=== PATIENT | female | born 1945 | race Caucasian/White ===

== ENCOUNTER 2024-05-09 19:33 | Outpatient (OUT) | payer OTHER, SELFPAY | END 2024-05-09 19:34 | disposition home or self-care (01) | LOC: SLEEP 19:33 | PROVIDERS: PCP Physician Assistant; Visit Provider Physician Assistant | DX: G47.33 Obstructive sleep apnea (adult) (pediatric) (principal) | CPT/HCPCS: 95811 ==

== ENCOUNTER 2025-04-04 08:45 | Outpatient (OUT) | payer MEDICARE, SELFPAY ==
--- OUTSIDE RECORDS SUMMARY | 2025-03-28 22:59 | XMS_ITS | Continuity of Care Document ---
Author Organization [facility] Address [address] [place] [address] Care Team Providers Care Hand Spinner Name Role Phone IRVINGALEXANDER PARRA Primary Care Physician [phone] Encounter FT_AMBFIN [id number] Date(s): 03/28/25 - 03/28/25 [facility] [address] [place] [address] [facility] [place] [address]- [place] Encounter Diagnosis Bilateral renal cysts(Discharge Diagnosis) - 03/28/25 Mixed incontinence(Discharge Diagnosis) - 03/28/25 History of UTI(Discharge Diagnosis) - 03/28/25 Vaginal atrophy(Discharge Diagnosis) - 03/28/25 Discharge Disposition: Home (Routine DC) Attending Physician: Flor Iraheta PA-C Encounter Type: Clinic Allergies, Adverse Reactions, Alerts SubstanceCriticalitySeverityReactionReaction SeverityStatusCiproLow criticality MildHivesActive Immunizations Given and Recorded VaccineDateStatusRefusal Reasoninfluenza virus vaccine, ojxiouuaila39/6/25 Recordedinfluenza virus vaccine, uhqwdlbybbw80/18/24Recordedinfluenza virus vaccine, wiicangwevv49/16/23Recordedinfluenza virus vaccine, inactivated02/24/22 Recordedinfluenza virus vaccine, pexgylhynep35/2/21Recordedinfluenza virus vaccine, bpuoyjzenzn39/6/20Recordedinfluenza virus vaccine, pvejavsqunl90/6/19 Recordedinfluenza virus vaccine, hxbhzrldgpr759Recordedinfluenza virus vaccine, ktdjdobiycp06/15/Recordedinfluenza virus vaccine, jwvxszimdex31/1/15 Recordeddiphtheria/pertussis, acel/tetanus adult11/05/24Recordedpneumococcal 23- valent /12/24Recordedpneumococcal 23-valent vaccine08/13/19RecordedRSV vaccine preF3, eyebuywhwqi55/16/83GgncvnthDBFE-HkC-0 (COVID-19) mRNAMUL.ORD![id number]/1885LuwwkqtkFWYOOoG8 mRNA(daoyhcthe-ptsb-jydaik) vac10/14/21 ZqfikojrPOUS-CeZ-0 (COVID-19) mRNA BNT-162b2 vax10//56RoodpxulTVLO-PwN-4 (COVID-19) mRNA BNT-162b2 vax3//56DhlqkqemXJIY-SjP-9 (COVID-19) mRNA BNT-162b2 vax2/Recordedzoster vaccine, inactivated10/07/18Recordedzoster vaccine, inactivated07/28/18Recordedpneumococcal 13-valent vaccine07/28/18Recorded 1Result Comment: 2023-05-06: [facility] Medications acyclovir 200 mg Cap 200 mg = 1 cap(s), Oral, BID, Refills(s) 0 Start Date: 09/01/23 Status: Ordered Medication Dispense Status: Completed Total Allowed Fills: 1 Fills Dispensed: 0 Melanie 24 Hour Allergy Refills(s) 0 Start Date: 09/01/23 Status: Ordered Medication Dispense Status: Completed Total Allowed Fills: 1 Fills Dispensed: 0 calcium (as carbonate) 600 mg oral tablet 600 mg = 1 tab(s), Oral, Daily Start Date: 10/17/24 Status: Ordered Medication Dispense Status: Completed Total Allowed Fills: 1 Fills Dispensed: 0 ClonazePAM 0.5 mg Tab Refills(s) 0 Start Date: 09/01/23 Status: Ordered Medication Dispense Status: Completed Total Allowed Fills: 1 Fills Dispensed: 0 Effexor XR 75 mg Cap-ER 75 mg = 1 cap(s), Oral, Daily Start Date: 10/17/24 Status: Ordered Medication Dispense Status: Completed Total Allowed Fills: 1 Fills Dispensed: 0 Estrace 0.1 mg/g Cream See Instructions, 42.5 gm, Refill(s) 2, Apply pea sized amount to external urethra/vaginal area 3x a week for 1 month, then 2x a week afterwards, [facility] [id number], 165, cm, 09/01/23 10:37:00 EDT, Height/Length Dosing, 70.5, kg, 09/01/23 10:37:00 EDT, Weight Dosing Start Date: 03/19/24 Status: Ordered Medication Dispense Status: Completed Quantity: 42.5 Unit: g Total Allowed Fills: 3 Fills Dispensed: 0 Lyrica 50 mg Cap 50 mg = 1 cap(s), Oral, Daily Start Date: 10/17/24 Status: Ordered Medication Dispense Status: Completed Total Allowed Fills: 1 Fills Dispensed: 0 Macrobid 100 mg Cap 100 mg = 1 cap(s), Oral, BID, Start medication the day prior to the procedure., X 3 day(s), # 6 cap(s), Refills(s) 0, Pharmacy: [facility] [id number], 165, cm, 03/28/25 14:27:00 EDT, Height/LengthDosing, 69.9, kg, 03/28/25 14:27:00 EDT, Weight Dosing Start Date: 03/28/25 Stop Date: 03/31/25 Status: Ordered Medication Dispense Status: Completed Quantity: 6.0 Unit: cap(s) Total Allowed Fills: 1 Fills Dispensed: 0 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 antibiotics; Protonix 40 mg Tab-DR 40 mg = 1 tab(s), Oral, Daily Start Date: 10/17/24 Status: Ordered Medication Dispense Status: Completed Total Allowed Fills: 1 Fills Dispensed: 0 simvastatin 10 mg Tab 10 mg = 1 tab(s), Oral, qPM Start Date: 10/17/24 Status: Ordered Medication Dispense Status: Completed Total Allowed Fills: 1 Fills Dispensed: 0 Problem List ConditionConfirmationCourseEffective DatesStatusHealth StatusInformantAllergic rhinitisConfirmedActiveAnxietyConfirmedActiveVaginal atrophyConfirmedActive Cervical spondylosisConfirmedActiveConstipation, chronicConfirmedActiveBilateral renal cystsConfirmedActiveGeneralized osteoarthritisConfirmedActiveDepression ConfirmedActiveFibromyalgiaConfirmedActiveGERD (gastroesophageal reflux disease) ConfirmedActiveGenital herpesConfirmedActiveHip pain, bilateralConfirmedActive History of UTIConfirmedActiveHyperlipemiaConfirmedActiveCognitive decline ConfirmedActiveMixed incontinenceConfirmedActiveInsomniaConfirmedActive CervicalgiaConfirmedActiveSleep apneaConfirmedActiveUTI symptomsConfirmedActive Procedures ProcedureDateRelated DiagnosisBody SiteStatusInjection of substance into bladder wall01/19/24CompletedArthroscopyCompletedCataractCompletedCholecystectomy CompletedColonoscopyCompletedDilation and curettageCompletedLigation of fallopian tube (procedure)CompletedTubal ligationCompleted Social History Social History TypeResponseSmoking StatusNever (less than 100 in lifetime);Never entered on: 03/28/25Birth SexFemaleSex RepresentationFemale (finding) Hospital Discharge Instructions Patient Education 03/28/2025 14:49:21 Botulinum Toxin Bladder Injection Botulinum Toxin Bladder Injection A botulinum toxin bladder injection is a procedure to treat an overactive bladder. During the procedure, a drug called botulinum toxin is injected into the bladder through a long, thin needle. This drug relaxes the bladder muscles and reduces overactivity. You may need this procedure if your medicines are not working or you cannot take them. The procedure may be repeated as needed. The treatment is done once and it usually lasts for 6 months. Your health care provider will monitor you to see how well you respond. Tell a health care provider about: ??? Any allergies you have. ??? All medicines you are taking, including vitamins, herbs, eye drops, creams, and tktk-afn-sxmabyf medicines. ??? Any problems you or family members have had with anesthetic medicines. ??? Any bleeding problems you have. ??? Any surgeries you have had. ??? Any medical conditions you have. ??? Any previous reactions to a botulinum toxin injection. ??? Any symptoms of urinary tract infection. These include chills, fever, a burning feeling when passing urine, and needing to pass urine often. ??? Whether you are or may be . What are the risks? Generally this is a safe procedure. However, problems may occur, including: ??? Not being able to pass urine. If this happens, you may need to have your bladder emptied with athin tube (urinary catheter). ??? Bleeding. ??? Urinary tract infection. ??? Allergic reaction to the botulinum toxin. ??? Pain or burning when passing urine. ??? Damage to nearby structures or organs. What happens before the procedure? When to stop eating and drinking Follow instructions from your health care provider about what you may eat and drink before your procedure. These may include: ??? 8 hours before the procedure ??? Stop eating most foods. Do not eat meat, fried foods, or fatty foods. ??? Eat only light foods, such as toast or crackers. ??? All liquids are okay except energy drinks and alcohol. ??? 6 hours before the procedure ??? Stop eating. ??? Drink only clear liquids, such as water, clear fruit juice, black coffee, plain tea, and sportsdrinks. ??? Do not drink energy drinks or alcohol. ??? 2 hours before the procedure ??? Stop drinking all liquids. ??? You may be allowed to take medicines with small sips of water. If you do not follow your health care provider's instructions, your procedure may be delayed or canceled. Medicines Ask your health care provider about: ??? Changing or stopping your regular medicines. This is especially important if you are taking diabetes medicines or blood thinners. ??? Taking medicines such as aspirin and ibuprofen. These medicines can thin your blood. Do not take these medicines unless your health care provider tells you to take them. ??? Taking znsu-iao-fljiods medicines, vitamins, herbs, and supplements. General instructions ??? Ask your health care provider what steps will be taken to help prevent infection. These steps may include: ??? Removing hair at the procedure site. ??? Washing skin with a germ-killing soap. ??? Taking antibiotic medicine. ??? If you will be going home right after the procedure, plan to have a responsible adult: ??? Take you home from the hospital or clinic. You will not be allowed to drive. ??? Care for you for the time you are told. What happens during the procedure? You will be asked to empty your bladder. ??? An IV will be inserted into one of your veins. ??? You will be given one or more of the following: ??? A medicine to help you relax (sedative). ??? A medicine to numb the area (local anesthetic). ??? A medicine to make you fall asleep (general anesthetic). ??? A long, thin scope called a cystoscope will be passed into your bladder through the part of thebody that carries urine from your bladder (urethra). ??? The cystoscope will be used to fill your bladder with water. ??? A long needle will be passed through the cystoscope and into the bladder. ??? The botulinum toxin will be injected into your bladder. It may be injected into multiple areas of your bladder. ??? The cystoscope will be removed and your bladder will be emptied with a urinary catheter. The procedure may vary among health care providers and hospitals. What can I expect after the procedure? After your procedure, it is common to have: ??? Blood-tinged urine. ??? Burning or soreness when you pass urine. Follow these instructions at home: Medicines ??? Take cgej-fwa-qpevwvg and prescription medicines only as told by your health care provider. ??? If you were prescribed an antibiotic medicine, take it as told by your health care provider. Donot stop using the antibiotic even if you start to feel better. General instructions ??? If you were given a sedative during the procedure, it can affect you for several hours. Do not drive or operate machinery until your health care provider says that it is safe. ??? Drink enough fluid to keep your urine pale yellow. ??? Return to your normal activities as told by your health care provider. Ask your health care provider what activities are safe for you. ??? Keep all follow-up visits. Contact a health care provider if you have: ??? A fever or chills. ??? Blood-tinged urine for more than one day after your procedure. ??? Worsening pain or burning when you pass urine. ??? Pain or burning when passing urine for more than two days after your procedure. ??? Trouble emptying your bladder. Get help right away if you: ??? Have bright red blood in your urine. ??? Are unable to pass urine. Summary ??? A botulinum toxin bladder injection is a procedure to treat an overactive bladder. ??? This is generally a safe procedure. However, problems may occur, including not being able to pass urine, bleeding, infection, pain, and an allergic reaction to the botulinum toxin. ??? You will be told when to stop eating and drinking, and what medicines to change or stop. Followinstructions carefully. ??? After the procedure, it is common to have blood in your urine and to have soreness or burning when passing urine. ??? Contact a health care provider if you have a fever, blood in your urine for more than a few days, or trouble passing urine. Get help right away if you have bright red blood in your urine, or if you are unable to pass urine. This information is not intended to replace advice given to you by your health care provider. Make sure you discuss any questions you have with your health care provider. Document Revised: 11/20/2021 Document Reviewed: 11/20/2021 [employer] Patient Education ?? 2023 [employer]. Follow Up Care 03/11/2025 13:53:15 With:Liu UNGER, ANISHA Holloway, [facility] Address: [address] [place] [address]- When: Unknown Comments:Pending Botox?? Patient Care team information Care Team Personnel Name: ALEXANDER MUNOZ Member Role: Primary Care Physician Address: [address] [place] [id number] Telecom: Name: Shruthi Saldana Position: [employer]: Claims Followup Rep (Janny) Member Role: [employer]: Claims Followup Rep (Janny) Care Team Related Persons Name: GRANT HARRELL Name: GRANT HARRELL Insurance Providers Guarantor name: Health Plan Information #: 1 Payer: MARY Payer Identifier: [id number] Member Number: [id number] Group Number: [id number] Subscriber Identifier: [id number] Relationship to Subscriber: self Coverage Type: MEDICARE Coverage Verification Date: Telecom: [phone] Address: [address] [address]
--- OUTSIDE RECORDS SUMMARY | 2025-04-04 08:53 | XMS_ITS | Clinical Summary ---
Author Organization [facility] Address [address] [place] [address] Care Team Providers Care Solid Waste Management Engineer Name Role Phone Yadiel Dick Janusz Primary Care Provider [phone] Prema Dudley PLATING EQUIPMENT TENDER Unavailable [phone] Allergies Active AllergyReactionsCriticalityNoted CczlWwwaockpTxnvzygqivvwfMohxt48/23/2019 Medications MedicationSigDispense QuantityRefillsLast FilledStart DateEnd DateStatus simvastatin (ZOCOR) 10 mg tablet Take 10 mg by mouth daily at bedtime. 08/31/2018Active zolpidem (AMBIEN) 10 mg tab Take 10 mg by mouth daily at bedtime. 10/10/2018Active ALPRAZolam (XANAX) 0.5 mg tablet Take 0.5 mg by mouth at bedtime as needed. 08/01/2018Active acyclovir (ZOVIRAX) 200 mg capsule Take 200 mg by mouth twice daily. 09/24/2018Active citalopram (CELEXA) 40 mg tablet Take 40 mg by mouth once daily.Active omeprazole (PRILOSEC) 20 mg capsule Take 1 capsule by mouth daily at bedtime.10/25/2018Active Active Problems ProblemNoted DateDiagnosed DatePrimary osteoarthritis of both first carpometacarpal oqilld7612/26/2018Osteoarthritis of carpometacarpal joint of left thumb11/14/2018Thumb pain, left11/14/2018Thumb joint xnipfmhde72/18/2019HLD (hyperlipidemia)10/25/2018 Assessment & Plan (10/25/2018 9:17 AM EDT): Assessment: on Zocor Lxcnevi0410/25/2018 Assessment & Plan (10/25/2018 9:17 AM EDT): Assessment: and depression. On Celexa. Takes Xanax prn for anxiety. Denies SI/HI AYDEE (obstructive sleep apnea)10/25/2018 Overview (10/25/2018): doesn't tolerate CPAP Assessment & Plan (10/25/2018 9:17 AM EDT): Assessment: does not use CPAP Oljbrp5310/25/2018 Assessment & Plan (10/25/2018 9:18 AM EDT): Assessment: mild Fzqcpmmpvxf97/29/2019 Assessment & Plan (10/25/2018 9:18 AM EDT): Assessment: chronic, asymptomatic GERD (gastroesophageal reflux disease)10/25/2018 Assessment & Plan (10/25/2018 9:18 AM EDT): Assessment: takes Omeprazole at hs Encounters DateTypeDepartmentCare DjobWqwkrxjjfox19/13/2025 [facility] [place] [address] Isabel Sanderson RPh At your next appointment, [facility] Family History Medical HistoryRelationCommentsCancerFatherlungAneurysmMothercerebralRelation StatusCommentsFatherMotherDeceased Social History Tobacco UseTypesPacks/DayYears UsedDateSmoking Tobacco: NeverSmokeless Tobacco: NeverAlcohol UseStandard Drinks/WeekCommentsYes0 (1 standard drink = 0.6 oz pure alcohol)1 glass per [facility] UtilitiesAnswerDate RecordedIn the past 12 months has the [employer], gas, oil, or water Family Pet threatened to shut off services in your home?No08/23/2023Social Connection and Isolation PanelAnswerDate RecordedIn a typical week, how many times do you talk on the phone with family, friends, or neighbors?More than three times a week08/23/2023How often do you get together with friends or relatives?Three times a week08/23/2023How often do you attend roman catholic or jehovah's witness services?Never08/23/2023o you belong to any clubs or organizations such as roman catholic groups, unions, fraternal or athletic groups, or school groups?No08/23/2023How often do you attend meetings of the clubs or organizations you belong to?Never08/23/2023re you , , , , never , or living with a partner?Nemxqurj92/26/2024UDIT-C AnswerDate RecordedQ1: How often do you have a drink containing alcohol?Never 08/23/2023Q2: How many drinks containing alcohol do you have on a typical day when you are drinking?Patient does not drink08/23/2023Q3: How often do you have six or more drinks on one occasion?Never08/23/2023Overall Financial Resource Strain (CARDIA)AnswerDate RecordedHow hard is it for you to pay for the very basics like food, housing, medical care, and heating?Not very hard08/23/2023 PHQ-2AnswerDate RecordedPHQ-2 zntse53608/23/2023[facility] Occup[facility] - Occupational Stress QuestionnaireAnswerDate RecordedDo you feel stress - tense, restless, nervous, or anxious, or unable to sleep at night because your mind is troubled all the time - these days?Only a psjkbb6608/23/2023Exercise Vital SignAnswerDate RecordedOn average, how many days per week do you engage in moderate to strenuous exercise (like a brisk walk)?0 days08/23/2023On average, how many minutes do you engage in exercise at this level?0 min08/23/2023Hunger Vital SignAnswerDate RecordedWithin the past 12 months, you worried that your food would run out before you got the money to buymore.Never true08/23/2023 Within the past 12 months, the food you bought just didn't last and you didn't have money to get more.Never true08/23/2023RAPARE - TransportationAnswerDate RecordedIn the past 12 months, has lack of transportation kept you from medical appointments or from getting medications?No08/23/2023In the past 12 months, has lack of transportation kept you from meetings, work, or from getting things needed for daily living?No08/23/2023Housing Stability Vital SignAnswerDate RecordedIn the last 12 months, was there a time when you were not able to pay the mortgage or rent on time?Yes08/23/2023In the last 12 months, how many places have you lived?In the last 12 months, was there a time when you did not have a steady place to sleep or slept in ashelter (including now)?No 08/23/2023rea Deprivation IndexAnswerDate RecordedNational Score (1-100), lower number is lower ggdv699408/23/2023State Score (1-10), lower number is lower risk7 08/23/2023ata from: https://www.neighborhoodatlas.medicine.[facility].edu/. Last address used for srjuagkvvdp[address] [facility]08/23/2023CommentsNoSex and Gender InformationValueDate RecordedSex Assigned at UsqjcEkteli59/15/2024 8:02 AM EDTLegal LsxBhqgjw85/28/2019 4:49 PM EDTGender GudomnhkPfkqes10/15/2024 8:02 AM EDTSexual RwdrolmbawaFuzptmxf36/15/2024 8:02 AM EDT Last Filed Vital Signs Vital SignReadingTime TakenCommentsBlood Fhiwlvbj288/6906 1:15 PM EDT Mwdbh0189 1:15 PM BLCYsesltjmorv71.7 ??C (98 ??F)11/06/2018 12:25 PM EDT Respiratory Zser1862 1:15 PM EDTOxygen Rpuhlxvotf79%11/06/2018 1:[address] Ramirez here to see pt, ok for dcInhaled Oxygen Concentration--Oikqvz90.2 kg (148 lb 2 oz)11/06/2018 7:47 AM FSZGcwmor585.1 cm (5' 5 )10/25/2018 8:28 AM EDTBody Mass Index24.65010/25/2018 8:28 AM EDT Plan of Treatment DateTypeDepartmentCare Team (Latest Contact Info)Xsyznorbzgj11/24/2025 10:00 AM ESTOffice Visit [facility] [address] [place] [address] Sathish Mosley MD [address] [place], [place] [id number] essential tremor, mild jerkingHealth MaintenanceDue DateLast DoneComments Depression Gufqgosnn31/11/1964Bone Density Iowihdrnz08/11/2011DTaP,Tdap,Td Vaccine (2 - Td or Tdap)dvance Directive Discussion 05/30/2024Medicare Advantage Annual Wellness Visit05/30/2024ovid-19 Vaccine ( season), 03/01/2022, 10/14/2021, Additional history existsInfluenza Vaccine (#1), 02/24/2022, 03/31/2021, Additional history existsDiabetes Nocmyuzac44/03/2024, 10/25/2018Shingrix KjecdxtWbsvejwfc50/11/2019, 07/28/2018Pneumococcal Vaccine: 50+Hgepqklsy76/16/2020, 07/28/2018RSV VdohwrbLfiekfezr70/16/2023 Medical Devices ImplantedTypeAreaManufacturerDevice IdentifierShelf Expiration DateModel / Serial / LotPlate Round Titanium Bone Fusion Nonsterile First Metacarpophalangeal Left - [id number] [facility] - Thumb ACCUMEDPL-MCPL / / Description:MCP FUSION PLATEScrew 2.7mm Titanium 14mm Bone Cruciform Modular Hand System Nonsterile - [id number] Implanted:Qty: 1 [facility] Bone - Thumb ACCUMEDCO-F2714 / / Description:CRUCIFORM SCREWScrew 2.7mm Titanium 12mm Bone Cruciform Modular Hand System Nonsterile - [id number] Implanted:Qty: 1 on 11[facility]06/2018 [facility] [place]: Bone - Thumb ACCUMEDCO-F2712 / / Description:CRUCIFORM SCREWScrew 2.7mm Titanium 12mm Bone Cruciform Modular Hand System Nonsterile - [id number] Implanted:Qty: 1 on 11[facility]06/2018 [facility] [place]w[place]: Bone - Thumb ACCUMEDCO-F2712 / / Description:CRUCIFORM SCREWScrew 2.7mm Titanium 8mm Bone Cruciform Modular Hand System Nonsterile - [id number] [facility] [facility] - Thumb ACCUMEDCO-F2708 / / Description:CRUCIFORM SCREWScrew 2.7mm Titanium 10mm Bone Cruciform Modular Hand System Nonsterile - [id number] Implanted:Qty: [facility] [facility] - Thumb ACCUMEDCO-F2710 / / Description:CRUCIFORM SCREW Procedures Procedure NamePriorityDate/TimeAssociated DiagnosisCommentsCOMPREHENSIVE METABOLIC MSBSPOdtqggs80/11/2024 1:26 PM EDT Forgetfulness from Last 3 Months or Most Recently Relevant to Health Maintenance Results * (ABNORMAL) COMP METABOLIC PANEL (09/08/2023 1:26 PM EDT)ComponentValueRef RangeTest MethodAnalysis TimePerformed AtPathologist SignatureProtein, Total 7.06.3 - 8.0 g/dL09/08/2023 2:14 PM [facility]TNORTHCO[facility] Albumin4.23.9 - 4.9 g/dL09/08/2023 2:14 PM EDTNORTHCOAST [facility] LABCalcium, Total10.18.5 - 10.2 mg/dL09/08/2023 2:14 PM EDTNORTHCOAST [facility] LABBilirubin, Total0.50.2 - 1.3 mg/dL09/08/2023 2:14 PM EDTNORTMCLAREN [facility] LABAlkaline Jvuqgepjzbl6481 - 123 U/L 09/08/2023 2:14 PM [facility]TNORTHCM[facility] CAPKRJ4515 - 35 U/L 09/08/2023 2:14 PM [facility] WBFICR123 - 38 U/L 09/08/2023 2:14 PM [facility] LTNJvcbzol4013 - 99 mg/dL09/08/2023 2:14 PM [facility] LABComment: The [place] Diabetes Association (ADA) provides guidance for cutoff values for fasting glucose andrandom glucose. The ADA defines fasting as no caloric intake for at least 8 hours. Fasting plasma glucose results between 100 to 125 mg/dL indicate increased risk for diabetes (prediabetes). Fasting plasma glucose results greater than or equal to 126 mg/dL meet the criteria for diagnosis of diabetes. In the absence of unequivocal hyperglycemia, results should be confirmed by repeat testing. In a patient with classic symptoms of hyperglycemia or hyperglycemic crisis, random plasma glucose results greater than or equal to 200 mg/dL meet the criteria for diagnosis of diabetes. Reference: Standards of Medical Care in Diabetes 2016, [place] Diabetes Association. Diabetes Care. 2016.39(Suppl 1). MWA699 - 21 mg/dL09/08/2023 2:14 PM [facility] Creatinine1.13(H)0.58 - 0.96 mg/dL09/08/2023 2:14 [facility] NWXLltaur408727 - 144 mmol/L09/08/2023 2:14 PM [facility] LABPotassium4.63.7 - 5.1 mmol/L09/08/2023 2:14 PM EDT [facility] EKKNcmmgiuy10247 - 105 mmol/L09/08/2023 2:14 [facility] FLARO88949 - 30 mmol/L09/08/2023 2:14 PM [facility] LABAnion Gjk334 - 18 mmol/L09/08/2023 2:14 PM [facility] LABEstimated Glomerular Filtration Rate 50(L)>=60 mL/min/1.73m 09/08/2023 2:14 PM EDTNORTHCOAST [facility] LABComment:Estimated Glomerular Filtration Rate (eGFR) is calculated using the 2020 CKD-EPI creatinine equation. This equation utilizes serum creatinine, sex, and age as parameters. The creatinine assay has traceable calibration to isotope dilution- mass spectrometry. Refer to KDIGO guidelines for clinical interpretation. In patients with unstable renal function, e.g. those with acute kidney injury, the eGFRmay not accurately reflect actual GFR.Specimen (Source)Anatomical Location / LateralityCollection Method / VolumeCollection TimeReceived TimeBloodBLOOD SPECIMEN / UnknownVenipuncture / Rjwbmbv7709/08/2023 1:26 PM EDT09/08/2023 1:26 PM EDT Narrative Authorizing ProviderResult TypeResult StatusGauranmarisol Horne MDLABORATORYFinal ResultPerforming OrganizationAddressCity/State/ZIP CodePhone Number [facility] [address] [place] [address] from Last 3 Months or Most Recently Relevant to Health Maintenance Insurance * Guarantor: Jazzmine WatsonAccoshefali TypeRelation to PatientDate of BirthPhone Billing AddressPersonal/FoitxpXsuw1945 [address] [place] [address] Care Teams Team MemberRelationshipSpecialtyStart DateEnd Dick Cotto [address] [place] [phone] PCP - GeneralFamily Medicine10/25/18 Prema Dudley PLATING EQUIPMENT TENDER [address] [place] [address] ReferringFamily Medicine06/23/21
--- OUTSIDE RECORDS SUMMARY | 2025-04-04 08:53 | XMS_ITS | Clinical Summary ---
Author Organization [facility] Address [address] [place] [address] Care Team Providers Care Milk Drier Name Role Phone Prema Dudley MD Primary Care Provider [phone] Dick Leiva MD Unavailable [phone] Allergies Active AllergyReactionsCriticalityNoted DateCommentsCiprofloxacinUnknown,Hives 10/19/2018 Medications MedicationSigDispense QuantityRefillsLast FilledStart DateEnd DateStatus Acetaminophen (TYLENOL PO) Active Cannabinoids (medical cannabis) Active sucralfate (Carafate) 1 g tablet 1 g008/19/2021ctive acyclovir (Zovirax) 200 MG capsule 09/24/2018Active KlonoPIN 0.5 MG tablet 0.5 mg10/12/2022ctive Estrace 0.1 MG/GM vaginal cream 03/19/2024ctive fexofenadine (Melanie Allergy) 180 MG tablet 05/11/2023ctive Magnesium 125 MG capsule 02/20/2024ctive Omeprazole 20 MG Tablet Delayed Release Dispersible 02/20/2024ctive Zinc Sulfate (ZINC 15 PO) 02/20/2024ctive Effexor XR 75 MG 24 hr capsule 75 mg05/10/2024ctive Calcium Carbonate-Vit D-Min (CALTRATE PLUS PO) Take by mouthActive pregabalin (Lyrica) 50 MG capsule Take 50 mg by mouth in the morning and 50 mg before bedtime.Active Protonix 40 MG EC tablet 40 mg5Active simvastatin (Zocor) 10 MG tablet 10 mg5Active Active Problems ProblemNoted DateDiagnosed DateParesthesia of both feet02/10/2024olyneuropathy, ujfmsyklyvm34/13/2024 Family History Medical HistoryRelationNameCommentsAlzheimer's diseaseBrotherAlcohol abuseFather Christian LaubnerCancerFatherCurtis LaubnerHeart diseaseFatherCurtis LaubnerStroke MotherMelanomaNeg HxRelationNameStatusCommentsBrotherFatherCurtis LaubnerMother Social History Tobacco UseTypesPacks/DayYears UsedDateSmoking Tobacco: NeverSmokeless Tobacco: Never Tobacco Cessation:Counseling Given: Not Answered Alcohol UseStandard Drinks/WeekCommentsYes0 (1 standard drink = 0.6 oz pure alcohol)Very occasionally ie holidaysCommentsUnknownSex and Gender InformationValueDate RecordedSex Assigned at AylqkYsindn04/23/2023 7:27 AM EDT Legal FwtCtjxpw75/15/2023 7:25 PM EDTGender LnssainmEzjlnf05/23/2023 7:27 AM EDT Sexual MlobugjoubeNswvjohm05/23/2023 7:27 AM EDT Last Filed Vital Signs Vital SignReadingTime TakenCommentsBlood Gbckwprp394/72010/11/2024 9:22 AM EDT Tmkqx651104/23/2024 1:02 PM ESTTemperature--Respiratory Lbzs313706/14/2024 2:09 PM ESTOxygen Joacqghgai41%04/23/2024 1:02 PM ESTInhaled Oxygen Concentration-- Uqusve39.3 kg (155 lb)10/11/2024 9:22 AM SCVWtcbug819 cm (5' 3 )10/11/2024 9:22 AM EDTBody Mass Index27.46010/11/2024 9:22 AM EDT Plan of Treatment DateTypeDepartmentCare Team (Latest Contact Info)Yvgozazlgyy12/04/2026 1:00 PM EDTOffice Visit [facility] [address] [place] [address] Jennifer Calderon PA [address] [place] [address] Health MaintenanceDue DateLast DoneCommentsCOVID-19 Vaccine ( season) 505/, 03/17/2021, 08/16/2020, Additional history existsInfluenza Vaccine (#1)511/, 03/14/2023, 02/24/2022, Additional history existsPneumococcal Vaccine: 65+ WxddcOqdsoicil74/12/2024, 08/13/2019, 07/28/2018 Insurance * Guarantor: Jazzmine Watson TypeRelation to PatientDate of BirthPhone Billing AddressPersonal/ZaqnqlIcdv1945 [address] [place] [address] Care Teams Team MemberRelationshipSpecialtyStart DateEnd Date Prema Dudley MD [address] [place] [address] PCP - General10/19/22 Dick Leiva MD [address] [place] [address] Referring PhysicianNeurology2
--- OUTSIDE RECORDS SUMMARY | 2025-04-04 08:58 | XMS_ITS | CCD ---
Author Organization [facility] Care Team Providers Care Plating Stripper Name Role Phone Michelle Cotto Primary Care Provider [phone] Prema Clement CNP Unavailable Olga Milton Primary Care Physician Michelle Cotto Primary Care Provider Prema Clement CNP Unavailable [phone] EBEN REEDER Referring Unavailable MICHELLE COTTO Primary Care Unavailhelio e EBEN REEDER Attending Unavailable MICHELLE COTTO Primary Care Unavailhelio e PREMA MUNOZ Primary Care Physician Prema Clement MD Primary Care Provider Michelle Leiva MD Unavailable Octavia CARLOS-Prema Serna Primary Care Provider Guillermo Connors MD Attending Provider Michelle Leiva MD Unavailable Unavailable ERICA JAMA Attending Unavailable JYOTI URIBE Attending Unavailable JOJO, JYOTI Kirk Referring Unavailable LOWEERICA Attending Unavailable HILLS, JYOTI D Referring Unavailable BENTLEY CARMONA Attending Unavailable ELAINE SHANNON Referring Unavailable HILLSHANNON Referring Unavailable SHANNON BOWMAN Attending Unavailable PREMA CLEMENT Referring Unavailable HILLS, JYOTI Kirk Referring Unavailable HILLS, JYOTI D Referring Unavailable CHINTAN CALDERON Attending Unavailable LOWERICA Trammell Attending Unavailable LOWEERICA Attending Unavailable JOJO, JYOTI D Attending Unavailable HILLS, JYOTI D Referring Unavailable HILLS, JYOTI D Attending Unavailable HILLS, JYOTI D Referring Unavailable LOWE ERICA Referring Unavailable MICHELLE LEIVA Attending Unavailable GONYA, PREMA M Referring Unavailable LOWE, ERICA Referring Unavailable BENTLEY CARMONA Attending Unavailable Lue, Thelma M. Attending Unavailable Lue, Thelma M. Referring Unavailable Lue, Thelma M. Attending Unavailable CHRIS, ERIKA E Attending Unavailable GONIA, PREMA Primary Care Unavailable CHRIS, ERIKA E Attending Unavailable GONIA, PREMA Primary Care Unavailable CHRIS, ERIKA E Referring Unavailable CHRIS, ERIKA E Attending Unavailable GONIA, PREMA Primary Care Unavailable CHRIS, ERIKA E Attending Unavailable Lue, Thelma M. Attending Unavailable Lue, Thelma M. Admitting Unavailable Lue, Thelma M. Referring Unavailable GONIA, PREMA Primary Care Unavailable Lue, Thelma M. Attending Unavailable CHRIS, ERIKA E Admitting Unavailable CHRIS, ERIKA E Attending Unavailable GONIA, PREMA Primary Care Unavailable Salazar Beckford MD Attending Provider [phone] Vania Burton APRN Emergency Provider [phone] Cece Peña MD Attending Provider [phone]ya PLANE TENDER-C, Prema Primary Care Provider [phone] Vania Burton Attending Unavailable Gonya, Prema Primary Care Unavailable Vania Burton Admitting Unavailable Gonya, Prema Primary Care Unavailable Guillermo Connors Admitting Unavailable Guillermo Connors Attending Unavailable Gonya, Prema Primary Care Unavailable Aretha Beckfordelrahman Admitting Unavailab le Salazar Beckford Attending Unavailab le Gonya PLANE TENDER-C, Prema Primary Care Provider Cece Peña MD Attending Provider Reginald Armstrong MD Attending Provider Flor Iraheta Attending Unavailable GONIA, PREMA Primary Care Unavailable Flor Iraheta Admitting Unavailable Flor Iraheta Attending Unavailable GONIA, PREMA Primary Care Unavailable Gonya, Prema Primary Care Unavailable Lowe, Erica Attending Unavailable Lowe, Erica Admitting Unavailable JeanieArethaul Attending Unavailable Jeanie, Autumn Admitting Unavailable Gonya, Prema Primary Care Unavailable Gonya, Prema Primary Care Unavailable Gonya, Prema Attending Unavailable Gonya, Prema Admitting Unavailable Gonya, Prema Attending Unavailable Gonya, Prema Primary Care Unavailable Gonya, Prema Primary Care Unavailable Liu UNGER, Thelma M Admitting Unavailable Liu UNGER, Thelma Beard Attending Unavailable KINDL CECE F Attending Unavailable KINDL, CECE F Admitting Unavailable Gonya, Prema Primary Care Unavailable Gonya, Prema Primary Care Unavailable Dallas, Shruthi M Attending Unavailable Dallas, Shruthi M Admitting Unavailable Gonya, Prema Admitting Unavailable Gonya, Prema Attending Unavailable Gonya, Prema Primary Care Unavailable Gonya, Prema Attending Unavailable Gonya, Prema Primary Care Unavailable Gonya, Prema Primary Care Unavailable Dallas, Shruthi M Attending Unavailable Dallas, Shruthi M Admitting Unavailable Gonya, Prema Primary Care Unavailable Dallas, Shruthi M Attending Unavailable Dallas, Shruthi M Admitting Unavailable Gonya, Prema Primary Care Unavailable [place], Shruthi M Admitting Unavailable [place], Shruthi M Attending Unavailable KINDL, CECE F Attending Unavailable KINDL, CECE F Admitting Unavailable Gonya, Prema Primary Care Unavailable Guillermo Connors Attending Unavailable Guillermo Connors Admitting Unavailable Ramo Levine Consulting Unavailable Gonya, Prema Primary Care Unavailable Jyoti Uribe Attending Unavailable Jyoti Uribe Admitting Unavailable Gonya, Prema Primary Care Unavailable Gonya, Prema Consulting Unavailable Gonya, Prema Primary Care Unavailable Dallas, Shruthi M Attending Unavailable Dallas, Shruthi M Admitting Unavailable Gonya, Prema Primary Care Unavailable Gonya, Prema Attending Unavailable Gonya, Prema Primary Care Unavailable Gonya, Prema Attending Unavailable Gonya, Prema Primary Care Unavailable Gonya, Prema Attending Unavailable Gonya, Prema Primary Care Unavailable Gonya, Prema Attending Unavailable Gonya, Prema Admitting Unavailable Gonya, Prema Attending Unavailable Gonya, Prema Primary Care Unavailable Guillermo Connors Attending Unavailable Gonya, Prema Primary Care Unavailable Gonya, Prema Attending Unavailable Gonya, Prema Primary Care Unavailable Gonya, Prema Primary Care Unavailable [place], Shruthi M Attending Unavailable Dallas, Shruthi M Admitting Unavailable Gonya, Prema Primary Care Unavailable Gonya, Prema Attending Unavailable Gonya, Prema Attending Unavailable Gonya, Prema Primary Care Unavailable Gonya, Prema Attending Unavailable Gonya, Prema Primary Care Unavailable Gonya, Prema Primary Care Unavailable Gonya, Prema Attending Unavailable Gonya, Prema Primary Care Unavailable Gonya, Prema Attending Unavailable Jeanie, Autumn Attending Unavailable Jeanie, Autumn Admitting Unavailable Gonya, Prema Primary Care Unavailable Thelma Hatfield Attending Unavailable GONIA, PREMA Primary Care Unavailable [place] SYSTEM SUPPORT TECHNICIAN-FORDER OPERATOR, Shruthi Garcia Attending Callie Guiterrez MD, Cece Gonzalez Attending Marie jacobs [place] EBER, Shruthi Garcia Attending U nitin VELÁZQUEZ, Shruthi Garcia Attending U nitin Gutierrez MD, Cece Gonzalez Attending Marie labkyle Allergies Allergy ClassificationReported Allergen(s)Allergy TypeDate of OnsetReaction(s) Facility (20 sources)Ciprofloxacin; Translations: [ciprofloxacin]Drug Pxhujbc20-66-3421 Hives, Weal (disorder), [facility] ([facility])Ciprofloxacin; Translations: [Cipro][facility] ([facility] source)CiprofloxacinDrug Qfpykav30-57-8089HzxankjgoGood [facility]ar[facility] Medications Current Medications MedicationDrug Class(es)DatesSig (Normalized)Sig (Original)Acetaminophen (20 sources)Acetaminophen (TYLENOL PO) ActiveAcetaminophen (TYLENOL PO) Tylenol Activeacyclovir 200 mg oral capsule (20 sources)Herpesvirus Nucleoside Analog DNA Polymerase Inhibitor, Herpes Simplex Virus Nucleoside Analog DNA Polymerase Inhibitor, Herpes Zoster Virus Nucleoside Analog DNA Polymerase InhibitorStart: 62-66-6003flkt 1 capsule by mouth twice dailyacyclovir 200 mg Cap 200 mg = 1 cap(s), Oral, BID, Refills(s) 0 Start Date: 09/01/23 Status: Ordered Medication Dispense Status: Completed Total Allowed Fills: 1 Fills Dispensed: 0Comment on above:Take 200 mg by mouth twice daily. Melanie 24 Hour Allergy (10 sources)Start: 39-22-4952Cdnnqma 24 Hour Allergy Refills(s) 0 Start Date: 09/01/23 Status: Ordered Medication Dispense Status:Completed Total Allowed Fills: 1 Fills Dispensed: 0Start: 06-82-0844Tlquaid 24 Hour Allergy Refills(s) 0 Start Date: 09/01/23 Status: Ordered Repeat number: 1Start: 18-24-9560Aiekeue 24 Hour Allergy Refills(s) 0 Start Date: 09/01/23 Status: Orderedcalcium carbonate 1500 mg oral tablet (10 sources)Start: 98-02-7791vesc 1 tablet by mouth once dailycalcium (as carbonate) 600 mg oral tablet 600 mg = 1 tab(s), Oral, Daily Start Date: 10/17/24 Status: Ordered Medication Dispense Status: Completed Total Allowed Fills: 1 Fills Dispensed: 0Start: 02-47-2614lxgk 1 tablet by mouth twice dailyCalcium Carbonate (Calcium 600) 600 mg calcium (1,500 mg) tablet Active 600 MG PO Twice daily July 02, 2024 1:00am Complies with drug therapyCalcium Carbonate-Vit D-Min (CALTRATE PLUS PO) (20 sources)Calcium Carbonate-Vit D-Min (CALTRATE PLUS PO) Take by mouth Active Cannabinoids (medical cannabis) (20 sources)Cannabinoids (medical cannabis) ActiveCannabinoids (medical cannabis) Medical Marijuana Activecholecalciferol 0.025 mg oral capsule (8 sources)Vitamin DStart: 67-40-0005jkbg 1 capsule by mouth once daily Cholecalciferol (Vitamin D3) 25 mcg (1,000 unit) capsule Active 25 MCG PO Daily July 02, 2024 1:00am Complies with drug therapyclonazePAM 0.5 mg oral tablet (20 sources)BenzodiazepineStart: 06-51-3676JirfevgHPW 0.5 mg Tab Refills(s) 0 Start Date: 09/01/23 Status: Ordered Medication Dispense Status: Completed Total Allowed Fills: 1 Fills Dispensed: 0donepezil hydrochloride 5 mg oral tablet (1 source)Start: 36-31-7604rlzd 1 mg by mouth once dailyDonepezil 5 mg tablet Active MG PO Daily December 27, 2024 12:00am Complies with drug therapyestradiol 0.1 mg/ml vaginal cream (20 sources)EstrogenStart: 01-63-2632Mcnkfio 0.1 MG/GM vaginal cream 03/19/2024 ActiveStart: 28-05-2898Nwzxwbm 0.1 MG/GM vaginal cream See Instructions, 42.5 gm, Refill(s) 2, Apply pea sized amount to external urethra/vaginal area 3x a week for 1 month, then 2x a week afterwards, [facility] [id number], 165, cm, 09/01/23 10:37:00 EDT, Height/Length Dosing, 70.5, kg, 09/01/23 10:37:00 EDT, Weight Dosing 03/19/2024 ActiveStart: 11-93-1459Oilavwd 0.1 mg/g Cream See Instructions, 42.5 gm, Refill(s) 2, Apply pea sized amount to external ur ethra/vaginal area 3x a week for 1 month, then 2x a week afterwards, [facility] [id number], 165,cm, 09/01/23 10:37:00 EDT, Height/Length Dosing, 70.5, kg, 09/01/23 10:37:00 EDT, Weight Dosing Start Date: 03/19/24 Status: Ordered Medication Dispense Status: Completed Quantity: 42.5 Unit: g TotalAllowed Fills: 3 Fills Dispensed: 0fexofenadine hydrochloride 180 mg oral tablet (20 sources)Histamine-1 Receptor AntagonistStart: 27-89-2242kqeornscuhrc (Melanie Allergy) 180 MG tablet 05/11/2023 ActiveMagnesium (20 sources)Start: 45-95-0723Dnahbxqcs 125 MG capsule 02/20/2024 Oeuqgg96 hr mirabegron 50 mg extended release oral tablet (3 sources)beta3-Adrenergic AgonistStart: 10-01-2023 End: 99-10-4710Qmgsksfmf 50 mg oral tablet, extended release 50 mg = 1 tab(s), Oral, Daily, do not fill until September 2023, X 30 day(s), # 30 tab(s), Refills(s) 2, Pharmacy: [facility] [id number], 165, cm, 09/01/23 10:37:00 EDT, Height/Length Dosing, 70.5, kg, 09/01/23 10:37:00 EDT, Weight Dosing Start Date: 10/01/23 Stop Date: 12/30/23 Status: OrderedStart: 09-01-2023 End: 66-57-8168tlux 1 tablet by mouth once dailyMyrbetriq 25 mg oral tablet, extended release 25 mg = 1 tab(s), Oral, Daily, ., X 30 day(s), # 30 tab(s), Refills(s) 0, Pharmacy: [facility] [id number], 165, cm, 09/01/23 10:37:00 EDT, Height/Length Dosing, 70.5, kg, 09/01/23 10:37:00 EDT, Weight Dosing Start Date: 09/01/23 Stop Date: 10/01/23 Status: OrderedMultivitamin (Daily Multi-Vitamin) tablet (8 sources)Start: 42-53-9467tnhj 1 tablet by mouth once dailyStart: 08-22-2024 take 1 tablet by mouth once dailyMultivitamin (Daily Multi-Vitamin) tablet Active 1 TAB PO Daily August 22, 2024 12:00am Complies with drug therapyStart: 07-49-5996rmfv 1 tablet by mouth once dailyMultivitamin (Daily Multi-Vitamin) tablet Active 1 TAB PO Daily August 22, 2024 12:00amnitrofurantoin, macrocrystals 25 mg / nitrofurantoin, monohydrate 75 mg oral capsule (1 source)Nitrofuran AntibacterialStart: 03-28-2025 End: 40-38-9040rfkq 1 capsule by mouth twice dailyMacrobid 100 mg Cap 100 mg = 1 cap(s), Oral, BID, Start medication the day prior to the procedure.,X 3 day(s), # 6 cap(s), Refills(s) 0, Pharmacy: [facility] [id number], 165, cm, 03/28/25 14:27:00 EDT, Height/Length Dosing, 69.9, kg, 03/28/25 14:27:00 EDT, Weight Dosing Start Date: 03/28/25 Stop Date: 03/31/25 Status: Ordered Medication Dispense Status: Completed Quantity: 6.0 Unit: cap(s) Total Allowed Fills: 1 Fills Dispensed: 0 Indications: [facility] (current) use of antibiotics; pantoprazole 40 mg delayed release oral tablet (11 sources)Proton Pump InhibitorStart: 16-78-1030lxue 1 tablet by mouth once dailyPantoprazole 40 mg tablet,delayed release (DR/EC) Active 40 MG PO Daily November 05, 2024 12:00am Complies with drug therapyStart: 31-75-0133Pswukfku 40 MG EC tablet 40 mg 09/19/2024 ActivepredniSONE 10 mg oral tablet (4 sources)Start: 03-27-2024 End: 92-88-4660prer 5 tablets by mouth once daily, then take 4 tablets by mouth once daily, then take 3 tablets bymouth once daily, then take 2 tablets by mouth once daily, then take 1 tablet by mouth once dailypredniSONE (Deltasone) 10 MG tablet Indications: Chronic bilateral low back pain with left-sided sciatica Take 5 tabs p.o. daily x3 days Take 4 tabs p.o. daily x3 days Take 3 tabs p.o. daily x3 days Take 2 tabs p.o. daily x3 days Take 1 tab p.o. daily x3 days 45 tablet 03/27/2024 04/17/2024 Discontinued (Therapy completed)pregabalin 50 mg oral capsule (20 sources)Start: 41-59-8957qzcn 1 capsule by mouth once dailyLyrica 50 mg Cap 50 mg = 1 cap(s), Oral, Daily Start Date: 10/17/24 Status: Ordered Medication Dispense Status: Completed Total Allowed Fills: 1 Fills Dispensed: 0Start: 06-27-2024 End: 79-32-8218blei 1 capsule by mouth twice dailyPregabalin (Lyrica) 50 mg capsule Discontinued 50 MG PO Twice daily 60 30 August 09, 2024 8:20am September 20, 2024 3:12pmpsyllium 3400 mg powder for oral suspension (8 sources)Start: 10-39-0329Lwalitve Husk (Metamucil) 3.4 gram/5.4 gram powder Active 1 TBSP PO Daily as needed for constipation July 02, 2024 1:00am mix into at least 8 oz of water or juice before administering Complies with drug therapysimvastatin 10 mg oral tablet (20 sources)HMG-CoA Reductase InhibitorStart: 29-18-4941jqym 1 tablet by mouth once daily in the eveningsimvastatin 10 mg Tab 10 mg = 1 tab(s), Oral, qPM Start Date: 10/17/24 Status: Ordered Medication Dispense Status: Completed Total Allowed Fills: 1 Fills Dispensed: 0Start: 06-19-2024 End: 40-73-9920Zktpkbygpcr 10 mg tablet Discontinued MG PO June 27, 2024 1:00am July 02, 2024 3:49pmStart: 28-29-2240aogm 1 tablet by mouth once daily at bedtimesimvastatin (ZOCOR) 10 mg tablet Take 10 mg by mouth daily at bedtime. 0 08/31/2018 ActiveComment on above:Take 10 mg by mouth daily at bedtime. 24 hr venlafaxine 75 mg extended release oral capsule (20 sources)Serotonin and Norepinephrine Reuptake InhibitorStart: 48-43-1464xjnk 1 capsule by mouth once dailyEffexor XR 75 mg Cap-ER 75 mg = 1 cap(s), Oral, Daily Start Date: 10/17/24 Status: Ordered Medication Dispense Status: Completed Total Allowed Fills: 1 Fills Dispensed: 0Start: 05-10-2024 End: 05-62-1582wttr 1 capsule by mouth every twenty-four hoursVenlafaxine 75 mg capsule,extended release 24hr Discontinued MG PO June 27, 2024 1:00am July 02, 2024 3:49pmvibegron 75 MG Oral Tablet (4 sources)Start: 09-23-2023 End: 01-86-8645mdbi 1 tablet by mouth once dailyvibegron 75 mg oral tablet 75 mg = 1 tab(s), Oral, Daily, X 30 day(s), # 30 tab(s), Refills(s) 11, Pharmacy: [facility] [id number], 165, cm, 09/01/23 10:37:00 EDT, Height/Length Dosing, 70.5, kg, 09/01/23 10:37:00 EDT, Weight Dosing Start Date: 09/23/23 Stop Date: 09/17/24 Status: OrderedZinc Sulfate (20 sources)Start: 78-89-8988Hfaj Sulfate (ZINC 15 PO) 02/20/2024 Activezolpidem tartrate 10 mg oral tablet (11 sources)gamma-Aminobutyric Acid-ergic AgonistStart: 75-31-7826bmpb 1 tablet by mouth once daily at bedtimezolpidem (AMBIEN) 10 mg tab Take 10 mg by mouth daily at bedtime. 0 10/10/2018 ActiveStart: 09-02-2017 End: 54-24-3299nhnc 1 tablet by mouth once dailyZolpidem 5 mg Tablet Discontinued 5 MG PO Daily September 02, 2017 12:00am August 22, 2024 4:05pm Comment on above:Take 10 mg by mouth daily at bedtime. Completed/Discontinued Medications MedicationDrug Class(es)DatesSig (Normalized)Sig (Original)ALPRAZolam 0.5 mg oral tablet (13 sources)BenzodiazepineStart: 09-02-2017 End: 90-48-2624Llfdqsdlwm 0.5 mg tablet Discontinued 0.5 MG PO As Directed September 02, 2017 12:00am July 02, 2024 3:48pmComment on above:Take 0.5 mg by mouth at bedtime as needed. Alum & Mag Hydroxide-Simeth (MYLANTA PO) (2 sources) End: 38-87-3569Bmkj & Mag Hydroxide-Simeth (MYLANTA PO) Mylanta 02/21/2024 Discontinued (Therapy completed)atomoxetine 25 mg oral capsule (11 sources)Norepinephrine Reuptake InhibitorStart: 08-08-2024 End: 72-27-9998fudp 1 capsule by mouth once dailyAtomoxetine 25 mg capsule Discontinued 25 MG PO Daily August 22, 2024 12:00am November 05, 2024 1:35pm citalopram 40 mg oral tablet (20 sources)Serotonin Reuptake InhibitorStart: 09-02-2017 End: 18-65-7603jgol 1 tablet by mouth once dailyCitalopram 40 mg Tablet Discontinued 40 MG PO Daily September 02, 2017 12:00am July 02, 2024 3:48pm Comment on above:Take 40 mg by mouth once daily.desonide 0.0005 mg/mg topical ointment (8 sources)CorticosteroidStart: 09-02-2017 End: 55-36-7902Evxtikwb 0.05 % ointment Discontinued 1 DOSE TOPICAL As Directed September 02, 2017 12:00am July 02, 2024 3:48pmMultivitamin (Multiple Vitamins) tablet (8 sources)Start: 07-02-2024 End: 22-55-9377vssz 1 tablet by mouth once dailyMultivitamin (Multiple Vitamins) tablet Discontinued 1 TAB PO Daily July 02, 2024 1:00am November 05, 2024 1:37pmStart: 22-09-7488pbvm 1 tablet by mouth once dailyMultivitamin (Multiple Vitamins) tablet Active 1 TAB PO Daily July 02, 2024 1:00amOmega-3 Fatty Acids (FISH OIL PO) (2 sources) End: 28-82-3938Ytrfw-3 Fatty Acids (FISH OIL PO) Fish Oil 02/21/2024 Discontinued (Therapy completed)omeprazole 40 mg delayed release oral capsule (20 sources)Proton Pump InhibitorStart: 06-27-2024 End: 06-09-3660witc 1 capsule by mouth once dailyOmeprazole 40 mg capsule,delayed release(DR/EC) Discontinued 40 MG PO Daily July 02, 2024 3:43pm November 05, 2024 1:36pmStart: 22-54-2654Gpdekhzjdo 20 MG Tablet Delayed Release Dispersible 02/20/2024 ActiveStart: 11-08-3576sekgtxfdqe 40 mg Cap-DR Refills(s) 0 Start Date: 09/01/23 Status: OrderedStart: 28-68-5094txmh 1 capsule by mouth once daily at bedtimeomeprazole (PRILOSEC) 20 mg capsule Take 1 capsule by mouth daily at bedtime. 0 10/25/2018 ActiveComment on above:Take 1 capsule by mouth daily at bedtime.sucralfate 1000 mg oral tablet (20 sources)Aluminum ComplexStart: 06-27-2024 End: 94-40-1546Wgbphiqtbw 1 gram tablet Discontinued PO June 27, 2024 1:00am July 02, 2024 3:49pmStart: 06-27-2024 End: 65-70-2675Uxogmcwgbk 1 gram tablet Discontinued PO June 27, 2024 1:00am July 02, 2024 3:49pmStart: 08-19-2021 End: 83-04-6616jsbl 1 tablet by mouth twice daily as neededSucralfate (Carafate) 1 gram tablet Discontinued 1 GM PO Twice daily as needed July 02, 2024 1: 00am August 22, 2024 4:05pmsulfamethoxazole 800 mg / trimethoprim 160 mg oral tablet (2 sources)Dihydrofolate Reductase Inhibitor Antibacterial, Sulfonamide AntimicrobialStart: 01-13-2022 End: 99-49-1657wquk 1 tablet by mouth once daily as neededsulfamethoxazole- trimethoprim (Bactrim DS) 800-160 MG per tablet See Instructions, Instructions: 1 tab(s) PO qd prn after sexual activity, # 30 tab(s), 1 Refill(s), Pharmacy: [facility] [id number], 1 tab(s) PO qd prn after sexual activity 01/13/2022 02/21/2024 Discontinued (Therapy completed)Vitamin D-Vitamin K (DOSOQUIN PO) (2 sources) End: 28-69-9563Dxqvosa D-Vitamin K (DOSOQUIN PO) Dosoquin 02/21/2024 Discontinued (Therapy completed) Problems Active Problems Problem ClassificationProblemDateDocumented DateEpisodic/Chronic Administrative/social admission (8 sources)Bereavement; Translations: [Disappearance and of family member] 14-86-2333OgjyidzpShsnjyp disorders (20 sources)Anxiety; Translations: [Anxiety disorder, unspecified]Onset: 136719-98-1661EzwbsepDuziavymz-mqvzsqm, conduct, and disruptive behavior disorders (6 sources)Attention deficit hyperactivity disorder, predominantly inattentive type; Translations: [Attention-deficit hyperactivity disorder, predominantly inattentive type]86-24-8420NxoaztoSlrholi kidney disease (1 source)Chronic kidney disease stage 3A ; Translations: [Stage 3a chronic kidney disease (HCC)]31-29-2815NcxgcsiCfmnhbtsz of lipid metabolism (20 sources)Hyperlipidemia; Translations: [Hyperlipidemia, unspecified]Onset: 775264-39-0294ZllodudQqoxiuxqye disorders (20 sources)Gastroesophageal reflux disease; Translations: [Gastro-esophageal reflux disease without esophagitis]Onset: 573937-62-2672Pjqxujz Genitourinary symptoms and ill-defined conditions (16 sources)Mixed incontinence; Translations: [Incontinence]Onset: 09-01-2023 ChronicGenitourinary symptoms and ill-defined conditions (20 sources)History of urinary tract infection; Translations: [Personal history of urinary (tract) infections]Onset: 55-64-4826MmjdyroiPaqqijxwgf disorders (14 sources)Atrophic vaginitis; Translations: [Postmenopausal atrophic vaginitis]Onset: 99-46-4140QmnybbhIlcr disorders (15 sources)Depressive disorder; Translations: [Depression, unspecified depression type]92-77-7549WfzgdqjKeqt disorders (1 source)Mood disorders; Translations: [Depression, unspecified depression type]Onset: 41-05-5060Btrgdidpmczkil (16 sources)Osteoarthritis of first carpometacarpal joint of left hand; Translations: [Unilateral primary osteoarthritis of first carpometacarpal joint, left hand]Onset: 293085-54-9594LvqzpfgZvflq and unspecified benign neoplasm (2 sources)Melanocytic nevus of trunk; Translations: [Melanocytic nevi of trunk] 66-92-5110TdsxfofbNfupy connective tissue disease (10 sources)Cjucyvvyomum97-97-8537HoqukdocUhaxr connective tissue disease (12 sources)Spasmodic movement; Translations: [Cramp and spasm]04-24-2024 EpisodicOther connective tissue disease (1 source)Trochanteric bursitisEpisodicOther diseases of bladder and urethra (8 sources)Overactive bladder; Translations: [Overactive bladder]07-03-2024 ChronicOther diseases of bladder and urethra (8 sources)Overactive bladder; Translations: [Hypertonicity of bladder] 86-91-4901QixkwciBphvr diseases of kidney and ureters (8 sources)Acquired renal cystic disease; Translations: [Cyst of kidney, acquired]57-71-6453FhymwtnvNebnc diseases of kidney and ureters (9 sources)Cyst of kidney, acquired; Translations: [Cyst of kidney, acquired] Onset: 035581-54-2133GikdeqvpYqwzh diseases of kidney and ureters (1 source)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 EHR CmteOther injuries and conditions due to external causes (4 sources)Injury of head; Translations: [Unspecified injury of head, initial encounter]61-87-8605JeewaqqsLvlgk injuries and conditions due to external causes (1 source)Other specified injuries of head, initial encounter; Translations: [Other specified injuries of head, initial encounter]Onset: 41-38-5265Xryduvla Other nervous system disorders (20 sources)Polyneuropathy; Translations: [Polyneuropathy, unspecified]Onset: [id number] nervous system disorders (20 sources)Chronic pain; Translations: [Other chronic pain]54-47-3910Suhhutp Other nervous system disorders (4 sources)Disturbance of attention; Translations: [Attention and concentration deficit]39-70-6298NkylppzVmgkk nervous system disorders (8 sources)Other chronic pain; Translations: [Other chronic pain]06-27-2024 ChronicOther nervous system disorders (11 sources)Impaired cognition; Translations: [Other symptoms and signs involving cognitive functions and awareness]Onset: 15-78-9149IgrfwqufRahbh nervous system disorders (8 sources)Tremor; Translations: [Tremor, unspecified]71-13-4426RxcgrhheNervb nervous system disorders (6 sources)Hyperreflexia; Translations: [Abnormal reflex]45-03-4100OxdklsehBzluf non-traumatic joint disorders (12 sources)Hip pain; Translations: [Pain in right hip]20-24-2846DyrvoxxlOfoeg skin disorders (2 sources)Inflamed seborrheic keratosis; Translations: [Inflamed seborrheic keratosis]94-77-2081TnvbbydcCvbwf skin disorders (2 sources)Seborrheic keratosis; Translations: [Other seborrheic keratosis] 54-11-2060LxjfqnluLjibq skin disorders (2 sources)Actinic keratosis; Translations: [Actinic keratosis]09-27-2024 EpisodicOther skin disorders (2 sources)Lentiginosis; Translations: [Other melanin hyperpigmentation] 18-92-4367SobeaptrCdkyu upper respiratory disease (10 sources)Allergic ejnfunnq20-08-0302IzhaejgBdwxenkr codes; unclassified (13 sources)Obstructive sleep apnea syndrome; Translations: [Obstructive sleep apnea (adult) (pediatric)]Onset: 994236-75-3387BjsuplzMgscyggk codes; unclassified (5 sources)Hypersomnia; Translations: [Hypersomnia, unspecified]04-29-2024 ChronicResidual codes; unclassified (2 sources)Sleep -04-2446UxjufmaSfycbyfg codes; unclassified (1 source)Forgetful; Translations: [Other general symptoms and signs]08-23-2023 EpisodicResidual codes; unclassified (18 sources)Insomnia; Translations: [Insomnia, unspecified]73-56-8418Avhofnng Residual codes; unclassified (1 source)Other general symptoms and signs; Translations: [Forgetfulness]Onset: 48-92-4807EmnycjlwItgwhnmi codes; unclassified (19 sources)Amnesia; Translations: [Other amnesia]30-50-6683UjypcalyYistbmwgfmu; intervertebral disc disorders; other back problems (20 sources)Cervical spondylosis; Translations: [Lumbosacral spondylosis with radiculopathy]Onset: 525043-57-3036YhilgwaRkssuaoodfq; intervertebral disc disorders; other back problems (20 sources)Neck pain; Translations: [Chronic low back pain]Onset: 03-21-2025 05-66-8826StmtkromJanfankyvpg injury; contusion (4 sources)Abrasion of face; Translations: [Abrasion of other part of head, initial encounter]91-80-4910RcxzxlqcFnigojzywnpp (1 source)M70.62 - Trochanteric bursitis, left hipViral infection (10 sources)Genital herpes -57-4484Stwkeyq Past or Other Problems Problem ClassificationProblemDateDocumented DateEpisodic/ChronicCardiac dysrhythmias (3 sources)Bradycardia; Translations: [Bradycardia, unspecified]Onset: 961794-40-3191IyancyexEpmnqydzux and other anemia (3 sources)Anemia; Translations: [Anemia, unspecified]Onset: 10-25-2018 37-09-9918NobkkjfiJmzqv connective tissue disease (3 sources)Pain in left thumb; Translations: [Pain in left finger(s)]Onset: 751931-50-6851DaahhwrxMdxfc nervous system disorders (20 sources)Paresthesia of foot ; Translations: [Paresthesia of skin]Onset: 883562-16-1593YhyqibibFcryr non-traumatic joint disorders (3 sources)Thumb joint stiff; Translations: [Stiffness of unspecified hand, not elsewhere classified]Onset: 408731-87-7485Lbltbgyi Results Test NameValueInterpretationReference RangeFacilityC Urineon 50-13-0469Wydavupt identified Cx Nom (U)Microbiology PROCEDURE: Urine Culture [R1] SOURCE: U CleanCatch BODY SITE: COLLECTED DATE/TIME: 03/28/2025 15:19 EDT RECEIVED DATE/TIME: 03/29/2025 17:33 EDT START DATE/TIME: 03/29/2025 17:33 EDT FREE TEXT SOURCE: Flor Iraheta PA-C, PA-C, Flor FINAL REPORTS Final Report [] Verified Date/Time: 03/31/2025 07:14 EST 300 cfu/ml Mixed skin contaminants Performing Locations R1: This test was performed at: [facility], [address] [place] [address], [id number] [place] [address], OcbigoCezdmzUniversity Hospitals Portage Medical CenterComment on above:Performed By: #### [id number] #### [facility] [address] [place] [address] [id number] Patient Summaryon 82-83-1616Qheuvxsgl Patient Summary [place] [id number] Patient Discharge Instructions Name: JAZZMINE WANG : 1945 Patient Address: [address] [place] [address] Primary Care Provider: Name: Prema Clement JACKIE ESTRADA After you are discharged if you find you have any questions, please, call [phone] to speak to a nurse. Discharge Diagnosis: Prescription Information: If you have been given a prescription for narcotics, seek immediate medical attention if you have any difficulty breathing or any sudden status changes such as confusion andsleepiness. If you or anyone you know is experiencing suicidal thoughts, mental health, alcohol and/or drug addiction problems; contact the [facility] 20/12 Crisis Hotline -Text 4HQWT to 495508. If you received any narcotics, sedation, or any other medication that causes drowsiness for the next 24 hours, unless otherwise directed: ? Do not drive a car. ? Do not operate machinery such as power tools, lawn mowers, drills, sewing machines, or stoves ? Avoid alcoholic beverages and drugs for allergies, nerves, or sleep ? Do not make important personal or business decisions or sign any legal documents [facility] would like to thank you for allowing us to assist you with your healthcare needs.The following includes patient education materials and information regarding your injury/illness. JAZZMINE WANG has been given the following list of follow-up instructions, prescriptions, andpatient education materials: Follow-up Instructions Medications During the course of your visit, your medication list was updated with the most current information. The details of those changes are reflected below: Medications to Continue That Have Not Changed Other Medications acyclovir (acyclovir 200 mg oral capsule) 1 cap(s) Oral (given by mouth) 2 times per day. Refills: 3. calcium carbonate (calcium (as carbonate) 600 mg oral tablet) 1 tab(s) Oral (given by mouth) 2 times per day. clonazePAM (clonazePAM 0.5 mg oral tablet) 1 tab(s) Oral (given by mouth) 2 times per day for 30 Days. Refills: 0. donepezil (Aricept 5 mg oral tablet) 1 tab(s) Oral (given by mouth) once a day (at bedtime). Refills: 1. fexofenadine (Melanie 24 Hour Allergy oral tablet) 1 tab(s) Oral (given by mouth) every day. Refills: 3. Misc Prescription (medical marijuana card) multivitamin (Multiple Vitamins oral tablet) 1 tab(s) Oral (given by mouth) every day. pantoprazole (Protonix 40 mg oral delayed release tablet) 1 tab(s) Oral (given by mouth) every day.Refills: 5. pregabalin (pregabalin 50 mg oral capsule) 1 cap(s) Oral (given by mouth) 2 times per day for 30 Days. Refills: 0. simvastatin (simvastatin 10 mg oral tablet) 1 tab(s) Oral (given by mouth) once a day (at bedtime).Refills: 3. It is important to always keep an active list of medications available so that you can share with other providers and manage your medications appropriately. As an additional courtesy, we are also providing you with your final active medications list that you can keep with you. acyclovir (acyclovir 200 mg oral capsule) 1 cap(s) Oral (given by mouth) 2 times per day. Refills: 3. calcium carbonate (calcium (as carbonate) 600 mg oral tablet) 1 tab(s) Oral (given by mouth) 2 times per day. clonazePAM (clonazePAM 0.5 mg oral tablet) 1 tab(s) Oral (given by mouth) 2 times per day for 30 Days. Refills: 0. donepezil (Aricept 5 mg oral tablet) 1 tab(s) Oral (given by mouth) once a day (at bedtime). Refills: 1. fexofenadine (Melanie 24 Hour Allergy oral tablet) 1 tab(s) Oral (given by mouth) every day. Refills: 3. Misc Prescription (medical marijuana card) multivitamin (Multiple Vitamins oral tablet) 1 tab(s) Oral (given by mouth) every day. pantoprazole (Protonix 40 mg oral delayed release tablet) 1 tab(s) Oral (given by mouth) every day.Refills: 5. pregabalin (pregabalin 50 mg oral capsule) 1 cap(s) Oral (given by mouth) 2 times per day for 30 Days. Refills: 0., oarrs reviewed 03/21/25 simvastatin (simvastatin 10 mg oral tablet) 1 tab(s) Oral (given by mouth) once a day (at bedtime).Refills: 3. Take only the medications listed above. Contact your doctor prior to taking any medications not on this list. Diet & Activity Patient Activity Level: Patient Diet: Patient Activity Restrictions: Comment: Patient education materials, if any, will display below [facility] [address], [place] [address] Pain Procedure Home Care Instructions For the next 24 hours do not do any of the following activities: - Drive a car or operate heavy machinery - Drink alcoholic beverages - Make legal decisions or sign any contracts Please call the office at [phone] if you have any qu (more content not included)...[facility] Intraoperative Recordon [id number] Intraoperative RecordMA Intra-Op Record Summary Primary Physician: CECE GUTIERREZ MD Finalized Date/Time: 03/29/25 10:10:33 Pt. Name: JAZZMINE WANG /Sex: 1945 FEMALE Med Rec #: [id number] Physician: CECE GUTIERREZ MD Financial #: [id number] Pt. Type: D Room/Bed: / Admit/Disch: 03/29/25 08:30:48 - Institution: Case Times MAGR Entry 1 Patient In Room Time 03/29/25 10:03:00 Out Room Time 03/29/25 10:10:00 Anesthesia Start Time 03/29/25 10:07:00 Stop Time 03/29/25 10:09:00 Surgery Start Time 03/29/25 10:07:00 Stop Time 03/29/25 10:09:00 Last Modified By: Janki Howard RN 03/29/25 10:09:49 Case Attendance MAGR Entry 1 Entry 2 Entry 3 Case Attendee Kathy Dobson RN, Erica RN George, Beth A RN Role Performed Dealer Sales Rep Dealer Sales Rep Other Authorized Personnel Time In 03/29/25 10:03:00 03/29/25 10:03:00 03/29/25 10:03:00 Time Out 03/29/25 10:10:00 03/29/25 10:10:00 03/29/25 10:10:00 Procedure EPIDURAL STEROID INJ EPIDURAL STEROID INJ EPIDURAL STEROID INJ TRANSFORAMINAL TRANSFORAMINAL TRANSFORAMINAL LUMB(Bilateral) LUMB(Bilateral) LUMB(Bilateral) Last Modified By: Janki Howard RN, Erica RN Baumer, Erica RN 03/29/25 10:09:50 03/29/25 10:09:50 03/29/25 10:09:50 Entry 4 Entry 5 Entry 6 Case Attendee Igor Olvera RT (R) Sri Bailon RT (R) Johnnie Ching CT Role Performed Steam Fitter Supervisor Maintenance Steam Fitter Supervisor Maintenance Scrub Personnel Time In 03/29/25 10:03:00 03/29/25 10:03:00 03/29/25 10:03:00 Time Out 03/29/25 10:10:00 03/29/25 10:10:00 03/29/25 10:10:00 Procedure EPIDURAL STEROID INJ EPIDURAL STEROID INJ EPIDURAL STEROID INJ TRANSFORAMINAL TRANSFORAMINAL TRANSFORAMINAL LUMB(Bilateral) LUMB(Bilateral) LUMB(Bilateral) Last Modified By: Janki Howard RN, Erica RN Baumer, Erica RN 03/29/25 10:09:50 03/29/25 10:09:50 03/29/25 10:09:50 Entry 7 Entry 8 Case Attendee CECE GUTIERREZ MD, Amanda J Role Performed Surgeon - Primary Other Authorized Personnel Time In 03/29/25 10:03:00 03/29/25 10:03:00 Time Out 03/29/25 10:10:00 03/29/25 10:10:00 Procedure EPIDURAL STEROID INJ EPIDURAL STEROID INJ TRANSFORAMINAL TRANSFORAMINAL LUMB(Bilateral) LUMB(Bilateral) Last Modified By: Janki Howard RN, Erica RN 03/29/25 10:09:50 03/29/25 10:09:50 Surgical Procedures MAGR Pre-Care Text: A.20 Verifies operative procedure, surgical site, and laterality Im.150 Develops individualized plan of care Entry 1 Procedure EPIDURAL STEROID INJ Primary Procedure Yes TRANSFORAMINAL LUMBAR Primary Surgeon CECE GUTIERREZ MD Modifiers Bilateral Surgeon Comment Bilateral L4 Start 03/29/25 10:07:00 Transforaminal Epidural Steroid Injection Stop 03/29/25 10:09:00 Anesthesia Type Local Surgical Service Pain Management Wound Class Clean Technique Details Closure Technique N/A Entire procedure No was performed via laparoscope or robotic assistance Last Modified By: Janki Howard RN 03/29/25 10:09:52 Post-Care Text: O.730 The patient's care is consistent with the individualized perioperative plan of care General Case Data MAGR Pre-Care Text: A.350.1 Classifies surgical wound Entry 1 Case Information OR MAGR OR 02 Case Level None Wound Class Clean Specialty Pain Management ASA Class 2 Diagnosis Preop Diagnosis Lumbar Neuritis Postop Same As Preop Yes Postop Diagnosis Lumbar Neuritis Blunt or No Is the procedure No penetrating injury considered occured prior to Emergent/Urgent? the start of the procedure: Last Modified By: Janki Howard RN 03/29/25 10:01:48 Post-Care Text: O.760 Patient receives consistent and comparable care regardless of the setting Time Out MAGR Entry 1 Procedure(s) EPIDURAL STEROID INJ TRANSFORAMINAL LUMB(Bilateral) Time Out Checklist Verifications Team Introductions Yes Confirmed Identity, Yes Completed Procedure, Incision Site, and Consent(s) Presence of Yes Site Verification, Yes Necessary Site Marking, Site Procedural Marking Equipment, Devices, Alternative, and/or and Implants Site Marking Verified Exception in Accordance with Facility Policy Anesthesia Review Antibiotic Received n/a All Anesthesia Case does not involve Within an Concerns Addressed an anesthesia Appropriate Time professional Interval Prior to Surgical Incision Surgeon Review Anticipated Blood No Expected Case No Loss Risk Addressed Duration Addressed Critical and No Non-Routine Steps to be Performed Addressed Nurse Review Equipment Yes Fire Risk Yes Checks/Concerns Assessment Addressed Completed and Interventions Performed Diagnostic and n/a Sterilization n/a Radiological Test Concerns Addressed Results Displayed are Appropriate and Labeled Other Concerns n/a Addressed Time Out Igor Olvera RT (R), Time Out Time 03/29/25 10:06:00 Participants Kathy Dobson RN, Johnnie Ching, CECE GUTIERREZ MD, Janki Howard RN, [facility] (more content not included)...[facility] Preoperative Recordon [id number] Preoperative RecordMA Pre-Op Record Summary Primary Physician: CECE GUTIERREZ MD Finalized Date/Time: 03/29/25 10:11:52 Pt. Name: JAZZMINE WANGO.B./Sex: 1945 FEMALE Med Rec #: [id number] Physician: CECE GUTIERREZ MD Financial #: [id number] Pt. Type: D Room/Bed: / Admit/Disch: 03/29/25 08:30:48 - Institution: Pre-Op Case Times MAGR Pre-Care Text: Patient will be optimally prepared for surgery. Patient is free from s/s of injury. Provide information to patient/family related to plan of care. Verify patient allergies. Confirm identity and verify consent before the operative or invasive procedure. Entry 1 Patient Arrival Time 03/29/25 08:38:00 Preop Departure 03/29/25 09:57:00 Last Modified By: Maty Lewis RN 03/29/25 10:11:50 Post-Care Text: Patient is prepared mentally and physically and is ready for surgery. The patient remains free froms/s of injury. Patient/family express understanding of plan of care and participate in decisions affectinghis or her perioperrative plan of care. Allergies documented appropriately. Patient identifiers and consent correct. General Comments: Pt arrives to psw ambulatory. Pt denies cp, sob, cough or flu like symptoms. Pt denies pacemaker/defibillator, pt has sleep apnea. Finalized By: Maty Lewis RN Document Signatures Signed By: Maty Lewis RN 03/29/25 10:11[facility] Handouton [id number] [facility] [address] [place] [address], [place] [address] Pain Procedure Home Care Instructions For the next 24 hours do not do any of the following activities: - Drive a car or operate heavy machinery - Drink alcoholic beverages - Make legal decisions or sign any contracts Please call the office at [phone] if you have any questions or develop any of the following: - Fever more than 101.2, chills - Urinary retention - Headache or worsening of your headache - Changes with your vision - Apply ice to the injection site every 2 hours as needed for 15 minutes at a time. Keep a barrier between the ice element and your skin to protect it. - There may be immediate pain relief after the procedure. The pain may return 4- 6 hours after the local anesthetic wears off. - Do not take a shower for the first 12 hours after the procedure. No bath for 24 hours. - Call your primary care provider if your blood sugar is greater than 250. Go to the Emergency Department if you lose control of your bladder, bowel or legs. Please keep track of your pain on a scale of 0 to10, with 10 being the worst pain and 0 being no pain. Bring that record to your follow up appointment. Using one of the pain scales included in these instructions, record your pain level at: 1 hour: 2 hours: 4 hours: [facility] Messageson [id number] MessagesEntered by Brenda Mobley MA on March 28, 2025 13:10:54 EDT patient notified, order placed for [facility]. From: Brenda Mobley MA ([facility] Clinical Pool ([facility] To: Octavia Clinical Morenci ([facility]); Sent: 03/28/2024 12:04:56 EDT Show up: 03/28/2025 12:04:00 EDT Subject: General Reminder Reminder: MA Mammo Screening 3D Bilateral Please call patient to: Please schedule patient for: MA Mammo Screening 3D Bilateral Dx: Z12.31 Please ask patient to: Results Follow up Required for:[facility] on [id number] Office/Clinic NoteUrology Office/Clinic Note Chief Complaint Follow up, discuss having botox again HPI Staff 1 year follow up w/AYAN 03/14/25 Previous DX: Mixed incontinence, vaginal atrophy, HX of UTI S/p Botox 100u w KML 03/19/24. denies abdominal/flank pain, denies visible blood, denies dysuria. Has been leaking a lot more. last urinated about 45 mins ago. BBSQ: 14 PVR: History of Present Illness Tests reviewed: reviewed UA, AYAN I have reviewed the previous health record information and history for this patient from Erika Sim PA-C. I have reviewed and verified the staff HPI to be accurate for this encounter. Review of Systems PHQ Score Initial Depression Screen Score: 0 SCORE ROS - Provider Constitutional: denies weight loss, denies hot flashes. Eyes: denies eye problems. Gastrointestinal: denies nausea, denies vomiting. Cardiovascular: denies chest pain or angina. Integumentary: no dryness Musculoskeletal: denies musculoskeletal symptoms. ENMT: denies otolaryngeal symptoms. Respiratory: no shortness of breath. Heme/Lymph: denies easy bleeding tendency, denies easy bruising tendency. Psychiatric: no confusion, no anxiety. Genitourinary: See HPI. Physical Exam Vitals & Measurements T: 35.4 ???C(Temporal Artery) HR: 60(Peripheral) RR: 16 BP: 108/65 HT: 165 cm HT: 65 in WT: 154.103 lb WT: 69.9 kg BMI: 25.67 General Appearance: alert , no acute distress, well nourished, well developed female. 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 KML pt Pt prefers a female provider. 1. Mixed incontinence (N39.46: Mixed incontinence) Pre-treatment BBSQ 23. UUI > FLETCHER No hx of DM. Myrbetriq and Gemtesa were both cost-prohibitive. Pt never started either of them. S/p cysto w L 01/19/24. S/p Botox 100u w [facility] 03/19/24. Reported that Botox was incredibly painful and she could feel every single injection. PVR 0 ml. - Emptying well BBSQ 14 (5 PO Botox, 23 prior to Botox) UA today w/ small leuks, trace-intact blood Today, pt reports increased leakage and urgency over the past few months. Back to wearing pad, changing 2x/day. Feels she is due for repeat Botox. Reviewed UA w/ pt. Denies symptoms of infection or gross hematuria today. Will send urine for culture as pre-op & tx if infection present. Pt does inquire about additional anesthetic for Botox procedure given procedure was very painful for her last time. Offered Valium to be taken prior to procedure, but she prefers MAC anesthesia for cysto/Botox. Explained anesthesia costs/risks/benefits w/ MAC. Will confirm w/ Dr. Hatfield if okay to proceed with MAC anesthesia prior to scheduling. If procedure to be done under local, then pt prefers to take Valium before her procedure. She is not taking anticoagulants. All questions answered. -Send urine for culture & tx if infection present -Prophy Macrobid sent -Will schedule Botox. The procedural risks, benefits, details, and treatment alternatives have beendiscussed with the patient. These include bleeding, infection, continued problems with overactive bladder, inability to empty the bladder which could require an indwelling catheter or need for in/out catheterization to empty the bladder, and need for repeat procedures over time (usually lasts up tosix months), as well as fatigue and insomnia, among others. There is a minimal risk of Botox entering the blood stream and causing neurological problems, which is quite rare. Full informed consent has been obtained. Will order Mac anesthesia. -F/u pending Botox, or sooner if needed 2. 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 Rarely sexually active now. Used estrogen cream in the past, no sx improvement. Estrace cream causes vaginal irritation. Also tried prophy abx. UCx 05/02/24 - >100k E. coli UA today shows trace-intact blood and small leuks. Denies gross hematuria or signs of infection. -Send urine for culture & tx if infection present 3. Bilateral renal cysts (N28.1: Cyst of kidney, acquired) [place] [facility] [place] Inc[place]. AYAN 07/16/24 - no hydro; bilat renal cysts which appear simple, largest 7.7 x 7.0 x 5.9cm on L; no solid masses. AYAN 03/14/25 Norma - 1.8 cm R renal cyst. Multiple L renal cysts, largest measuring 8.3 cm lowerpole Discussed imaging w/ pt. Slight increase in size, overall stable. Denies any flank pain. Due to size, offered to monitor renal cyst annually for growth, which she is agreeable to. -AYAN in 1 year (recall placed) 4. 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 KML restarted estrogen cream. Not using Estrace cream. Follow-up With When Contact Information Liu UNGER, Thelma Dent URL, [address] [place], [address] [address]- Additional Instructions: Pending Botox Patient Education Botulinum Toxin Bladder Injection I, Sandy Staley, personally scribed for Flor (more content not included)... [facility] CenterComment on above:Result Comment: Electronically Signed By: Myrtle COUGHLIN, Flor\.br\Date and Time Signed: 03/28/25 15:57 EDT Coding Summaryon [id number] SummaryHTMLBase 64 QzzcrshhCZt4yRt+PGhlYWQ+[id number] ZXJu [file] ZTo (more content not included)...[facility] HospitalProgress Note - Provideron [id number] Note - Provider [id number]#1.00OTGTCincinnati [facility] Coding Summaryon [id number] SummaryHTMLBase 64 IndihvqsXAi9bWn+PGhlYWQ+[id number]zJnEJ8rxTXm ZXJu [file] ZTo (more content not included)...[facility] Kid[facility]/Bladder Completeon [id number] Kidney/Bladder CompleteEXAM: US Kidney/Bladder Complete HISTORY: Cyst of kidney, acquired COMPARISON: 07/13/2024 TECHNIQUE: Grayscale and color FINDINGS: The right kidney measures 10.5 x 3.7 x 3.8 cm. Cortex measures 0.9 cm. 1.8 cm simple cyst. No solid cortical mass or nephrolithiasis. The left kidney measures 12.4 x 6.1 x 5.3 cm. The cortex measures 1.3 cm. Multiple simple cysts the largest measuring 8.3 cm lower pole. Urinary bladder was not visualized IMPRESSION: Bilateral renal cysts measuring up to 8.3 cm on the left Final Dictated by: Ramo Mcgovern MD Dictated DT/TM: 03/14/25 12:56 Signed (Electronic Signature): Ramo Mcgovern MD 03/14/25 1:00 pm Technologist: [facility] Handouton [id number] HandoutMental and Behavioral Health Managing Anxiety, Adult After being diagnosed with anxiety, you may be relieved to know why you have felt or behaved a certain way. You may also feel overwhelmed about the treatment ahead and what it will mean for your life. With care and support, you can manage your anxiety. How to manage lifestyle changes Understanding the difference between stress and anxiety Although stress can play a role in anxiety, it is not the same as anxiety. Stress is your body's reaction to life changes and events, both good and bad. Stress is often caused by something external, such as a deadline, test, or competition. It normally goes away after the event has ended and will last just a few hours. But, stress can be ongoing and can lead to more than just stress. Anxiety is caused by something internal, such as imagining a terrible outcome or worrying that something will go wrong that will greatly upset you. Anxiety often does not go away even after the eventis over, and it can become a long- term (chronic) worry. Lowering stress and anxiety Talk with your health care provider or a counselor to learn more about lowering anxiety and stress.They may suggest tension-reduction techniques, such as: ? Music. Spend time creating or listening to music that you enjoy and that inspires you. ? Mindfulness-based meditation. Practice being aware of your normal breaths while not trying to control your breathing. It can be done while sitting or walking. ? Centering prayer. Focus on a word, phrase, or sacred image that means something to you and bringsyou peace. ? Deep breathing. Expand your stomach and inhale slowly through your nose. Hold your breath for 3?5seconds. Then breathe out slowly, letting your stomach muscles relax. ? Self-talk. Learn to notice and spot thought patterns that lead to anxiety reactions. Change thosepatterns to thoughts that feel peaceful. ? Muscle relaxation. Take time to tense muscles and then relax them. Choose a tension-reduction technique that fits your lifestyle and personality. These techniques take time and practice. Set aside 5?15 minutes a day to do them. Specialized therapists can offer counseling and training in these techniques. The training to help with anxiety may be covered by some insurance plans. Other things you can do to manage stress and anxiety include: ? Keeping a stress diary. This can help you learn what triggers your reaction and then learn ways to manage your response. ? Thinking about how you react to certain situations. You may not be able to control everything, but you can control your response. ? Making time for activities that help you relax and not feeling guilty about spending your time inthis way. ? Doing visual imagery. This involves imagining or creating mental pictures to help you relax. ? Practicing yoga. Through yoga poses, you can lower tension and relax. Medicines Medicines for anxiety include: ? Antidepressant medicines. These are usually prescribed for long-term daily control. ? Anti-anxiety medicines. These may be added in severe cases, especially when panic attacks occur. When used together, medicines, psychotherapy, and tension-reduction techniques may be the most effective treatment. Relationships Relationships can play a big part in helping you recover. Spend more time connecting with trusted friends and family members. Think about going to couples counseling if you have a partner, taking family education classes, or going to family therapy. Therapy can help you and others better understandyour anxiety. How to recognize changes in your anxiety Everyone responds differently to treatment for anxiety. Recovery from anxiety happens when symptomslessen and stop interfering with your daily life at home or work. This may mean that you will startto: ? Have better concentration and focus. Worry will interfere less in your daily thinking. ? Sleep better. ? Be less irritable. ? Have more energy. ? Have improved memory. Try to recognize when your condition is getting worse. Contact your provider if your symptoms interfere with home or work and you feel like your condition is not improving. Follow these instructions at home: Activity ? Exercise. Adults should: ? Exercise for at least 150 minutes each week. The exercise should increase your heart rate and make you sweat (moderate-intensity exercise). ? Do strengthening exercises at least twice a week. ? Get the right amount and quality of sleep. Most adults need 7?9 hours of sleep each night. Lifestyle ? Eat a healthy diet that includes plenty of vegetables, fruits, whole grains, low-fat dairy products, and lean protein. ? Do not eat a lot of foods that are high in fats, added sugars, or salt (sodium). ? Make choices that simplify your life. ? Do not use any products that contain nicotine or tobacco. These products include cigarett (more content not included)...[facility] HospitalProvider Orderson [id number] Orders [id number]#1.00OTGTIFFCommunity Memorial HospitalCoding Summaryon 50-41-2525Mwngjo SummaryHTMLBase 64 RyjkfokgTDw4jCm+PGhlYWQ+MZ9MOXOpT99wlDBeqV2rU6BRQOnOEmrmIWMVGRmDBtMngdVkZK3ttPFn ZXJu [file] ZTo (more content not included)...[facility] HospitalProgress Note - Provideron [id number] Note - Provider [id number]#1.00OTGTC[facility] Coding Summaryon [id number] SummaryHTMLBase 64 QwzkrisiQOi9bRt+PGhlYWQ+EH2ZPDZdV33bjPUnuA5bG5IPPQjRQwtfYSONLYyPUzWjtgXcFJ4fpKSf ZXJu [file] bGU (more content not included)...NormalUniversity [facility] Centeruder HospitalCoding SummaryHTMLBase 64 EjcnijhaPDc7zGm+PGhlYWQ+TV2AIPCcA66tsABfmI1fE3NUUTlYJdzuZKHFYSxQVnOziwUsHY1plTTo ZXJu [file] ci1 (more content not included)...[facility] HospitalConsent Formson 77-20-5753Mbevdbr [id number]#1.00OTGTIFF [facility] HospitalInpatient Patient Summaryon [id number] [place] [address] Patient Discharge Instructions Name: JAZZMINE WANG : 1945 Patient Address: [address] [place] [address] Primary Care Provider: Name: Prema Clement APRN, CNP After you are discharged if you find you have any questions, please, call [phone] ext [phone] to speak to a nurse. Discharge Diagnosis: Prescription Information: If you have been given a prescription for narcotics, seek immediate medical attention if you have any difficulty breathing or any sudden status changes such as confusion andsleepiness. If you or anyone you know is experiencing suicidal thoughts, mental health, alcohol and/or drug addiction problems; contact the [facility] 20/12 Crisis Hotline -Text 4HYJD um 217679. If you received any narcotics, sedation, or any other medication that causes drowsiness for the next 24 hours, unless otherwise directed: ? Do not drive a car. ? Do not operate machinery such as power tools, lawn mowers, drills, sewing machines, or stoves ? Avoid alcoholic beverages and drugs for allergies, nerves, or sleep ? Do not make important personal or business decisions or sign any legal documents [facility] would like to thank you for allowing us to assist you with your healthcare needs.The following includes patient education materials and information regarding your injury/illness. JAZZMINE WANG has been given the following list of follow-up instructions, prescriptions, andpatient education materials: Follow-up Instructions Medications During the course of your visit, your medication list was updated with the most current information. The details of those changes are reflected below: Medications to Continue That Have Not Changed Other Medications acyclovir (acyclovir 200 mg oral capsule) 1 cap(s) Oral (given by mouth) 2 times per day. Refills: 3. calcium carbonate (calcium (as carbonate) 600 mg oral tablet) 1 tab(s) Oral (given by mouth) 2 times per day. clonazePAM (clonazePAM 0.5 mg oral tablet) 1 tab(s) Oral (given by mouth) 2 times per day for 30 Days. Refills: 0. donepezil (Aricept 5 mg oral tablet) 1 tab(s) Oral (given by mouth) once a day (at bedtime). Refills: 1. fexofenadine (Melanie 24 Hour Allergy oral tablet) 1 tab(s) Oral (given by mouth) every day. Refills: 3. Misc Prescription (medical marijuana card) multivitamin (Multiple Vitamins oral tablet) 1 tab(s) Oral (given by mouth) every day. pantoprazole (Protonix 40 mg oral delayed release tablet) 1 tab(s) Oral (given by mouth) every day.Refills: 5. pregabalin (pregabalin 50 mg oral capsule) 1 cap(s) Oral (given by mouth) 2 times per day. simvastatin (simvastatin 10 mg oral tablet) 1 tab(s) Oral (given by mouth) once a day (at bedtime).Refills: 3. sulfamethoxazole-trimethoprim (Bactrim DS 800 mg-160 mg oral tablet) 1 tab(s) Oral (given by mouth)2 times per day for 7 Days. Refills: 0. venlafaxine (venlafaxine 75 mg oral capsule, extended release) 1 cap(s) Oral (given by mouth) everyday. Refills: 3. It is important to always keep an active list of medications available so that you can share with other providers and manage your medications appropriately. As an additional courtesy, we are also providing you with your final active medications list that you can keep with you. acyclovir (acyclovir 200 mg oral capsule) 1 cap(s) Oral (given by mouth) 2 times per day. Refills: 3. calcium carbonate (calcium (as carbonate) 600 mg oral tablet) 1 tab(s) Oral (given by mouth) 2 times per day. clonazePAM (clonazePAM 0.5 mg oral tablet) 1 tab(s) Oral (given by mouth) 2 times per day for 30 Days. Refills: 0., oarrs 01/01/25 donepezil (Aricept 5 mg oral tablet) 1 tab(s) Oral (given by mouth) once a day (at bedtime). Refills: 1. fexofenadine (Melanie 24 Hour Allergy oral tablet) 1 tab(s) Oral (given by mouth) every day. Refills: 3. Misc Prescription (medical marijuana card) multivitamin (Multiple Vitamins oral tablet) 1 tab(s) Oral (given by mouth) every day. pantoprazole (Protonix 40 mg oral delayed release tablet) 1 tab(s) Oral (given by mouth) every day.Refills: 5. pregabalin (pregabalin 50 mg oral capsule) 1 cap(s) Oral (given by mouth) 2 times per day. simvastatin (simvastatin 10 mg oral tablet) 1 tab(s) Oral (given by mouth) once a day (at bedtime).Refills: 3. sulfamethoxazole-trimethoprim (Bactrim DS 800 mg-160 mg oral tablet) 1 tab(s) Oral (given by mouth)2 times per day for 7 Days. Refills: 0. venlafaxine (venlafaxine 75 mg oral capsule, extended release) 1 cap(s) Oral (given by mouth) everyday. Refills: 3. Take only the medications listed above. Contact your doctor prior to taking any medications not on this list. Diet & Activity Patient Activity Level: Patient Diet: Patient Activity Restrictions: Comment: Patient education m (more content not included)...[facility] Intraoperative Recordon [id number] Intraoperative RecordMA Intra-Op Record Summary Primary Physician: CECE GUTIERREZ MD Finalized Date/Time: 02/01/25 10:21:34 Pt. Name: JAZZMINE WANG/Sex: 1945 FEMALE Med Rec #: [id number] Physician: CECE GUTIERREZ MD Financial #: [id number] Pt. Type: D Room/Bed: / Admit/Disch: 02/01/25 08:44:07 - Institution: Case Times MAGR Entry 1 Patient In Room Time 02/01/25 10:16:00 Out Room Time 02/01/25 10:21:00 Anesthesia Start Time 02/01/25 10:19:00 Stop Time 02/01/25 10:20:00 Surgery Start Time 02/01/25 10:19:00 Stop Time 02/01/25 10:20:00 Last Modified By: Amy Harris RN 02/01/25 10:20:44 Case Attendance MAGR Entry 1 Entry 2 Entry 3 Case Attendee Tommie RN, Amy Feliciano RN, Beth A RN Role Performed Dealer Sales Rep Dealer Sales Rep Other Authorized Personnel Time In 02/01/25 10:16:00 02/01/25 10:16:00 02/01/25 10:16:00 Time Out 02/01/25 10:21:00 02/01/25 10:21:00 02/01/25 10:21:00 Procedure SI Joint Injection(Left) SI Joint Injection(Left) SI Joint Injection(Left) Last Modified By: Amy Harris RN, Debra RN Myers, Debra RN 02/01/25 10:20:51 02/01/25 10:20:51 02/01/25 10:20:51 Entry 4 Entry 5 Entry 6 Case Attendee Shameka Clement RT (R) Eileen Quijano RT (R) Jolanta Be METEOROLOGIST IN CHARGE Role Performed Steam Fitter Supervisor Maintenance Steam Fitter Supervisor Maintenance Scrub Personnel Time In 02/01/25 10:16:00 02/01/25 10:16:00 02/01/25 10:16:00 Time Out 02/01/25 10:21:00 02/01/25 10:21:00 02/01/25 10:21:00 Procedure SI Joint Injection(Left) SI Joint Injection(Left) SI Joint Injection(Left) Last Modified By: Amy Harris RN, Debra RN Myers, Debra RN 02/01/25 10:20:51 02/01/25 10:20:51 02/01/25 10:20:51 Entry 7 Entry 8 Case Attendee Sarah Zuleta THOMAS F MD Role Performed Scrub Personnel Surgeon - Primary Time In 02/01/25 10:16:00 02/01/25 10:16:00 Time Out 02/01/25 10:21:00 02/01/25 10:21:00 Procedure SI Joint Injection(Left) SI Joint Injection(Left) Last Modified By: Amy Harris RN, Debra RN 02/01/25 10:20:51 02/01/25 10:20:51 Surgical Procedures MAGR Pre-Care Text: A.20 Verifies operative procedure, surgical site, and laterality Im.150 Develops individualized plan of care Entry 1 Procedure SI Joint Injection Primary Procedure Yes Primary Surgeon CECE GUTIERREZ MD Modifiers Left Surgeon Comment Left Sacroiliac Joint Start 02/01/25 10:19:00 injection Stop 02/01/25 10:20:00 Anesthesia Type Local Surgical Service Pain Management Wound Class Clean Technique Details Closure Technique N/A Entire procedure No was performed via laparoscope or robotic assistance Last Modified By: Amy Harris RN 02/01/25 10:20:59 Post-Care Text: O.730 The patient's care is consistent with the individualized perioperative plan of care General Case Data MAGR Pre-Care Text: A.350.1 Classifies surgical wound Entry 1 Case Information OR MAGR OR 02 Case Level None Wound Class Clean Specialty Pain Management ASA Class N/A Diagnosis Preop Diagnosis left sacroilitis Postop Same As Preop Yes Postop Diagnosis left sacroilitis Blunt or No Is the procedure No penetrating injury considered occured prior to Emergent/Urgent? the start of the procedure: Last Modified By: Amy Harris RN 02/01/25 10:18:25 Post-Care Text: O.760 Patient receives consistent and comparable care regardless of the setting Time Out MAGR Entry 1 Procedure(s) SI Joint Injection(Left) Time Out Checklist Verifications Team Introductions Yes Confirmed Identity, Yes Completed Procedure, Incision Site, and Consent(s) Presence of Yes Site Verification, Yes Necessary Site Marking, Site Procedural Marking Equipment, Devices, Alternative, and/or and Implants Site Marking Verified Exception in Accordance with Facility Policy Anesthesia Review Antibiotic Received n/a All Anesthesia Case does not involve Within an Concerns Addressed an anesthesia Appropriate Time professional Interval Prior to Surgical Incision Surgeon Review Anticipated Blood No Expected Case No Loss Risk Addressed Duration Addressed Critical and No Non-Routine Steps to be Performed Addressed Nurse Review Equipment Yes Fire Risk Yes Checks/Concerns Assessment Addressed Completed and Interventions Performed Diagnostic and n/a Sterilization n/a Radiological Test Concerns Addressed Results Displayed are Appropriate and Labeled Other Concerns n/a Addressed Time Out RickieemilyShameka N RT (R), Time Out Time 02/01/25 10:18:00 Participants Tommie RN, Tommie Alvarez RN, Haile Alvarez Regina CSFA METEOROLOGIST IN CHARGE, CECE GUTIERREZ MD, Eileen Quijano RT (R), Amy Harris RN Last Modified By: Amy Harris RN 02/01/25 10:19:19 Patient Positioning MAGR Pre-Care Text: A.280 Identifies baseline musculoskeletal status Im.40 Positions the patient Im.80 Applies safety devices Entry 1 Procedure SI Joint Injection(Left) Body Position Prone Left Ar (more content not included)...[facility] Preoperative Recordon [id number] Preoperative RecordMA Pre-Op Record Summary Primary Physician: CECE GUTIERREZ MD Finalized Date/Time: 02/01/25 10:30:30 Pt. Name: WESBENIGNODILAN JAZZMINE KAY /Sex: 1945 FEMALE Med Rec #: [id number] Physician: CECE GUTIERREZ MD Financial #: [id number] Pt. Type: D Room/Bed: / Admit/Disch: 02/01/25 08:44:07 - Institution: Pre-Op Case Times MAGR Pre-Care Text: Patient will be optimally prepared for surgery. Patient is free from s/s of injury. Provide information to patient/family related to plan of care. Verify patient allergies. Confirm identity and verify consent before the operative or invasive procedure. Entry 1 Patient Arrival Time 02/01/25 09:17:00 Preop Departure 02/01/25 10:14:00 Last Modified By: Migdalia Rushing RN 02/01/25 10:30:25 Post-Care Text: Patient is prepared mentally and physically and is ready for surgery. The patient remains free froms/s of injury. Patient/family express understanding of plan of care and participate in decisions affectinghis or her perioperrative plan of care. Allergies documented appropriately. Patient identifiers and consent correct. General Comments: Pt arrives to psw ambulatory. Pt denies cp, sob, cough or flu like symptoms. Pt denies pacemaker/defibillator pt has sleep apnea. Finalized By: Migdalia Rushing RN Document Signatures Signed By: Migdalia Rushing RN 02/01/25 10:30[facility] HospitalPatient Handouton [id number] [facility] [address], [place] [address] Pain Procedure Home Care Instructions For the next 24 hours do not do any of the following activities: - Drive a car or operate heavy machinery - Drink alcoholic beverages - Make legal decisions or sign any contracts Please call the office at [phone] if you have any questions or develop any of the following: - Fever more than 101.2, chills - Urinary retention - Headache or worsening of your headache - Changes with your vision - Apply ice to the injection site every 2 hours as needed for 15 minutes at a time. Keep a barrier between the ice element and your skin to protect it. - There may be immediate pain relief after the procedure. The pain may return 4- 6 hours after the local anesthetic wears off. - Do not take a shower for the first 12 hours after the procedure. No bath for 24 hours. - Call your primary care provider if your blood sugar is greater than 250. Go to the Emergency Department if you lose control of your bladder, bowel or legs. Please keep track of your pain on a scale of 0 to10, with 10 being the worst pain and 0 being no pain. Bring that record to your follow up appointment. Using one of the pain scales included in these instructions, record your pain level at: 1 hour: 2 hours: 4 hours: Normal [facility] HospitalCoding Summaryon [id number] SummaryHTMLBase 64 PmlyyfvuGGv1tHz+PGhlYWQ+GD6PRPGfU30kkSVtjG3eU4BHCGsCWhbrHDMNLQiMCxMhdaGjGN5blHUq ZXJu [file] ZTo (more content not included)...[facility] Formson 01-67-0780Qecfhdz [id number]#1.00OTGTIFF [facility] Memorial HospitalControlled Substances Agreementson 93-41-0775Frpbqicjmq Substances [id number]#1.00OTGTLima City HospitalProgress Note - Provideron 67-75-1565Lxvbjskw Note - Provider [id number]#1.00OT[facility] Patient Handouton 12-76-2273Nqtbrgv HandoutENT Earwax Buildup, Adult Your ears make something called earwax. It helps keep germs called bacteria away and protects the skin in your ears. Sometimes, too much earwax can build up. This can cause discomfort or make it harder to hear. What are the causes? Earwax buildup can happen when you have too much earwax in your ears. Earwax is made in the outer part of your ear canal. It's supposed to fall out in small amounts over time. But if your ears aren't able to clean themselves like they should, earwax can build up. What increases the risk? You're more likely to get earwax buildup if: ? You clean your ears with cotton swabs. ? You pick at your ears. ? You use earplugs or in-ear headphones a lot. ? You wear hearing aids. You may also be more likely to get it if: ? You're male. ? You're older. ? Your ears naturally make more earwax. ? You have narrow ear canals or extra hair in your ears. ? Your earwax is too thick or sticky. ? You have eczema. ? You're dehydrated. This means there's not enough fluid in your body. What are the signs or symptoms? Symptoms of earwax buildup include: ? Not being able to hear as well. ? A feeling of fullness in your ear. ? Feeling like your ear is plugged. ? Fluid coming from your ear. ? Ear pain or an itchy ear. ? Ringing in your ear. ? Coughing or problems with balance. How is this diagnosed? Earwax buildup may be diagnosed based on your symptoms, medical history, and an ear exam. During the exam, your health care provider will look into your ear with a tool called an otoscope. You may also have tests, such as a hearing test. How is this treated? Earwax buildup may be treated by: ? Using ear drops. ? Having the earwax removed by a provider. The provider may: ? Flush the ear with water. ? Use a tool called a curette that has a loop on the end. ? Use a suction device. ? Having surgery. This may be done in severe cases. Follow these instructions at home: Cleaning your ears ? Clean your ears as told by your provider. You can clean the outside of your ears with a washclothor tissue. ? Do not overclean your ears. ? Do not put anything into your ear unless told. This includes cotton swabs. General instructions ? Take kvja-tgd-fcnazcx and prescription medicines only as told by your provider. ? Drink enough fluid to keep your pee (urine) pale yellow. This helps thin the earwax. ? If you have hearing aids, clean them as told. ? Keep all follow-up visits. If earwax builds up in your ears often or if you use hearing aids, askyour provider how often you should have your ears cleaned. Contact a health care provider if: ? Your ear pain gets worse. ? You have a fever. ? You have pus, blood, or other fluid coming from your ear. ? You have hearing loss. ? You have ringing in your ears that won't go away. ? You feel like the room is spinning. This is called vertigo. ? Your symptoms don't get better with treatment. This information is not intended to replace advice given to you by your health care provider. Make sure you discuss any questions you have with your health care provider. Document Revised: 07/28/2023 Document Reviewed: 07/28/2023 [employer] Patient Education ? 2024 [employer] HospitalOutside Recordson 91-00-9589Swddrmf Records [id number]#1.00OTGTCincinnati Children's Hospital [facility] Outside Recordson 49-39-6724Biciqbf Records [id number]#1.00[facility] Patient Handouton 61-40-9317Hdusfwa HandoutObstetrics and Gynecology Urinary Tract Infection, Female A urinary tract infection (UTI) is an infection in your urinary tract. The urinary tract is made upof organs that make, store, and get rid of pee (urine) in your body. These organs include: ? The kidneys. ? The ureters. ? The bladder. ? The urethra. What are the causes? Most UTIs are caused by germs called bacteria. They may be in or near your genitals. These germs grow and cause swelling in your urinary tract. What increases the risk? You're more likely to get a UTI if: ? You're a female. The urethra is shorter in females than in males. ? You have a soft tube called a catheter that drains your pee. ? You can't control when you pee or poop. ? You have trouble peeing because of: ? A kidney stone. ? A urinary blockage. ? A nerve condition that affects your bladder. ? Not getting enough to drink. ? You're sexually active. ? You use a control inside your vagina, like spermicide. ? You're . ? You have low levels of the hormone estrogen in your body. ? You're an older adult. You're also more likely to get a UTI if you have other health problems. These may include: ? Diabetes. ? A weak immune system. Your immune system is your body's defense system. ? Sickle cell disease. ? Injury of the spine. What are the signs or symptoms? Symptoms may include: ? Needing to pee right away. ? Peeing small amounts often. ? Pain or burning when you pee. ? Blood in your pee. ? Pee that smells bad or odd. ? Pain in your belly or lower back. You may also: ? Feel confused. This may be the first symptom in older adults. ? Vomit. ? Not feel hungry. ? Feel tired or easily annoyed. ? Have a fever or chills. How is this diagnosed? A UTI is diagnosed based on your medical history and an exam. You may also have other tests. These may include: ? Pee tests. ? Blood tests. ? Tests for sexually transmitted infections (STIs). If you've had more than one UTI, you may need to have imaging studies done to find out why you keepgetting them. How is this treated? A UTI can be treated by: ? Taking antibiotics or other medicines. ? Drinking enough fluid to keep your pee pale yellow. In rare cases, a UTI can cause a very bad condition called sepsis. Sepsis may be treated in the hospital. Follow these instructions at home: Medicines ? Take your medicines only as told by your health care provider. ? If you were given antibiotics, take them as told by your provider. Do not stop taking them even if you start to feel better. General instructions ? Make sure you: ? Pee often and fully. Do not hold your pee for a long time. ? Wipe from front to back after you pee or poop. Use each tissue only once when you wipe. ? Pee after you have sex. ? Do not douche or use sprays or powders in your genital area. Contact a health care provider if: ? Your symptoms don't get better after 1?2 days of taking antibiotics. ? Your symptoms go away and then come back. ? You have a fever or chills. ? You vomit or feel like you may vomit. Get help right away if: ? You have very bad pain in your back or lower belly. ? You faint. This information is not intended to replace advice given to you by your health care provider. Make sure you discuss any questions you have with your health care provider. Document Revised: 12/22/2023 Document Reviewed: 08/19/2023 [employer] Patient Education ? 2023 [employer]Community Memorial HospitalOutside Recordson 32-10-9172Sofdlnq Records [id number]#1.00OTSt. Rita's HospitalED Note - Physicianon 49-06-2772QO Note - Physician [id number]#1.00[facility] Alanine aminotransferase [Enzymatic activity/volume] in Serum or PlasmaOrdered By: Vania Burton on 54-80-3532HSE [Catalytic activity/Vol]Alanine aminotransferase [Enzymatic activity/volume] in Serum or Plasma7[facility] HospitalALT [Catalytic activity/Vol]15 U/LGood Samaritan HospitalComment on above:Performed By: #### CBC, CMP #### [facility] [address] [place] [address] USAAlbumin [Mass/volume] in Serum or Plasma by Bromocresol green (BCG) dye binding methoOrdered By: Vania Burton on 51-97-3462Rtaklfc BCG dye [Mass/Vol]Albumin [Mass/volume] in Serum or Plasma by Bromocresol green (BCG) dye binding metho3.5-5.7FKettering Health PrebleAlbumin BCG dye [Mass/Vol]3.9 g/dL3.5-5.7FKettering Health PrebleAlkaline phosphatase [Enzymatic activity/volume] in Serum or PlasmaOrdered By: Vania Burton on 46-06-8622WUT [Catalytic activity/Vol]Alkaline phosphatase [Enzymatic activity/volume] in Serum or Fkqgha40-760NgdzmcbijGood Samaritan HospitalALP [Catalytic activity/Vol]56 U/C28-953PolbcodcnGood Samaritan HospitalComment on above:Performed By: #### CBC, CMP #### [facility] [address] [place] [address] USAAppearance of UrineOrdered By: Vania Burton on 90-77-0786Lhcxguzinw (U)Urine appearanceSelect Medical Specialty Hospital - Boardman, Inc Appearance (U)ClearSelect Medical Specialty Hospital - Boardman, IncComment on above:Order Comment: Name Collection Type:: Clean-Voided MidstreamPerformed By: #### UA #### [facility] [address] [place] [address] USAAspartate aminotransferase [Enzymatic activity/volume] in Serum or PlasmaOrdered By: Vania Burton on 27-48-9413VHE [Catalytic activity/Vol]Aspartate aminotransferase [Enzymatic activity/volume] in Serum or Dqujwq03-51KbqzwtbooGood Samaritan HospitalAST [Catalytic activity/Vol]27 U/L 13Good Samaritan HospitalComment on above:Performed By: #### CBC, CMP #### [facility] [address] [place] [address] USABasophils Auto (Bld) [#/Vol]Ordered By: Vania Burton on 79-60-2248Akmwcfiux (Bld) [#/Vol]Automated basophil count0.0-0.2FKettering Health PrebleBasophils [#/volume] in Blood by Automated countOrdered By: Vania Burton on 88-86-4850Tcqdorlwp (Bld) [#/Vol]0.1 10*3/uL0.0-0.2 [facility]itan HospitalComment on above:Result Comment: PERFORMED BY: [place] [address] PATHOLOGIST [employer]ATE [employer] ANTHONY PERRY M.D.Performed By: #### CBC, CMP #### [place] [address] USABasophils/100 WBC Auto (Bld)Ordered By: Vania Burton on 18-58-5122Vwvcewrks/100 WBC (Bld)Automated basophil %.Good [facility]aritan HospitalBasophils/100 leukocytes in Blood by Automated countOrdered By: Vania Burton on 62-51-3942Catnapvxs/100 WBC (Bld)1.2 %.[facility]itan HospitalComment on above:Performed By: #### CBC, CMP #### [place] [address] USABilirubin Test strip Ql (U)Ordered By: Vania Burton on 85-68-1870Noxqpaiqz Ql (U)Bilirubin.total [Presence] in Urine by Test strip NegativeGood Samaritan HospitalBilirubin Ql (U)NegativeNegative [facility]itan HospitalBilirubin.total [Mass/volume] in Serum or PlasmaOrdered By: Vania Burton on 39-67-4211Ijduvjvxv [Mass/Vol] Bilirubin.total [Mass/volume] in Serum or Plasma0.3-1.0Good [facility]itan HospitalBilirubin [Mass/Vol]0.3 mg/dL0.3-1.0Firelands Regional Medical CenterComment on above:Performed By: #### CBC, CMP #### [facility] [address] [place] [id number] USACT head/brain wo conon 23-85-7722RV head/brain wo con [facility] [address] [place] [address] CT Scan Report Signed Patient: Jazzmine Wang MR#: [id number] : 1945 Acct:[id number] Age/Sex: 79 / F ADM Date: 11/05/24 Loc: ER Room: Type: [facility] ER Attending Dr: Copies to: Vania Burton APRN Ordering Provider: Vania Burton APRN Date of Service: 11/05/24 CT/CT head/brain wo con: fall Unenhanced head CT TECHNIQUE: Contiguous axial imaging of the head. The CT exam was performed using one or more the following dose reduction techniques: Automated exposure control, adjustment of the MA and/or Kv according to patient size, or use of the iterative reconstruction technique. COMPARISON: None HISTORY: Head injury one week ago. Continued altered mental status. VENTRICLES: Within normal limits ATROPHY: None BRAIN PARENCHYMA: Adequate henning-white matter differentiation identified. HEMORRHAGE: None HERNIATION: No mass effect or herniation INFARCTION: No recent vascular distribution infarction is seen. EXTRA-AXIAL FLUID COLLECTIONS None MIDBRAIN: Unremarkable ROLO: Unremarkable MEDULLA: Unremarkable SINUSES: Unremarkable ORBITS: Grossly unremarkable MASTOIDS: Unremarkable BONY STRUCTURES Intact ADDITIONAL FINDINGS: CT/CT head/brain wo con IMPRESSION: No acute findings. Impression dictated by: Abundio Long M.D. 11/05/2024 2:14 PM Dictation Location: [place] [address] Transcribed By: [facility] 11/05/24 1414 Dictated By: Abundio Long DO 11/05/24 1413 Signed By: 11/05/24 1414[facility] Physician GroupCalcium [Mass/volume] in Serum or PlasmaOrdered By: Vania Burton on 01-39-4286Sodjupb [Mass/Vol]Calcium [Mass/volume] in Serum or Plasma8.6-10.3FKettering Health PrebleCalcium [Mass/Vol]9.1 mg/dL8.6-10.3FKettering Health PrebleComment on above: Performed By: #### CBC, CMP #### [facility] [address] [place] [id number] USACarbon dioxide, total [Moles/volume] in Serum or Plasma Ordered By: Vania Burton on 95-32-3929XE4 [Moles/Vol]Carbon dioxide, total [Moles/volume] in Serum or Qhmvzk47.0-31.0[facility]itan HospitalCO2 [Moles/Vol]24.1 mmol/L21.0-31.0[facility] HospitalComment on above:Performed By: #### CBC, CMP #### [facility] [address] [place] [id number] USAChloride [Moles/volume] in Serum or PlasmaOrdered By: Vania Burton on 96-71-1346Rmbiqckb [Moles/Vol]Chloride [Moles/volume] in Serum or OkitbzPsex32-996Veyaoljeu[address] [place], [place] [address]Chloride [Moles/Vol] 109 mmol/OEgzw96-093Nfgbsgove71 Campbell StreetComment on above:Performed By: #### CBC, CMP #### [facility] [address] [place] [id number] USAColor Auto (U)Ordered By: Vania Burton on 11-05-2024 Color (U)Color of Urine by AutoYelSycamore Medical CenterColor of Urine by AutoOrdered By: Vania Burton on 88-32-8263Bvjhz (U)YellowNorwalk Memorial HospitalComment on above:Order Comment: Name Collection Type:: Clean-Voided MidstreamPerformed By: #### UA #### [facility] [address] [place] [address] USAComplete Blood Count Auto Diffon 86-00-6112Prxx Corpuscular HGB Conc34.0 g/sGLrjsdm98.0-35.0[facility] Physician GroupComment on above:Performed By: #### CBC, CMP #### [facility] [address] [place] [id number] USAMonocytes/100 WBC (Bld)17.13 %Normal0.00-20.00[facility] Physician [facility] HospitalComment on above:Performed By: #### CBC, CMP #### [facility] [address] [place] [address] USANRBC%0.0 /100{WBC}Normal0-0.5[facility] Physician [facility] Comment on above:Performed By: #### CBC, CMP #### [place] [address] USAComprehensive Metabolic Panelon 76-83-8870Vxvffnz [Mass/Vol]3.9 g/dLNormal3.5-5.7[facility] Physician [facility] HospitalComment on above: Performed By: #### CBC, CMP #### [place] [address] USACreatinine Clr Calc Uirjphgw31.66NoNovant Health Fors[facility] Physician [facility] HospitalComment on above:Result Comment: PERFORMED BY: [place] [address] PATHOLOGIST CORPORATE [employer]ER ANTHONY PERRY M.D.Performed By: #### CBC, CMP #### [place] [address] USAEstimated GFR55.013 mL/MinNoJ.W. Ruby Memorial HospitalComment on above:Performed By: #### CBC, CMP #### [place] [address] USACreatinine [Mass/volume] in Serum or PlasmaOrdered By: Vania Burton on 96-96-8090Fuluqnqsvp [Mass/Vol]Creatinine [Mass/volume] in Serum or Plasma0.60-1.20[facility] HospitalCreatinine [Mass/Vol] 1.04 mg/dL0.60-1.20[facility] HospitalComment on above:Performed By: #### CBC, CMP #### [place] [address] USAECG 12 lead ECGon 80-04-1437VVB 12 lead ECGSAMARITAN [facility] [address] [place] [address] Electrocardiograph Report Signed Patient: Jazzmine Wang MR#: [id number] 1307 : 1945 Acct:[id number] Age/Sex: 79 / F ADM Date: 11/05/24 Loc: ER Room: Type: [facility] ER Attending Dr: Ordering Provider: Vania Burton APRN Date of Service: 11/05/2402/21/1338 ECG/ECG 12 lead ECG: Fall Copies to: Test Reason : Blood Pressure : */* mmHG Vent. Rate : 64 BPM Atrial Rate : 64 BPM P-R Int : 136 ms QRS Dur : 78 ms QT Int : 538 ms P-R-T Axes : 103 -2 47 degrees QTcB Int : 555 ms Normal sinus rhythm Low voltage QRS Cannot rule out Anterior infarct , age undetermined Abnormal ECG No previous ECGs available Confirmed by BAILEY MOONEY MD ([id number]) on 11/06/2024 1:37:30 AM Referred By: Electronically Signed By: BAILEY MOONEY MD Transcribed By: MUS Signed By Bailey Mooney MD 10/28 0137[facility] Physician GroupEosinophils Auto (Bld) [#/Vol] Ordered By: Vania Burton on 08-59-1646Uajaoolgfdm (Bld) [#/Vol]Automated eosinophil count0.0-0.45[facility] HospitalEosinophils [#/volume] in Blood by Automated countOrdered By: Vania Burton on 46-36-6025Ibkprnsncjn (Bld) [#/Vol]0.4 10*3/uL0.0-0.45[facility] HospitalComment on above:Performed By: #### CBC, CMP #### [place] [address] USAEosinophils/100 WBC Auto (Bld)Ordered By: Vania Burton on 71-67-6157Juurmpaenqi/100 WBC (Bld)Automated eosinophil %.[facility]itan HospitalEosinophils/100 leukocytes in Blood by Automated countOrdered By: Vania Burton on 80-63-5128Vjrroptnsbh/100 WBC (Bld)7.9 %.[facility] HospitalComment on above:Performed By: #### CBC, CMP #### [facility] [address] [place] [id number] USAErythrocyte distribution width Auto (RBC) [Ratio]Ordered By: Vania Burton on 97-67-7390Ooecanfyijv distribution width (RBC) [Ratio] Erythrocyte distribution width [Ratio] by Automated count11.9-15.3FKettering Health PrebleErythrocyte distribution width [Ratio] by Automated count Ordered By: Vania Burton on 33-38-3308Ceupgqjjcew distribution width (RBC) [Ratio]13.4 %11.9-15.3FKettering Health PrebleComment on above: Performed By: #### CBC, CMP #### [facility] [address] [place] [id number] USAErythrocytes [#/volume] in Blood by Automated countOrdered By: Vania Burton on 14-47-2709VHM (Bld) [#/Vol]3.53 10*6/uLLow3.60-5.00 [facility] HospitalComment on above:Performed By: #### CBC, CMP #### [facility] [address] [place] [id number] USAGlobulin Calc (S) [Mass/Vol]Ordered By: Vania Burton on 20-28-0780Ootfjisx (S) [Mass/Vol]Serum globulin measurement by calculation (mass/volume)[facility] HospitalGlucose [Mass/volume] in Serum or PlasmaOrdered By: Vania Burton on 01-68-2682Smvmfvv [Mass/Vol]Glucose [Mass/volume] in Serum or Pxcjvd93-732JbbqogfvnGood Samaritan HospitalComment on above:ADA recommended reference rangeRandom Glucose Reference Range is dependent on time and content of last meal. Glucose of more than 200 mg/dL in a nonstressed, ambulatory subject supports the diagnosisof Diabetes Mellitus. Glucose [Mass/Vol]81 mg/wQ79-618ZllvdvyhnGood Samaritan HospitalComment on above:ADA recommended reference rangeRandom Glucose Reference Range is dependent on time and content of last meal. Glucose of more than 200 mg/dL in a nonstressed, ambulatory subject supports the diagnosisof Diabetes Mellitus. Result Comment: Random Glucose Reference Range is dependent on time and content of last meal. Glucose of more than 200 mg/dL in a nonstressed, ambulatory subject supports the diagnosis of Diabetes Mellitus. ADA recommended reference rangePerformed By: #### CBC, CMP #### [facility] [address] [place] [id number] USAGlucose [Mass/volume] in Urine by Test stripOrdered By: Vania Burton on 63-78-9799Oksxnqs Test strip (U) [Mass/Vol]Glucose [Mass/volume] in Urine by Test stripNoSt. Francis Hospital Glucose Test strip (U) [Mass/Vol]Normal mg/dLNoSt. Francis HospitalHematocrit Auto (Bld) [Volume fraction]Ordered By: Vania Burton on 71-91-2030Ysfovsgxeu (Bld) [Volume fraction]Hematocrit [Volume Fraction] of Blood by Automated count34.0-46.4FKettering Health PrebleHematocrit [Volume Fraction] of Blood by Automated countOrdered By: Vania Burton on 74-82-2431Yqhmgxnrct (Bld) [Volume fraction]35.4 %34.0-46.4FKettering Health PrebleComment on above:Performed By: #### CBC, CMP #### [facility] [address] [place] [id number] USAHemoglobin Test strip Ql (U)Ordered By: Vania Burton on 05-22-5994Wdwgzeqywh Ql (U)Hemoglobin [Presence] in Urine by Test stripNegative [facility] HospitalHemoglobin Ql (U)NegativeNegativeGood Samaritan HospitalHemoglobin [Mass/volume] in BloodOrdered By: Vania Burton on 94-68-2899Acwtycbowm (Bld) [Mass/Vol]Hemoglobin [Mass/volume] in Blood 11.8-15.4FK[facility] Health PrebleHemoglobin (Bld) [Mass/Vol]12.0 g/dL 11.8-15.4FKettering Health PrebleComment on above:Performed By: #### CBC, CMP #### [facility] [address] [place] [address] USAKetones Test strip Ql (U)Ordered By: Vania Burton on 73-96-0019Yehxwbo Ql (U)Ketones [Presence] in Urine by Test stripNegative [facility] HospitalKetones [Presence] in Urine by Test strip Ordered By: Vania Burton on 63-30-2505Shbgstu Ql (U)NegativeNegSelect Medical OhioHealth Rehabilitation Hospital - DublinComment on above:Order Comment: Name Collection Type:: Clean-Voided MidstreamPerformed By: #### UA #### [facility] [address] [place] [address] USALeukocyte esterase [Presence] in Urine by Test strip Ordered By: Vania Burton on 00-76-3813Bssvsygwx esterase Test strip Ql (U) Leukocyte esterase [Presence] in Urine by Test stripNegativeGood Samaritan HospitalLeukocyte esterase Test strip Ql (U)NegativeNegSelect Medical OhioHealth Rehabilitation Hospital - DublinComment on above:Order Comment: Name Collection Type:: Clean-Voided MidstreamPerformed By: #### UA #### [facility] [address] [place] [id number] USALeukocytes [#/volume] corrected for nucleated erythrocytes in Blood by Automated counOrdered By: Vania Burton on 84-24-1333LWQ corrected for nucl RBC Auto (Bld) [#/Vol]Leukocytes [#/volume] corrected for nucleated erythrocytes in Blood by Automated coun3.8-11.6FKettering Health PrebleWBC corrected for nucl RBC Auto (Bld) [#/Vol]5.6 10*3/uL3.8-11.6 [facility] HospitalLeukocytes [#/volume] in Blood by Automated countOrdered By: Vania Burton on 29-33-6124HEF (Bld) [#/Vol]5.6 10*3/uL 3.8-11.6FKettering Health PrebleComment on above:Performed By: #### CBC, CMP #### [place] [address] USALymphocytes Auto (Bld) [#/Vol]Ordered By: Vania Burton on 02-12-8884Bcgwukgtiwt (Bld) [#/Vol]Lymphocytes [#/volume] in Blood by Automated count1.00-4.8[facility]itan HospitalLymphocytes [#/volume] in Blood by Automated countOrdered By: Vania Burton on 91-51-9322Mzdykryscug (Bld) [#/Vol]2.0 10*3/uL1.00-4.8[facility] HospitalComment on above:Performed By: #### CBC, CMP #### [facility] [address] [place] [id number] USALymphocytes/100 WBC Auto (Bld)Ordered By: Vania Burton on 87-02-0828Uxiysaxsasi/100 WBC (Bld)Lymphocytes/100 leukocytes in Blood by Automated count.[facility]itan HospitalLymphocytes/100 leukocytes in Blood by Automated countOrdered By: Vania Burton on 48-42-9727Thmshjjonab/100 WBC (Bld)35.8 %.[facility] HospitalComment on above:Performed By: #### CBC, CMP #### [facility] [address] [place] [id number] [facility] Auto (RBC) [Entitic mass]Ordered By: Vania Burton on 88-35-5181KLU (RBC) [Entitic mass]MCH [Entitic mass] by Automated count 24.7-34.3FGalion Hospital [Entitic mass] by Automated count Ordered By: Vania Burton on 13-58-2793UJI (RBC) [Entitic mass]34.1 pg 24.7-34.3FKettering Health PrebleComment on above:Performed By: #### CBC, CMP #### [facility] [address] [place], [place] [address] [facility] Auto (RBC) [Mass/Vol]Ordered By: Vania Burton on 26-00-0179FBCW (RBC) [Mass/Vol]MCHC [Mass/volume] by Automated count32.0-35.0 [facility] SystemHC (RBC) [Mass/Vol]34.0 g/dL32.0-35.0 [facility] SystemV Auto (RBC) [Entitic vol]Ordered By: Vania Burton on 71-66-0231QBV (RBC) [Entitic vol]MCV [Entitic volume] by Automated kdvrzBztb53-513PtwbohfsmGood Samaritan HospitalMCV [Entitic volume] by Automated countOrdered By: Vania Burton on 50-00-4801UAZ (RBC) [Entitic vol]100.4 nYRjuo60-982CvpeoyhlnGood Samaritan HospitalComment on above: Performed By: #### CBC, CMP #### [facility] [address] [place] [address] USAMonocyte distribution width [Entitic volume] in Blood by AutomatedOrdered By: Vania Burton on 52-08-1166Mpczmqlu distribution width Auto (Bld) [Entitic vol]Monocyte distribution width [Entitic volume] in Blood by Automated0.00-20.00[facility] HospitalMonocyte distribution width Auto (Bld) [Entitic vol]17.13 %0.00-20.00[facility] Monocytes Auto (Bld) [#/Vol]Ordered By: Vania Burton on 79-17-2000Ddutvhbgl (Bld) [#/Vol]Automated blood monocyte count0.0-0.8[facility] HospitalMonocytes [#/volume] in Blood by Automated countOrdered By: Vania Burton on 58-57-7555Prxqpdsoi (Bld) [#/Vol]0.5 10*3/uL0.0-0.8[facility] HospitalComment on above:Performed By: #### CBC, CMP #### [facility] [address] [place] [id number] USAMonocytes/100 WBC Auto (Bld)Ordered By: Vania Burton on 85-24-2862Xtycfjdxd/100 WBC (Bld)Automated monocyte %.[facility]itan HospitalMonocytes/100 leukocytes in Blood by Automated countOrdered By: Vania Burton on 41-78-9383Lxhkngylg/100 WBC (Bld)9.6 %.[facility]itan HospitalComment on above:Performed By: #### CBC, CMP #### [facility] [address] [place] [id number] USANeutrophils Auto (Bld) [#/Vol]Ordered By: Vania Burton on 54-73-2629Efmsutzsuzd (Bld) [#/Vol]Neutrophils [#/volume] in Blood by Automated count1.8-7.7FKettering Health PrebleNeutrophils [#/volume] in Blood by Automated countOrdered By: Vania Burton on 66-55-7101Dcwfcxponkm (Bld) [#/Vol]2.5 10*3/uL1.8-7.7FKettering Health PrebleComment on above:Performed By: #### CBC, CMP #### [facility] [address] [place] [address] USANeutrophils/100 WBC Auto (Bld)Ordered By: Vania Burton on 37-44-2692Ghhejtvzaxk/100 WBC (Bld)Automated neutrophil %.[facility]itan HospitalNeutrophils/100 leukocytes in Blood by Automated countOrdered By: Vania Burton on 75-96-6161Mdsvpmxvbbc/100 WBC (Bld)45.5 %.[facility] HospitalComment on above:Performed By: #### CBC, CMP #### [facility] [address] [place] [id number] USANitrite Test strip Ql (U)Ordered By: Vania Burton on 10-32-8513Kemlobt Ql (U)Nitrite [Presence] in Urine by Test stripNegative [facility] HospitalNitrite Ql (U)NegativeNegativeGood Samaritan HospitalNo Panel InformationOrdered By: Vania Burton on 92-27-0609Jmsysduir GFR (CKD-EPI)55.013 mL/MinGood Samaritan Hospital Pharmacy Creatinine Clearance (Chem41.66[facility] Nucleated erythrocytes [Presence] in Blood by Automated countOrdered By: Vania Burton on 57-28-5304Dawwekiwz RBC Auto Ql (Bld)Nucleated erythrocytes [Presence] in Blood by Automated count0-0.5FK[facility] Nucleated RBC Auto Ql (Bld)0.0 /100{WBC}0-0.5FK[facility] Outside Recordson 52-00-9759Rwrexku Records [id number]#1.00[facility] Platelet mean volume Auto (Bld) [Entitic vol]Ordered By: Vania Burton on 74-45-7715Diudsfey mean volume (Bld) [Entitic vol]Platelet mean volume [Entitic volume] in Blood by Automated count6.3-10.7FK[facility] Platelet mean volume [Entitic volume] in Blood by Automated countOrdered By: Vania Burton on 36-79-5798Uphskqey mean volume (Bld) [Entitic vol]7.0 fL 6.3-10.7FKettering Health PrebleComment on above:Performed By: #### CBC, CMP #### [place] [address] USAPlatelets Auto (Bld) [#/Vol]Ordered By: Vania Burton on 16-48-2670Usgswyxhr (Bld) [#/Vol]Platelets [#/volume] in Blood by Automated -705Utpkx[address] [place], [place] [address]Platelets [#/volume] in Blood by Automated countOrdered By: Vania Burton on 34-03-2949Kbsmthdgp (Bld) [#/Vol] 229 10*3/uI409-976Lkqfhmrdi[address] [place], [place] [address]Comment on above:Performed By: #### CBC, CMP #### [place] [address] USAPotassium [Moles/volume] in Serum or PlasmaOrdered By: Vania Burton on 01-70-8716Tsvbbnlgq [Moles/Vol]Potassium [Moles/volume] in Serum or Plasma3.5-5.1FK[facility]tering Health PreblePotassium [Moles/Vol]4.0 mmol/L3.5-5.1FKettering Health PrebleComment on above:Performed By: #### CBC, CMP #### [place] [address] USAProtein Test strip (U) [Mass/Vol]Ordered By: Vania Burton on 05-24-6671Lpdsawg (U) [Mass/Vol]Protein [Mass/volume] in Urine by Test stripNegativeGood Samaritan HospitalProtein (U) [Mass/Vol]Negative NegativeGood Samaritan HospitalProtein [Mass/volume] in Serum or PlasmaOrdered By: Vania Burton on 45-32-4053Tbxbohs [Mass/Vol]Protein [Mass/volume] in Serum or Plasma6.4-8.9[facility] HospitalProtein [Mass/Vol]6.7 g/dL6.4-8.9[facility] HospitalComment on above: Performed By: #### CBC, CMP #### [facility] [address] [place] [address] USARBC Auto (Bld) [#/Vol]Ordered By: Vania Burton on 76-23-0871GZJ (Bld) [#/Vol]Erythrocytes [#/volume] in Blood by Automated count Low3.60-5.00Green Cross Hospitalerum globulin measurement by calculation (mass/volume)Ordered By: Vania Burton on 65-56-1798Lytlaepd (S) [Mass/Vol]2.8 g/dLGood Samaritan HospitalComment on above:Performed By: #### CBC, CMP #### [place] [address] USASerum or plasma albumin/globulin mass ratioOrdered By: Vania Burton on 67-49-2998Wkithvi/Globulin [Mass ratio]Serum or plasma albumin/globulin mass ratioGood Samaritan HospitalAlbumin/Globulin [Mass ratio]1.4 {ratio}[facility] HospitalComment on above: Performed By: #### CBC, CMP #### [facility] [address] [place] [address] USASerum or plasma anion gap determinationOrdered By: Vania Burton on 89-11-8303Jgjxp gap [Moles/Vol]Serum or plasma anion gap determination6.0-15.0[facility]itan HospitalAnion gap [Moles/Vol]11.9 mmol/L6.0-15.0[facility] HospitalComment on above:Performed By: #### CBC, CMP #### [place] [id number] USASodium [Moles/volume] in Serum or PlasmaOrdered By: Vania Burton on 64-33-1557Ebckvg [Moles/Vol]Sodium [Moles/volume] in Serum or Sehatv322-344KigqtdkjfGreen Cross Hospitalodium [Moles/Vol]141 mmol/L 136-145[facility] Samaritan HospitalComment on above:Performed By: #### CBC, CMP #### [place] [id number] USASpecific gravity Test strip (U) [Rel density]Ordered By: Vania Burton on 81-19-9747Wdmzgapx gravity (U) [Rel density]Specific gravity of Urine by Test strip1.001-1.030Green Cross Hospitalpecific gravity (U) [Rel density]1.0221.001-1.030[facility] Troponin I High Sensitivityon 14-49-5510Tyqvsxhr I High Jbyrqjbakyb1Xrzwii2-95 [facility] Physician GroupComment on above:Result Comment: The Troponin units of report have been changed to meet the Chest Pain Accreditation requirement, element EC5.M1l2. Troponin units are changed from pg/ml to ng/L. Also, the decimal is removed and results are in whole numbers. PERFORMED BY: [place] [address] PATHOLOGIST CORPORATE TAX PREPARER ANTHONY PERRY M.D.Performed By: #### HS TROP #### [place] [address] USATroponin I.cardiac [Mass/volume] in Serum or Plasma by Detection limit <= 0.01 ng/Ordered By: Vania Burton on 05-58-6064Dzgixwxa I.cardiac DL <= 0.01 ng/mL [Mass/Vol]Troponin I.cardiac [Mass/volume] in Serum or Plasma by Detection limit <= 0.01 ng/0-15[facility] Comment on above:The Troponin units of report have been changed to meet the Chest Pain Accreditation requirement, element EC5.M1l2. Troponin units are changed from pg/ml to ng/L. Also, the decimal is removed and results are in whole numbers.Troponin I.cardiac [Mass/volume] in Serum or Plasma by Detection limit <= 0.01 ng/mLOrdered By: Vania Burton on 64-18-2774Repelexm I.cardiac DL <= 0.01 ng/mL [Mass/Vol]3 ng/L0-15[facility] Samaritan HospitalComment on above:The Troponin units of report have been changed to meet the Chest Pain Accreditation requirement, element EC5.M1l2. Troponin units are changed from pg/ml to ng/L. Also, the decimal is removed and results are in whole numbers. Urea nitrogen [Mass/volume] in Serum or PlasmaOrdered By: Vania Burton on 26-51-5747Yses nitrogen [Mass/Vol]Urea nitrogen [Mass/volume] in Serum or Plasma 12-21Good Samaritan HospitalUrea nitrogen [Mass/Vol]21 mg/dL12-21 [facility] HospitalComment on above:Performed By: #### CBC, CMP #### [facility] [address] [place], [place] [id number] USAUrinalysison 05-63-3172Ygzwhufxs,UrineNegativeNormal NegativeThe Ashe [facility] Hospital Physician GroupComment on above:Order Comment: Name Collection Type:: Clean-Voided MidstreamPerformed By: #### UA #### [address] [address] USAGlucose Ql (U)NormalNormalNormalThe [facility] Hospital Physician GroupComment on above:Order Comment: Name Collection Type:: Clean-Voided MidstreamPerformed By: #### UA #### [address] [address] USANitrite,UrineNegativeNormalNegativeThe [facility] Physician GroupComment on above:Order Comment: Name Collection Type:: Clean-Voided MidstreamPerformed By: #### UA #### [address] [address] USAOccult Blood,UrineNegativeNormalNegativeThe [facility] Physician GroupComment on above:Order Comment: Name Collection Type:: Clean- Voided MidstreamResult Comment: PERFORMED BY: [place] [address] PATHOLOGIST CORPORATE TAX PREPARER ANTHONY PERRY M.D.Performed By: #### UA #### [place] [address] USAProtein,UrineNegativeNormalNegativeThe [facility] Physician GroupComment on above:Order Comment: Name Collection Type:: Clean-Voided MidstreamPerformed By: #### UA #### [place] [address] USASpecificy Wallaceton,Urine1.217Iotyzy1.001-1.030[facility] Physician GroupComment on above:Order Comment: Name Collection Type:: Clean- Voided MidstreamPerformed By: #### UA #### [place] [address] USAUrobilinogen,UrineNormalNormalNormalThe [facility] Hospital Physician GroupComment on above:Order Comment: Name Collection Type:: Clean- Voided MidstreamPerformed By: #### UA #### [place] [address] USAUrobilinogen Test strip (U) [Mass/Vol]Ordered By: Vania Burton on 11-65-3034Doryfwiewdby (U) [Mass/Vol]Urobilinogen [Mass/volume] in Urine by Test stripNoSt. Francis HospitalUrobilinogen (U) [Mass/Vol]Normal mg/dLNoSt. Francis HospitalWBC Auto (Bld) [#/Vol]Ordered By: Vania Burton on 15-23-7893GCG (Bld) [#/Vol]Leukocytes [#/volume] in Blood by Automated count3.8-11.6FKettering Health Preble X-ray reportOrdered By: Avelino Johnson on 01-70-8803Zkbkf [facility] [place] [address] [place] [address] XRay Report Signed Patient: Jazzmine Wang MR#: [id number] : 1945 Acct:[id number] Age/Sex: 79 / F ADM Date: 5 Loc: ER Room: Type: [facility] ER Attending Dr: Copies to: Vania Burton APRN~ Ordering Provider: Vania Burton APRN Date of Service: 11/05/24 XR/XR chest 2V*: Fall PA AND LATERAL CHEST: CLINICAL HISTORY: Fell on Tuesday with head injury, right-sided headache since injury COMPARISON: None FINDINGS: Mildly enlarged cardiomediastinal. Right midlung calcified granuloma. Lungs otherwise clear. No effusion or pneumothorax. XR/XR chest 2V* IMPRESSION: NO ACUTE CARDIOPULMONARY ABNORMALITY. Impression dictated by: Avelino Johnson M.D. 11/05/2024 5:46 PM Dictation Location: [facility] Transcribed By: RAVIN 11/05/241745 Dictated By: Avelino Johnson MD 11/05/241745 Signed By: 11/05/24 [facility] Work Phone: XR chest 2V*on 90-96-1921RQ chest 2V*[facility] [place] [address] [place] [address] XRay Report Signed Patient: Jazzmine Wang MR#: [id number] : 1945 Acct:[id number] Age/Sex: 79 / F ADM Date: 11/05/24 Loc: ER Room: Type: [facility] ER Attending Dr: Copies to: Vania Burton APRN Ordering Provider: Vania Burton APRN Date of Service: 11/05/24 XR/XR chest 2V*: Fall PA AND LATERAL CHEST: CLINICAL HISTORY: Fell on Tuesday with head injury, right-sided headache since injury COMPARISON: None FINDINGS: Mildly enlarged cardiomediastinal. Right midlung calcified granuloma. Lungs otherwise clear. No effusion or pneumothorax. XR/XR chest 2V* IMPRESSION: NO ACUTE CARDIOPULMONARY ABNORMALITY. Impression dictated by: Avelino Johnson M.D. 11/05/2024 5:46 PM Dictation Location: [place] [address] Transcribed By: RAVIN 11/05/241745 Dictated By: Avelino Johnson MD 11/05/241745 Signed By: 11/05/24 174[facility] Physician GrouppH Test strip (U)Ordered By: Vania Burton on 14-96-0150dI (U)pH of Urine by Test strip5.0-9.0[facility]itan HospitalpH of Urine by Test stripOrdered By: Vania Burton on 59-89-8709aT (U)5.5 [pH]5.0-9.0[facility] HospitalComment on above:Order Comment: Name Collection Type:: Clean-Voided MidstreamPerformed By: #### UA #### [facility] [address] [place] [address] USAUrology Office/Clinic Noteon 07-32-0575Lwniqpa Office/Clinic NoteUrology Office/Clinic Note Chief Complaint 6 month follow up HPI Staff Jazzmine is a 79 yr old female presenting for 6mo F/U w/US prev dx:Mixed incontinence, vaginal atrophy, HX of UTI US Resulted 07/16/24 BBSQ: 5 Just has some dribbling when coughing. denies dysuria, denies visible blood, denies abdominal pain/flank pain. Review of Systems PHQ Score Initial Depression Screen Score: 0 SCORE no fever, chills, malaise, myalgia. no rash/lesions. no chest pain, palpitations, or SOB. no abdominal pain, nausea, vomiting. 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 Pt prefers a female provider. 1. Bilateral renal cysts (N28.1: Cyst of kidney, acquired) [place] [facility] [place] (no [place] imaging). Incidental finding. AYAN 07/16/24 - no hydro; bilat renal cysts which appear simple, largest 7.7x7x5.9cm on L; no solid masses. -F/u 1 yr w AYAN to assess stability. 2. Mixed incontinence (N39.46: Mixed incontinence) Pre-treatment BBSQ 23. UUI > FLETCHER Drinks manan and coffee. Admits to minimal water intake. Counseled pt on bladder irritants. Reports constipation and colitis. No hx of DM. Myrbetriq and Gemtesa were both cost-prohibitive. Pt never started either of them. Sp cysto w KML 01/19/24. Sp Botox 100u w KML 03/19/24. Doing very well sine Botox. Has noticed improvement in all sx. BBSQ 5 very good control. Hasn't noticed it wearing off yet. However reports Botox was incredibly painful and she could feel every single injection. I explained this is not typical and if/when she needs another dose she can discuss this with KML so adjustments can be made to help make it less painful. -Pt to contact office when Botox wears off. Will need appt w KML, not ESTELLA. Ordered: Urnls Dip Stick Auto w/o Microscopy POC 77077 3. 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 Rarely sexually active now. Used estrogen cream in the past, no sx improvement. Also tried prophy abx. TODAY: No recent UTIs. UA completed in office today shows no microhematuria or signs of infection. Ordered: Urnls Dip Stick Auto w/o Microscopy POC 65938 4. 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 KML restarted estrogen cream. TODAY: Pt has been using as instructed. No new complaints. Ordered: Urnls Dip Stick Auto w/o Microscopy POC 21069 F/u 1 yr w AYAN prior, sooner if Botox starts to wear off - appt should be w KML, not ESTELLA. Follow-up With When Contact Information CHRIS COUGHLIN, ERIKA Trammell, URL In 1 year [address] [place] [address] Additional Instructions: AYAN prior Patient Education Overactive Bladder, Adult Problem List/Past Medical History Ongoing Allergic rhinitis Anxiety Bilateral renal cysts Cervical spondylosis Cervicalgia Cognitive decline Constipation, chronic Depression Fibromyalgia Generalized osteoarthritis Genital herpes GERD (gastroesophageal reflux disease) Hip pain, bilateral History of UTI Hyperlipemia Insomnia Mixed incontinence Sleep apnea UTI symptoms Vaginal atrophy Historical No qualifying data Procedure/Surgical History Injection of substance into bladder wall (01/19/2024), Arthroscopy, Cataract, Cholecystectomy, Colonoscopy, Dilation and curettage, Ligation of fallopian tube, Tubal ligation. Medications acyclovir 200 mg Cap, 200 mg= 1 cap(s), Oral, BID Melanie 24 Hour Allergy calcium (as carbonate) 600 mg oral tablet, 600 mg= 1 tab(s), Oral, Daily ClonazePAM 0.5 mg Tab Effexor XR 75 mg Cap-ER, 75 mg= 1 cap(s), Oral, Daily Estrace 0.1 mg/g Cream, See Instructions, 2 refills Lyrica 50 mg Cap, 50 mg= 1 cap(s), Oral, Daily Protonix 40 mg Tab-DR, 40 mg= 1 tab(s), Oral, Daily simvastatin 10 mg Tab, 10 mg= 1 tab(s), Oral, qPM Allergies Cipro (Hives) Social History Alcohol Past. Wine, Liquor. 1-2 times per year., 04/13/2024 Substance Abuse Never., 04/13/2024 Tobacco Never (less than 100 in lifetime) Tobacco Use:. Never Smokeless Tobacco Use:., 10/17/2024 Family History Alcoholism: Father. Arthritis: Father. Heart disease: Father. Hypertension: Father. Stroke: Mother. Immunizations Vaccine Date Status Comments pneumococcal 23-valent vaccine 05/10/2024 Recorded influenza virus vaccine, inactivated 04/16/2024 Recorded influenza virus vaccine, inactivated 03/14/2023 Recorded SARS-CoV-2 (COVID-19) [id number].[id number] 03/01/2022 Recorded influenza virus vaccine, inactivated (more content not included)...[facility] CenterComment on above:Result Comment: Electronically Signed By: ERIKA SIM PA-C\Carobr\Date and Time Signed: 10/19/2512:41 EDTAmbulatory Visit Summaryon 95-10-9962Okcagsodwl Visit SummaryAmbulatory Visit Summary JAZZMINE WANG :1945 Visit Date:10/17/2024 Ambulatory Visit Instructions Your Diagnosis Bilateral renal cysts Mixed incontinence History of UTI Vaginal atrophy Your Care Team Attending Physician - ERIKA SIM PA-C Primary Care Physician - PREMA MUNOZ This Is Your Medications List acyclovir (acyclovir 200 mg Cap) calcium carbonate (calcium (as carbonate) 600 mg oral tablet) clonazepam (ClonazePAM 0.5 mg Tab) estradiol topical (Estrace 0.1 mg/g Cream) fexofenadine (Melanie 24 Hour Allergy) pantoprazole (Protonix 40 mg Tab-DR) pregabalin (Lyrica 50 mg Cap) simvastatin (simvastatin 10 mg Tab) venlafaxine (Effexor XR 75 mg Cap-ER) Procedures Performed Injection of substance into bladder wall (01/19/2024), Arthroscopy, Cataract, Cholecystectomy, Colonoscopy, Dilation and curettage, Ligation of fallopian tube, Tubal ligation. Discharge Vitals Temperature (Temporal Artery) 36.4 ???C Heart Rate (Peripheral) 64 Respiratory Rate 16 Blood Pressure 135/73 Height 165 cm Height 65 in Weight 69.8 kg Weight 153.882 lb BMI 25.64 Medications What How Much When Instructions Unchanged acyclovir (acyclovir 200 mg Cap) 1 Capsules By Mouth 2 times a day Unchanged calcium carbonate (calcium (as carbonate) 600 mg oral tablet) 1 Tablets By Mouth Every day Unchanged clonazepam (ClonazePAM 0.5 mg Tab) Unchanged estradiol topical (Estrace 0.1 mg/ g Cream) See instructions Apply pea sized amount to external urethra/ vaginal area 3x a week for 1 month, then 2x a week afterwards Unchanged fexofenadine (Melanie 24 Hour Allergy) Unchanged pantoprazole (Protonix 40 mg Tab-DR) 1 Tablets By Mouth Every day Unchanged pregabalin (Lyrica 50 mg Cap) 1 Capsules By Mouth Every day Unchanged simvastatin (simvastatin 10 mg Tab) 1 Tablets By Mouth Once a day (in the evening) Unchanged venlafaxine (Effexor XR 75 mg Cap-ER) 1 Capsules By Mouth Every day Allergies Cipro (Hives) Problems Ongoing - Any problem that you are currently receiving treatment for. Allergic rhinitis Anxiety Bilateral renal cysts Cervical spondylosis Cervicalgia Cognitive decline Constipation, chronic Depression Fibromyalgia Generalized osteoarthritis Genital herpes GERD (gastroesophageal reflux disease) Hip pain, bilateral History of UTI Hyperlipemia Insomnia Mixed incontinence Sleep apnea UTI symptoms Vaginal atrophy Patient Survey You may receive a survey via text or e-mail asking about your office visit. Please share your experience with us by completing your survey. We appreciate your feedback and thank you for choosing us for your care. [facility] CenterCoding Summaryon 10-09-2024 Coding SummaryHTMLBase 64 RlxbbbwcZGi7cVi+PGhlYWQ+XC8HAGLzD44vqLOvrF5rL9NBHFhTWrgcCGXKOPrUDvBeznEdPR5jdBFm ZXJu [file] ZTo (more content not included)...[facility] HospitalCoding Summaryon 00-74-0207Vjxnac SummaryHTMLBase 64 GioccvewOWb5jLi+PGhlYWQ+EI8CWFFcP47ohCNylV3wC0XBTUqAAwcgTYDOQCuKQmZejrPeEL8euPHe ZXJu [file] ZTo (more content not included)...[facility] Memorial HospitalNo Panel Informationon 27-21-2146KHOHMid [facility] Panel InformationOrdered By: Alisha Wilkes on 25-35-5540PGXIAudrain Medical CenterRad - MRI Reporton 09-05-9152Nzb - MRI Report [id number]#1.00OTGTIFFCommunity Memorial HospitalMRI Spine Cervical w/o Contraston 77-37-5010GGV Spine Cervical w/o Contrast EXAMINATION: MRI Spine Cervical w/o Contrast HISTORY: HYPERREFLEXIA, JERKING COMPARISON: 01/31/2019 TECHNIQUE: A variety of imaging planes and parameters were utilized for visualization of suspected pathology. FINDINGS: CRANIOCERVICAL AREA: Normal foramen magnum with no Chiari malformation. PARASPINAL AREA: Normal with no visible mass. BONES: Loss of normal cervical lordosis. No acute fracture, dislocation or bone edema. Moderate diffuse degenerative spondylosis and facet osteoarthropathy CORD: Normal caliber, contour, and signal intensity. CERVICAL DISC LEVELS: C2-C3: Mild disc desiccation. No disc bulge or herniation. Moderate to severe left facet osteoarthropathy. No central canal or right foraminal stenosis. Moderate narrowing of the left neural foramen C3-C4: Disc desiccation. No disc bulge or herniation. Moderate left facet osteoarthropathy. No central or right foraminal stenosis . Mild narrowing of the left neural foramen C4-C5: Moderate to severe disc space narrowing with endplate sclerosis. Mild diffuse disc/osteophyte complex and facet osteoarthropathy. No central canal or left foraminal stenosis. Mild narrowing of the right neural foramen C5-C6: Moderate to severe disc space narrowing with endplate sclerosis. Moderate diffuse disc/osteophyte complex and facet osteoarthropathy. flattening of the ventral spinal cord narrowing the central canal to 8 mm in AP dimension. Moderate to severe bilateral foraminal stenosis C6-C7: Mild to moderate disc space narrowing. Endplate sclerosis. Moderate diffuse disc/osteophyte complex and facet osteoarthropathy. No central canal stenosis. No right foraminal stenosis. Mild left foraminal stenosis C7-T1:. No significant disc/facet abnormality, spinal stenosis, or foraminal stenosis. IMPRESSION: Moderate diffuse degenerative changes with central canal and foraminal stenosis most significant at C5-C6. Final Dictated by: Ramo Mcgovern MD Dictated DT/TM: 09/25/24 2:03 Signed (Electronic Signature): Ramo Mcgovern MD 09/25/24 2:11 pm Technologist: [facility] Doctors HospitalCouniversal health services Summaryon 17-41-5914Lrvzfj Summary HTMLBase 64 JzzgxufgKUe9mBm+PGhlYWQ+AK2CCBXsA24tmMEpaO6vM1AYQRkWJrygVTRVJLdQJtKxuoReWA1laRZr ZXJu [file] ci1 (more content not included)...Community Memorial HospitalOutside Recordson 95-82-7891Kizszfo [id number]#1.00OTGTIFF Community Memorial HospitalPatient Handouton 50-84-9950Txwwkla HandoutMental and Behavioral Health Managing Anxiety, Adult After being diagnosed with anxiety, you may be relieved to know why you have felt or behaved a certain way. You may also feel overwhelmed about the treatment ahead and what it will mean for your life. With care and support, you can manage your anxiety. How to manage lifestyle changes Understanding the difference between stress and anxiety Although stress can play a role in anxiety, it is not the same as anxiety. Stress is your body's reaction to life changes and events, both good and bad. Stress is often caused by something external, such as a deadline, test, or competition. It normally goes away after the event has ended and will last just a few hours. But, stress can be ongoing and can lead to more than just stress. Anxiety is caused by something internal, such as imagining a terrible outcome or worrying that something will go wrong that will greatly upset you. Anxiety often does not go away even after the eventis over, and it can become a long-term (chronic) worry. Lowering stress and anxiety Talk with your health care provider or a counselor to learn more about lowering anxiety and stress.They may suggest tension-reduction techniques, such as: ? Music. Spend time creating or listening to music that you enjoy and that inspires you. ? Mindfulness-based meditation. Practice being aware of your normal breaths while not trying to control your breathing. It can be done while sitting or walking. ? Centering prayer. Focus on a word, phrase, or sacred image that means something to you and bringsyou peace. ? Deep breathing. Expand your stomach and inhale slowly through your nose. Hold your breath for 3?5seconds. Then breathe out slowly, letting your stomach muscles relax. ? Self-talk. Learn to notice and spot thought patterns that lead to anxiety reactions. Change thosepatterns to thoughts that feel peaceful. ? Muscle relaxation. Take time to tense muscles and then relax them. Choose a tension-reduction technique that fits your lifestyle and personality. These techniques take time and practice. Set aside 5?15 minutes a day to do them. Specialized therapists can offer counseling and training in these techniques. The training to help with anxiety may be covered by some insurance plans. Other things you can do to manage stress and anxiety include: ? Keeping a stress diary. This can help you learn what triggers your reaction and then learn ways to manage your response. ? Thinking about how you react to certain situations. You may not be able to control everything, but you can control your response. ? Making time for activities that help you relax and not feeling guilty about spending your time inthis way. ? Doing visual imagery. This involves imagining or creating mental pictures to help you relax. ? Practicing yoga. Through yoga poses, you can lower tension and relax. Medicines Medicines for anxiety include: ? Antidepressant medicines. These are usually prescribed for long-term daily control. ? Anti-anxiety medicines. These may be added in severe cases, especially when panic attacks occur. When used together, medicines, psychotherapy, and tension-reduction techniques may be the most effective treatment. Relationships Relationships can play a big part in helping you recover. Spend more time connecting with trusted friends and family members. Think about going to couples counseling if you have a partner, taking family education classes, or going to family therapy. Therapy can help you and others better understandyour anxiety. How to recognize changes in your anxiety Everyone responds differently to treatment for anxiety. Recovery from anxiety happens when symptomslessen and stop interfering with your daily life at home or work. This may mean that you will startto: ? Have better concentration and focus. Worry will interfere less in your daily thinking. ? Sleep better. ? Be less irritable. ? Have more energy. ? Have improved memory. Try to recognize when your condition is getting worse. Contact your provider if your symptoms interfere with home or work and you feel like your condition is not improving. Follow these instructions at home: Activity ? Exercise. Adults should: ? Exercise for at least 150 minutes each week. The exercise should increase your heart rate and make you sweat (moderate-intensity exercise). ? Do strengthening exercises at least twice a week. ? Get the right amount and quality of sleep. Most adults need 7?9 hours of sleep each night. Lifestyle ? Eat a healthy diet that includes plenty of vegetables, fruits, whole grains, low-fat dairy products, and lean protein. ? Do not eat a lot of foods that are high in fats, added sugars, or salt (sodium). ? Make choices that simplify your life. ? Do not use any products that contain nicotine or tobacco. These products include cigarett (more content not included)...Community Memorial HospitalProvider Orderson 72-94-2320Fwjpnaaf Orders [id number]#1.00OTSt. Rita's HospitalLab - AP Resultson 25-52-1955Mny - AP Results [id number]#1.00[facility] Sendout Teston 73-84-7583Cnufpavgi Send Out.See [facility] Valley HospitalComment on above:Order Comment: GASTRIC ANTRUM BIOPSYPerformed By: #### [id number] ####[facility] (DEFAULT)[address] [place], [place] [address]Tqeubd Summaryon 10-77-6329Ynxttl SummaryMLBase 64 NsrwbgpxROn3hQh+PGhlYWQ+SL8WEQJzF26tgZXadU5fQ6KMXOpURqlxZXWAGTzTRvVuxkXdAS9nzSNw ZXJu [file] ZTo (more content not included)...[facility] HospitalProvider Orderson 91-32-9498Sxtdbdff [id number]#1.00OTGTIFF Community Memorial HospitalConsent Formson 47-15-2092Mlxnelf Forms [id number]#1.00OTGTIFFCommunity Memorial Hospital Anesthesia Noteon 17-22-6022Ajvqntvbyp NotePatient: JAZZMINE WANG Age: 79 years Sex: FEMALE : 1945 Associated Diagnoses: None Author: Ramo Levine DO Postoperative Information Post Operative Note: Post Anesthesia Care Unit. Physical Examination Vital Signs 09/11/2024 10:05 EDT Temperature Temporal 36.1 DegC LOW Heart Rate Monitored 55 bpm LOW Systolic Blood Pressure 87 mmHg LOW Diastolic Blood Pressure 48 mmHg LOW Mean Arterial Pressure, Cuff 61 mmHg LOW SpO2 100 % Oxygen Flow Rate 6 L/min Oxygen Therapy Simple mask General: Alert and oriented. Respiratory: Respirations are non-labored. Cardiovascular: Normal rate, Regular rhythm. Review / Management Condition: Stable. Assessment Anesthetic outcome No anesthetic complications noted. Plan Transfer/ Discharge: Patient can be discharged from PACU when criteria met. Condition good. [Electronically Signed on: 09/11/2024 10:13 EDT] Ramo Levine DO [Verified on: 09/11/2024 10:13 EDT] Ramo Levine [facility] SystemAnesthesia NotePatient: JAZZMINE WANG Age: 79 years Sex: FEMALE : 1945 Associated Diagnoses: None Author: Ramo Levine DO Preoperative Information Anesthesia history: Patient history: No difficult intubation, No malignant hyperthermia. Family history: No malignant hyperthermia, No prior anesthesia problems. Review of Systems Constitutional: Negative. Eye Ear/Nose/Mouth/Throat Respiratory: No shortness of breath, No cough. Cardiovascular: No chest pain. Gastrointestinal: Heartburn. Endocrine: Negative. Musculoskeletal: Back pain, Neck pain. Neurologic: Alert and oriented X4. Health Status Allergies: Allergic Reactions (All) Severity Not Documented Cipro- No reactions were documented. Canceled/Inactive Reactions (All) No Known Medication Allergies Current medications: Home Medications (10) Active acyclovir 200 mg oral capsule 1 cap(s), PO, BID Melanie 24 Hour Allergy oral tablet 180 mg = 1 tab(s), PO, Daily calcium (as carbonate) 600 mg oral tablet 600 mg = 1 tab(s), Oral, BID clonazePAM 0.5 mg oral tablet 1 tab(s), Oral, TID medical marijuana card Multiple Vitamins oral tablet 1 tab(s), PO, Daily omeprazole 40 mg oral delayed release capsule 1 cap(s), PO, Daily pregabalin 50 mg oral capsule 50 mg = 1 cap(s), Oral, BID simvastatin 10 mg oral tablet 10 mg = 1 tab(s), Oral, Once a day (at bedtime) venlafaxine 150 mg oral capsule, extended release 150 mg = 1 cap(s), Oral, Daily Problem list: All Problems Cervical spondylosis / SNOMED CT 5435718769 / Confirmed Bilateral renal cysts / SNOMED CT 6126137341 / Confirmed Generalized osteoarthritis / SNOMED CT 943502138 / Confirmed Fibromyalgia / SNOMED CT 209385816 / Confirmed GERD (gastroesophageal reflux disease) / SNOMED CT 070653317 / Confirmed Genital herpes / SNOMED CT 81759131 / Confirmed Hip pain, bilateral / SNOMED CT 08937219 / Confirmed Hyperlipidemia / SNOMED CT 86374654 / Confirmed Insomnia / SNOMED CT 308153664 / Confirmed Depression with anxiety / SNOMED CT 947570066 / Confirmed Cervicalgia / SNOMED CT 429351272 / Confirmed Screening mammogram, encounter for / SNOMED CT 624467319 / Confirmed Allergic rhinitis, seasonal / SNOMED CT 829951881 / Confirmed Sensorineural hearing loss of both ears / SNOMED CT 206682642 / Confirmed Resolved: Dizziness / SNOMED CT 2214907339 Canceled: Anxiety / SNOMED CT 90476602 Canceled: Chest pain / SNOMED CT 96431146 Canceled: Poison ruben / SNOMED CT 9744777894 Canceled: Depression / SNOMED CT 41844927 Canceled: Disease caused by 2019 novel coronavirus / SNOMED CT 9518140821 Canceled: Shortness of breath / SNOMED CT 295946149 Canceled: Pedal edema / SNOMED CT 024954054 Canceled: Fatigue / SNOMED CT 009727956 Canceled: Plantar fasciitis / SNOMED CT 079612006 Canceled: Shoulder pain / SNOMED CT 14517916 Canceled: Tremor / SNOMED CT 54334186 Canceled: UTI (urinary tract infection) / SNOMED CT 594267513 Histories Family History: Dementia Brother Aneurysm Mother CA - Lung cancer Father Stroke Mother Heart attack Brother Procedure history: Cataract surgery of right eye (2215082061) on 10/21/2020 at 75 Years. Cataract surgery of left eye (7533371396) in the month of 01/2020 at 74 Years. Screening mammogram of bilateral breasts (1056094085) on 02/07/2020 at 74 Years. Ultrasound (854226353) on 05/25/2019 at 74 Years. Comments: 06/20/2019 14:18 EST - September Marie CAMPOS normal DEXA - dual energy X-ray absorptiometry (9834485121) on 05/25/2019 at 74 Years. Comments: 06/20/2019 14:18 EST - September Marie CAMPOS very mild osteopenia Cervical Bilateral medial branch block C3,4,5,6 with 100 TC on 04/25/2019 at 74 Years. #1 bialteral C3,4,5,6 MBB on 03/14/2019 at 74 Years. Arthroplasty of carpometacarpal joint (320629358) on 11/06/2018 at 73 Years. Joint fusion (916973903) on 11/06/2018 at 73 Years. Mammogram (760510117) on 11/14/2017 at 72 Years. Mammogram (508475433) on 08/24/2016 at 71 Years. Colonoscopy (462171781) in 2013 at 69 Years. PAP test date (5654775336). Dilation and curettage (72179449). Cholecystectomy (10588411). Bilateral tubal ligation (110105721). Pap smear and HPV cotesting ([id number]). Comments: 06/20/2019 14:17 EST - September Marie CAMPOS normal Social History Electronic Cigarette/Vaping Assessment Electronic Cigarette Use: Use, within last 90 days. Type: medical marijuana. Alcohol Assessment Use: Current. Wine, 1-2 times per year Tobacco Assessment Never tobacco user Tobacco Use:. Substance Abuse Assessment Substance use: Current. Marijuana, Daily Comment: medical marijuana gummy daily for fibromyalgia Employment/School Assessment Retired Home/Environment Assessment Lives with Self. Nutrition/Health Assessment Caffeine intake amount: 2 servings daily. Other Assessment Comment: ENT-Dr. Cao; Gastro : Dr. Mota Single Ending Machine Operator : Dr. Carrasco . Social & (more content not included)...[facility] HospitalIn[facility] Patient Summaryon [id number] [facility] [address] [place] [address] Patient Discharge Instructions Name: JAZZMINE WANG : 1945 Patient Address: [address] [address] Primary Care Provider: Name: Prema Clement APRN, CNP After you are discharged if you find you have any questions, please, call [phone] ext [phone] to speak to a nurse. Discharge Diagnosis: 1:GERD (gastroesophageal reflux disease); 2:Screening for colorectal cancer; Encounter for screening for malignant neoplasm of rectum Prescription Information: If you have been given a prescription for narcotics, seek immediate medical attention if you have any difficulty breathing or any sudden status changes such as confusion andsleepiness. If you or anyone you know is experiencing suicidal thoughts, mental health, alcohol and/or drug addiction problems; contact the [facility] 20/12 Crisis Hotline -text 4HAZV dk 790003. If you received any narcotics, sedation, or any other medication that causes drowsiness for the next 24 hours, unless otherwise directed: ? Do not drive a car. ? Do not operate machinery such as power tools, lawn mowers, drills, sewing machines, or stoves ? Avoid alcoholic beverages and drugs for allergies, nerves, or sleep ? Do not make important personal or business decisions or sign any legal documents [facility] would like to thank you for allowing us to assist you with your healthcare needs.The following includes patient education materials and information regarding your injury/illness. JAZZMINE WANG has been given the following list of follow-up instructions, prescriptions, andpatient education materials: Follow-up Instructions With: Address: When: Guillermo Connors [address] [place] [address], [place] [address] Business (1) , only if needed With: Address: When: Prema Clement Medications During the course of your visit, your medication list was updated with the most current information. The details of those changes are reflected below: Medications to Continue That Have Not Changed Other Medications acyclovir (acyclovir 200 mg oral capsule) 1 cap(s) Oral (given by mouth) 2 times per day. Refills: 3. calcium carbonate (calcium (as carbonate) 600 mg oral tablet) 1 tab(s) Oral (given by mouth) 2 times per day. clonazePAM (clonazePAM 0.5 mg oral tablet) 1 tab(s) Oral (given by mouth) 3 times per day. Refills:0. fexofenadine (Melanie 24 Hour Allergy oral tablet) 1 tab(s) Oral (given by mouth) every day. Refills: 3. Misc Prescription (medical marijuana card) multivitamin (Multiple Vitamins oral tablet) 1 tab(s) Oral (given by mouth) every day. omeprazole (omeprazole 40 mg oral delayed release capsule) 1 cap(s) Oral (given by mouth) every day. Refills: 3. pregabalin (pregabalin 50 mg oral capsule) 1 cap(s) Oral (given by mouth) 2 times per day. simvastatin (simvastatin 10 mg oral tablet) 1 tab(s) Oral (given by mouth) once a day (at bedtime).Refills: 0. venlafaxine (venlafaxine 150 mg oral capsule, extended release) 1 cap(s) Oral (given by mouth) every day. Refills: 0. It is important to always keep an active list of medications available so that you can share with other providers and manage your medications appropriately. As an additional courtesy, we are also providing you with your final active medications list that you can keep with you. acyclovir (acyclovir 200 mg oral capsule) 1 cap(s) Oral (given by mouth) 2 times per day. Refills: 3. calcium carbonate (calcium (as carbonate) 600 mg oral tablet) 1 tab(s) Oral (given by mouth) 2 times per day. clonazePAM (clonazePAM 0.5 mg oral tablet) 1 tab(s) Oral (given by mouth) 3 times per day. Refills:0. fexofenadine (Melanie 24 Hour Allergy oral tablet) 1 tab(s) Oral (given by mouth) every day. Refills: 3. Misc Prescription (medical marijuana card) multivitamin (Multiple Vitamins oral tablet) 1 tab(s) Oral (given by mouth) every day. omeprazole (omeprazole 40 mg oral delayed release capsule) 1 cap(s) Oral (given by mouth) every day. Refills: 3. pregabalin (pregabalin 50 mg oral capsule) 1 cap(s) Oral (given by mouth) 2 times per day. simvastatin (simvastatin 10 mg oral tablet) 1 tab(s) Oral (given by mouth) once a day (at bedtime).Refills: 0. venlafaxine (venlafaxine 150 mg oral capsule, extended release) 1 cap(s) Oral (given by mouth) every day. Refills: 0. Take only the medications listed above. Contact your doctor prior to taking any medications not on this list. Diet & Activity Patient Activity Level: Patient Diet: Regular Patient Activity Restrictions: Comment: Patient education materials, if any, will display below Upper and lower endoscopy, Care After The following information offers guidance on how to care for yourself after your procedure. Your health care provider may also give y (more content not included)...[facility] Intraoperative Recordon [id number] Intraoperative RecordMAGR Intra-Op Record Summary Primary Physician: Guillermo Connors MD Finalized Date/Time: 09/11/24 10:10:01 Pt. Name: JAZZMINE WANG/Sex: 1945 FEMALE Med Rec #: [id number] Physician: Guillermo Connors MD Financial #: [id number] Pt. Type: D Room/Bed: / Admit/Disch: 09/11/24 06:59:24 - Institution: Case Times MAGR Entry 1 Patient In Room Time 09/11/24 09:29:00 Out Room Time 09/11/24 10:04:00 Anesthesia Start Time 09/11/24 09:29:00 Stop Time 09/11/24 10:02:00 Surgery Start Time 09/11/24 09:42:00 Stop Time 09/11/24 10:01:00 Last Modified By: Kim Reilly RN 09/11/24 10:09:21 General Comments: [id number] Case Attendance MAGR Entry 1 Entry 2 Entry 3 Case Attendee Guillermo Connors MD, David DO Gump RN, Kim Role Performed Surgeon - Primary Anesthesiologist of Dealer Sales Rep Record Time In 09/11/24 09:40:00 09/11/24 09:29:00 09/11/24 09:29:00 Time Out 09/11/24 10:02:00 09/11/24 10:05:00 09/11/24 10:05:00 Procedure Esophagogastroduodenosco Esophagogastroduodenosco Esophagogastroduodenosco py and Colonosco py and Colonosco py and Colonosco Last Modified By: Tommie RN, Kim Reilly RN, Kim Reilly RN, Kim 09/11/24 10:09:56 09/11/24 10:09:05 09/11/24 10:09:05 Entry 4 Entry 5 Case Attendee Efraín Bravo [address] ST METEOROLOGIST IN CHARGE Role Performed Account Receivable Associate Scrub Personnel Time In 09/11/24 09:29:00 09/11/24 09:29:00 Time Out 09/11/24 10:05:00 09/11/24 10:05:00 Procedure Esophagogastroduodenosco Esophagogastroduodenosco py and Colonosco py and Colonosco Last Modified By: Tommie RN, Kim Reilly RN, Kim 09/11/24 10:09:05 09/11/24 10:09:05 Surgical Procedures MAGR Pre-Care Text: A.20 Verifies operative procedure, surgical site, and laterality Im.150 Develops individualized plan of care Entry 1 Procedure Esophagogastroduodenosco Primary Procedure Yes py and Colonoscopy Primary Surgeon Guillermo Connors MD Surgeon Comment EGD AND COLONOSCOPY - GERD AND SCREENING Start 09/11/24 09:42:00 Stop 09/11/24 10:01:00 Anesthesia Type MAC Surgical Service General Wound Class Clean-Contaminated Technique Details Closure Technique N/A Entire procedure No was performed via laparoscope or robotic assistance Last Modified By: Kim Reilly RN 09/11/24 10:09:04 Post-Care Text: O.730 The patient's care is consistent with the individualized perioperative plan of care General Case Data MAGR Pre-Care Text: A.350.1 Classifies surgical wound Entry 1 Case Information OR MAGR OR 01 Case Level Level 3 Wound Class Clean-Contaminated Specialty General ASA Class 2 Diagnosis Preop Diagnosis GERD AND SCREENING Postop Same As Preop Yes Postop Diagnosis GERD AND SCREENING Blunt or No Is the procedure No penetrating injury considered occured prior to Emergent/Urgent? the start of the procedure: Last Modified By: Kim Reilly RN 09/11/24 09:37:14 Post-Care Text: O.760 Patient receives consistent and comparable care regardless of the setting Time Out MAGR Entry 1 Procedure(s) Esophagogastroduodenosco py and Colonosco Time Out Checklist Verifications Team Introductions Yes Confirmed Identity, Yes Completed Procedure, Incision Site, and Consent(s) Presence of Yes Site Verification, Yes Necessary Site Marking, Site Procedural Marking Equipment, Devices, Alternative, and/or and Implants Site Marking Verified Exception in Accordance with Facility Policy Anesthesia Review Antibiotic Received n/a All Anesthesia Yes Within an Concerns Addressed Appropriate Time Interval Prior to Surgical Incision Surgeon Review Anticipated Blood Yes Expected Case Yes Loss Risk Addressed Duration Addressed Critical and Yes Non-Routine Steps to be Performed Addressed Nurse Review Equipment Yes Fire Risk Yes Checks/Concerns Assessment Addressed Completed and Interventions Performed Diagnostic and n/a Sterilization n/a Radiological Test Concerns Addressed Results Displayed are Appropriate and Labeled Other Concerns n/a Addressed Time Out Guillermo Connors MD, Time Out Time 09/11/24 09:41:00 Participants Ramo Levine DO, Tommie TENORIO, Lawrence Alvarez Leigh-Ann CSFA METEOROLOGIST IN CHARGE, Johnnie Ching ST Last Modified By: Kim Reilly RN 09/11/24 09:41:43 Patient Positioning MAGR Pre-Care Text: A.280 Identifies baseline musculoskeletal status Im.40 Positions the patient Im.80 Applies safety devices Entry 1 Procedure Esophagogastroduodenosco Body Position Lateral py and Colonosco Left Arm Position Resting at Side Right Arm Position Resting at Side Left Leg Position Extended Right Leg Position Extended Feet Uncrossed? Yes Press Points Checked Yes Positioning Device Pillow Outcome Met (O.80) Yes Last Modified By: Kim Reilly RN 09/11/24 09:37:21 Post-Care Text: E.290 Evaluates musculoskeletal status O.80 Patient is free from signs and symptoms of injury related to (more content not included)...[facility] Postoperative Recordon [id number] Postoperative RecordMA Phase II Record Summary Primary Physician: Guillermo Connors MD Finalized Date/Time: 09/11/24 11:12:43 Pt. Name: JAZZMINE WANG/Sex: 1945 FEMALE Med Rec #: [id number] Physician: Guillermo Connors MD Financial #: [id number] Pt. Type: D Room/Bed: / Admit/Disch: 09/11/24 06:59:24 - Institution: Phase II Case Times MAGR Pre-Care Text: Patient is free from s/s of injury. Patient remains free from compromised physical state related tosurgery or anesthesia. Patient comfort maintained. Patient/family verbalize understanding of discharge instructions. Entry 1 In PACU II 09/11/24 10:05:00 Discharge from PACU 09/11/24 11:05:00 II Last Modified By: Stephanie Ott RN 09/11/24 11:12:39 Post-Care Text: The patient remains free from s/s of injury. Patient's vital signs stable, circulation maintained, return to preop mental and physical status, opsite/dressing intact, minimal or absent nausea and vomiting, tolerates po intake. Patient verbalizes adequate pain control. Patient/family express understanding of discharge instructions. Finalized By: Stephanie Ott RN Document Signatures Signed By: Stephanie Ott RN 09/11/24 11:12[facility] Preoperative Recordon [id number] Preoperative RecordMA Pre-Op Record Summary Primary Physician: Guillermo Connors MD Finalized Date/Time: 09/11/24 10:29:47 Pt. Name: JAZZMINE WANG/Sex: 1945 FEMALE Med Rec #: [id number] Physician: Guillermo Connors MD Financial #: [id number] Pt. Type: D Room/Bed: / Admit/Disch: 09/11/24 06:59:24 - Institution: Pre-Op Case Times MAGR Pre-Care Text: Patient will be optimally prepared for surgery. Patient is free from s/s of injury. Provide information to patient/family related to plan of care. Verify patient allergies. Confirm identity and verify consent before the operative or invasive procedure. Entry 1 Patient Arrival Time 09/11/24 07:00:00 Preop Departure 09/11/24 09:27:00 Last Modified By: Stephanie Ott RN 09/11/24 10:29:42 Post-Care Text: Patient is prepared mentally and physically and is ready for surgery. The patient remains free froms/s of injury. Patient/family express understanding of plan of care and participate in decisions affectinghis or her perioperrative plan of care. Allergies documented appropriately. Patient identifiers and consent correct. General Comments: Pt to PSW. Pt has sleep apnea- uses CPAP at night. Pt denies cold/flu symptoms, SOB, diabetes, CP, or pacemaker/defibrillator. Pt informed of restrictions for 24 hours due to anesthesia- pt with understanding. Finalized By: Stephanie Ott RN Document Signatures Signed By: Stephanie Ott RN 09/11/24 10:29[facility] HospitalNo Panel Information Ordered By: Guillermo Connors on [id number] Pathology TestSee comment [facility] HospitalComment on above:See report. Scanned copy available in EMR.Pathology Request for Lab Corpon [id number] Request for Lab [facility] Physician GroupComment on above:Order Comment: GI SPECIMENResult Comment: See report. Scanned copy available in EMR. PERFORMED BY: [place] [address] PATHOLOGIST CORPORATE TAX PREPARER SHU NICOLE M.D.Performed By: #### [facility] #### [place] [address] USAPatient Handouton [id number] HandoutRadiology Upper and lower endoscopy, Care After The following information offers guidance on how to care for yourself after your procedure. Your health care provider may also give you more specific instructions. If you have problems or questions, contact your health care provider. Findings: The esophageal mucosa appeared normal. There was no stricture or mass. There was no inflammation. The stomach had some very mild inflammation. Biopsies were taken for a bacteria. The first portion of the small intestine appeared normal. The colonoscope was advanced the entire length of the colon. The prep was good. The colon and rectum both appeared unremarkable. No polyps or masses were seen. What can I expect after the procedure? After the procedure, it is common to have: ? A small amount of blood in your stool for 24 hours after the procedure. ? Some gas. ? Mild cramping or bloating of your abdomen. Follow these instructions at home: Eating and drinking ? Drink enough fluid to keep your urine pale yellow. ? Follow instructions from your health care provider about eating or drinking restrictions. ? Resume your normal diet as told by your health care provider. Avoid heavy or fried foods that arehard to digest. Activity ? Rest as told by your health care provider. ? Avoid sitting for a long time without moving. Get up to take short walks every 1?2 hours. This isimportant to improve blood flow and breathing. Ask for help if you feel weak or unsteady. ? Return to your normal activities as told by your health care provider. Ask your health care provider what activities are safe for you. Managing cramping and bloating ? Try walking around when you have cramps or feel bloated. ? If directed, apply heat to your abdomen as told by your health care provider. Use the heat sourcethat your health care provider recommends, such as a moist heat pack or a heating pad. ? Place a towel between your skin and the heat source. ? Leave the heat on for 20?30 minutes. ? Remove the heat if your skin turns bright red. This is especially important if you are unable to feel pain, heat, or cold. You have a greater risk of getting burned. General instructions ? If you were given a sedative during the procedure, it can affect you for several hours. Do not drive or operate machinery until your health care provider says that it is safe. ? For the first 24 hours after the procedure: ? Do not sign important documents. ? Do not drink alcohol. ? Do your regular daily activities at a slower pace than normal. ? Eat soft foods that are easy to digest. ? Take fxvg-ypo-jqxnaya and prescription medicines only as told by your health care provider. ? Keep all follow-up visits. This is important. Contact a health care provider if: ? You have blood in your stool 2?3 days after the procedure. Get help right away if: ? You have more than a small spotting of blood in your stool. ? You have large blood clots in your stool. ? You have swelling of your abdomen. ? You have nausea or vomiting. ? You have a fever. ? You have increasing pain in your abdomen that is not relieved with medicine. These symptoms may be an emergency. Get help right away. Call 911. ? Do not wait to see if the symptoms will go away. ? Do not drive yourself to the hospital. Summary ? After the procedure, it is common to have a small amount of blood in your stool. You may also have mild cramping and bloating of your abdomen. ? If you were given a sedative during the procedure, it can affect you for several hours. Do not drive or operate machinery until your health care provider says that it is safe. ? Get help right away if you have a lot of blood in your stool, nausea or vomiting, a fever, or increased pain in your abdomen. - Dr. Connors's office will call you with the biopsy results. This information is not intended to replace advice given to you by your health care provider. Make sure you discuss any questions you have with your health care provider. Document Revised: 06/28/2023 Document Reviewed: 01/06/2022 [employer] Patient Education ? 2023 [employer]NormalOhio State Harding HospitalHepatic Function Panel Standardon 60-41-8563Kmzxeyo/Globulin [Mass ratio]1.2 {ratio}Low 1.4-2.6MMount St. Mary HospitalComment on above:Performed By: #### [id number], [id number], [id number] ####[facility] (DEFAULT)[address] [place] [address] 51373Ituf IndirectUnable to CalculateInvalid Interpretation Code0.2-0.8[facility] HospitalComment on above:Performed By: #### [id number], [id number], [id number] ####[facility] (DEFAULT)[address] [place] [address] 35754Vcnesdte (S) [Mass/Vol]2.9 g/dLNormal1.5-4.3MMount St. Mary HospitalComment on above:Performed By: #### [id number], [id number], [id number] ####[facility] (DEFAULT)[address] [place] [address] 62870Wfqlbcw [Mass/Vol]3.5 g/dLNormal3.5-5.0 [facility] HospitalComment on above:Performed By: #### [id number], [id number], [id number] ####[facility] (DEFAULT)[address] [place] [address] 20150Bof Phos52 IU/ZUbwgbw14-30Ybzggnyq HospitalComment on above:Performed By: #### [id number], [id number], [id number] ####[facility] (DEFAULT)[address] [place] [address] 15271NQD [Catalytic activity/Vol]19.0 U/BYclzih32.0-54.0 [facility] HospitalComment on above:Performed By: #### [id number], [id number], [id number] ####[facility] (DEFAULT)[address] [place] [address] 70790PNF [Catalytic activity/Vol]27 U/JJwzpky12-82Vmymoluy HospitalComment on above:Performed By: #### [id number], [id number], [id number] ####[facility] (DEFAULT)[address] [place] [address] 35063Gqyh Direct<0.44Ppjdqh3.10-0.50 [facility] HospitalComment on above:Performed By: #### [id number], [id number], [id number] ####[facility] (DEFAULT)[address] [place] [address] 37999Jdmv Total0.5 mg/dLNormal0.3-1.2Mpremier health HospitalComment on above:Performed By: #### [id number], [id number], [id number] ####[facility] (DEFAULT)[address] [place] [address] 33825Cqokpzt [Mass/Vol]6.4 g/dLLow6.5-8.1[facility] HospitalComment on above:Performed By: #### [id number], [id number], [id number] ####[facility] (DEFAULT)[address] [place] [address] 59416Axsjf Panel Standardon 68-86-0516Nitdjnlegs ChemNormalWayne Hospital HospitalComment on above:Performed By: #### [id number], [id number], [id number] ####[facility] (DEFAULT)[address] [place] [address] 59224Hhgbefrcagv [Mass/Vol] 198.0 mg/hUMsyopz98.0-200.0[facility] HospitalComment on above:Performed By: #### [id number], [id number], [id number] ####[facility] (DEFAULT)[address] [place] [address] 46891Rrcbsfelylh in HDL [Mass/Vol]54 mg/sKMeunna09-91 [facility] HospitalComment on above:Performed By: #### [id number], [id number], [id number] ####[facility] (DEFAULT)[address] [place] [address] 76467Swbzuawawzj in LDL [Mass/Vol]116 mg/dLHigh1-100[facility] HospitalComment on above:Performed By: #### [id number], [id number], [id number] ####[facility] (DEFAULT)[address] [place] [address] 88808Fibzlowivsm.total/Cholesterol in HDL [Mass ratio]3.6 {ratio}Normal0.0-4.5[facility] HospitalComment on above: Performed By: #### [id number], [id number], [id number] ####[facility] (DEFAULT)[address] [place] [address] 02749Agrqmvucnasr [Mass/Vol]137.0 mg/dLNormal0.0-150.0[facility] HospitalComment on above:Performed By: #### [id number], [id number], [id number] ####[facility] (DEFAULT)[address] [place] [address] 71860PKQM.27 mg/dLNormal5-40[facility] HospitalComment on above:Performed By: #### [id number], [id number], [id number] ####[facility] (DEFAULT)[address] [place], [place] [address]Gmjpwrnw Messageson 09-10-2024 Reminder Messages From: Prema Clement APRN, CNP To: [facility] ([facility] Sent: 09/10/2024 11:48:58 EDT ! Show up: 09/10/2024 11:48:58 EDT Subject: Results Follow Up Actions: Call the patient with result(s) Due Date/Time: 09/11/2024 11:48:00 EDT Reminder Comments: labs ok Results: Date Result Name Ind Value Ref Range 09/10/2024 10:17 Bili Total 0.5 mg/dL (0.3 - 1.2) 09/10/2024 10:17 Bili Direct <0.10 mg/dL (0.10 - 0.50) 09/10/2024 10:17 Bili Indirect Unable to Calculate mg/dL (0.2 - 0.8) 09/10/2024 10:17 Alk Phos 52 IU/L (32 - 91) 09/10/2024 10:17 AST/SGOT 27 IU/L (15 - 41) 09/10/2024 10:17 ALT/SGPT 19.0 IU/L (14.0 - 54.0) 09/10/2024 10:17 Protein Total (L) 6.4 gm/dL (6.5 - 8.1) 09/10/2024 10:17 Albumin Level 3.5 gm/dL (3.5 - 5.0) 09/10/2024 10:17 Globulin 2.9 gm/dL (1.5 - 4.3) 09/10/2024 10:17 A/G Ratio (L) 1.2 (1.4 - 2.6) 09/10/2024 10:17 Vit B12 449 (180 - 914) 09/10/2024 10:17 Cholesterol 198.0 mg/dL (66.0 - 200.0) 09/10/2024 10:17 HDL 54 mg/dL (40 - 71) 09/10/2024 10:17 Chol/HDL Ratio 3.6 (0.0 - 4.5) 09/10/2024 10:17 LDL (H) 116 mg/dL (1 - 100) 09/10/2024 10:17 Trig 137.0 mg/dL (0.0 - 150.0) 09/10/2024 10:17 VLDL. 27 mg/dL (5 - 40) From: Brenda Mobley MA ([facility] ([facility])) To: Prema Clement CNP; Sent: 09/10/2024 13:29:56 EDT Show up: 09/10/2024 13:29:00 EDT Subject: RE: Results Follow Up Called Lab to see why Vitamin D was not drawn, and Lab stated it is due to the patient declining tohave it drawn. From: Prema Clement APRN, CNP To: [facility] ([facility]); Sent: 09/10/2024 13:59:54 EDT Show up: 09/10/2024 13:59:00 EDT Subject: RE: Results Follow Up ok then, I would just notify the patient patient notified, voiced understanding.Community Memorial HospitalVit B12 Lvlon 49-28-9334Ema P71132Nuwtlp902-518Wecnugfh HospitalComment on above:Performed By: #### [id number], [id number], [id number] ####[facility] (DEFAULT)[address] [place] [address] 36926Rqngykm Recordson 11-80-4479Tuhrqox Records [id number]#1.00OTGTIFFCommunity Memorial Hospital Coding Summaryon 30-80-2600Oeqgnn SummaryHTMLBase 64 BqmeyasjPWi0pBf+PGhlYWQ+MU4PMUEyE97jwDIuvF7zB0MKFPxCEyghGQLCPCzIFqJpjmPtUL6qaTZo ZXJu [file] ZTo (more content not included)...[facility] Memorial HospitalErythrocyte distribution width Auto (RBC) [Ratio]on 08-07-7384Cqwffnquvhx distribution width (RBC) [Ratio]Erythrocyte distribution width [Ratio] by Automated count11.5-15.0 [facility] HospitalEstimated glomerular filtration rate (GFR) non- Americanon 19-29-1977ZRZ/1.73 sq M.predicted among non-blacks MDRD (S/P/Bld) [Vol rate/Area]Estimated glomerular filtration rate (GFR) non- AmericanGood Samaritan HospitalHematocrit Auto (Bld) [Volume fraction] on 46-87-2415Qpaldjowpb (Bld) [Volume fraction]Hematocrit [Volume Fraction] of Blood by Automated count33.7-40.4FKettering Health PrebleHemoglobin [Mass/volume] in Bloodon 42-66-7924Bpgrewsgkq (Bld) [Mass/Vol]Hemoglobin [Mass/volume] in Blood11.3-15.9[facility] HospitalHemogram Standardon 17-61-1609Fzgalscrjds distribution width (RBC) [Ratio]13.0 %Normal 11.5-15.0[facility] HospitalComment on above:Performed By: #### [id number], [id number], [id number] #### [facility] (DEFAULT) [address] [place] [address] 48767Muzhabqnzh (Bld) [Volume fraction]37.7 %Lololo85.7-40.4 [facility] HospitalComment on above:Performed By: #### [id number], [id number], [id number] #### [facility] (DEFAULT) [address] [place] [address] 02627Qwniiqvjju (Bld) [Mass/Vol]12.9 g/fHGzlxiu79.3-15.9 [facility] HospitalComment on above:Performed By: #### [id number], [id number], [id number] #### [facility] (DEFAULT) [address] [place] [address] 23982HQI (RBC) [Entitic mass]34 brHqeclj66-74Erokundn Hospital Comment on above:Performed By: #### [id number], [id number], [id number] #### [facility] (DEFAULT) [address] [place] [address] 27225JVXC (RBC) [Mass/Vol]34 g/nWDsqqke73-78Utkcyjxu Hospital Comment on above:Performed By: #### [id number], [id number], [id number] #### [facility] (DEFAULT) [address] [place] [address] 09541QCK (RBC) [Entitic vol]101 bTIlde47-401Uypawmtz Hospital Comment on above:Performed By: #### [id number], [id number], [id number] #### [facility] (DEFAULT) [address] [place] [address] 01563Khsqtixc161 s19Skiakj243-469Qbrjngyk HospitalComment on above:Performed By: #### [id number], [id number], [id number] #### [facility] (DEFAULT) [address] [place] [address] 44583Sctmtedx mean volume (Bld) [Entitic vol]7.2 fLNormal 6.3-10.2MMount St. Mary HospitalComment on above:Performed By: #### [id number], [id number], [id number] #### [facility] (DEFAULT) [address] [place] [address] 98635YWK0.75 g00Brhxiy1.70-5.30[facility] HospitalComment on above:Performed By: #### [id number], [id number], [id number] #### [facility] (DEFAULT) [address] [place] [address] 91025JBN8.1 u23Fwwyjn2.5-10.5[facility] HospitalComment on above: Performed By: #### [id number], [id number], [id number] #### [facility] (DEFAULT) [address] [place] [address] 59531Weyoyztrnr - Chemistry and Chemistry - challengeon 98-65-3278Fciofnl [Mass/Vol]3.8 g/dL3.5-5.0[facility] Calcium [Mass/Vol]9.1 mg/dL8.9-10.3FKettering Health PrebleChloride [Moles/Vol]102 mmol/G609-967PislzbfqiGood Samaritan HospitalCO2 [Moles/Vol]28 mmol/O94-30VasldvoagGood Samaritan HospitalCreatinine [Mass/Vol]0.95 mg/dL 0.60-1.30[facility] HospitalGFR/1.73 sq M.predicted MDRD (S/P/Bld) [Vol rate/Area]mL/min/{1.73_m2}[facility] HospitalGlucose [Mass/Vol]82.0 mg/dL74.0-118.0[facility] HospitalMagnesium [Mass/Vol]2.20 mg/dL1.80-2.50[facility] HospitalPotassium [Moles/Vol]3.8 mmol/L3.6-5.1FRiverview Health Instituteodium [Moles/Vol] 136.0 mmol/L136.0-144.0[facility] HospitalUrea nitrogen [Mass/Vol] 23 mg/dL8-26[facility] HospitalUrea nitrogen/Creatinine [Mass ratio]24.2 mg/mgHigh4.6-16.2FKettering Health PrebleLaboratory - Urinalysison 15-15-8471Qhbxfok (U) [Mass/Vol]12.50 mg/dLHigh<=9.90[facility] HospitalLeukocytes [#/volume] corrected for nucleated erythrocytes in Blood by Automated counon 56-05-6010RTK corrected for nucl RBC Auto (Bld) [#/Vol]Leukocytes [#/volume] corrected for nucleated erythrocytes in Blood by Automated coun3.5-10.5FKettering Health PrebleMCH Auto (RBC) [Entitic mass]on 64-02-1147JFG (RBC) [Entitic mass]MCH [Entitic mass] by Automated -57TsgcwcceyGood Samaritan HospitalMCHC Auto (RBC) [Mass/Vol] on 30-04-5791CQZA (RBC) [Mass/Vol]MCHC [Mass/volume] by Automated -84 [facility] HospitalMCV Auto (RBC) [Entitic vol]on 26-53-9262UIW (RBC) [Entitic vol]MCV [Entitic volume] by Automated vmvljGkam55-336CvialcqdfGood Samaritan HospitalMagnesiumon 26-57-7915Sqzkuwcjt [Mass/Vol]2.20 mg/dL Normal1.80-2.50[facility] HospitalComment on above:Performed By: #### [id number], [id number], [id number] #### [facility] (DEFAULT) [address] [place] [address] 05535Nv Panel Informationon 96-28-2369Ljzum Random Creatinine 96.66 mg/dLGood Samaritan HospitalOsmolality275 mOsm/LFKettering Health PreblePhosphorus Level4.2 mg/dL2.5-4.6FKettering Health PreblePlatelet mean volume Auto (Bld) [Entitic vol]on 75-84-8150Qxnwqptl mean volume (Bld) [Entitic vol]Platelet mean volume [Entitic volume] in Blood by Automated count6.3-10.2FKettering Health PreblePlatelets Auto (Bld) [#/Vol]on 94-50-5640Ldrdfunrh (Bld) [#/Vol]Platelets [#/volume] in Blood by Automated -010IwztcextkGood Samaritan HospitalProvider Orderson 22-87-6976Amitgunv [id number]#1.00OTGTIFF NormalOhio State Harding HospitalRBC Auto (Bld) [#/Vol]on 86-79-8382ZQK (Bld) [#/Vol] Erythrocytes [#/volume] in Blood by Automated count3.70-5.30[facility] HospitalRenal Function Panel Standardon 52-29-8207dDQF Non AA57 mL/min/1.00m4Zeriwzr Interpretation [facility] HospitalComment on above: Performed By: #### [id number], [id number], [id number] #### [facility] (DEFAULT) [address] [place] [address] 83429xWZL AA>60Invalid Interpretation [facility] Comment on above:Performed By: #### [id number], [id number], [id number] #### [facility] (DEFAULT) [address] [place] [address] 16042Ioiyanc [Mass/Vol]3.8 g/dLNormal3.5-5.0[facility] Comment on above:Performed By: #### [id number], [id number], [id number] #### [facility] (DEFAULT) [address] [place] [address] 70063Gcbnd gap [Moles/Vol]9.8 mmol/LNormal5.0-19.0[facility] HospitalComment on above:Performed By: #### [id number], [id number], [id number] #### [facility] (DEFAULT) [address] [place] [address] 21333Mbkvzug [Mass/Vol]9.1 mg/dLNormal8.9-10.3MMount St. Mary [facility] Comment on above:Performed By: #### [id number], [id number], [id number] #### [facility] (DEFAULT) [address] [place] [address] 61849Fgilstxp [Moles/Vol]102 mmol/HQpevic051-800Ctntqoiz HospitalComment on above:Performed By: #### [id number], [id number], [id number] #### [facility] (DEFAULT) [address] [place] [address] 13082RZ1 [Moles/Vol]28 mmol/VTjrdqu18-16Pscnvqxi Hospital Comment on above:Performed By: #### 2302734, [id number], [id number] #### [facility] (DEFAULT) [address] [place] [address] 76349Iuhqwmrzry [Mass/Vol]0.95 mg/dLNormal0.60-1.30[facility] HospitalComment on above:Performed By: #### [id number], [id number], [id number] #### [facility] (DEFAULT) [address] [place] [address] 05205Uvnmzup [Mass/Vol]82.0 mg/qYKtkufa43.0-118.0[facility] HospitalComment on above:Performed By: #### 3336904, [id number], [id number] #### [facility] (DEFAULT) [address] [place] [address] 90518Nyiuswusyb413 mOsm/LInvalid Interpretation CodeWayne Hospital HospitalComment on above:Performed By: #### [id number], [id number], [id number] #### [facility] (DEFAULT) [address] [place] [address] 35021Pxnmurhqp [Mass/Vol]4.2 mg/dLNormal2.5-4.6Mpremier health HospitalComment on above:Performed By: #### 6645736, [id number], [id number] #### [facility] (DEFAULT) [address] [place] [address] 51720Njsulmyvy [Moles/Vol]3.8 mmol/LNormal3.6-5.1[facility] HospitalComment on above:Performed By: #### [id number], [id number], [id number] #### [facility] (DEFAULT) [address] [place] [address] 57572Vgwywh [Moles/Vol]136.0 mmol/PCzwpaf287.0-144.0[facility] HospitalComment on above:Performed By: #### 3058089, [id number], [id number] #### [facility] (DEFAULT) [address] [place] [address] 89279Dswz nitrogen [Mass/Vol]23 mg/dLNormal8-26[facility] HospitalComment on above:Performed By: #### 3455572, [id number], [id number] #### [facility] (DEFAULT) [address] [place] [address] 54543Kvqy nitrogen/Creatinine [Mass ratio]24.2 mg/mgHigh 4.6-16.2Mpremier health HospitalComment on above:Performed By: #### [id number], [id number], [id number] #### [facility] (DEFAULT) [address] [place] [address] 79112Fudov or plasma anion gap determinationon 92-00-7825Debrs gap [Moles/Vol]Serum or plasma anion gap determination5.0-19.0[facility] HospitalU Protein/Creatinineon 08-13-2024U Pmmklpgazf61.66 mg/dLInvalid Interpretation CodeWayne Hospital HospitalComment on above:Performed By: #### [id number] ####[facility] (DEFAULT)[address] [place] [address] 52408W Prot/Jzooo124 mg/gmNormal0-200[facility] HospitalComment on above:Performed By: #### [id number] ####[facility] (DEFAULT)[address] [place] [address] 15654O Wvlynvh58.50 mg/dLHigh<=9.90[facility] HospitalComment on above:Performed By: #### [id number] ####[facility] (DEFAULT)[address] [place] [address] 74373Dmgio protein/creatinine ratioon 71-69-9126Eltxxwq/Creatinine (U) [Ratio]Urine protein/creatinine ratio0-200[facility] Coding Summaryon 86-14-5522Gvmhus SummaryHTMLBase 64 YsrknnthKAp9dYp+PGhlYWQ+EK9ZHNChM46rnMXgjQ1nP0GHSBpOLztuFFPFOSaCQhSzlgLvTT2uuZTq ZXJu [file] ZTo (more content not included)...[facility] Kidney/Bladder Completeon 54-82-8324FR Kidney/Bladder CompleteEXAMINATION: US Kidney/Bladder Complete TECHNIQUE: Ultrasound of the kidneys was performed Grayscale and color flow Doppler imaging. HISTORY: Cyst of kidney, acquired; Spinal stenosis, site unspecified; Gastro-esophageal reflux disease without esophagitis; Pure hypercholesterolemia, unspecified. COMPARISON: None. FINDINGS: Kidneys: The right kidney measures 9.9 x 4.7 x 4.5cm. The right renal pelvis measures 12 mm in AP dimension. There is no gross hydronephrosis. There is a cyst in the upper pole the right kidney measuring 17 mm maximally. There is no solid renal mass. The left kidney measures 10.0 x 4.4 x 4.4cm. There are multiple anechoic thin-walled cyst in the left kidney of variable size. The largest measures 7.7 x 7.0 x 5.9 cm. Another cyst measures 3.9 x 3.9 x 4.0 cm. There is no solid left renal mass. There is no hydronephrosis. Urinary bladder: The urinary bladder is distended and thin-walled. Bilateral ureteral jets are visualized. The prevoid bladder volume is 550 mL. Other: No additional abnormality. IMPRESSION: 1. There is a small right extrarenal pelvis but no gross evidence for hydronephrosis. 2. There are bilateral renal cysts as above. Final Dictated by: Pelon Ortiz MD Dictated DT/TM: 07/16/24 3:09 Signed (Electronic Signature): Pelon Ortiz MD 07/16/24 3:11 pm Technologist: [facility] HospitalProvider Orderson 63-58-4295Pzenhgih [id number]#1.00[facility] ClinicOutside Recordson 75-05-1804Mzmeqek Records [id number]#1.00[facility] Outside [id number]#1.00[facility] HospitalOutside Recordson 95-63-1622Wyuljbl Records [id number]#1.00[facility] ClinicRad - MRI Reporton 07-15-9581Dpa - MRI Report [id number]#1.00[facility] Coding Summaryon 68-12-9235Trerre SummaryHTMLBase 64 TwjyzhsxPKl9hMt+PGhlYWQ+MK9VTGKtQ52fqPXvgJ9wH5FNLGkVHybkQILIXZaBLrCkfmZoCF2nhOUl ZXJu [file] ZTo (more content not included)...NormalFirelands Regional Medical Center Standardon 54-58-2269fUSN Non AA50 mL/min/1.60t0Nrolxbb Interpretation CodeWayne Hospital HospitalComment on above:Performed By: #### [id number], [id number] ####[facility] (DEFAULT)[address] [place] [address] 83350oQGN AA60 mL/min/1.73m2 Invalid Interpretation CodeWayne Hospital HospitalComment on above:Performed By: #### [id number], [id number] ####[facility] (DEFAULT)[address] [place] [address] 01970Bpfrhvm [Mass/Vol]3.7 g/dLNormal3.5-5.0[facility] HospitalComment on above:Performed By: #### [id number], [id number] ####[facility] (DEFAULT)[address] [place] [address] 93839Kivatwa/Globulin [Mass ratio]1.3 {ratio}Low1.4-2.6Mpremier health HospitalComment on above:Performed By: #### [id number], [id number] ####[facility] (DEFAULT)[address] [place] [address] 57555Xur Phos53 IU/EXymthp91-27Yzrgoysa HospitalComment on above: Performed By: #### [id number], [id number] ####[facility] (DEFAULT)[address] [place] [address] 76414TKH [Catalytic activity/Vol]17.0 U/LNormal 14.0-54.0[facility] HospitalComment on above:Performed By: #### [id number], [id number] ####[facility] (DEFAULT)[address] [place] [address] 37457Nqvpm gap [Moles/Vol]11.1 mmol/LNormal5.0-19.0[facility] HospitalComment on above:Performed By: #### [id number], [id number] ####[facility] (DEFAULT)[address] [place] [address] 55560MKM [Catalytic activity/Vol]25 U/DSvwoyn15-98Gtfrcgpg HospitalComment on above:Performed By: #### [id number], [id number] ####[facility] (DEFAULT)[address] [place] [address] 93641Vsis Total0.8 mg/dLNormal0.3-1.2[facility] HospitalComment on above:Performed By: #### [id number], [id number] ####[facility] (DEFAULT)[address] [place] [address] 24212Ljaxazo [Mass/Vol]9.1 mg/dLNormal8.9-10.3[facility] HospitalComment on above:Performed By: #### [id number], [id number] ####[facility] (DEFAULT)[address] [place] [address] 89357Ehcnkjjr [Moles/Vol]104 mmol/UYlpupf875-167Tqcycudj HospitalComment on above:Performed By: #### [id number], [id number] ####[facility] (DEFAULT)[address] [place] [address] 14573ST9 [Moles/Vol]27 mmol/QGspmbd39-95Qnjwpwvg HospitalComment on above:Performed By: #### [id number], [id number] ####[facility] (DEFAULT)[address] [place] [address] 18157Udfasdbkoy [Mass/Vol]1.07 mg/dL Normal0.60-1.30[facility] HospitalComment on above:Performed By: #### [id number], [id number] ####[facility] (DEFAULT)[address] [place] [address] 47321Qquzrjke (S) [Mass/Vol]2.8 g/dLNormal1.5-4.3[facility]uder HospitalComment on above:Performed By: #### [id number], [id number] ####[facility] (DEFAULT)[address] [place] [address] 83548Xdtnnkq [Mass/Vol]92.0 mg/dL Egcrrq77.0-118.0[facility] HospitalComment on above:Performed By: #### [id number], [id number] ####[facility] (DEFAULT)[address] [place] [address] 57489Qkovuoqhsu095 mOsm/LInvalid Interpretation CodeWayne Hospital HospitalComment on above:Performed By: #### [id number], [id number] ####[facility] (DEFAULT)[address] [place] [address] 31633Swusiwzzg [Moles/Vol]4.1 mmol/L Normal3.6-5.1Mpremier health HospitalComment on above:Performed By: #### [id number], [id number] ####[facility] (DEFAULT)[address] [place] [address] 07445Cgmrgjj [Mass/Vol]6.5 g/dLNormal6.5-8.1Mpremier health HospitalComment on above: Performed By: #### [id number], [id number] ####[facility] (DEFAULT)[address] [place] [address] 76085Lbsetg [Moles/Vol]138.0 mmol/LNormal 136.0-144.0[facility] HospitalComment on above:Performed By: #### [id number], [id number] ####[facility] (DEFAULT)[address] [place] [address] 11009Tzfs nitrogen [Mass/Vol]17 mg/dLNormal8-26[facility] HospitalComment on above:Performed By: #### [id number], [id number] ####[facility] (DEFAULT)[address] [place] [address] 57115Ybru nitrogen/Creatinine [Mass ratio]15.8 mg/mgNormal4.6-16.2Mpremier health HospitalComment on above:Performed By: #### [id number], [id number] ####[facility] (DEFAULT)[address] [place] [address] 64702Teiry Panel Standardon 29-29-1362Wxhmfeegxwg [Mass/Vol]264.0 mg/qOEhxc34.0-200.0[facility] HospitalComment on above:Performed By: #### [id number], [id number] ####[facility] (DEFAULT)[address] [place] [address] 13934Zdomrvbdbkh in HDL [Mass/Vol]54 mg/pJKwccka10-04Vuvkedot HospitalComment on above:Performed By: #### [id number], [id number] ####[facility] (DEFAULT)[address] [place] [address] 08484Ceakrlggmkk in LDL [Mass/Vol]186 mg/dLHigh1-100[facility] HospitalComment on above:Performed By: #### [id number], [id number] ####[facility] (DEFAULT)[address] [place] [address] 16918Fbensuhrkpy.total/Cholesterol in HDL [Mass ratio]4.9 {ratio} High0.0-4.5[facility] HospitalComment on above:Performed By: #### [id number], [id number] ####[facility] (DEFAULT)[address] [place] [address] 07504Oczhzhcggjcu [Mass/Vol]121.0 mg/dLNormal0.0-150.0[facility] HospitalComment on above:Performed By: #### [id number], [id number] ####[facility] (DEFAULT)[address] [place] [address] 84918PTMF.24 mg/dLNormal5-40[facility] HospitalComment on above:Performed By: #### [id number], [id number] ####[facility] (DEFAULT)[address] [place] [address] 22662Hnwuuvm Recordson 08-22-7561Kyqhact [id number]#1.00OTGTIFF [facility] HospitalPatient Handouton [phone] HandoutMental and Behavioral Health Managing Anxiety, Adult After being diagnosed with anxiety, you may be relieved to know why you have felt or behaved a certain way. You may also feel overwhelmed about the treatment ahead and what it will mean for your life. With care and support, you can manage your anxiety. How to manage lifestyle changes Understanding the difference between stress and anxiety Although stress can play a role in anxiety, it is not the same as anxiety. Stress is your body's reaction to life changes and events, both good and bad. Stress is often caused by something external, such as a deadline, test, or competition. It normally goes away after the event has ended and will last just a few hours. But, stress can be ongoing and can lead to more than just stress. Anxiety is caused by something internal, such as imagining a terrible outcome or worrying that something will go wrong that will greatly upset you. Anxiety often does not go away even after the eventis over, and it can become a long- term (chronic) worry. Lowering stress and anxiety Talk with your health care provider or a counselor to learn more about lowering anxiety and stress.They may suggest tension-reduction techniques, such as: ? Music. Spend time creating or listening to music that you enjoy and that inspires you. ? Mindfulness-based meditation. Practice being aware of your normal breaths while not trying to control your breathing. It can be done while sitting or walking. ? Centering prayer. Focus on a word, phrase, or sacred image that means something to you and bringsyou peace. ? Deep breathing. Expand your stomach and inhale slowly through your nose. Hold your breath for 3?5seconds. Then breathe out slowly, letting your stomach muscles relax. ? Self-talk. Learn to notice and spot thought patterns that lead to anxiety reactions. Change thosepatterns to thoughts that feel peaceful. ? Muscle relaxation. Take time to tense muscles and then relax them. Choose a tension-reduction technique that fits your lifestyle and personality. These techniques take time and practice. Set aside 5?15 minutes a day to do them. Specialized therapists can offer counseling and training in these techniques. The training to help with anxiety may be covered by some insurance plans. Other things you can do to manage stress and anxiety include: ? Keeping a stress diary. This can help you learn what triggers your reaction and then learn ways to manage your response. ? Thinking about how you react to certain situations. You may not be able to control everything, but you can control your response. ? Making time for activities that help you relax and not feeling guilty about spending your time inthis way. ? Doing visual imagery. This involves imagining or creating mental pictures to help you relax. ? Practicing yoga. Through yoga poses, you can lower tension and relax. Medicines Medicines for anxiety include: ? Antidepressant medicines. These are usually prescribed for long-term daily control. ? Anti-anxiety medicines. These may be added in severe cases, especially when panic attacks occur. When used together, medicines, psychotherapy, and tension-reduction techniques may be the most effective treatment. Relationships Relationships can play a big part in helping you recover. Spend more time connecting with trusted friends and family members. Think about going to couples counseling if you have a partner, taking family education classes, or going to family therapy. Therapy can help you and others better understandyour anxiety. How to recognize changes in your anxiety Everyone responds differently to treatment for anxiety. Recovery from anxiety happens when symptomslessen and stop interfering with your daily life at home or work. This may mean that you will startto: ? Have better concentration and focus. Worry will interfere less in your daily thinking. ? Sleep better. ? Be less irritable. ? Have more energy. ? Have improved memory. Try to recognize when your condition is getting worse. Contact your provider if your symptoms interfere with home or work and you feel like your condition is not improving. Follow these instructions at home: Activity ? Exercise. Adults should: ? Exercise for at least 150 minutes each week. The exercise should increase your heart rate and make you sweat (moderate-intensity exercise). ? Do strengthening exercises at least twice a week. ? Get the right amount and quality of sleep. Most adults need 7?9 hours of sleep each night. Lifestyle ? Eat a healthy diet that includes plenty of vegetables, fruits, whole grains, low-fat dairy products, and lean protein. ? Do not eat a lot of foods that are high in fats, added sugars, or salt (sodium). ? Make choices that simplify your life. ? Do not use any products that contain nicotine or tobacco. These products include cigarett (more content not included)...[facility] HospitalCoding Summaryon [id number] SummaryMLBase 64 RjtmchdhVFy4cXc+[id number] ZXJu [file] ZTo (more content not included)...[facility] HospitalMR LUMBAR SPINE WO CONTRASTon [id number] LUMBAR SPINE WO CONTRASTEXAM: MR LUMBAR SPINE WO CONTRAST History: Lumbosacral degenerative disc disease. Low back pain. Technique: Multiplanar multisequence MRI of the lumbar spine was obtained without intravenous contrast. Comparison: Lumbar spine radiographs March 27, 2024 Findings: The conus medullaris ends normally. Minimal S-shaped scoliotic curvature. The vertebral body heights are well maintained. There is no aggressive bone marrow signal abnormality. Disc desiccation and mild intervertebral disc height loss throughout the lumbar spine. Multilevel Schmorl's nodes. Multilevel degenerative endplate spurring. Small disc bulge. No neural foraminal or spinal canal stenosis. L1-L2: Moderate disc bulge. L2-L3: Ligamentum flavum thickening. Mild spinal canal stenosis. No neural foraminal stenosis. L3-L4: Moderate disc bulge. Ligamentum flavum thickening. Mild spinal canal stenosis. Moderate bilateral neural foraminal stenosis. L4-L5: Moderate disc bulge. Ligamentum flavum thickening. Moderate spinal canal stenosis. Moderate bilateral neural foraminal stenosis. L5-S1: Small disc bulge. Mild facet arthropathy. Ligamentum flavum thickening. Moderate to severe bilateral neural foraminal stenosis. Mild spinal canal stenosis. Visualized paravertebral soft tissues appear within normal limits. Round hyperintense T2 structuresof both kidneys measuring up to approximately 8 cm are most likely cysts. IMPRESSION: Degenerative changes of the lumbar spine as detailed. ELECTRONICALLY SIGNED BY: Dorian ArayamalNot AvailableComment on above:Order Comment: No to all MRI questions.C Urineon [id number] identified Cx Nom (U)Microbiology PROCEDURE: Urine Culture [R1] SOURCE: U CleanCatch BODY SITE: COLLECTED DATE/TIME: 05/02/2024 11:27 EST RECEIVED DATE/TIME: 05/02/2024 19:09 EST START DATE/TIME: 05/02/2024 19:09 EST FREE TEXT SOURCE: CHRIS COUGHLIN, ERIKA SIM PA-C, ERIKA Trammell FINAL REPORTS Final Report [] Verified Date/Time: 05/04/2024 09:27 EST >100,000 cfu/ml Escherichia coli SUSCEPTIBILITY RESULTS LEGEND: S=Susceptible, N/R=Not Reported, Blank=Data not available, or drug not advisable or tested, I=Intermediate, ESBL=Extended spectrum beta-lactamase, R=Resistant, TFG=Thymidine-dependent strain, JOSE J=Beta-lactamase positive, JAKE=mcg/m;(mg/L), S*=Predicted susceptible interp, R*=Predicted resistant interp EC Antibiotic JAKE Dilutn JAKE Interp Ampicillin <=8 S Ampicillin/ <=8/4 S Sulbactam Aztreonam <=4 S Cefazolin <=2 S Cefepime <=2 S Ceftazidime <=1 S Ceftazidime/ <=8 S Avibactam Ceftriaxone <=1 S Cefuroxime <=4 S Ciprofloxacin <=0.25 S Ertapenem <=0.5 S Gentamicin <=2 S Levofloxacin <=0.5 S Meropenem <=1 S Nitrofurantoin <=32 S Piperacillin/ <=8 S Tazobactam Tetracycline <=4 S Tobramycin <=2 S Trimethoprim/ <=2/38 S Sulfa Performing Locations R1: This test was performed at: [facility], [address] [place] [address], [address]- , [place], FkpvzoDjplckUniversity Hospitals Portage Medical CenterComment on above:Performed By: #### [id number] #### [facility] [address] [place] [id number] Bone Density DEXA Studyon [id number] Bone Density DEXA StudyEXAM: BD Bone Density DEXA Study HISTORY: Other specified disorders of bone density and structure, multiple sites COMPARISON: 2019 TECHNIQUE: Hologic FINDINGS: Bone mineral density left femoral neck measures 0.68 g/sq cm. T score -1.5. 3.3% reduction from 2019, physiologic. Osteopenia. Total bone bruises lumbar spine L1-L4 measures 1.056 g/sq cm. T score 0.1. 3.1% improvement from the prior exam. Normal IMPRESSION: Osteopenia 10 year fracture risk: Major osteoporotic fracture 10%. Hip fracture 1.7% Final Dictated by: Ramo Mcgovern MD Dictated DT/TM: 05/02/24 12:56 Signed (Electronic Signature): Ramo Mcgovern MD 05/02/24 12:57 p Technologist: [facility] HospitalProvider Orderson [id number] [id number] Memorial HospitalAmbulatory Visit Summaryon [id number] Visit SummaryAmbulatory Visit Summary JAZZMINE WANG :1945 Visit Date:04/18/2024 Ambulatory Visit Instructions Your Diagnosis Mixed incontinence History of UTI Vaginal atrophy Cognitive decline Constipation, chronic Your Care Team Attending Physician - ERIKA SIM PA-C Primary Care Physician - PREMA MUNOZ Referring Physician - ERIKA SIM PA-C This Is Your Medications List acyclovir (acyclovir 200 mg Cap) citalopram (citalopram 40 mg Tab) clonazepam (ClonazePAM 0.5 mg Tab) estradiol topical (Estrace 0.1 mg/g Cream) fexofenadine (Melanie 24 Hour Allergy) omeprazole (omeprazole 40 mg Cap-DR) vibegron (vibegron 75 mg oral tablet) Procedures Performed Injection of substance into bladder wall (01/19/2024), Arthroscopy, Cataract, Cholecystectomy, Colonoscopy, Dilation and curettage, Tubal ligation. Discharge Vitals Temperature (Temporal Artery) 36.6 ???C Heart Rate (Peripheral) 80 Blood Pressure 92/56 Height 65 in Height 165 cm Weight 150.796 lb Weight 68.4 kg BMI 25.12 What to do next Scheduled Follow-Up Appointments Tuesday. 2024 10:40 AM EDT With: ERIKA SIM PA-C Where: [facility] [address] [facility] [place] [address]- Medications What How Much When Instructions Unchanged acyclovir (acyclovir 200 mg Cap) 1 Capsules By Mouth 2 times a day Unchanged citalopram (citalopram 40 mg Tab) Unchanged clonazepam (ClonazePAM 0.5 mg Tab) Unchanged estradiol topical (Estrace 0.1 mg/ g Cream) See instructions Apply pea sized amount to external urethra/ vaginal area 3x a week for 1 month, then 2x a week afterwards Unchanged fexofenadine (Melanie 24 Hour Allergy) Unchanged omeprazole (omeprazole 40 mg Cap-DR) Unchanged vibegron (vibegron 75 mg oral tablet) 1 Tablets By Mouth Every day Duration: 30 Days Allergies Cipro (Hives) Problems Ongoing - Any problem that you are currently receiving treatment for. Allergic rhinitis Anxiety Cervical spondylosis Cervicalgia Cognitive decline Constipation, chronic Depression Fibromyalgia Generalized osteoarthritis Genital herpes GERD (gastroesophageal reflux disease) Hip pain, bilateral History of UTI Hyperlipemia Insomnia Mixed incontinence UTI symptoms Vaginal atrophy Patient Survey You may receive a survey via text or e-mail asking about your office visit. Please share your experience with us by completing your survey. We appreciate your feedback and thank you for choosing us for your care. [facility] CenterUrology Office/Clinic Noteon [id number] Office/Clinic NoteUrology Office/Clinic Note Chief Complaint 3 month follow up. HPI Staff 79 year old female patient here for follow up with PVR. Previous Dx: mixed incontinence, vaginal atrophy, hx of UTI, constipation (chronic).*Started on Myrbetriq 26 mg ER qd then increased to 50 mg qd patient is not taking myrbertiq, had botox 01/18 Dysuria: denies Incomplete bladder emptying: yes Hematuria: denies Frequency: denies Urgency: denies Nocturia: 1 time Stream: when she pushes out it is strong, weak before Leaking: denies Post void dripping: denies Wearing pads/ Depends: denies Urge incontinence: denies Stress incontinence: denies Incontinence without Sensory Awareness: denies Abdominal pain: denies Flank pain: denies Sexual complaints: _ Review of Systems PHQ Score Initial Depression Screen Score: 2 SCORE no fever, chills, malaise, myalgia. no rash/lesions. no chest pain, palpitations, or SOB. no abdominal pain, nausea, vomiting. 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 Daughter, Meryl, this summer from an untreatable neurological condition, PSP Progressive supranuclear palsy. 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 Pt prefers a female provider. 1. Mixed incontinence (N39.46: Mixed incontinence) 09/01/23: BBS 23. UUI > FLETCHER. Urgency and incontinence started a few years ago, only had to wear a liner. Now wears a pad. Has had a few UUI episodes. Leaks with coughing, sneezing, and standing. Also leaks on the way to the restroom. Stream is sometimes weak, strong with full bladder. PVR 24 mL. Drinks manan and coffee. Admits to minimal water intake. Counseled pt on bladder irritants. Reports constipation and colitis. Passing flatus while walking. Educated pt on bladder/bowel connection. Recommended daily Metamucil or stool softener. No hx of DM. Pt is interested in Botox. Advised pt typically insurance won't cover Botox without first failing oral meds. Tried an anticholinergic in the distant past, unable to recall name. Pt already suffers from dry eyes and chronic constipation. Pt admits she feels she has recently hadsome cognitive decline, unsure if it is related to stress vs early onset of dementia. States has appt w [facility] for cognition study. Given pt reports cognitive decline, dry eyes, and constipation, she isnot a candidate for anticholinergics. Therefore will rx Myrbetriq. Start w 25mg for the first month, then increase to 50mg. If cost-prohibitive or not covered we can try Gemtesa. TODAY: Myrbetriq and Gemtesa were both cost-prohibitive. Pt never started either of them. Sp cysto w KML 01/19/24. Sp Botox 100u w KML 03/19/24. Doing very well sine Botox. Has noticed improvement in all sx. BBSQ 4 (23) very good control. PVR0ml. UA shows sm hgb, could still be from recent scope. Will repeat at next ov and consider upper tract imaging if persists. -F/u 6 mos, can push appt back if still doing well at that point. If Botox starting to wear off then come to appt. If Botox wears off sooner than 6 mos, call to be seen sooner. Ordered: [id number] Measure Post Void residual urine and/or bladder capacity by US- non-imaging Body Mass Index (BMI) documented 3008F Current tobacco non-user 1036F Depression Screening Negative 3352F Falls plan of care documented 0518F Influenza immunization status assessed 1030F Medication list documented in medical record 1159F Patient screen for fall risk: no falls in last year or 1 fall with no injury in last year 1101F Review of all meds by a prescribing practitioner or clinical pharmacist documented in EHR 1160F 2. Vaginal atrophy (N95.2: Postmenopausal atrophic vaginitis) 09/01/23: Used estrogen cream in the past, applied to urethra manually, but had no sx improvement. Thinks things actually worsened while on it. Reports discomfort when she is sexually active. Has seen gynecology for minor prolapse. States it is not significant enough to warrant surgical intervention. Discussed retrying estrogen cream (perhaps through compounding pharmacy). Reports current sexual partner is dealing with ED so not a priority at this time. TODAY: Mild-moderate noted on cysto. KML restarted estrogen cream. Pt has been using as instructed. Ordered: 61299 Measure Post Void residual urine and/or bladder capacity by US- non-imaging Body Mass Index (BMI) documented 3008F Current tobacco non-user 1036F Depression Screening Negative 3352F Falls plan of care documented 0518F Influenza immunization status assessed 1030F Medication list documented in medical record 1159F Patient screen for fall risk: no falls in last year or 1 fall with no injury in last year 1101F Review of all meds by a prescribing practitioner or clinical pharmacist documented in EHR 1160F (more content not included)...[facility] CenterComment on above: Result Comment: Electronically Signed By: ERIKA SIM PA-C\.br\Date and Time Signed: 04/18/2411:56 ESTOutside Recordson [id number] Records [id number] Health Greene Memorial sleep teston [id number] apnea with an AHI of 18 May benefit from CPAP titration versus auto PAP treatment at 5-15 cm of water [facility] sleep testOrdered By: Katherine Arceo on [id number] [employer] Work Phone: coding Summaryon [id number] SummaryHTMLBase 64 GlyhcydtGEs5aOf+[id number] ZXJu [file] ZTo (more content not included)...[facility] Panel Informationon [id number] Study observation (narrative)[facility] Lumbar spine 2 or 3 Viewson [id number] Result: AP and lateral of the lumbar spine taken in the office today demonstrating significant degenerative disc disease multiple levels including facet hypertrophy in the lower lumbosacral region. May be evident for neural foraminal stenosis. No evidence of bony tumor acute fracture seen. No spondylolisthesis, she does have some sclerotic changes of her aorta with no evidence of enlargement.[facility] HospitalXR Pelvis AP and Hip - bilateral GE 2 Viewson [id number] Result: AP pelvis and bilateral frog views of the hips taken in the office today demonstrate no significant osteoarthritis of the femoral head and acetabulum. No evidence of bony tumor acute fracture seen.[facility] HospitalInpatient Patient Summaryon [id number] Patient Summary Inpatient Patient Summary [place] [address] Clinical Summary Person Information Name: JAZZMINE WANG Age: 79 Years : 1945 Sex: Female PCP: PREMA MUNOZ Marital Status: Phone: [phone] Race: White Ethnicity: Non- or Language: [place] Visit Id: Visit Reason: MIXED INCONTINENCE Speciality: Acuity: Enc Type: Outpatient Med Service: Surgery Arrival: 03/19/2024 08:25:54 Discharge: Dispo Type: Address: 1951 [facility] [id number] Provider Notes: Diagnosis: Mixed incontinence Problems Active Constipation, chronic Cognitive decline Vaginal atrophy Mixed incontinence History of UTI UTI symptoms Insomnia Hyperlipemia Hip pain, bilateral GERD (gastroesophageal reflux disease) Genital herpes Generalized osteoarthritis Fibromyalgia Depression Cervicalgia Cervical spondylosis Anxiety Allergic rhinitis Smoking Status: Functional Status: Sensory Deficits: History of Falls: Mobility Assistance Prior to Admission: ADLs: Current Level of Assistance for Self-Care/Mobility: Cognitive Status: Allergies Cipro (Hives) Laboratory or Other Results This Visit (last charted value for your 03/19/2024 visit) No Laboratory or Other Results This Visit Measurements: Height: Weight: Blood Pressure: Not Valued / Not Valued BMI: Procedures No Procedures Documented Immunizations No Immunizations Documented This Visit Final Med List: acyclovir (acyclovir 200 mg Cap) citalopram (citalopram 40 mg Tab) clonazepam (ClonazePAM 0.5 mg Tab) estradiol topical (Estrace 0.1 mg/g Cream) Apply pea sized amount to external urethra/vaginal area 3x a week for 1 month, then 2x a week afterwards. Refills: 2. fexofenadine (Melanie 24 Hour Allergy) omeprazole (omeprazole 40 mg Cap-DR) vibegron (vibegron 75 mg oral tablet) 1 Tablets By Mouth every day for 30 Days. Refills: 11. Care Team Members: Attending Physician: Thelma Hatfield MD Consulting Physician: Referring Physician: Thelma Hatfield MD Follow up: With: Address: When: ERIKA SIM [address] [place], [place] [id number] Business (1) Comments: Office to schedule follow up in 1 month with PVR Patient Education Information: EU - Cystoscopy with Botox Injection Discharge Instructions (CUSTOM)[facility] CenterMain OR Intraoperative Recordon [id number] OR Intraoperative RecordMain OR Intraoperative Record IntraOp Document Type FTURO Summary Primary Physician: Thelma Hatfield MD Finalized Date/Time: 03/19/24 10:17:30 Pt. Name: JAZZMINE WANG/Sex: 1945 Female Med Rec #: [id number] Physician: Thelma Hatfield MD Financial #: [id number] Pt. Type: O Room/Bed: / Admit/Disch: 03/19/24 08:25:54 - Institution: Case Times FTURO Entry 1 Patient Times In Room 03/19/24 09:51:00 Out Room 03/19/24 10:10:00 Procedure Times Start 03/19/24 10:00:00 Stop 03/19/24 10:04:00 Anesthesia Times Last Modified By: Katie Bucio RN 03/19/24 10:10:25 Case Attendance FTURO Entry 1 Entry 2 Entry 3 Case Attendee Thelma Hatfield MD, RN, Kristal Lundberg Role Performed Surgeon - Primary Dealer Sales Rep - Primary Scrub - Primary Time In 03/19/24 09:51:00 03/19/24 09:51:00 03/19/24 09:51:00 Time Out 03/19/24 10:10:00 03/19/24 10:10:00 03/19/24 10:10:00 Procedure CYSTOSCOPY LOCAL BOTOX CYSTOSCOPY LOCAL BOTOX CYSTOSCOPY LOCAL BOTOX INJECTION(.) INJECTION(.) INJECTION(.) Comments Last Modified By: Katie Bucio RN, RN, Katie Bucio RN, Katie Murray 03/19/24 10:14:40 03/19/24 10:14:40 03/19/24 10:14:40 Surgical Procedures FTURO Entry 1 Procedure Description Procedure CYSTOSCOPY LOCAL BOTOX Modifiers . INJECTION Surgeon Description CYSTOSCOPY WITH BOTOX 100 UNITS Primary Procedure Yes Primary Surgeon Thelma Hatfield MD Start 03/19/24 10:00:00 Stop 03/19/24 10:04:00 Anesthesia Type Local Surgical Service Urology Wound Class 2 - Clean-Contaminated Last Modified By: Katie Bucio RN 03/19/24 10:15:33 General Comments: BOTOX 100 UNITS LOT [id number], EXPIRES 02/2026. JONA HALL General Case Data FTURO Pre-Care Text: Classifies surgical wound, implements aseptic technique, initiates traffic control Entry 1 Case Information OR URO 1 FT Case Level None Wound Class 2 - Clean-Contaminated Specialty Urology Preop Diagnosis MIXED INCONTINENCE Postop Same As Preop Yes Postop Diagnosis MIXED INCONTINENCE Outcomes Met? Yes Last Modified By: Katie Bucio RN 03/19/24 10:15:25 Post-Care Text: The patient is free from signs and symptoms of infection EU IntraOp - FTURO Pre-Care Text: Implements protective measures prior to operative or invasive procedure, confirms identity before the operative or invasive procedure, verifies operative procedure, surgical site, and laterality Entry 1 EU Perioperative Protocols Procedure(s) CYSTOSCOPY LOCAL BOTOX Patient Identity Birthday, ID Band INJECTION(.) Verified (select at Check, Patient least 2): Participation Consents / H and P H&P, Surgery/Procedure Operative Site N/A Verified Consent Marking Verified Surgical Site Yes Laterality Verified n/a Verified Procedure Verified Yes Correct Patient Yes Position Verified Availability Equipment, Medication Time Out Thelma Hatfield MD, Verified (If Participants Katie Bucio RN, Applicable) Kristal Quijano Time Out Complete 03/19/24 10:00:00 Allergies Reviewed? Yes Allergies Reviewed Self/Patient With Body Position Low Lithotomy Prep Area PERINEUM Prep Agents Betasept, Saline Rinse Skin. Condition Intact, [place], Warm, & Dry Additional None Specimens Collected Vitals - EU Blood Pressure 126/71 Pulse 70 bpm Respirations 18 br/min SPO2 98 % EBL 0 I&O - EU Total Intake 0 mL Total Output 0 mL Outcomes Met? Yes Last Modified By: Katie Bucio RN 03/19/24 10:17:28 Post-Care Text: The patient is free from signs and symptoms of injury caused by extraneous objects Sign Out FTURO Entry 1 Before Patient Leaves OR Nurse verbally Yes Nurse verbally n/a confirms with the confirms with the team the name of team that the procedure(s) instrument, sponge, recorded and needle counts are correct (or N/A) Nurse verbally n/a Nurse verbally n/a confirms with the confirms with the team how the team whether there specimen is labeled are any equipment (including patient problems to be name), if applicable addressed Sign Out Complete 03/19/24 10:04:00 Last Modified By: Katie Bucio RN 03/19/24 10:16:31 Case Comments Finalized By: Katie Bucio RN Document Signatures Signed By: Katie Bucio RN 03/19/24 10:16 Katie Bucio RN 03/19/24 10:17NoReg[facility]Main OR Preoperative Recordon [id number] OR Preoperative RecordMain OR Preoperative Record Holding Area Document Type FTURO Summary Primary Physician: Thelma Hatfield MD Finalized Date/Time: 03/19/24 10:17:02 Pt. Name: JAZZMINE WANG/Sex: 1945 Female Med Rec #: [id number] Physician: Thelma Hatfield MD Financial #: [id number] Pt. Type: O Room/Bed: / Admit/Disch: 03/19/24 08:25:54 - Institution: Case Times Holding FTURO Pre-Care Text: Verifies consent for planned procedure, identifies individual values and wishes concerning care, includes family members in perioperative teaching Secures patient's records' belongings, and valuables, maintains patient's dignity and privacy, and maintains patient confidentiality Entry 1 In Holding 03/19/24 09:31:00 Outcomes Met? Yes Last Modified By: Marei Khanna LPN 03/19/24 09:31:52 Post-Care Text: The patient participates in decisions affecting his or her perioperative plan of care The patient'sright to privacy is maintained Surgery Checklist FTURO Entry 1 Patient Birthday, ID Band Procedure History and Physical, Identification: Check, Patient Verification: Surgical Consent, With Participation Patient NPO after Midnight: n/a Limitations: up ad ivon Complaints of Pain: No Skin Integrity Intact, [place], Warm, & Dry Vitals - EU Blood Pressure 126/71 Pulse 70 bpm Respirations 18 br/min SPO2 98 % RN Reviewed Yes Last Modified By: Katie Bucio RN 03/19/24 10:17:00 Finalized By: Katie Bucio RN Document Signatures Signed By: Katie Bucio RN 03/19/24 10:17[facility] CenterOperative Report on [id number] ReportOperative Report Patient: JAZZMINE WANG Age: 79 years Sex: Female : 1945 Associated Diagnoses: None Author: Thelma Hatfield MD Procedure Operative Information Details: Date/ Time: 03/19/2024 10:10:00. Pre-Op Dx: Mixed incontinence (NLQ23-JP N39.46, Discharge, Medical). Post-Op Dx: Same. Anesthesia Type: Local. Procedure: Local Cystoscopy with botox injection, 100 units. Complications: None. Risks/Benefits/Informed Consent: Surgical risks, benefits, details of the procedure have been explained to the patient, Full informed consent has been obtained. Intraoperative Information Prepped: Patient is brought back to the endoscopy suite, Female Prep (Patient is placed in modifieddorso/lithotomy position, 5 cc 2% Xylocaine Jelly is placed per Urethra, Straight cath inserted to obtain urine specimen, 60 cc 2% Xylocaine liquid inserted into bladder, 5 additional cc 2% XylocaineJelly is placed per Urethra, Patient in sitting position for 20 min dwell), Urine Specimen Results N egative for infection, Patient prepped in the usual fashion with Betadine solution, After waiting several minutes the Cystoscope is introduced. Procedure: The trigone was identified and evaluated. The bladder was instilled with enough saline to achieve adequate visualization for the injections. The needle was inserted approximately 2 mm intothe detrusor. A total of 11 injections with 1 ml volume was delivered at each site, total 100 unitsincluding 1 ml saline flush at the end, evenly spaced out throughout the bladder taking care to avoid the ureteral orficies. There was excellent hemostasis at the end of the procedure. The cystoscopewas removed and the patient tolerated the procedure well without immediate complications. . Postoperative Information Discharge: Patient is discharged home with antibiotic coverage, Follow up arranged, Follow up with LUCRECIA in 1 month for PVR and re-eval symptoms. Estrace sent again to pharmacy, pt did not submit paper script given to her from [facility] CenterComment on above:Result Comment: Electronically Signed By: Thelma Hatfield MD\.br\Date and Time Signed: 03/19/24 10:14EDTOutpatient Surgery Discharge Instructionon [id number] Surgery Discharge InstructionOutpatient Surgery Discharge Instruction [address] [address] Patient Discharge Instructions PERSON INFORMATION Name: JAZZMINE WANG Date of : 1945 Current Date: 03/19/2024 10:09:01 PHYSICIANS Admitting Physician: Thelma Hatfield MD Comment: Discharge Diagnosis: Mixed incontinence JAZZMINE WANG has been given the following list of follow-up instructions, prescriptions, and patient education materials: IF UNABLE TO CONTACT YOUR PHYSICIAN AND YOU FEEL IT IS AN EMERGENCY, GO TO THE NEAREST EMERGENCY ROOM OR CALL 911 Follow up: With: Address: When: ERIKA SIM [address] [place], [place] [address] [place], [place] [id number] [facility] (1) Comments: Office to schedule follow up in 1 month with PVR Comment: PATIENT EDUCATION INFORMATION Instructions: Cystoscopy with Botox injection ? Voiding after the procedure: there may be some pain, burning, urgency, frequency and blood tingedurine following the procedure. These symptoms usually resolve within 2-5 days. Drink the amount of fluid it takes to keep the urine pink to yellow or clear in color. Drinking enough water and fluids will help to ease any discomfort after your procedure. ? It may take a few days to a week to notice a gradual improvement in the overactive bladder symptoms. ? If you are having problems that seem out of the ordinary, please call. ? If unable to contact your physician and you feel it is an emergency, go to the nearest emergency room or call 911 ? Do not lift more than fifteen pounds for 1-2 days. If you see a lot of blood, you probably did too much. ? Diet ? you may resume your normal diet. ? Pain control ? You may take extra strength Tylenol or Motrin for discomfort. ? Call if you have a fever over 100 degrees. IKATHLEEN CHERYL, have received the attached patient education materials/instructions and have verbalized understanding: May we do a follow up call? Yes No I was present when discharge instructions were given Patient Signature Date Clinican/Nurse Signature Date You may receive a survey from [employer] asking you to rate your care experience. Your feedback is important and will help us understand what we do well and how we can improve the quality of care we provide to you, your loved ones and our community. It?s an honor to serve you. Thank you for choosing [facility] CenterAmbulatory Visit Summaryon 10-10-5313Irneqvhbot Visit Summary Ambulatory Visit Summary JAZZMINE WANG :1945 Visit Date:03/12/2024 Ambulatory Visit Instructions Your Care Team Attending Physician - Liu UNGER, Thelma Dent Primary Care Physician - Olga Milton CNP This Is Your Medications List acyclovir (acyclovir 200 mg Cap) citalopram (citalopram 40 mg Tab) clonazepam (ClonazePAM 0.5 mg Tab) fexofenadine (Melanie 24 Hour Allergy) omeprazole (omeprazole 40 mg Cap-DR) vibegron (vibegron 75 mg oral tablet) Procedures Performed Arthroscopy, Cataract, Cholecystectomy, Colonoscopy, Dilation and curettage, Tubal ligation. What to do next Scheduled Follow-Up Appointments Tuesday 10:30 AM EDT Where: [facility] Tuesday 9:30 AM EDT Where: [facility] Medications What How Much When Instructions Unchanged acyclovir (acyclovir 200 mg Cap) Unchanged citalopram (citalopram 40 mg Tab) Unchanged clonazepam (ClonazePAM 0.5 mg Tab) Unchanged fexofenadine (Melanie 24 Hour Allergy) Unchanged omeprazole (omeprazole 40 mg Cap-DR) Unchanged vibegron (vibegron 75 mg oral tablet) 1 Tablets By Mouth Every day Duration: 30 Days Allergies Cipro (Hives) Problems Ongoing - Any problem that you are currently receiving treatment for. Allergic rhinitis Anxiety Cervical spondylosis Cervicalgia Cognitive decline Constipation, chronic Depression Fibromyalgia Generalized osteoarthritis Genital herpes GERD (gastroesophageal reflux disease) Hip pain, bilateral History of UTI Hyperlipemia Insomnia Mixed incontinence UTI symptoms Vaginal atrophy Patient Survey You may receive a survey via text or e-mail asking about your office visit. Please share your experience with us by completing your survey. We appreciate your feedback and thank you for choosing us for your care. [facility] CenterCNPNon [id number] (INTSTJ) JAZZMINE WANG ([id number]) 1945 F T Date Time Provider Department 09/19/23 EBEN REEDER INTSTJ During your visit today, we recorded the following information about you: Eben Reeder MD 09/19/2023 11:59 PM Signed Patient needs to get a repeat BMP for elevated Cr, reduced GFR and will also get additional US of the kidney and bladder. Eben Reeder MD [facility] September 19, 2023 11:58 PM ' Allergies As of Date: 09/19/2023 Noted Allergy Reaction CIPROFLOXACIN 10/19/2018 4 - Hives Date Reviewed: 02/06/2019 Reviewed by: Kris Unger, Janusz PHD - Fully Assessed Reason for Visit: Results [95] Primary Visit Diagnosis:Stage 3a chronic kidney disease (HCC) [N18.31] Order(s):RENAL FUNCTION PANEL [SQRFP] Order #: [id number] FUTURE KIDNEY/BLADDER [4869810] Order #: [id number] FUTURE Prescriptions as of 09/19/2023 - omeprazole (PRILOSEC) 20 mg capsule Take 1 capsule by mouth daily at bedtime. - simvastatin (ZOCOR) 10 mg tablet Take 10 mg by mouth daily at bedtime. - zolpidem (AMBIEN) 10 mg tab Take 10 mg by mouth daily at bedtime. - ALPRAZolam (XANAX) 0.5 mg tablet Take 0.5 mg by mouth at bedtime as needed. - acyclovir (ZOVIRAX) 200 mg capsule Take 200 mg by mouth twice daily. - citalopram (CELEXA) 40 mg tablet Take 40 mg by mouth once daily. Problem List As Of Date 09/19/2023 Noted Resolved HLD (hyperlipidemia) [E78.5] 10/25/2018 Anxiety [F41.9] 10/25/2018 AYDEE (obstructive sleep apnea) [G47.33] 10/25/2018 Anemia [D64.9] 10/25/2018 Bradycardia [R00.1] 10/25/2018 GERD (gastroesophageal reflux disease) [K21.9] 10/25/2018 Osteoarthritis of carpometacarpal joint of left*11/14/2018 Thumb pain, left [M79.645] 11/14/2018 Thumb joint stiffness [M25.649] 11/14/2018 Primary osteoarthritis of both first carpometac*12/26/2018 Encounter Status:Closed by EBEN REEDER on 09/19/23NormalCGlenbeigh Hospital25([place])D3 SerPl-ncon [id number]-onralnhxeiubvq D3 [Mass/Vol]48.4 ng/lIBlxnex98.0-80.0[facility] on above:Order Comment: Specimen Type: BLOOD SPECIMEN Ordering Facility: [facility] Address: [address] [place], [place] [address]Result Comment: Classification of 25 [place] Vitamin D status: Deficiency/Insufficiency: < or = 30 ng/ml. Sufficiency/Optimal Levels: 31-80 ng/mL Toxicity: > 100 ng/mL. Test performed by chemiluminescent immunoassay.Performed By: #### 1989-3 #### [facility] CLIA [id number] [address] [place] [address] [place] STATES OF AMERICAComprehensive metabolic 2000 panelon 48-00-8499Rhhyefn [Mass/Vol]4.2 g/dLNormal3.9-4.9CUniversity Hospitals [facility] Center on above:Order Comment: Specimen Type: BLOOD SPECIMEN Ordering Facility: [facility] Address: [address] [place], [place] [address]Performed By: #### 36714-7 #### [facility] CLIA [id number] [address] [place] [address]GUJ [Catalytic activity/Vol]70 U/CJcqyut54-324QkabmhvoaAdams County Hospital on above:Order Comment: Specimen Type: BLOOD SPECIMEN Ordering Facility: [facility] Address: [address] [place], [place] [address]Performed By: #### 63044-1 #### [facility] CLIA [id number] [address] [place], [place] [address]MIG [Catalytic activity/Vol]16 U/LNormal7-38[facility] on above:Order Comment: Specimen Type: BLOOD SPECIMEN Ordering Facility: [facility] Address: [address] [place], [place] [address]Performed By: #### 71087-2 #### [facility] CLIA [id number] [address] [place], [place] [address]Chftw gap [Moles/Vol]10 mmol/LNormal9-18[facility] on above:Order Comment: Specimen Type: BLOOD SPECIMEN Ordering Facility: [facility] Address: [address] [place], [place] [address]Performed By: #### 10012-8 #### [facility] CLIA [id number] [address] [place], [place] [address]VAU [Catalytic activity/Vol]28 U/XYlyvvt21-66VqnhheoovAdams County Hospital on above:Order Comment: Specimen Type: BLOOD SPECIMEN Ordering Facility: [facility] Address: [address] [place], [place] [address]Performed By: #### 95028-9 #### [facility] CLIA [id number] [address] [place], [place] [address]Enfbymoqg [Mass/Vol]0.5 mg/dLNormal0.2-1.3CUniversity Hospitals Conneaut [facility] Center on above:Order Comment: Specimen Type: BLOOD SPECIMEN Ordering Facility: [facility] Address: [address] [place], [place] [address]Performed By: #### 99709-3 #### [facility] CLIA [id number] [address] [place], [place] [address]Fhacnev [Mass/Vol]10.1 mg/dLNormal8.5-10.2[facility] ClevelandComment on above:Order Comment: Specimen Type: BLOOD SPECIMEN Ordering Facility: [facility] Address: [address] [place], [place] [address]Performed By: #### 32007-8 #### [facility] CLIA [id number] [address] [place], [place] [address]Gppszfux [Moles/Vol]105 mmol/NEmpsgn87-751PhgthbrtzAdams County Hospital on above:Order Comment: Specimen Type: BLOOD SPECIMEN Ordering Facility: [facility] Address: [address] [place], [place] [address]Performed By: #### 09023-7 #### [facility] CLIA [id number] [address] [place], [place] [address]ZS6 [Moles/Vol]26 mmol/YFuerei52-00RdbbbcztdMercy Health [facility] Hospital Comment on above:Order Comment: Specimen Type: BLOOD SPECIMEN Ordering Facility: [facility] Address: [address] [place], [place] [address]Performed By: #### 13038-1 #### [facility] CLIA [id number] [address] [place], [place] [address]Gwnbrgbhje [Mass/Vol]1.13 mg/dLHigh0.58-0.96[facility] on above:Order Comment: Specimen Type: BLOOD SPECIMEN Ordering Facility: [facility] Address: [address] [place], [place] [address]Performed By: #### 44853-4 #### [facility] CLIA [id number] [address] [place], [place] [address]Lvnnpjcdic and Glomerular filtration rate.predicted panel (S/P/Bld)50 mL/min/1.73m???Low>=60[facility] on above: Order Comment: Specimen Type: BLOOD SPECIMEN Ordering Facility: [facility] Address: [address] [place], [place] [address]Result Comment: Estimated Glomerular Filtration Rate (eGFR) is calculated using the 2020 CKD-EPI cre atinine equation. This equation utilizes serum creatinine, sex, and age as parameters. The creatinine assay has traceable calibration to isotope dilution- mass spectrometry. Refer to KDIGO guidelines for clinical interpretation. In patients with unstable renal function, e.g. those with acute kidney injury, the eGFR may not accurately reflect actual GFR.Performed By: #### 65741-9 #### [facility] CLIA [id number] [address] [place], [place] [address]Hralbmc [Mass/Vol]91 mg/iTAtpkua40-07NwgddeosoAdams County Hospital on above:Order Comment: Specimen Type: BLOOD SPECIMEN Ordering Facility: [facility] Address: [address] [place], [place] [address]Rycwhr Comment: The [place] Diabetes Association (ADA) provides guidance for cutoff values for fasting glucose and random glucose. The ADA defines fasting as no [...] Standards of Medical Care in Diabetes 2016, [place] Diabetes Association. Diabetes Care. 2016.39(Suppl 1).Performed By: #### 55783-6 #### [facility] CLIA [id number] [address] [place] [address]Aychdeuqu [Moles/Vol]4.6 mmol/LNormal3.7-5.1CUniversity Hospitals [facility] Center on above:Order Comment: Specimen Type: BLOOD SPECIMEN Ordering Facility: [facility] Address: [address] [place], [place] [address]Rwjzneeqy By: #### 21062-5 #### [facility] CLIA [id number] [address] [place], [place] [address]Wgzhjao [Mass/Vol]7.0 g/dLNormal6.3-8.0[facility] on above:Order Comment: Specimen Type: BLOOD SPECIMEN Ordering Facility: [facility] Address: [address] [place], [place] [address]Performed By: #### 97871-3 #### [facility] CLIA [id number] [address] [place], [place] [address]K[place] [Moles/Vol]141 mmol/MAfzaut867-603KavfetnhvAdams County Hospital on above:Order Comment: Specimen Type: BLOOD SPECIMEN Ordering Facility: [facility] Address: [address] [place], [place] [address]Performed By: #### 64767-9 #### [facility] CLIA [id number] [address] [place] [address]Cwma nitrogen [Mass/Vol]18 mg/dLNormal7-21[facility] on above:Order Comment: Specimen Type: BLOOD SPECIMEN Ordering Facility: [facility] Address: [address] [place], [place] [address]Performed By: #### 73309-8 #### [facility] CLIA [id number] [address] [place] [address]Fkxvac and Treponema pallidum IgG and IgM [Interp]on 09-08-2023T. pallidum IgG+IgM IA Ql (S)Non-ReactiveNormalNonreactiveAdams County Hospital on above:Order Comment: Specimen Type: BLOOD SPECIMEN Ordering Facility: [facility] Address: [address] [place], [place] [address]Performed By: #### 84849-6 #### [facility] CLIA [id number] [address] [place], [place] [address]K [id number] [place] [address] [place] OF AMERICAReagin+T pallidum IgG+IgM SerPl-Impon 02-35-7926Jhkdug and Treponema pallidum IgG and IgM [Interp]Cannot exclude recent Treponemal infection if specimen collected within 7-10 days after appearance of suspect lesions or 2-3 weeks after an exposure. Clinical correlation is required.NormalAdams County Hospital on above:Order Comment: Specimen Type: BLOOD SPECIMEN Ordering Facility: [facility] Address: [address] [place], [place] [address]Performed By: #### 10368-2 #### [facility] CLIA [id number] [address] [place] [address] OF [facility] FOUNDATIONTSH SerPl-aCncon 09-08-2023 TSH Qn1.790 m[IU]/LNormal0.270-4.200[facility] on above: Order Comment: Specimen Type: BLOOD SPECIMEN Ordering Facility: [facility] Address: [address] [place], [place] [address]Performed By: #### 2132-9, 3016-3 #### [facility] CLIA [id number] [address] [place], [place] [address]Vit B12 SerPl-mCncon 22-71-6072Ygdsihqzc (Vitamin B12) [Mass/Vol]1020 pg/uIMentkv792-6529UtyadndtmUniversity Hospitals Conneaut Medical Center on above:Order Comment: Specimen Type: BLOOD SPECIMEN Ordering Facility: [facility] Address: [address] [place], [place] [address]Performed By: #### 2132-9, 3016-3 #### [facility] CLIA [id number] [address] [place] [address] STATES OF AMERICACNPNon [id number] Telephone (PSCCBE) JAZZMINE WANG ([id number]) 1945 F CHT Date Time Provider Department 08/24/23 [facility]U [facility] During your visit today, we recorded the following information about you: Michael Vu LISW 08/24/2023 5:05 PM Signed Behavioral Health Social Work Progress Note Patient identified for [facility] from: PCP Reason for referral: Resources Behavioral Health Resources: Psychiatry med management, Psychology - talk therapy [facility] encounter type: Telephone Encounter Attempts to Outreach: 1 attempt Referral made: Psychiatry - Internal, Psychology - Internal Psychiatry-Internal referral type: Medication Management Psychology-Internal referral type: Therapy Final Disposition: Resources given Patient Discharged?: No Patient reported that caregiver was able to meet their needs today?: Yes SW spoke to Pt at the request of PCP. Pt requested internal psychiatry and psychology resources to be sent via phone. The following resources were given: [facility] [phone] TRENA Selby August 24, 2023 Allergies As of Date: 08/24/2023 Noted Allergy Reaction CIPROFLOXACIN 10/19/2018 4 - Hives Date Reviewed: 02/06/2019 Reviewed by: Kris Unger, Janusz PHD - Fully Assessed Reason for Visit: Behavioral Health/Social Work [4126] Prescriptions as of 08/24/2023 - omeprazole (PRILOSEC) 20 mg capsule Take 1 capsule by mouth daily at bedtime. - simvastatin (ZOCOR) 10 mg tablet Take 10 mg by mouth daily at bedtime. - zolpidem (AMBIEN) 10 mg tab Take 10 mg by mouth daily at bedtime. - ALPRAZolam (XANAX) 0.5 mg tablet Take 0.5 mg by mouth at bedtime as needed. - acyclovir (ZOVIRAX) 200 mg capsule Take 200 mg by mouth twice daily. - citalopram (CELEXA) 40 mg tablet Take 40 mg by mouth once daily. Problem List As Of Date 08/24/2023 Noted Resolved HLD (hyperlipidemia) [E78.5] 10/25/2018 Anxiety [F41.9] 10/25/2018 AYDEE (obstructive sleep apnea) [G47.33] 10/25/2018 Anemia [D64.9] 10/25/2018 Bradycardia [R00.1] 10/25/2018 GERD (gastroesophageal reflux disease) [K21.9] 10/25/2018 Osteoarthritis of carpometacarpal joint of left*11/14/2018 Thumb pain, left [M79.645] 11/14/2018 Thumb joint stiffness [M25.649] 11/14/2018 Primary osteoarthritis of both first carpometac*12/26/2018 Encounter Status:Closed by MICHAEL VU on 08/24/23[facility] [id number] POSTHNO ID: [id number] Author: Ana Ramirez Service: Anesthesiology Author Type: Anesthesiologist Type: Anesthesia PostOp Filed: 11/06/2018 1:23 PM Note Text: POST ANESTHESIA EVALUATION NOTE SERVICE DATE: 11/06/2018 SERVICE TIME: 1:23 PM : 1945 Vitals: 11/06/18 0747 11/06/18 1225 Temp: 36.4 ?C (97.5 ?F) 36.7 ?C (98 ?F) 11/06/18 0945 11/06/18 1015 11/06/18 1225 11/06/18 1245 Arterial BP 1: 113/54 121/58 BP: 117/59 119/54 11/06/18 0945 11/06/18 1015 11/06/18 1225 11/06/18 1245 Pulse: (!) 59 (!) 53 64 (!) 53 11/06/18 0910 11/06/18 0915 11/06/18 1225 11/06/18 1245 Resp: 16 16 12 14 11/06/18 0905 11/06/18 0915 11/06/18 1225 11/06/18 1245 SpO2: 99% 100% 93% 94% Validated Vital Signs: Yes POST ANES STATUS: No apparent anesthetic complications. The patient is appropriately hydrated with stable respiratory and cardiovascular status. Patient has safe and adequate airway control. The patient has appropriate pain relief and no significant post operative nausea or vomiting. The patient has achieved baseline mental status. Intra-Operative Events: No Significant Anesthesia Events Further assessment by Anesthesia Service: None Other Remarks: SIGNATURE: Ana Ramirez MD PATIENT NAME: Jazzmine Wang DATE: November 06, 2018 TIME: 1:23 PM PAGER/CONTACT #: [phone] HospitalANES PREOPon 12-28-1777ODEN PREOPHNO ID: [id number] Author: Ana Ramirez Service: Anesthesiology Author Type: Anesthesiologist Type: Anesthesia PreOp Filed: 11/06/2018 8:40 AM Note Text: ANESTHESIOLOGY DAY OF SURGERY NOTE SERVICE DATE: 11/06/2018 SERVICE TIME: 8:39 AM : 1945 Procedure(s) (LRB): TRANSFER TENDON, CARPOMETACARPAL OR DORSUM HAND; W/O FREE GRAFT, EACH (Left) CARPECTOMY, ONE BONE (Left) ARTHROPLASTY CARPOMETACARPAL JOINTS (Left) RELEASE CONTRACTURE DEQUERVAINS (Left) ARTHRODESIS METACARPOPHALANGEAL JOINT (Left) Surgeon(s): Janusz Ponce Estimated body mass index is 24.65 kg/m? as calculated from the following: Height as of 10/25/18: 165.1 cm (5' 5 ). Weight as of this encounter: 67.2 kg (148 lb 2 oz). Most recent hematocrit and potassium results: Hematocrit 34.9 10/25/2018 Potassium 4.2 10/25/2018 ANES DOS/PREOP NOTE: Vitals: 11/06/18 0747 BP: 143/60 Pulse: (!) 57 Resp: 16 Temp: 36.4 ?C (97.5 ?F) TempSrc: Temporal SpO2: 99% Weight: 67.2 kg (148 lb 2 oz) ACTIVE PROBLEM LIST Hld (Hyperlipidemia) Anxiety Aydee (Obstructive Sleep Apnea) Anemia Bradycardia Gerd (Gastroesophageal Reflux Disease) PAST MEDICAL HISTORY Diagnosis Date - Anemia - Anxiety - Bradycardia - Depression - GERD (gastroesophageal reflux disease) - HLD (hyperlipidemia) - AYDEE (obstructive sleep apnea) doesn't tolerate CPAP - Raynaud disease PAST SURGICAL HISTORY Procedure Laterality Date - LAPAROSCOPIC CHOLECYSTECTOMY - TUBAL LIGATION HX FAMILY HISTORY Problem Relation Age of Onset - Aneurysm Mother 34 cerebral - Cancer Father lung Social History: Social History Tobacco Use - Smoking status: Never Smoker - Smokeless tobacco: Never Used Substance Use Topics - Alcohol use: Yes Comment: 1 glass per month - Drug use: Never No current facility-administered medications on file prior to encounter. Current Outpatient Medications on File Prior to Encounter: simvastatin (ZOCOR) 10 mg tablet Take 10 mg by mouth daily at bedtime. zolpidem (AMBIEN) 10 mg tab Take 10 mg by mouth daily at bedtime. acyclovir (ZOVIRAX) 200 mg capsule Take 200 mg by mouth twice daily. citalopram (CELEXA) 40 mg tablet Take 40 mg by mouth once daily. ALPRAZolam (XANAX) 0.5 mg tablet Take 0.5 mg by mouth at bedtime as needed. Current Facility-Administered Medications Medication Dose Route Frequency Provider Last Rate Last Dose - lidocaine 10 mg/mL (1 %) 1-2 mg injection (XYLOCAINE) 0.1-0.2 mL INTRADERMAL PRN Sal (Fel) Ralhp - lactated ringers infusion 5-30 mL/hr INTRAVENOUS CONTINUOUS Sal (Fel) Ralph 30 mL/hr at 11/06/18 0800 30 mL/hr at 11/06/18 0800 - ceFAZolin iv piggyback 2 g in D5W (iso-osmotic) 100 mL (ANCEF) 2 g INTRAVENOUS Pre-Op Once Sal (Fel) Ralph Allergies: ALLERGIES Allergen Reactions - Ciprofloxacin Hives DOS EXAM: Adequate NPO status: Yes Anesthetic risks, benefits, alternatives, personnel and consent discussed: Yes Patient agrees to proceed: Yes Previous Anesthesia: No history of adverse event. Airway Assessment: MP 2; Neck ROM: Full ROM without neurologic symptoms; Airway Evaluation: Short Neck Symptoms of Sleep Apnea: AYDEE diagnosis Dentition: Teeth intact Additional Physical Exam: Lungs: Lungs clear to auscultation. Good diaphragmatic excursion. Cardiac: normal S1 and S2; no rubs, no murmurs, and no gallops Additional Pertinent Findings: N/A Blood Products: Not anticipated for this procedure. Anesthetic Plan: Block with Sedation Pain Management Plan: Parenteral or Oral and Peripheral Nerve Block ASA Class: 2 Other Medical Problems: None Chronic Beta Alhaji medication administered within 24 hours: N/A I have interviewed and examined the patient. I have reviewed the medical record and/or the pre-anesthesia evaluation, pertinent labs, and test results. Significant changes in the patient's condition since the History and Physical, not otherwise documented in primary service progress notes: No This contains updated information obtained within 48 hours of Surgery/Procedure. SIGNATURE: Ana Ramirez MD PATIENT NAME: Jazzmine Wang DATE: November 06, 2018 TIME: 8:39 AM CSN: [id number] Hospital[facility] EDon [id number] EDHNO ID: [id number] Author: Cady Wynn) JONA Wiggins Service: ? Author Type: Registered Nurse Type: Patient Education Filed: 11/06/2018 12:42 PM Note Text: POST OP LEARNING RESPONSE INSTRUCTION PROVIDED TO: Patient and friend/other METHOD OF INSTRUCTION: Written instruction - handouts Verbal instruction PATIENT / FAMILY RESPONSE: Verbalizes understanding of: POST-OPERATIVE INSTRUCTIONS-Correct actions to take to reduce postoperative complications FOLLOW-UP PLAN: Follow up phone call. Contact information given. SUPPLEMENTAL MATERIAL: None REFERRAL (RECOMMENDATION): None Electronically Signed By: Cady Wiggins RN In Department: [facility] AMBULATORY SURGERY - [facility] [id number] mass concHNO ID: [id number] Author: Erika (Rn) JONA Aranda Service: ? Author Type: Registered Nurse Type: Nursing Progress Note Filed: 11/03/2018 9:59 AM Note Text: PACC Nurse Progress Note History AND Physical: PACC Visit Date: 10/25/18 Original HANDP Date: N/A ED visit Date: N/A Outside HANDP Scanned Date: N/A Labs Within Last 6 Months: CBC: Date 10/25/18 - Rbc 3.45, HANDH 10.8/34.9 BMP/CMP: Date 10/25/18 - Cl 107 Imaging Within Last 12 Months: See chart Cardiac Testing: EKG in last 12 Months: Yes: Date: 10/25/18, Comment: Results in chart Last Menstrual Period: LMP Date: Not recorded Postmenopausal >1yr: Yes, S/P Hysterectomy: No BMI Percentile (PEDS): N/A Risk Assessment: N/A Anesthesia Review: N/A Narrative: N/A Pre-op Considerations: AYDEE Chart Check: In progress - left message for patient to return call to PACC - follow up on cold symptoms. Erika Aranda RN November 01, 2018 1:49 PM November 03, 2018 8:47 AM Received call from patient - patient states that cold symptoms have resolved. Chart check complete. Erika Aranda RN November 03, 2018 9:58 AM Cbc and Bmp dated 10/25/18 faxed to patient's PCP office - Dr. Michael Cotto per her request. [facility] [id number] mass concHNO ID: [id number] Author: Josey Beard (Pac) ELEAZAR Peralta Service: ? Author Type: Physician Rn Examiner Type: Progress Notes Filed: 10/26/2018 9:31 AM Note Text: Lab Value Units Date High Low HB 10.8 g/dL 10/25/2018 15.5 11.5 HCT 34.9 % 10/25/2018 46.0 36.0 WBC 5.94 k/uL 10/25/2018 11.00 3.70 PLT 232 k/uL 10/25/2018 400 150 NA 142 mmol/L 10/25/2018 144 136 K 4.2 mmol/L 10/25/2018 5.1 3.7 GLUC 89 mg/dL 10/25/2018 99 74 BUN 18 mg/dL 10/25/2018 21 7 CREAT 0.82 mg/dL 10/25/2018 0.96 0.58 Labs as requested by patient's surgeon were reviewed. Hgb unchanged compared to previous Hemoglobin in care everywhere (10.8) Hct was 34.4% 08/31/2018[facility] PHYSICALon [id number] PHYSICALHNO ID: [id number] Author: Josey Beard (Pac) ELEAZAR Peralta Service: ? Author Type: Physician Rn Examiner Type: HANDP Filed: 10/25/2018 9:20 AM Note Text: HISTORY AND PHYSICAL EXAMINATION SERVICE DATE: 10/25/2018 SERVICE TIME: 8:39 AM PRIMARY CARE PHYSICIAN: Michelle Cotto DO REASON FOR VISIT: Jazzmine Wang is a 73 year old female who is scheduled for Left thumb carpometacarpal arthroplasty, left thumb metacarpophalangeal joint fusion at the request of Dr. Janusz Ponce for consultation. My final recommendation will be communicated back to the requesting physician by way of shared medical record or letter. The patient has the following: ACTIVE PROBLEM LIST Hld (Hyperlipidemia) Anxiety Aydee (Obstructive Sleep Apnea) Anemia Bradycardia Gerd (Gastroesophageal Reflux Disease) Subjective CHIEF COMPLAINT: Thumb/wrist pain HPI: This is a 73 year old right-handed female who reports bilateral thumb progressive deformity that has progressed over the last 20 years and causes constant 2-4/10 achy pain with intermittent sharp quality. She also reports decreased range of motion. PAST MEDICAL HISTORY Diagnosis Date - Anemia - Anxiety - Bradycardia - Depression - GERD (gastroesophageal reflux disease) - HLD (hyperlipidemia) - AYDEE (obstructive sleep apnea) doesn't tolerate CPAP - Raynaud disease PAST SURGICAL HISTORY Procedure Laterality Date - LAPAROSCOPIC CHOLECYSTECTOMY - TUBAL LIGATION HX FAMILY HISTORY Problem Relation Age of Onset - Aneurysm Mother 34 cerebral - Cancer Father lung SOCIAL HISTORY: Social History Socioeconomic History Marital status: Spouse name: Not on file Number of children: Not on file Years of education: Not on file Highest education level: Not on file Social Needs Financial resource strain: Not on file Food insecurity - worry: Not on file Food insecurity - inability: Not on file Transportation needs - medical: Not on file Transportation needs - non-medical: Not on file Occupational History Not on file Tobacco Use Smoking status: Never Smoker Smokeless tobacco: Never Used Substance and Sexual Activity Alcohol use: Yes Comment: 1 glass per month Drug use: Never Sexual activity: Not on file Other Topics Concerns: Not on file Social History Narrative Not on file Prior to Admission medications as of 10/25/18 0836 Medication Sig Last Dose Taking omeprazole (PRILOSEC) 20 mg capsule Take 1 capsule by mouth daily at bedtime. Yes simvastatin (ZOCOR) 10 mg tablet Take 10 mg by mouth daily at bedtime. Yes zolpidem (AMBIEN) 10 mg tab Take 10 mg by mouth daily at bedtime. Yes ALPRAZolam (XANAX) 0.5 mg tablet Take 0.5 mg by mouth at bedtime as needed. Yes acyclovir (ZOVIRAX) 200 mg capsule Take 200 mg by mouth twice daily. Yes citalopram (CELEXA) 40 mg tablet Take 40 mg by mouth once daily. Yes No medication comments found. ALLERGIES Allergen Reactions - Ciprofloxacin Hives REVIEW OF SYSTEMS: PAIN ASSESSMENT: General: No weight loss, malaise or fevers. Neuro: No history of TIA's, stroke, CONSTRUCTION ENGINEER tumor, impaired sensorium, hemiplegia, paraplegia or quadraplegia. No neurological symptoms or problems. Respiratory: Positive for Current cough white rhinorrhea, scratchy throat, occasional cough (mostly dry, occasional white productive) x 5 days - improving symptoms, URI < 2 weeks, Negative for Asthma, COPD Cardiovascular: Positive for: HLD, bradycardia, Negative for Recent GA, Arrhythmia, CAD, CHF, Valvular Heart Disease, DVT/PE GI: Positive for GERD, Negative for Nausea, Vomiting, Abdominal pain, Hepatitis, Pancreatitis : No history of dysuria, frequency or incontinence,, stones or chronic kidney disease MEAT CUTTER: Negative for abnormal vaginal bleeding, abnormal vaginal discharge. : Denies, No LMP recorded. Patient is postmenopausal. Endocrine: no DM or thyroid disease. h/o Prednisone x 5 days 08/30/2018 for foot pain Hematology: Mild anemia Oncology: No history of CA metastasis, chemo within 30 days, or radiotherapy within 90 days. Has not lost 10% of body wt in 6 months. No history of oncological symptoms or problems. Psych: Anxiety, Depression Musculoskeletal: See HPI, numbness left hand - having cervical x-rays next week Skin: Negative for lesions, rash and itching. Objective PHYSICAL EXAM: VITALS: BP 124/77 Pulse 55 Temp (Src) 97.5 (Oral) Resp 16 Ht 5' 5 (1.65m) Wt 148 lb (67.1kg) SpO2 100% BMI 24.63 kg/(m2). General: Alert and oriented, No acute distress, Healthy appearance Skin: Normal color, no rash, no lesions. HEENT: No carotid bruits Cardiovascular: Normal S1 AND S2, no rubs, murmurs or gallops. No JVD. Pulse regular. Lungs: Normal breath sounds, no wheezes or crackles. Abdomen: Soft, non-tender, no rigidity. Extremities: No deformity, no edema or tenderness, no joint swelling or clubbing. Neurological: Normal cognition and motor skills. Pulses: Carotid and radial pulses normal +2. 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 On Celexa. Takes Xanax prn for anxiety. Denies SI/HI AYDEE (obstructive sleep apnea) Assessment: does not use CPAP Anemia Assessment: mild Bradycardia Assessment: chronic, asymptomatic GERD (gastroesophageal reflux disease) Assessment: takes Omeprazole at hs URI - mild symptoms including scratchy throat, white rhinorrhea, dry (occasional white productive) cough x 5 days. Improving symptoms. Non-toxic. Lungs CTA. No cough during visit today. Patient will call when symptoms resolve. METS: Walk a block or two on level ground (2.75 METs) Do yardwork, such as raking leaves, weeding,or pushing a power mower (4.50 METs) Climb a flight of stairs or walk up a hill (5.50 METs) Patient denies any chest pain or undue shortness of breath with the above physical activity. 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 Class: 3 ANESTHESIA FINDINGS: Intubation History: No history of difficult intubation Significant Anesthesia Considerations: None Airway Exam: General: Normal appearance Mallampati Score is CLASS I ULBT: Class II - Lower incisors can bite the upper lip below the todd line Neck: Limited movement extension Mouth: Normal tongue size and Mouth opening greater than 2 finger breaths Dentition: Intact and Caps/crowns Airway History: No abnormal airway history STOP BANG Score: AYDEE does not use CPAP/BiPAP PLAN This patient is optimally prepared for surgery pending labs and EKG ordered by surgeon (these orders are in Epic as pending. Will order). Also needs resolution of URI CONSULTS: Patient does not require consults for optimization at this time. The Following Tests/Procedures Have Been Initiated: Orders Placed This Encounter CBC + DIFF Standing Status: Future Number of Occurrences: 1 Standing Expiration Date: 10/25/2019 BASIC METABOLIC PNL Standing Status: Future Number of Occurrences: 1 Standing Expiration Date: 10/26/2019 omeprazole (PRILOSEC) 20 mg capsule Sig: Take 1 capsule by mouth daily at bedtime. ECG COMPLETE Standing Status: Future Standing Expiration Date: 10/26/2019 Planned Anesthetic: block Instructions Given to Patient: Patient given verbal and written preop instructions and voices comprehension and compliance. @ASSESSEND@ SIGNATURE: Josey Peralta PA-C PATIENT NAME: Jazzmine Wang DATE: October 25, 2018 TIME: 8:39 AM PAGER/CONTACT #:[facility] [phone] Patient:Jazzmine Wang MRN: Height:5' 5 (1.651 m) Weight:148 lb (67.132 kg) Outpatient Medications as of 11/06/18: oxyCODONE-acetaminophen (PERCOCET) 5-325 mg tablet omeprazole (PRILOSEC) 20 mg capsule simvastatin (ZOCOR) 10 mg tablet zolpidem (AMBIEN) 10 mg tab ALPRAZolam (XANAX) 0.5 mg tablet acyclovir (ZOVIRAX) 200 mg capsule citalopram (CELEXA) 40 mg tablet Admission/Clinic Administered Medications as of 11/06/18: lidocaine 10 mg/mL (1 %) 1-2 mg injection (XYLOCAINE) lactated ringers infusion ceFAZolin iv piggyback 2 g in D5W (iso-osmotic) 100 mL (ANCEF) Problem List: HLD (hyperlipidemia) [E78.5] Anxiety [F41.9] AYDEE (obstructive sleep apnea) [G47.33] Anemia [D64.9] Bradycardia [R00.1] GERD (gastroesophageal reflux disease) [K21.9] Allergies: Ciprofloxacin Date Verified: 11/06/18 Lab Values Lab Value Units Date High Low POTA* 4.2 mmol/L 10/25/2018 5.1 3.7 NITISH* 34.9 % 10/25/2018 46.0 36.0 Progress Notes (RAD GEN ORTHO [facility] WILL): Allie Reeves 10/31/2018 9:16 AM Signed Radiology Service Progress Note PATIENT NAME: Jazzmine Wang DATE OF SERVICE: October 31, 2018 TIME: 9:08 AM PATIENT IDENTITY VERIFICATION COMPLETED USING TWO (2) METHODS: Patient confirmed name verbally and Date of . PATIENT GENDER DATA: Female. status: : No status: NO. PATIENT RELEVANT IMPLANT DATA REVIEWED: Not Applicable RADIOLOGY DEPARTMENT: General X-ray: Exam(s) Completed: Spine X-Ray(s): Cervical AP / LAT / OBL PERIPHERAL IV DATA: Not applicable SIGNED BY: Allie Reeves October 31, 2018 9:08 AM Progress Notes (SPINE MED [facility]): Melva Matos Ma 10/31/2018 10:02 AM Signed AMB ROOMING INTAKE FLOWSHEET DATA Risk Screening Do you have concerns about personal safety or safety in the home?: No Pain Pain Level: 1 Pain Location: Arm-Left Description: Numbness, Tingling Duration Amount of Time: 18 Duration Units: Years Frequency: Continuous Cordell Coleman MD 10/31/2018 8:42 PM Signed Spine Care Path Radicular Arm Pain - Chronic (> 12 weeks) Initial Exam evaluate for left cervical radiculopathy/numbness scheduled for left thumb surgery next week 18 years left 5th finger numbness told had elbow nerve compression may have been started with deep tissue massage no emg.went toer few years - some progression of numbness 3rd, 4th finger left to forearm nothing acute no neck or radicular features -mom of allie gustafson SUBJECTIVE HISTORY OF PRESENT ILLNESS: Jazzmine Wang is a 73 year old female who presents with a chief complaint of arm pain/numbness chronic and is seen in consultation requested by Dr. Janusz Ponce for an opinion regarding left cervical radiculopathy. My final recommendations will be communicated back to the requesting physician by way of shared medical record or letter via US mail. Other Issues Addressed at the Visit Today: None. 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 Litigation: No Workers' Compensation: No cervical x-ray some straightening mod c5-6,c6-7 disc space narrowing PED RED FLAGS YELLOW AND BLUE FLAGS No No-Significant Injury to Spine No-Use of Steroids for Prolonged Duration No-Loss of Bowel/Bladder Control, Genital/Anal Numbness No-Recent Use of Intravenous (IV) Drugs No-Difficulty Keeping Balance when Walking No-Progressive Weakness in Arms/Legs No-History of Any Type of Cancer No-Unable to Find Position of Comfort No-Pain at Night that Disturbs Sleep No-Recent Elevated Temp with Unknown Cause No-Diagnosed with Osteoporosis No-Unintentional Weight Loss or Gain YES-Neg Attitude; Back Pain is Disabling YES-Avoiding Activity (for Fear of Pain) No-Depression or Anxiety Disorders No-Social Problems No-Substance Use Disorder No-Job Dissatisfaction No-Financial Disincentives *PED (Patient Entered Data) osteoporosis flag will display for females 55 years or older and males 75 years or older. ACTIVE PROBLEM LIST Hld (Hyperlipidemia) Anxiety Aydee (Obstructive Sleep Apnea) Anemia Bradycardia Gerd (Gastroesophageal Reflux Disease) PAST MEDICAL HISTORY Diagnosis Date - Anemia - Anxiety - Bradycardia - Depression - GERD (gastroesophageal reflux disease) - HLD (hyperlipidemia) - AYDEE (obstructive sleep apnea) doesn't tolerate CPAP - Raynaud disease PAST SURGICAL HISTORY Procedure Laterality Date - LAPAROSCOPIC CHOLECYSTECTOMY - TUBAL LIGATION HX Social History Socioeconomic History Marital status: Spouse name: Not on file Number of children: Not on file Years of education: Not on file Highest education level: Not on file Social Needs Financial resource strain: Not on file Food insecurity - worry: Not on file Food insecurity - inability: Not on file Transportation needs - medical: Not on file Transportation needs - non-medical: Not on file Occupational History Not on file Tobacco Use Smoking status: Never Smoker Smokeless tobacco: Never Used Substance and Sexual Activity Alcohol use: Yes Comment: 1 glass per month Drug use: Never Sexual activity: Not on file Other Topics Concerns: Not on file Social History Narrative Not on file FAMILY HISTORY Problem Relation Age of Onset - Aneurysm Mother 34 cerebral - Cancer Father lung ALLERGIES Allergen Reactions - Ciprofloxacin Hives CURRENT MEDICATIONS: omeprazole (PRILOSEC) 20 mg capsule Take 1 capsule by mouth daily at bedtime. simvastatin (ZOCOR) 10 mg tablet Take 10 mg by mouth daily at bedtime. zolpidem (AMBIEN) 10 mg tab Take 10 mg by mouth daily at bedtime. ALPRAZolam (XANAX) 0.5 mg tablet Take 0.5 mg by mouth at bedtime as needed. acyclovir (ZOVIRAX) 200 mg capsule Take 200 mg by mouth twice daily. citalopram (CELEXA) 40 mg tablet Take 40 mg by mouth once daily. REVIEW OF SYSTEMS: GENERAL: Denies fever, chills malaise and weight loss. HEENT: No recent change in vision or hearing. CARDIOVASCULAR: Denies chest pain, history of A-fib, valvular disease, or pacemaker/ICD. RESPIRATORY: Denies SOB, sputum production, and hemoptysis. GI: Denies GI ulcers, inflammatory disease, or liver disease. : Denies change in frequency or urgency, kidney disease, and burning with urination. OBJECTIVE: PHYSICAL EXAM BP 118/64 Pulse (!) 53 Wt 67.1 kg (148 lb) BMI 24.63 kg/m? GENERAL APPEARANCE: Well appearing, well-hydrated, well nourished and alert LYMPHATICS: No palpable lymphadenopathy in the neck, axilla, or groin NEURO/PSYCH: oriented to time, place, and person, speech normal GAIT: unable to tandem gait POSTURE: Posture and spinal curves are normal PALPATION: paraspinal tenderness; cervical MUSCULOSKELETAL: Cervical Range of Motion Flexion Normal Extension Normal RIGHT LEFT Rotation Full ROM without pain Full ROM without pain Lateral Bend Full ROM without pain Full ROM without pain Upper Body Reflex Exam RIGHT LEFT Reflex Status Reflex Status Biceps 3+ Brisk 3+ Brisk Triceps 3+ Brisk 3+ Brisk Upper Extremity Strength RIGHT LEFT Strength (MMT) Strength (MMT) Shoulder Abduction 5/5 5/5 Biceps 5/5 5/5 Triceps 5/5 5/5 Resisted Suppination 5/5 5/5 Wrist Extension 5/5 5/5 Interossei 5/5 5/5 Shoulder Range of Motion RIGHT LEFT Flexion Normal Normal Extension Normal Normal Abduction Normal Normal Adduction Normal Normal Internal Rotation Normal Normal External Rotation Normal Normal Shoulder Tests Neer Impingement Sign - Negative NEUROSENSORY: Soft touch; dec c7/c8 left hoffmans neg no LE motor deficits knee/ankle dtr 3-4+ symmetrical clonus neg Data Review: [facility] records reviewed ASSESSMENT/PLAN (M48.02) Spinal stenosis of cervical region Comment: r/o unable to tandem gait, diffuse hyperreflexia r/o significant stenosis c7/c8 left numbness Plan: MRI CERVICAL SPINE WO IVCON to r/o significant disc herniation, stenosis - advise no good therapeutic options for numbness - cervical stenosis education and counselling - close observation for now. i will touch bases with her after mri review SIGNATURE: Cordell Coleman MD PATIENT NAME: Jazzmine Wang DATE: October 31, 2018 TIME: 10:21 [facility] Vital Signs Date TimeVital SignValuePerforming JwmvnsavuPmylyobh76-18-1005 10:51-0400Body .02 cmStepjosefina Gonya PLANE TENDER-C Work Phone: [facility]07-31-2025 10:51-0400 Body mass index (BMI) [Ratio]27.1 kg/m1Colcetewf Gonya PLANE TENDER-C Work Phone: [facility]07-31-2025 10:51-0400 Body lltcaz03.5 kgStephanie Gonya PLANE TENDER-C Work Phone: [phone]06-09-2025 18:26-0400 Diastolic blood cauhunij84 mm[Hg]Prema Gonya PLANE TENDER-C Work Phone: [phone])[address]06-09-2025 18:26-0400 Heart rate60 /minStephanie Gonya PLANE TENDER-C Work Phone: [phone] [place], [place] 2280706-09-2025 18:26-0400 Respiratory rate18 /minStephanie Gonya PLANE TENDER-C Work Phone: [phone])[address]06-09-2025 18:26-0400 SaO2% (BldA) [Mass fraction]96 %Prema Gonya PLANE TENDER-C Work Phone: [phone])[address]06-09-2025 18:26-0400 Systolic blood hevqgudd318 mm[Hg]Prema Gonya PLANE TENDER-C Work Phone: [phone])[address]06-09-2025 13:44-0400 Body llqqac867.02 cmStephanie Gonya PLANE TENDER-C Work Phone: [phone])[address]06-09-2025 13:44-0400 Body xhxgtibtmzf05.1 [degF]Prema Gonya PLANE TENDER-C Work Phone: [phone])[address]06-09-2025 13:44-0400 Body .39 kgStephanie Gonya PLANE TENDER-C Work Phone: [phone]06-09-2025 11:03-0400 Body .56 cmStephanie Gonya PLANE TENDER-C Work Phone: [phone] [place], [place] 2280706-09-2025 11:03-0400 Body mass index (BMI) [Ratio]26.1 kg/j0Rdylmygfx Gonya PLANE TENDER-C Work Phone: 1([phone])256-[address] [place], [place] 2280706-09-2025 11:03-0400 Body zazxqm28 kgStephanie Gonya PLANE TENDER-C Work Phone: [facility]05-21-2025 11:42-0400 Body broyoaswyar74.52 [degF]ERIKA SIM [facility]05-21-2025 11:42-0400Diastolic blood mm[Hg]ERIKA SIM [facility]05-21-2025 11:42-0400Heart rate64 /minJENNIFER CHRIS [facility]05-21-2025 11:42-0400Respiratory rate16 /minJENNIFER CHRIS [facility]05-21-2025 11:42-0400Systolic blood rxtttzuz152 mm[Hg]ERIKA SIM [facility]05-15-2025 09:22-0400Body bliqor707 cmAngela Lowe PA Work Phone: [facility] CenterBwviqxozee46-83-0829 09:22-0400Body mass index (BMI) [Ratio]27.46 kg/x7Zhrtak Lowe PA Work Phone: [facility] CenterVxqyizsbbq44-22-5444 09:22-0400Body .31 kgAngela Lowe PA Work Phone: [facility] ChildrenOwygfpnfoy09-24-3570 09:22-0400Diastolic blood jnucddru57 mm[Hg]Erica Lowe PA Work Phone: [facility] CenterQjlnrjmppq58-87-2255 09:22-0400Systolic blood eswthsyz935 mm[Hg]Erica Lowe PA Work Phone: noSh[facility] ChildrenVxaotztdsm32-18-4208 15:05-0400Body tvjate205 cm Erica Lowe PA Work Phone: [facility] CenterVnvascdfmn61-36-4638 15:05-0400Body mass index (BMI) [Ratio]27.63 kg/z0Czexco Lowe PA Work Phone: [facility] CenterFhtzkitxce69-35-1906 15:05-0400Body .76 kgAngewes Lowe PA Work Phone: [facility] [phone] 15:05-0400Diastolic blood vytjlutv77 mm[Hg]Erica Berrye PA Work Phone: [facility] CenterGtqbqhxgvj39-16-0015 15:05-0400Systolic blood moegvyoa410 mm[Hg]Erica Berrye PA Work Phone: [facility] CenterQixnisfmcj87-68-5395 15:59-0400Body jislbj689.56 cm[facility]03-26-2025 15:59-0400Body mass index (BMI) [Ratio]26.2 kg/l9PfyriuvclGood Samaritan Hospital03-26-2025 15:59-0400Body amnpvohohqg06.5 [degF][facility]03-26-2025 15:59-0400Body nuhpts34.39 kgGood [facility]aritan Hospital03-26-2025 15:59-0400Diastolic blood fpyaroxj98 mm[Hg][facility]03-26-2025 15:59-0400 Heart rate76 /[facility]03-26-2025 15:59-0400 Respiratory rate16 /[facility]03-26-2025 15:59-0400 SaO2% (BldA) [Mass fraction]97 %[facility]03-26-2025 15:59-0400Systolic blood sfxdsewg482 mm[Hg][facility] 07-02-2024 14:39-0500Body htnpyc151.56 cmGood [facility]itan [facility] 07-02-2024 14:39-0500Body mass index (BMI) [Ratio]25.7 kg/o6OpjrnatfxGood Samaritan Hospital02-03-2025 14:39-0500Body ecrcosncyck65.8 [degF][facility]02-03-2025 14:39-0500Body bujcoj22.09 kgGood [facility] Hospital02-03-2025 14:39-0500Diastolic blood nbpqcadz52 mm[Hg][facility]02-03-2025 14:39-0500Heart rate89 /[facility]02-03-2025 14:39-0500Respiratory rate16 /[facility]02-03-2025 14:39-9376MmT3% (BldA) [Mass fraction]99 %[facility]02-03-2025 14:39-0500Systolic blood cwdytomy643 mm[Hg] [facility]01-16-2025 14:09-0500Body qkeywv986.3 cmAngela Lowe PA Work Phone: [facility] CenterIqxnseqqgy86-03-0092 14:09-0500Body mass index (BMI) [Ratio]26.33 kg/n8Bfptol Lowe PA Work Phone: [facility] CenterVrseimcfwr91-40-4152 14:09-0500Body .49 kgAngela Lowe PA Work Phone: [facility] CenterEbnteoesny20-21-0450 14:09-0500Diastolic blood rrmpovsz73 mm[Hg]Erica Lowe PA Work Phone: [facility] CenterGwperkcuex03-03-3515 14:09-0500Respiratory rate16 /minAngela Lowe PA Work Phone: [facility] CenterYqgmojwfgh76-05-5020 14:09-0500Systolic blood yizxqose074 mm[Hg]Erica Lowe PA Work Phone: noSh[facility] for ChildrenFnqumbszty31-32-5498 08:56-0500Body kmdsej628.6 cmTodd [employer] PA Work Phone: noShriners [facility]als for ChildrenQfsastuhte71-93-0420 08:56-0500Body mass index (BMI) [Ratio]25.58 kg/m2Todd [facility] PA Work Phone: noShriners [facility]als for ChildrenTklbeubxam29-11-0867 08:56-0500Body .59 kgTodd [facility] PA Work Phone: [place] [address]Toamxouand81-87-9723 13:02-0500Body gwlxom564.6 cmAray Bowman PA Work Phone: [place] [address]Bfnvgxelox55-07-4125 13:02-0500Body mass index (BMI) [Ratio]25.58 kg/m2Shannon Bowman PA Work Phone: [place] [address]Elhufqjibk40-85-3765 13:02-0500Body qzgerv28.59 kgShannon BUSH Work Phone: [place] [address]Sxzqpmejmm48-10-2601 13:02-0500Diastolic blood aaltajqo63 mm[Hg]Shannon BUSH Work Phone: [place] [address]Jlkoricxik06-80-8780 13:02-0500Heart rate63 /min Shannon BUSH Work Phone: [place] [address]Yiplfwmqsn68-96-1502 13:02-0500Respiratory rate16 /minShannon BUSH Work Phone: [place] [address]Ekpqsqsmpo76-98-8351 13:02-4457XfA3% (BldA) [Mass fraction]92 %Shannon BUSH Work Phone: [place] [address]Dglqyiywqk85-92-1163 13:02-0500Systolic blood gkvtsfhi609 mm[Hg]Shannon BUSH Work Phone: [place] [address]Neizbtfzzc16-64-8757 10:48-0500Diastolic blood iozkkbnh89 mm[Hg]ERIKA SIM [facility] [place] 353011-20-2024 10:48-0500Mean blood mm[Hg]ERIKA SIM [facility] [place] 353011-20-2024 10:48-0500Systolic blood skofovni22 mm[Hg]ERIKA SIM [facility] [place] 948571-20-2024 10:27-0500Blood Pressure LocationJEANNE-MARIE SIM [facility] [place] 948571-20-2024 10:27-0500Body nljaqzinazk95.88 [degF]ERIKA SIM [facility] [place] 948571-20-2024 10:27-0500Diastolic blood udpxuyuk45 mm[Hg]ERIKA SIM [facility] [place] 948571-20-2024 10:27-0500Heart rate80 /minERIKA SIM [facility] [place] 948571-20-2024 10:27-0500Systolic blood wicdczpw04 mm[Hg]ERIKA SIM [facility] [place] 948571-19-2024 08:03-0500Body cmTodAscension [facility] PA Work Phone: [facility] CenterGjisjayfht86-99-5680 08:03-0500Body mass index (BMI) [Ratio]26.57 kg/m2[facility] PA Work Phone: [facility] CenterDyimfchvie71-16-5810 08:03-0500Body .04 [facility] Work Phone: [facility] CenterQvlmjvtzra29-29-8876 10:19-0400Body bytofl279 cm [facility] PA Work Phone: [facility] CenterRgythjrqso56-29-2637 10:19-0400Body mass index (BMI) [Ratio]26.57 kg/m2[facility] PA Work Phone: [facility] CenterOxwojlpxsi60-44-6157 10:19-0400Body xujosk34.04 kgKn[facility] PA Work Phone: noShriners Hospitals for ChildrenSkfzfjonaf08-15-1634 10:36-0400Body hhevpb454 cm Michelle Leiva MD Work Phone: [facility] CenterCtomltbgyy10-97-1440 10:36-0400Body mass index (BMI) [Ratio]26.57 kg/k2DudcusMichelle Leiva MD Work Phone: [facility] CenterGjquubbmmg38-56-5065 10:36-0400Body lnqpil17.04 kgMichelle Leiva MD Work Phone: [facility] CenterGbaaqscass05-25-8057 10:36-0400Diastolic blood nmaxzcjy84 mm[Hg]Michelle Leiva MD Work Phone: [facility] CenterQgbnrkfwdd48-30-1508 10:36-0400Systolic blood mm[Hg]Michelle Leiva MD Work Phone: [facility] CenterAqecrrcava50-70-4023 10:29-0400Blood Pressure LocationJENNIFER CHRIS [facility]04-04-2024 10:29-0400Body wjvtauwwifw16.42 [degF]ERIKA CHRIS [facility]04-04-2024 10:29-0400Diastolic blood czvlfets92 mm[Hg]ERIKA CHRIS [facility]04-04-2024 10:29-0400Heart rate56 /minJENNIFER CHRIS [facility]04-04-2024 10:29-0400Respiratory rate16 /minJENNIFER CHRIS [facility] [place] [address]-04-2024 10:29-0400Systolic blood emmnaoio223 mm[Hg]ERIKA CHRIS [facility] Encounters Encounter DateEncounter TypeCare ProviderFacilityStart: 80-80-5903ydjovrjgyd Thelma GongoraeFacility:CD:[id number]: 08-77-6125cxamehcqxtSjkogmgkx Gonya Facility:[facility] CTRStart: 03-29-2025 End: 96-88-6207wqvzuwziztGGGVRY F KINDLFacility:[facility] HospitalStart: 03-28-2025 End: 77-73-2017lagaesulbaFaedjc TannaFacility:FTMCStart: 03-28-2025 End: 54-19-7837Xnfxepv encounter procedureLauren Myrtle [facility] Shania Start: 03-28-2025 End: 37-86-3401jeosbdoeleFmnvvp TannaFacility:EU [place]kyStart: 03-26-2025 ambulatoryStephanie GonyaFacility:[facility] HospitalStart: 03-21-2025 End: 88-91-4222gsafndfumpOoijxnyas GonyaFacility:[facility] HospitalStart: 03-21-2025 End: 27-33-7333rhzbmspumlBznioyx Radha Dallas SYSTEM SUPPORT TECHNICIAN-CNPFacility:PM MagruderStart: 03-14-2025 End: 34-12-2463tyquivlrszIhrvkfliu GonyaFacility:[facility] HospitalStart: 03-13-2025 End: 97-63-7694fsrumtkcmiDjnsvplqa GonyaFacility:[facility] CTRStart: 02-18-2025 End: 86-79-9960nnqbtdryewGmpszgphz GonyaFacility:[facility] HospitalStart: 02-18-2025 End: 33-01-8449ksgzfnhorfObcwnhn Radha Dallas SYSTEM SUPPORT TECHNICIAN-CNPFacility:PM MagruderStart: 14-22-4894gcevykwlmiRkfalorao GonyaFacility:[facility] HospitalStart: 02-01-2025 End: 01-75-6120jrhghfnlhgIELLDE F KINDLFacility:[facility] HospitalStart: 02-01-2025 End: 38-33-6726ifbsojeffjNaxabg Carlos Kindl MDFacility:PM MagruderStart: 01-24-2025 End: 36-27-1606xvtcezblmbFlzprkuup GonyaFacility:[facility] Centertart: 01-24-2025 End: 43-76-7278qqsbxpvvzuDjylxue Marie Auxier APRN-CNPFacility:PM [facility] Centertart: 94-87-2778lvmcvnrdyjJesaysyon GonyaFacility: P[facility] MED CTRStart: 12-27-2024 End: 16-33-6187wderhtfyrkWczzmxdem Gonya PLANE TENDER-C Work Phone: [facility] Work Phone: Start: 12-27-2024 End: 23-78-2944Brzintp encounter procedureReginald Armstrong MD-[facility] Work Phone: start: 41-91-3835foedrxyjyyEzydavzws GonyaFacility: [facility] MED CTRStart: 12-10-2024 End: 31-41-8063fflxyppoylMgchopofh Gonya PLANE TENDER-C Work Phone: [facility] Work Phone: Start: 12-10-2024 End: 29-49-9992Vscocvw encounter procedureCece Yost [facility]DCuster [facility] Work Phone: Start: 10-81-3562veltmbemwfZbnuhoeqn GonyaFacility: [facility] MED CTRStart: 11-26-2024 End: 00-99-0244rnpjxnsiycSsmwwcezj Gonya PLANE TENDER-C Work Phone: [facility] Work Phone: Start: 11-26-2024 End: 60-13-4899Adnyamn encounter procedureCece Yost MDCone Health Pain Mgmt Work Phone: Start: 11-05-2024 End: 03-42-3321Cfraiyrhj department patient visitStephanie Gonya PLANE TENDER-C Work Phone: [facility] Work Phone: Start: 11-05-2024 End: 43-09-7071ovnoocrpmaFakfqasxs Gonya PLANE TENDER-C Work Phone: [facility] Work Phone: Start: 11-05-2024 End: 63-46-3756Tvhrffr encounter procedureStephanie Gonya PLANE TENDER-C Work Phone: [facility] Work Phone: Start: 88-83-0538Wuhcdfamfl RecurringStephanie Gonya PLANE TENDER-C Work Phone: [facility] HospitalStart: 74-15-9027mrowayuncfLimbtgwer GonyaFacility:[facility] Start: 10-17-2024 End: 30-85-9258lzybmjhhdaUMFYMASG E PERRYFacility:EU SuniuskyStart: 10-17-2024 End: 84-69-7638Zgifupi encounter procedureJENNIFER E CHRIS [facility] Start: 10-15-2024 End: 42-93-7114Fsxoevq encounter procedureStephanie Gonya PLANE TENDER-C Work Phone: [facility] Work Phone: Start: 05-20-8073Ylr-patient / Non-visitStephanie Gonya PLANE TENDER-C Work Phone: [facility] Work Phone: Start: 10-11-2024 End: 05-38-7488Dshhfr flowsheetAngela Lowe PA Work Phone: ana [place]UEStart: 10-11-2024 End: 21-32-5590Dgeksu flowsheetAngela Lowe PA Work Phone: aNA BEL[place]UEStart: 10-11-2024 End: 07-50-5994zkkmevoxntJPEAQF LOWENot AvailableStart: 10-11-2024 End: 21-34-7846Bmcszj outpatient visit 25 minutesErica Jama PA Work Phone: ana BELLEVUEComment on above:Hyperreflexia (Primary Dx); Degenerative disc disease, cervical; AYDEE (obstructive sleep apnea); Tremor; Jerking movements of extremitiesStart: 09-27-2024 End: 77-12-2275Fqyxhh [facility] PA Work Phone: noms SWS DERMStart: 09-27-2024 End: 08-41-3037IwffhtCHI [facility] PA Work Phone: noms SWS DERMStart: 09-27-2024 End: 50-34-4347Yogqte outpatient visit 15 minutesAsh[facility] PA Work Phone: noms SWS DERMComment on above:Melanocytic nevus of trunk (Primary Dx); Inflamed seborrheic keratosis; Seborrheic keratosis; Actinic keratosis; LentiginesStart: 09-27-2024 End: 62-05-0746gpcoobjalyOFPOI NORTHEIMNot AvailableStart: 09-25-2024 End: 16-37-4031squiydxbfvFufskuzyd GonyaFacility:[facility] HospitalStart: 14-83-9331fxygykapleQjcaxhmgn GonyaFacility:[facility] CTRStart: 09-20-2024 End: 55-17-1758hiokckfqcuCbgitftih Gonya PLANE TENDER-C Work Phone: [facility] Work Phone: Start: 09-20-2024 End: 60-68-7739Zzocwmt encounter procedureStephanie Gonya PLANE TENDER-C Work Phone: [facility] GroupHeart [facility] Work Phone: Start: 33-22-4260uebuhbgrgbUkvevyjgl GonyaFacility:[facility] P[facility] MED CTRStart: 09-17-2024 End: 06-21-7678uaahigoucwNFSYHF LOWENot AvailableStart: 09-17-2024 End: 04-87-4915Ughigs outpatient visit 25 minutesAngewes BUSH Work Phone: aOUMOU DALLASUEComment on above:Hyperreflexia (Primary Dx); Memory loss; ADHD (attention deficit hyperactivity disorder), inattentive type (CMS/HCC); Jerking movements of extremities; AYDEE (obstructive sleep apnea)Start: 09-17-2024 End: 85-18-2345Afgpzy flowsheetAngela Lowe PA Work Phone: ana [place]UEStart: 09-17-2024 End: 81-05-9984Yjwbct flowsheetAngela Lowe PA Work Phone: aOUMOU DALLASUEStart: 09-11-2024 End: 25-60-2237ffzgatzdmqSmcgwkref Gonya PLANE TENDER-C Work Phone: [facility] Work Phone: Start: 09-11-2024 End: 22-70-6111Gnxwiqeb ReferredStephanie Gonya PLANE TENDER-C Work Phone: [facility]-LAB Path Spec Norma HospStart: 66-06-3081dxcoxatpajNcqphsn FullerFacility:[facility] HospitalStart: 09-10-2024 End: 84-52-5192ncqinvolgbIjtffga FullerFacility: SURG CLINICStart: 08-22-2024 End: 20-11-1119wotsxoasceTmuswzuew [facility] Work Phone: Start: 08-22-2024 End: 87-28-9269Fjexvqy encounter procedureAs[facility] [place] Work Phone: Start: 88-79-0881jrtanhilsbYrtnbzbgv GonyaFacility:[facility] CTRStart: 08-16-2024 End: 07-80-4462Bzkawbnph encounterAngewes BUSH Work Phone: ana [place]UEStart: 90-97-7214Pub-patient / Non-visit [facility] GroupWaldo Hospital Professional [facility] Work Phone: Start: 08-13-2024 End: 74-46-1316wghvibbphySqakl QadirFacility:[facility] HospitalStart: 08-08-2024 End: 29-80-2325bxcptcbkbsHIFMBG LOWENot AvailableStart: 08-08-2024 End: 48-53-3492Latudt flowsheetAngela Lowe PA Work Phone: ana [place]Start: 08-08-2024 End: 15-77-6360Hnmlqh flowsheetAngela Lowe PA Work Phone: ana [place]Start: 07-13-2024 End: 54-74-5224dqpwwxvntrKjobs QadirFacility:[facility] HospitalStart: 07-09-2024 End: 47-57-4463Xtpegu Magy Carmona PhD Work Phone: ana SANDUSKYStart: 07-09-2024 End: 21-05-0768Jibbsb Magy Carmona PhD Work Phone: ana SANDUSKYStart: 07-09-2024 End: 49-18-9121Xavvjmm encounter procedureBentley Carmona PhD Work Phone: ana RONALDomniraj on above:Memory loss (Primary Dx); AYDEE (obstructive sleep apnea); Other chronic pain; Bereavement; ADHD (attention deficit hyperactivity disorder), inattentive type (CMS/HCC); Moderate recurrent major depression (CMS/HCC); Moderate anxietyStart: 07-09-2024 End: 48-22-1363hbanjmclurJXFTYEFS DENBESTENNot AvailableStart: 07-02-2024 End: 00-91-7417Nrjujha encounter procedureHomarcarilion [facility] Physician GroupSaint Luke'S [facility] Work Phone: Start: 06-28-2024 End: 83-75-8371Kcsntcg encounter procedureBentley Carmona PhD Work Phone: ana SANDUSKYComment on above:Memory loss (Primary Dx); Bereavement; Other chronic pain; AYDEE (obstructive sleep apnea); ADHD (attention deficit hyperactivity disorder), inattentive type (CMS/HCC); Moderate recurrent major depression (CMS/HCC); Moderate anxietyStart: 06-28-2024 End: 24-10-5633olkbjbwbilFTWMJL LOWENot AvailableStart: 06-27-2024 End: 75-74-6952Xbpnznr encounter procedureAshe Memorial Hospital Physician GroupC[facility] Work Phone: Start: 81-34-5750hgwmqiymjpOyotuvnig GonyaFacility: P[facility] MED CTRStart: 06-19-2024 End: 32-76-6165Xnstkdvat encounterAngela Lowe PA Work Phone: ana [place]Start: 06-14-2024 End: 53-64-0433Fripyb outpatient visit 25 minutesAngela Lowe PA Work Phone: ana [place]Comment on above:Bereavement (Primary Dx); Concentration deficit; Jerking movements of extremities; Memory loss; Paresthesia of both feetStart: 06-14-2024 End: 15-94-8955Eqkmxo flowsheetAngela Lowe PA Work Phone: ana [place]Start: 06-14-2024 End: 16-47-1233Twjnbn flowsheetAngela Lowe PA Work Phone: ana [place]Start: 06-14-2024 End: 26-66-7646qvhfceprlfRFYSEF LOWENot AvailableStart: 06-13-2024 End: 46-07-9321Aouzbgmry encounterTolang Uribe PA Work Phone: NOMS NB ORTHOStart: 66-46-1829wcroriwssmDmzotmmwf GonyaFacility: P[facility] MED CTRStart: 06-05-2024 End: 85-80-6466Vkimsw flowsheetTodd Kirk [facility] PA Work Phone: [facility] SWS ORTHOAOStart: 06-05-2024 End: 24-44-7594Miosca flowsheetJyoti Bradley oJjo PA Work Phone: [facility] SWS ORTHOAOStart: 06-05-2024 End: 68-08-8379grrwxktolmUCOI D HILLSNot AvailableStart: 06-05-2024 End: 93-22-2404Kabxcnp encounter procedureTolang Bradley Jojo PA Work Phone: [facility] SWS ORTHOAOComment on above:Lumbosacral radiculopathy due to degenerative joint disease of spine (Primary Dx); Spinal stenosis of lumbar region with neurogenic claudicationStart: 05-10-2024 End: 10-22-8896Bffmgcyou encounterTolang Bradley Jojo PA Work Phone: [facility] NB ORTHOStart: 45-26-1462xjlxkgvieuCyyawebvj GonyaFacility:[facility] CTRStart: 05-07-2024 End: 84-08-1955Olndin Magy Carmona PhD Work Phone: NOMS NEUROLOGYStart: 05-07-2024 End: 05-03-4099Ycjsdm Magy Carmona PhD Work Phone: NOMS ST NEUROLOGYStart: 05-07-2024 End: 99-84-9702fmiwqocgauQFFG D HILLSNot AvailableStart: 05-07-2024 End: 36-96-3460Gcamauu encounter procedureBentley Carmona PhD Work Phone: [facility] ST NEUROLOGYComment on above:Memory loss (Primary Dx); Other chronic pain; AYDEE (obstructive sleep apnea); Concentration deficit; Depression with anxiety; BereavementStart: 05-07-2024 End: 87-26-5631susptfbndoUMFAUKCK DENBESTENNot AvailableStart: 05-02-2024 End: 51-79-6130Fze Drop offJENNIFER E CHRIS [facility] Start: 05-02-2024 End: 35-34-3337ynekkzoowlOYPCDFPK E PERRYFacility:FTMCStart: 05-02-2024 End: 67-33-9444Ucooefx encounter procedureJENNIFER E CHRIS [facility] Saline Start: 04-30-2024 End: 04-00-5719fryjswkdchBEUQ HILLNot AvailableStart: 04-23-2024 End: 02-23-3980Dvjgib [facility] Campuselliott Bowman ELEAZAR Work Phone: NOQO [place] [address] R[address]TEStart: 04-23-2024 End: 27-70-9809Oyoizh [facility]Park[facility] Campuselliott Delta [employer] Work Phone: NOTP [place] [address] R[address]TEStart: 04-23-2024 End: 29-32-0642Topoil outpatient visit 25 minutesPhoenix Children'S Hospitalelliott Bowman [employer] Work Phone: noms [place] STATE R[address]TEComment on above:Tremor (Primary Dx); Jerking movements of extremities; Memory loss; Paresthesia of both feet; HypersomniaStart: 04-23-2024 End: 66-79-3562bglbblkrfkEMLT HILLNot AvailableStart: 04-18-2024 End: 57-17-2608papronrcusTGRMSBOD E PERRYFacility:EU SuniuskyStart: 04-18-2024 End: 21-21-4873Udkskwf encounter procedureJENNIFER E CHRIS [facility] [place] Start: 04-17-2024 End: 29-59-5790wwjbugddimIJAJ D HILLSNot AvailableStart: 04-17-2024 End: 55-19-6975Iismptg encounter procedureTolang BUSH Work Phone: noms SWS ORTHOAOComment on above:Lumbosacral radiculopathy due to degenerative joint disease of spine (Primary Dx); Numbness and tingling of both feetStart: 04-11-2024 End: 75-83-7989gzstsehkccDTVFMC LOWENot AvailableStart: 04-10-2024 End: 01-17-8148Cdblgnyt SupportNoms Bsr Neuro TechnicanNOMS [place] [address] Comment on above:Hypersomnia; Memory lossStart: 03-27-2024 End: 98-32-3183Zlvkuom encounter procedureJyoti BUSH Work Phone: noms SWS ORTHOAOComment on above:Right hip pain (Primary Dx); Chronic bilateral low back pain with left-sided sciaticaStart: 03-27-2024 End: 64-78-9938xgxdlzrnajOYOE D HILLSNot AvailableStart: 03-19-2024 End: 83-68-1442vwgdkkrlwpPnqgo M. LueFacility:FTMCStart: 03-19-2024 End: 57-37-2369Boqytye encounter procedureThelma Hatfield [facility] Start: 03-12-2024 End: 07-87-8649kzbzzxyyqbDtdvi M. LueFacility:EU [place]kyStart: 03-12-2024 End: 55-74-5768Fnksogt encounter procedureThelma [place] [facility] Start: 02-21-2024 End: 77-93-1773Azefdf outpatient new 60 minutesStbenny Leiva MD Work Phone: noms PCF NEUROLOGYComment on above:Tremor; Jerking movements of extremities; Paresthesia of both feet; Memory loss; HypersomniaStart: 02-21-2024 End: 51-58-8329rfduduyedpRFTOFR BENEDICTNot AvailableStart: 01-19-2024 End: 83-47-8428gnnjxkhpxqQliuq M. LuJluisacility:CD:[id number]: 01-19-2024 End: 32-40-8172Qnu-SiteThelma [place] [facility] Start: 09-86-1104xwerrvpmhrMJPSQAVV E PERRYFacility:EU [place]kyStart: 11-10-2023 End: 02-17-9650meyhuirsexJpgso ChiragCaro Kingacility:EU SuniuskyStart: 11-10-2023 End: 07-55-7075Qzqrboo encounter Ananth ChiragCaro Gongoraelliott [facility] Start: 45-30-5413Ycwwzlbfg encounterEben Reeder MD Work Phone: Internal MedicineComment on above:ResultsStart: 09-08-2023 End: 84-80-6821auitznzjxdRGOGJHCO MAHALWARFacility:[facility] Start: 09-01-2023 End: 38-47-1533Zxoolbr encounter procedureJENNIFER E CHRIS [facility] Start: 08-23-2023 End: 91-43-2854zyixdjglwaOUWXLXFU MAHALWARFacility:[facility] Start: 08-23-2023 End: 48-86-4211uyhlgypgcfLevlmlndMalinda Reeder MD Work Phone: Internal MedicineComment on above:Depression, unspecified depression type (Primary Dx); ForgetfulnessStart: 08-23-2023 End: 66-18-8015Mcjdeqqkxcyz consultation with patientEben Reeder MD Work Phone: cCF [facility] CENTERStart: 19-32-1777Auenjgcvs encounterNicolette Theodore MD Work Phone: Pulmonary MedicineComment on above:Received Outside Medical Records Procedures DateProcedureProcedure DetailPerforming ClinicianStart: 64-83-6555Nevho chest X-raySluh Clement PLANE TENDER-C Work Phone: Start: 77-31-2663WU of head without contrastStepjosefina Clement PLANE TENDER-C Work Phone: Start: 09-27-2024 End: 36-05-5246FOZNIXSZPID SKIN LESIONRylee Yumiko BUSH Work Phone: Start: 65-69-6613RANJ SLEEP TESTErica BUSH Work Phone: Start: 03-27-2024 End: 30-65-5774Lpfvz spine lumbosacral 2/3 viewsTodd Kirk Uribe PA Work Phone: Start: 30-77-0144Betnapgkq of substance into bladder wallJENNIFER CRHIS Start: 13-46-2151Keepo depression screening assessment Nicolette Theodore MD Work Phone: Start: 29-64-4618BdqxluaqbpfzeyvquTgxcjhlwvgkAPRFQOIJ CHRIS Cataract (disorder)ERIKA CHRIS CholecystectomyJENNIFER CHRIS ColonoscopyJENNIFER CHRIS Dilation and curettageJENNIFER CHRIS Ligation of fallopian tubeJENNIFER CHRIS Ligation of fallopian tubeJENNIFER CHRIS Plan of Treatment DateCare ActivityDetailAuthorStart: 43-11-6268Xsdgvdke ScreeningDiabetes ScreeningCroydon ClinicStart: 09-30-2025 End: 17-60-4155Fpyypyk encounter gayepmmqk21/04/2026 1:00 PM EDT Office Visit [facility] [address] [place] [address] Chintan Calderon PA [address] [place] [address] [facility] SWS DERMStart: 84-88-5458Fpbsboj referral [facility] Work Phone: Start: 11-14-2024 End: 27-74-1358Dtdqron encounter jhquypjsi37/18/2025 8:20 AM EDT Office Visit ROSAURA TIJERINA [address] [place] [address] Shannon Bowman PA [address] [place] [address] ROSAURA BELLEVUEStart: 09-27-2024 End: 87-73-7731Iskptpt encounter procedureNOMS SWS DERMComment on above:Arrived Start: 09-17-2024 End: 61-88-7113Nhueoom encounter sdnrhrayn26/21/2025 3:00 PM EDT Office Visit ROSAURA TIJERINA [address] [place] [address] Erica Jama PA [address] [place] [id number] ROSAURA HOKAHEVSELAMtart: 09-17-2024 End: 66-00-9979CC Cervical spine WO contrastMR cervical spine wo contrast Imaging Routine Hyperreflexia Expected: 09/17/2024 (Approximate), Expires: 09/17/2025[facility] Work Phone: comment on above:Expected: 09/17/2024 (Approximate), Expires: 09/17/2025Start: 34-47-9957IstitqdktGreen Cross Hospitaltart: 08-08-2024 End: 24-97-3892Kybnzrt encounter ngeqvxubf39/12/2025 2:40 PM EDT Office Visit ROS[place] [address] [facility] [address] Erica Jama PA [address] [place] [id number] ROSAURA [place]Start: 07-11-2024 End: 28-06-1424Xebahqn encounter qhbwqylny52/12/2025 2:40 PM EST Office Visit [facility] [address] [place] [address] Erica Jama PA [address] [place], [place] [id number] [facility] NEUROLOGYStart: 07-09-2024 End: 19-45-2295Xtclxnp encounter procedureROSAURA FORRESTERYComment on above:Arrived Start: 06-28-2024 End: 28-51-8374Zttktzb encounter lxidclwxu91/30/2025 11:30 AM EST Office Visit ROSAURA [place] [address] [place] [address] aNA SANDUSKYStart: 06-14-2024 End: 44-67-6925Tavhbef encounter procedureANA ELVIRA FLORESComment on above: ArrivedStart: 06-04-2024 End: 04-34-9484Gtkvhhl encounter hafpxvdmc91/06/2025 9:20 AM EST Office Visit [facility] [address] [place] [address] Erica Jama PA [address] [place] [address] [facility] NEUROLOGYStart: 05-31-2024 End: 99-07-3919Bhrhjng encounter icgcqdyty99/02/2025 11:30 AM EST Office Visit [facility] [address] [address] [place] [phone] NEUROLOGYStart: 05-07-2024 End: 09-39-1688Vngmvplwxwil / ancillary services managementNOMS MRComment on above:Lumbosacral radiculopathy due to degenerative joint disease of spine; Chronic bilateral low back pain with left-sided sciaticaStart: 05-07-2024 End: 44-88-4052Ydwiofs encounter aubfktmsc68/09/2024 9:00 AM EST Office Visit [facility] [address] [address] [place] [address] Bentley Carmona, PhD [address] [place] [address] [facility]UR[facility]YStart: 04-30-2024 End: 57-78-6940Txnhrkmv Ljtzrwo5404/30/2024 11:45 AM EST Clinical Support [facility] [place] [facility] [address] [place] [id number] NOMCorey MOY ROUTEStart: 04-24-2024 End: 03-87-5677MRY, Including Recording Awake or AsleepEEG, Including Recording Awake or Asleep Neurology Routine Tremor Memory loss Jerking movements of e xtremities Expected: 04/24/2024 (Approximate), Expires: 04/24/2025[facility] Work Phone: comment on above:Expected: 04/24/2024 (Approximate), Expires: 04/24/2025Start: 04-23-2024 End: 96-20-1114Tqgefag encounter procedureNOMO [place] [facility] ROUTEComment on above:ArrivedStart: 04-17-2024 End: 75-03-4456Wgwrmxp encounter etqqndgiz72/19/2024 8:00 AM EST Office Visit [facility] [address] [place] [phone] Jyoti Uribe PA [address] [place] [address] N[facility] ANA ORTHOAOStart: 04-11-2024 End: 21-40-1172Ttnpjcip Kkiitim2204/11/2024 9:00 AM EST Clinical Support [facility] [place] [address] [place], [id number] NOMCorey MOY ROUTEStart: 04-10-2024 End: 26-39-2187Tmneixgd Sqqtmsn2604/10/2024 3:45 PM EST Clinical Support [facility] [place] [address] [place], [id number] [facility] LILLIANA MOY ROUTEStart: 03-21-2024 End: 89-85-4498Rvthdrw encounter cvlnlegnb15/23/2024 12:40 PM EDT Office Visit [facility] [address] [facility] [address] [place] [phone] Erica Jama PA [address] [place] [address] [facility]Start: 02-21-2024 End: 55-25-0724GnhsmtqwsfkzwopAeejwxsoslbjhhr [facility] Routine Jerking movements of extremities Memory loss Hypersomnia Expected: 02/21/2024 (Approximate), Expires: 02/20/2025[facility] Work Phone: comment on above:Expected: 02/21/2024 (Approximate), Expires: 02/20/2025Start: 52-46-4247Yqrzopjyj vaccinationInfluenza Vaccine (#1) [facility] HealthcareStart: 11-24-2023 End: 06-74-5166Brpxapf encounter exkidneyg38/27/2024 1:30 PM EDT Office Visit Geriatrics [address] [place] [address] Hamida Villarreal MD [address] [place] [address] GEMGeriatricsComment on above:GEMStart: 11-17-2023 End: 08-06-0132oioyuzroaj71/20/2024 9:00 AM EDT [facility] Geriatrics [address] [place] [address] Hamida Villarreal MD [address] [place] [address] Care confrence GeriatricsComment on above:Care confrenceStart: 10-21-2023 End: 77-12-4545esthnqngqy51/24/2024 10:00 AM EDT [facility] [address] [place] [address] Allyssa Simms PSYD [address] [place] [id number] caregiver stress; per Dr. Gileseurological RestorationComment on above:caregiver stress; per Dr. Mills Start: 09-19-2023 End: 15-35-2093Btdck function 2000 panel - Serum or PlasmaRENAL FUNCTION PANEL Lab Routine Stage 3a chronic kidney disease (HCC) Expected: 09/19/2023, Expires: 12/19/2023[facility] Work Phone: comment on above:Expected: 09/19/2023, Expires: 12/19/2023Start: 08-23-2023 End: 72-43-966748308914-fgecjkdrtdbdki D3 [Mass/volume] in Serum or PlasmaVITAMIN D 25 HYDROXY Lab Routine Forgetfulness Expected: 08/23/2023, Expires: 11/22/2023 [facility] Work Phone: comment on above:Expected: 08/23/2023, Expires: 11/22/2023Start: 08-23-2023 End: 57-85-5741Cxdfbzjkj (Vitamin B12) [Mass/volume] in Serum or PlasmaVITAMIN B12 BLOOD Lab Routine Forgetfulness Expected: 08/23/2023, Expires: 11/22/2023 [facility] Work Phone: comment on above:Expected: 08/23/2023, Expires: 11/22/2023Start: 08-23-2023 End: 76-29-8576Mpgwieqembkoo metabolic 2000 panel - Serum or PlasmaCOMP METABOLIC PANEL Lab Routine Forgetfulness Expected: 08/23/2023, Expires: 11/22/2023[facility] Work Phone: comment on above:Expected: 08/23/2023, Expires: 11/22/2023Start: 08-23-2023 End: 71-06-0392AEPYKSFS TOTAL W/REFLEXSYPHILIS TOTAL W/REFLEX Lab Routine Forgetfulness Expected: 08/23/2023, Expires: 11/22/2023[facility] Work Phone: comment on above:Expected: 08/23/2023, Expires: 11/22/2023Start: 08-23-2023 End: 44-96-1559Bvnpnwbzaej [Units/volume] in Serum or PlasmaTSH BLD Lab Routine Forgetfulness Expected: 08/23/2023, Expires: 11/22/2023[facility] Work Phone: comment on above:Expected: 08/23/2023, Expires: 11/22/2023Start: 66-65-7364Ymrajvj Directive DiscussionAdvance Directive DiscussionACMC Healthcare Systemtart: 42-20-3026Oframotixd AssessmentDepression AssessmentACMC Healthcare Systemtart: 77-18-9031Xgxyfikzw vaccinationINFLUENZA (Season Ended)[facility]: 85-36-9491BQLLKJXP SCREENDIABETES SCREEN [facility]: 47-60-3309Oanmwfvg ScreeningDiabetes ScreeningACMC Healthcare Systemtart: 22-99-5250PKHPEGJ DIRECTIVE DISCUSSIONADVANCE DIRECTIVE DISCUSSION [facility]: 64-26-4026Didau depression screening assessmentDEPRESSION SCREENINGACMC Healthcare Systemtart: 11-52-5955Zrpou microalbumin profile DTaP,Tdap,Td Vaccine (2 - Td or Tdap)[facility]: 71-11-7595OALR DENSITYBONE DENSITYACMC Healthcare Systemtart: 70-62-5936TGIIKHVHY AGE 65 AND OVER WITH 5YR LOOKBACK (#1)PNEUMOVAX AGE 65 AND OVER WITH 5YR LOOKBACK (#1)[facility]: 18-05-0788Moujtchys for osteoporosisBone Density ScreeningACMC Healthcare Systemtart: 82-72-7647PZVWCXAO VACCINE (1 of 2)SHINGRIX VACCINE (1 of 2) [facility]: 00-09-0445DKUPXXORB (FIT-DNA)COLOGUARD (FIT-DNA)[facility]: 71-29-6008MqvavgtwuqcJUBTTOTTJXZVymkffwjq ClinicStart: 1991 COLORECTAL CANCER SCREENINGCOLORECTAL CANCER SCREENINGACMC Healthcare Systemtart: 89-91-7858XV COLONOGRAPHYCT COLONOGRAPHYACMC Healthcare Systemtart: 14-09-2377PSHSP OCCULT BLOODFECAL OCCULT BLOODACMC Healthcare Systemtart: 05-96-0527FBACV SCREENLIPID SCREENACMC Healthcare Systemtart: 42-73-7528LUUNZWLTFFLAXFKVEQTUBUPVRNQoxnoozxw ClinicStart: 52-14-7903Renra microalbumin profileDTAP,TDAP,TD (1 - Tdap) [facility]: 38-99-2606GDGBXWQCN C SCREENINGHEPATITIS C SCREENING [facility]: 18-19-2418Obvejegce C screeningHepatitis C Screening [facility]: 71-55-4723AIFAT-19 VACCINE (1)COVID-19 VACCINE (1) [facility] CenterPatient EducationHead injury in adultsSt. Rita'S Hospital Ctr Work Phone: Patient referralSt. Rita'S Hospital [facility] Work Phone: [facility] bilateralGood [facility] End: 34-07-8325AM Kidney - bilateral and Urinary bladderUS KIDNEY/BLADDER Radiology Routine Stage 3a chronic kidney disease (HCC) 1 Occurrences starting 09/19/2023 until 5[facility]Comment [facility]:1 Occurrences starting 09/19/2023 until 5[facility] Immunizations Immunization DateImmunizationNotesCare DgiiqykpNjaoswzo14-20-5731sjdgbaloh virus vaccine, unspecified formulationLauren Myrtle [facility]06-09-2025tetanus toxoid, reduced diphtheria toxoid, and acellular pertussis vaccine, adsorbedStephanie Gonya PLANE TENDER-C Work Phone: [facility]12-12-2024 pneumococcal polysaccharide vaccine, 23 valentJENNIFER CHRIS [facility] [place] 948571-18-2024influenza virus vaccine, unspecified formulationJENNIFER CHRIS [facility] [place] 948570-16-2023influenza virus vaccine, unspecified formulationJENNIFER CHRIS [facility] [place] 948570-16-2023RSV vaccine preF3, recombinantLauren Myrtle [facility]10-03-2022SARS-CoV-2 (COVID-19) mRNAMUL.ORD!v32558YWEBJITG CHRIS [facility]09-28-2022influenza virus vaccine, unspecified formulationJENNIFER CHRIS [facility]05-18-2022SARS-CoV-2 mRNA (srvysaihixz-gsbj-msmjczb) vaccineJENNIFER CHRIS [facility] [place] 948571-02-2021influenza virus vaccine, unspecified formulationJENNIFER CHRIS [facility] [place] 948570-19-2021SARS-CoV-2 (COVID-19) mRNA BNT-162b2 vaxJENNIFER CHRIS [facility]03-20-2021SARS-CoV-2 (COVID-19) mRNA BNT-162b2 vaxJENNIFER CHRIS [facility]02-27-2021SARS-CoV-2 (COVID-19) mRNA BNT-162b2 vaxJENNIFER CHRIS [facility]10-06-2020influenza virus vaccine, unspecified formulationJENNIFER CHRIS [facility]03-16-2020pneumococcal polysaccharide vaccine, 23 valentJENNIFER CHRIS [facility] [place] 948570-06-2019influenza virus vaccine, unspecified formulationJENNIFER CHIRS [facility]10-01-2019influenza virus vaccine, unspecified formulationJENNIFER CHRIS [facility] HospitalyComment on above:Result Comment: 2023-05-06: ERZOXV73-21-7786yvzmmy vaccine recombinantJENNIFER CHRIS [facility]03-01-2019pneumococcal conjugate vaccine, 13 valentJENNIFER CHRIS [facility]03-01-2019zoster vaccine recombinantJENNIFER CHRIS [facility]10-15-2018influenza virus vaccine, unspecified formulationJENNIFER CHRIS [facility]12-01-2015influenza virus vaccine, unspecified formulationJENNIFER CHRIS [facility] Payers DatePayer CategoryPayerPolicy [id number] 2022MedicareDEVOTED MEDICARE DEVOTED HEALTH [place] HMO [id number] 2021-Present [phone] [address] [place] [id number] 2022Medicare (Managed Care) 1.2.840.448626.1.13.693.2.7.9.563837.597203.01441-04-8934Wxqafmg 1.2.840.246585.1.13.693.2.7.3.097040.26947-10-0957CavwbeiARID9W55-56-2350Saidbal ANTHEM BLUE CROSS AND BLUE SHIELD ANTHEM MEDIBLUE HMO [id number] 2018- [id number] [place] [phone] [id number] 1.2.840.703517.1.13.159.2.7.3.300687.19305-01-9568Ewppfpj6059352 2.16.840.1.090103.3.579.2.521888-45-6777Npknkwi8727403 2.16.840.1.067610.3.579.2.335092-65-1278Ascujub8524753 2.16.840.1.222920.3.579.2.849681-82-1775Cbesuky4471901 2.16.840.1.162892.3.579.2.543864-31-1706Dgabhww6986373 2.16.840.1.054367.3.579.2.661716-86-2127Mdoceuf3154222 2.16.840.1.302643.3.579.2.424913-82-8760Hqnegyc1287570 2.16.840.1.880494.3.579.2.457704-62-2417Wcffgfj4273644 2.16.840.1.125191.3.579.2.197491-85-5481Yciwvwu5261740 2.16.840.1.768658.3.579.2.486066-70-5473Djjubvj6087827 2.16840.1.148468.3.579.2.275168-99-7208Ucdzyec4568649 2.16.840.1.335463.3.579.2.668612-27-7926Mjbqixv5436736 2.16.840.1.647383.3.579.2.654955-18-8361Xenlwte1050191 2.16.840.1.542102.3.579.2.841899-25-8393Ufvouvg6368186 2.16.840.1.571631.3.579.2.177259-94-5418Qbwhqoe4563301 2.16.840.1.543312.3.579.2.449381-39-1968Bswomhl9190150 2.0.1.931713.3.579.2.140146-50-2869Wbsehzs1227862 2.840.1.930957.3.579.2.036638-08-0639Thiddwo8718735 2.840.1.414313.3.579.2.741268-49-9527Bitlbek1263394 2.16.840.1.949820.3.579.2.320000-10-5645Qbcxoli91961926 2.840.1.149788.3.579.2.56543-91-7128Ijfebii41085634 2.16840.1.867714.3.579.2.90986-56-5797Koepmxx70680688 2.16.840.1.523703.3.579.2.04013-37-5146Jbkxxhz79553216 2.16.840.1.845529.3.579.2.93769-98-9002Enycqpa41764338 2.16840.1.926221.3.579.2.45717-45-9035Gtxhszk74721150 2.16.840.1.141062.3.579.2.31332-08-5650Osgyimd23909953 2.16.840.1.908965.3.579.2.07078-12-1747Fscyfiz80466842 2.16.840.1.606537.3.579.2.14175-32-5812Uwoepiy09551886 2.16.840.1.013677.3.579.2.96502-51-7095Twheegb28403411 2.16.840.1.979822.3.579.2.50615-70-8192Weyntuc86563089 2.16.840.1.292171.3.579.2.64926-59-6337Pxzpfxx08906536 2.16.840.1.555766.3.579.2.48748-56-6429Kxjqxoi38621150 2.16.840.1.283832.3.579.2.24289-53-9910Tfjtdzk07834037 2.16.840.1.144602.3.579.2.71618-68-0004Fzmkwoh56683122 2.16.840.1.523308.3.579.2.99092-38-8462Umzjivo33037894 2.16.840.1.668433.3.579.2.11819-97-7988Icoxhmq87036742 2.16.840.1.923506.3.579.2.54538-99-4843Gsatlte42555209 2.16.840.1.898550.3.579.2.51515-75-0233Tglzjcv34665103 2.16.840.1.991479.3.579.2.90791-82-9161Kufqbie79427221 2.16.840.1.003328.3.579.2.79991-74-7043Fimabjt89756310 2.16.840.1.469084.3.579.2.56919-21-7614Ltogqzt59115018 2.16.840.1.333410.3.579.2.03179-31-0092Phjmixi00968591 2.16.840.1.567223.3.579.2.16653-17-1395Udidbuc07434016 2.16.840.1.389174.3.579.2.53944-17-7251Loggpin94371699 2.16.840.1.824452.3.579.2.59440-10-8273Jozckrg20808932 2.16.840.1.949100.3.579.2.89050-60-8248Xoplydx56692854 2.16.840.1.967294.3.579.2.31701-16-5108Yvpozwo48215207 2.16.840.1.514747.3.579.2.62056-83-1458Wbdlzfa00386161 2.16.840.1.974911.3.579.2.78201-05-3099Uztccnt12861552 2.16.840.1.983740.3.579.2.20230-32-9850Wheeqog13447252 2.16.840.1.665906.3.579.2.79625-88-6737Cgddwom63695929 2.16.840.1.092243.3.579.2.13337-78-0509Rqjtmuc64375397 2.16.840.1.031675.3.579.2.91869-74-3710Aedvdxv90496451 2.16.840.1.540609.3.579.2.07155-89-7958Heanslf82988338 2.16.840.1.168327.3.579.2.64862-44-0199Gcssqqf52263639 2.16.840.1.346102.3.579.2.70233-89-0905Ocjdyjz14525786 2.16.840.1.174081.3.579.2.08740-47-7576Ioukeso33833374 2.16.840.1.254482.3.579.2.14585-02-1449Jwoykzu15563227 2.16.840.1.253796.3.579.2.68269-16-0294Atcdkyj24673301 2.16.840.1.681948.3.579.2.36073-59-5835Xpswyek32264219 2.16.840.1.504433.3.579.2.93368-66-0595Aayvrff67354056 2.16.840.1.087322.3.579.2.46122-28-3994Lvwjmzq556763868 2.16.840.1.119733.3.579.2.13960-17-5141Cepcwja902132221 2.16.840.1.853312.3.579.2.81963-73-8689Gnilfgr488699063 2.16.840.1.409704.3.579.2.20739-48-2704Idycars945425513 2.16.840.1.941077.3.579.2.05549-10-5865Zvrqcko027361097 2.16.840.1.118607.3.579.2.UnknownAnthem [facility] AJMQCIE875B32054 q64u4n81-g1uc-1184-o2t4-56135521h747Ezcwzxz64549974 2.16.840.1.287846.3.579.2.317Kbmwtdi33591783 2.16.840.1.818834.3.579.2.531 Pngcirs01898547 2.16.0.1.063286.3.579.2.531 Social History DateTypeDetailFacilityStart: 10-19-2018 End: 19-75-9425Iuabldz smoking status NHISNever smoked tobaccoFirelands Regional Medical Center Start: 10-19-2018 End: 57-09-3858Oxnozyu use and exposureSmokeless tobacco non-userACMC Healthcare Systemtart: 10-25-2018 End: 99-70-8316Ziycepz intakeCurrent drinker of alcohol (finding)[facility]: 06-65-9125Pngltue SDOH Alcohol Comment1 glass per monthACMC Healthcare Systemtart: 45-66-5003Gle Assigned At BirthNot on fileACMC Healthcare Systemtart: 08-23-2023 End: 97-26-4874Pccldyv of Social functionACMC Healthcare Systemtart: 08-23-2023 End: 07-28-4655SST UtilitiesFirelands Regional Medical CenterHas the JustInvesting, gas, oil, or water [employer] threatened to shut off services in your home in past 12MoNoClUK HealthcareAre you now , , , , never or living with a partner?DivorcedFirelands Regional Medical CenterHow often to you have a drink containing alcohol?NeverFirelands Regional Medical CenterHow many standard drinks containing alcohol do you have on a typical day?Patient does not drinkFirelands Regional Medical CenterHow hard is it for you to pay for the very basics like food, housing, medical care, and heatingNot very hardFirelands Regional Medical CenterDo you feel stress - tense, restless, nervous, or anxious, or unable to sleep at night because yourmind is troubled all the time - these days [OSQ]Only a littleFirelands Regional Medical Center(I/We) worried whether (my/our) food would run out before (I/we) got money to buy more.Never trueFirelands Regional Medical CenterIn the past 12 months, was there a time when you were not able to pay the mortgage or rent on time?YesACMC Healthcare Systemtart: 25-39-4039Lra Assigned At BirthFeBerger Hospitaltart: 06-23-3506Vanpci identityIdentifies as female gender (finding)[facility]: 98-91-3576Oudfqv orientationHeterosexual (finding)[facility]tart: 69-90-9066Xkudfck CommentVery occasionally ie holidaysINTERMOUNTAIN HEALTHCARE HealthcareStart: 08-22-2024 End: 69-71-6253OdqPbksab (finding)[facility] Hospitalexual OrientationExecutive [facility]rology of [facility] Medical Equipment Procedure CodeEquipment CodeEquipment Original TextEquipment IdentifierDates Plate Round Titanium Bone Fusion Nonsterile First Metacarpophalangeal Left - [id number]: 15-32-6366Jcsdkjw on above:Description: MCP FUSION PLATEScrew 2.7mm Titanium 14mm Bone Cruciform Modular Hand System Nonsterile - [id number]: 57-76-4026Qwrwipa on above:Description: CRUCIFORM SCREWScrew 2.7mm Titanium 12mm Bone Cruciform Modular Hand System Nonsterile - [id number]: 59-62-6549Lsrhzgg on above:Description: CRUCIFORM SCREWScrew 2.7mm Titanium 12mm Bone Cruciform Modular Hand System Nonsterile - [id number]: 23-47-9250Jvzxdeb on above:Description: CRUCIFORM SCREWScrew 2.7mm Titanium 8mm Bone Cruciform Modular Hand System Nonsterile - [id number]: 07-27-2960Isstcaf on above:Description: CRUCIFORM SCREWScrew 2.7mm Titanium 10mm Bone Cruciform Modular Hand System Nonsterile - [id number]: 68-11-9256Hnxbtdb on above:Description: CRUCIFORM SCREW Functional Status XejuGpfkqppyjkIlecijLxorhbcj09-63-2429Jegziblzcv StatusN/AExec[facility]rology of [facility] Hospitaly11-20-2024Functional StatusN/A[facility]y10-21-2024Functional StatusN/A [facility]04-04-2024Functional StatusN/A[facility] Clinical Notes 03-19-2021 to 03-29-2025 Note Date & RfruYodyMicpctly47-18-3575 [facility] SURGERY Clinical Discharge Summary PERSON INFORMATION Name JAZZMINE WANG Age 80 Years 1945 Sex FEMALE Language [place] PCP Prema Clement APRN, JACKIE Marital Status Med Service Pain Management Surgery Acct# Arrival 03/29/2025 08:30:48 Visit Reason Lumbar Neuritis Acuity LOS 002 21:58 Address: [address] [place] [address] Comment: PROVIDER INFORMATION VITALS INFORMATION Vital Sign Triage Latest Temp Oral Temp Temporal Temp Intravascular Temp Axillary Temp Rectal 02 Sat 97 % 97 % Respiratory Rate Peripheral Pulse Rate Apical Heart Rate Blood Pressure / 67 mmHg / 67 mmHg Comment: MEDICAL INFORMATION Allergy Info: Cipro Prescriptions Given: acyclovir (acyclovir 200 mg oral capsule) 1 cap(s) Oral (given by mouth) 2 times per day. Refills: 3. calcium carbonate (calcium (as carbonate) 600 mg oral tablet) 1 tab(s) Oral (given by mouth) 2 times per day. clonazePAM (clonazePAM 0.5 mg oral tablet) 1 tab(s) Oral (given by mouth) 2 times per day for 30 Days. Refills: 0. donepezil (Aricept 5 mg oral tablet) 1 tab(s) Oral (given by mouth) once a day (at bedtime). Refills: 1. fexofenadine (Melanie 24 Hour Allergy oral tablet) 1 tab(s) Oral (given by mouth) every day. Refills: 3. Misc Prescription (medical marijuana card) multivitamin (Multiple Vitamins oral tablet) 1 tab(s) Oral (given by mouth) every day. pantoprazole (Protonix 40 mg oral delayed release tablet) 1 tab(s) Oral (given by mouth) every day.Refills: 5. pregabalin (pregabalin 50 mg oral capsule) 1 cap(s) Oral (given by mouth) 2 times per day for 30 Days. Refills: 0., oarrs reviewed 03/21/25 simvastatin (simvastatin 10 mg oral tablet) 1 tab(s) Oral (given by mouth) once a day (at bedtime).Refills: 3. Medication List: Medications to Continue That Have Not Changed Other Medications acyclovir (acyclovir 200 mg oral capsule) 1 cap(s) Oral (given by mouth) 2 times per day. Refills: 3. calcium carbonate (calcium (as carbonate) 600 mg oral tablet) 1 tab(s) Oral (given by mouth) 2 times per day. clonazePAM (clonazePAM 0.5 mg oral tablet) 1 tab(s) Oral (given by mouth) 2 times per day for 30 Days. Refills: 0. donepezil (Aricept 5 mg oral tablet) 1 tab(s) Oral (given by mouth) once a day (at bedtime). Refills: 1. fexofenadine (Melanie 24 Hour Allergy oral tablet) 1 tab(s) Oral (given by mouth) every day. Refills: 3. [facility] ([facility] card) multivitamin (Multiple Vitamins oral tablet) 1 tab(s) Oral (given by mouth) every day. pantoprazole (Protonix 40 mg oral delayed release tablet) 1 tab(s) Oral (given by mouth) every day.Refills: 5. pregabalin (pregabalin 50 mg oral capsule) 1 cap(s) Oral (given by mouth) 2 times per day for 30 Days. Refills: 0. simvastatin (simvastatin 10 mg oral tablet) 1 tab(s) Oral (given by mouth) once a day (at bedtime).Refills: 3. Medications to Continue That Have Not Changed Other Medications acyclovir (acyclovir 200 mg oral capsule) 1 cap(s) Oral (given by mouth) 2 times per day. Refills: 3. calcium carbonate (calcium (as carbonate) 600 mg oral tablet) 1 tab(s) Oral (given by mouth) 2 times per day. clonazePAM (clonazePAM 0.5 mg oral tablet) 1 tab(s) Oral (given by mouth) 2 times per day for 30 Days. Refills: 0. donepezil (Aricept 5 mg oral tablet) 1 tab(s) Oral (given by mouth) once a day (at bedtime). Refills: 1. fexofenadine (Melanie 24 Hour Allergy oral tablet) 1 tab(s) Oral (given by mouth) every day. Refills: 3. Misc Prescription (medical marijuana card) multivitamin (Multiple Vitamins oral tablet) 1 tab(s) Oral (given by mouth) every day. pantoprazole (Protonix 40 mg oral delayed release tablet) 1 tab(s) Oral (given by mouth) every day.Refills: 5. pregabalin (pregabalin 50 mg oral capsule) 1 cap(s) Oral (given by mouth) 2 times per day for 30 Days. Refills: 0. simvastatin (simvastatin 10 mg oral tablet) 1 tab(s) Oral (given by mouth) once a day (at bedtime).Refills: 3. Medications to Continue That Have Not Changed Other Medications acyclovir (acyclovir 200 mg oral capsule) 1 cap(s) Oral (given by mouth) 2 times per day. Refills: 3. calcium carbonate (calcium (as carbonate) 600 mg oral tablet) 1 tab(s) Oral (given by mouth) 2 times per day. clonazePAM (clonazePAM 0.5 mg oral tablet) 1 tab(s) Oral (given by mouth) 2 times per day for 30 Days. Refills: 0. donepezil (Aricept 5 mg oral tablet) 1 tab(s) Oral (given by mouth) once a day (at bedtime). Refills: 1. fexofenadine (Melanie 24 Hour Allergy oral tablet) 1 tab(s) Oral (given by mouth) every day. Refills: 3. Misc Prescription (medical marijuana card) multivitamin (Multiple Vitamins oral tablet) 1 tab(s) Oral (given by mouth) every day. pantoprazole (Protonix 40 mg oral delayed release tablet) 1 tab(s) Oral (given by mouth) every day.Refills: 5. pregabalin (pregabalin 50 mg oral capsule) 1 cap(s) Oral (given by mouth) 2 ti (more content not included)...[id number]charge [facility] Patient Education 03/28/2025 14:49:21 Botulinum Toxin Bladder [...] respond. Tell a health care provider about: Any allergies you have. All medicines you are taking, including vitamins, herbs, eye drops, creams, and caqv-ubm-jxkxbse medicines. Any problems you or family members have had with anesthetic medicines. Any bleeding problems you have. Any surgeries you have had. Any medical conditions you have. Any previous reactions to a botulinum toxin injection. Any symptoms of urinary tract infection. These include chills, fever, a burning feeling when passing urine, and needing to pass urine often. Whether you are or may be . What are the risks? Generally this is a safe procedure. However, problems may occur, including: Not being able to pass urine. If this happens, you may need to have your bladder emptied with a thin tube (urinary catheter). Bleeding. Urinary tract infection. Allergic reaction to the botulinum toxin. Pain or burning when passing urine. Damage to nearby structures or organs. What happens before the procedure? When to stop eating and drinking Follow instructions from your health care provider about what you may eat and drink before your procedure. These may include: 8 hours before the procedure ?Stop eating most foods. Do not eat meat, fried foods, or fatty foods. ?Eat only light foods, such as toast or crackers. ?All liquids are okay except energy drinks and alcohol. 6 hours before the procedure ?Stop eating. ?Drink only clear liquids, such as water, clear fruit juice, black coffee, plain tea, and sports drinks. ?Do not drink energy drinks or alcohol. 2 hours before the procedure ?Stop drinking all liquids. ?You may be allowed to take medicines with small sips of water. If you do not follow your health care provider's instructions, your procedure may be delayed or canceled. Medicines Ask your health care provider about: Changing or stopping your regular medicines. This is especially important if you are taking diabetes medicines or blood thinners. Taking medicines such as aspirin and ibuprofen. These medicines can thin your blood. Do not take these medicines unless your health care provider tells you to take them. Taking lvav-opz-lwqzwgl medicines, vitamins, herbs, and supplements. General instructions Ask your health care provider what steps will be taken to help prevent infection. These steps may include: ?Removing hair at the procedure site. ?Washing skin with a germ-killing soap. ?Taking antibiotic medicine. If you will be going home right after the procedure, plan to have a responsible adult: ?Take you home from the hospital or clinic. You will not be allowed to drive. ?Care for you for the time you are told. What happens during the procedure? You will be asked to empty your bladder. An IV will be inserted into one of your veins. You will be given one or more of the following: ?A medicine to help you relax (sedative). ?A medicine to numb the area (local anesthetic). ?A medicine to make you fall asleep (general anesthetic). A long, thin scope called a cystoscope will be passed into your bladder through the part of the body that carries urine from your bladder (urethra). The cystoscope will be used to fill your bladder with water. A long needle will be passed through the cystoscope and into the bladder. The botulinum toxin will be injected into your bladder. It may be injected into multiple areas of your bladder. The cystoscope will be removed and your bladder will be emptied with a urinary catheter. The procedure may vary among health care providers and hospitals. What can I expect after the procedure? After your procedure, it is common to have: Blood-tinged urine. Burning or soreness when you pass urine. Follow these instructions at home: Medicines Take xfqq-fgz-joeeckd and prescription medicines only as told by your health care provider. If you were prescribed an antibiotic medicine, take it as told by your health care provider. Do notstop using the antibiotic even if you start to feel better. General instructions If you were given a sedative during the procedure, it can affect you for several hours. Do not drive or operate machinery until your health care provider says that it is safe. Drink enough fluid to keep your urine pale yellow. Return to your normal activities as told by your health care provider. Ask your health care provider what activities are safe for you. Keep all follow-up visits. Contact a health care provider if you have: A fever or chills. Blood-tinged urine for more than one day after your procedure. Worsening pain or burning when you pass urine. Pain or burning when passing urine for more than two days after your procedure. Trouble emptying your bladder. Get help right away if you: Have bright red blood in your urine. Are unable to pass urine. Summary A botulinum toxin bladder injection is a procedure to treat an overactive bladder. This is generally a safe procedure. However, problems may occur, including not being able to pass urine, bleeding, infection, pain, and an allergic reaction to the botulinum toxin. You will be told when to stop eating and drinking, and what medicines to change or stop. Follow instructions carefully. After the procedure, it is common to have blood in your urine and to have soreness or burning when passing urine. Contact a health care provider if you [...] provider. Document Revised: 11/20/2021 Document Reviewed: 11/20/2021 [employer] Patient Education 2023 [employer] Follow Up Care 03/11/2025 13:53:15 With:Liu UNGER, ANISHA Holloway, URO Address: [address] [place] [address]- When: Unknown Comments:Pending Botox [facility] 10-30-2025 Note [id number] The patient?s history of present illness, physical findings and plan of care have been reviewed. There are no changes. [Electronically Signed on: 03/29/2025 08:52 EDT] CECE GUTIERREZ MD [Electronically Signed on: 03/29/2025 08:50 EDT] Liseth Mora RN [Verified on: 03/29/2025 08:52 EDT] CECE GUTIERREZ MD [Transcribed on: 03/28/2025 15:23 EDT] [facility]10-30-2025 NotePatient Education Urology Botulinum Toxin Bladder Injection A botulinum toxin [...] including vitamins, herbs, eye drops, creams, and oaep-vsr-jkgzgwt medicines. ??? Any problems you or family [...] include: ??? 8 hours before the procedure ? Stop eating most foods. Do not eat meat, fried foods, or fatty foods. ? Eat only light foods, such as toast or crackers. ? All liquids are okay except energy drinks and alcohol. ??? 6 hours before the procedure ? Stop eating. ? Drink only clear liquids, such as water, clear fruit juice, black coffee, plain tea, and sports drinks. ? Do not drink energy drinks or alcohol. ??? 2 hours before the procedure ? Stop drinking all liquids. ? You may be allowed to take medicines [...] tells you to take them. ??? Taking jpbs-yfv-ywooeui medicines, vitamins, herbs, and supplements. General instructions ??? Ask your health care provider what steps will be taken to help prevent infection. These steps may include: ? Removing hair at the procedure site. ? Washing skin with a germ-killing soap. ? Taking antibiotic medicine. ??? If you will be going home right after the procedure, plan to have a responsible adult: ? Take you home from the hospital or clinic. You will not be allowed to drive. ? Care for you for the time you are told. What happens during the procedure? You will be asked to empty your bladder. ??? An IV will be inserted into one of your veins. ??? You will be given one or more of the following: ? A medicine to help you relax (sedative). ? A medicine to numb the area (local anesthetic). ? A medicine to make you fall asleep [...] these instructions at home: Medicines ??? Take nfcg-uly-jefwfjx and prescription medicines only as told by your health care provider. ??? If you were prescribed an antibiotic medicine, take it as told by your health care provider. Donot stop using the antibiotic even if you start to feel better. General instructions ??? If you were given a sedative during the procedure, (more content not included)...[facility]09-22-2025 Note From: Brenda Mobley MA ([facility] To: Prema Clement APRN, CNP; Sent: 02/18/2025 10:30:50 EDT Subject: FW: Medication Management Due Date/Time: 02/19/2025 09:59:00 EDT Caller Name: JAZZMINE WANG; Caller Number: , OAS 02-18-25 last filled: 01-01-25 disp: 60 last appointment: 01-01-25 upcoming appointment: 04-09-25 CSA: 11-28-24 From: [facility] [id number] To: Prema Clement CNP Sent: February 18, 2025 8:59:59 AM CDT Subject: Medication Management Due: February 19, 2025 12:01:47 AM CDT On Hold Pending Signature Drug: clonazePAM (clonazePAM 0.5 mg oral tablet), TAKE 1 TABLET BY MOUTH 2 TIMES A DAY FOR 30 DAYS Quantity: 60 tab(s) Days Supply: 0 Refills: 0 Substitutions Allowed Notes from Pharmacy: Dispensed Drug: clonazePAM (clonazePAM 0.5 mg oral tablet), TAKE 1 TABLET BY MOUTH 2 TIMES A DAY FOR 30 DAYS Quantity: 60 tab(s) Days Supply: 30 Refills: 0 Substitutions Allowed Notes from Pharmacy: From: Prema Clement APRN, CNP To: [facility] [id number] Sent: 02/18/2025 10:50:56 EDT Subject: FW: Medication Management Submitted: Order:clonazePAM (clonazePAM 0.5 mg oral tablet) 1 tab(s) Oral BID Qty: 60 tab(s) Duration: 30 day(s) Refills: 0 Substitutions Allowed Route To Pharmacy - [facility] [id number] Signed by Prema Clement APRN, CNP 02/18/2025 10:50:00 EDT Submitted: Complete:clonazePAM (clonazePAM 0.5 mg oral tablet) oas 01/01/25 Signed by Prema Clement APRN, CNP 02/18/2025 10:50:00 EDT Not Approved: New Rx to follow clonazePAM (CLONAZEPAM 0.5 MG TABLET) TAKE 1 TABLET BY MOUTH 2 TIMES A DAY FOR 30 DAYS Qty: 60 tab(s) Days Supply: 30 Refills: 0 Substitutions Allowed Route To Pharmacy - [facility] [id number] [id number]#1.00[facility]09-08-2025 Note [id number]#1.00[facility]09-05-[facility] Discharge Summary PERSON INFORMATION Name JAZZMINE WANG Age 79 Years 1945 Sex FEMALE Language [place] PCP Prema Clement APRN, CNP Marital Status Med Service Pain Management Surgery Acct# Arrival 02/01/2025 08:44:07 Visit Reason sacroilitis Acuity LOS 002 23:54 Address: [address] [place] [address] Comment: PROVIDER INFORMATION VITALS INFORMATION Vital Sign Triage Latest Temp Oral Temp Temporal Temp Intravascular Temp Axillary Temp Rectal 02 Sat Respiratory Rate Peripheral Pulse Rate Apical Heart Rate Blood Pressure / / Comment: MEDICAL INFORMATION Allergy Info: Cipro Prescriptions Given: acyclovir (acyclovir 200 mg oral capsule) 1 cap(s) Oral (given by mouth) 2 times per day. Refills: 3. calcium carbonate (calcium (as carbonate) 600 mg oral tablet) 1 tab(s) Oral (given by mouth) 2 times per day. clonazePAM (clonazePAM 0.5 mg oral tablet) 1 tab(s) Oral (given by mouth) 2 times per day for 30 Days. Refills: 0., oarrs 01/01/25 donepezil (Aricept 5 mg oral tablet) 1 tab(s) Oral (given by mouth) once a day (at bedtime). Refills: 1. fexofenadine (Melanie 24 Hour Allergy oral tablet) 1 tab(s) Oral (given by mouth) every day. Refills: 3. Misc Prescription (medical marijuana card) multivitamin (Multiple Vitamins oral tablet) 1 tab(s) Oral (given by mouth) every day. pantoprazole (Protonix 40 mg oral delayed release tablet) 1 tab(s) Oral (given by mouth) every day.Refills: 5. pregabalin (pregabalin 50 mg oral capsule) 1 cap(s) Oral (given by mouth) 2 times per day. simvastatin (simvastatin 10 mg oral tablet) 1 tab(s) Oral (given by mouth) once a day (at bedtime).Refills: 3. sulfamethoxazole-trimethoprim (Bactrim DS 800 mg-160 mg oral tablet) 1 tab(s) Oral (given by mouth)2 times per day for 7 Days. Refills: 0. venlafaxine (venlafaxine 75 mg oral capsule, extended release) 1 cap(s) Oral (given by mouth) everyday. Refills: 3. Medication List: Medications to Continue That Have Not Changed Other Medications acyclovir (acyclovir 200 mg oral capsule) 1 cap(s) Oral (given by mouth) 2 times per day. Refills: 3. calcium carbonate (calcium (as carbonate) 600 mg oral tablet) 1 tab(s) Oral (given by mouth) 2 times per day. clonazePAM (clonazePAM 0.5 mg oral tablet) 1 tab(s) Oral (given by mouth) 2 times per day for 30 Days. Refills: 0. donepezil (Aricept 5 mg oral tablet) 1 tab(s) Oral (given by mouth) once a day (at bedtime). Refills: 1. fexofenadine (Melanie 24 Hour Allergy oral tablet) 1 tab(s) Oral (given by mouth) every day. Refills: 3. Misc Prescription (medical marijuana card) multivitamin (Multiple Vitamins oral tablet) 1 tab(s) Oral (given by mouth) every day. pantoprazole (Protonix 40 mg oral delayed release tablet) 1 tab(s) Oral (given by mouth) every day.Refills: 5. pregabalin (pregabalin 50 mg oral capsule) 1 cap(s) Oral (given by mouth) 2 times per day. simvastatin (simvastatin 10 mg oral tablet) 1 tab(s) Oral (given by mouth) once a day (at bedtime).Refills: 3. sulfamethoxazole-trimethoprim (Bactrim DS 800 mg-160 mg oral tablet) 1 tab(s) Oral (given by mouth)2 times per day for 7 Days. Refills: 0. venlafaxine (venlafaxine 75 mg oral capsule, extended release) 1 cap(s) Oral (given by mouth) everyday. Refills: 3. Medications to Continue That Have Not Changed Other Medications acyclovir (acyclovir 200 mg oral capsule) 1 cap(s) Oral (given by mouth) 2 times per day. Refills: 3. calcium carbonate (calcium (as carbonate) 600 mg oral tablet) 1 tab(s) Oral (given by mouth) 2 times per day. clonazePAM (clonazePAM 0.5 mg oral tablet) 1 tab(s) Oral (given by mouth) 2 times per day for 30 Days. Refills: 0. donepezil (Aricept 5 mg oral tablet) 1 tab(s) Oral (given by mouth) once a day (at bedtime). Refills: 1. fexofenadine (Melanie 24 Hour Allergy oral tablet) 1 tab(s) Oral (given by mouth) every day. Refills: 3. Misc Prescription (medical marijuana card) multivitamin (Multiple Vitamins oral tablet) 1 tab(s) Oral (given by mouth) every day. pantoprazole (Protonix 40 mg oral delayed release tablet) 1 tab(s) Oral (given by mouth) every day.Refills: 5. pregabalin (pregabalin 50 mg oral capsule) 1 cap(s) Oral (given by mouth) 2 times per day. simvastatin (simvastatin 10 mg oral tablet) 1 tab(s) Oral (given by mouth) once a day (at bedtime).Refills: 3. sulfamethoxazole-trimethoprim (Bactrim DS 800 mg-160 mg oral tablet) 1 tab(s) Oral (given by mouth)2 times per day for 7 Days. Refills: 0. venlafaxine (venlafaxine 75 mg oral capsule, extended release) 1 cap(s) Oral (given by mouth) everyday. Refills: 3. Medications to Continue That Have Not Changed Other Medications acyclovir (acyclovir 200 mg oral capsule) 1 cap(s) Oral (given by mouth) 2 times per day. Refills: 3. calcium carbonate (calcium (as carbonate) 600 mg oral tablet) 1 tab(s) Oral (given by mouth) 2 times (more content not included)...[facility] 01-31-2025 [id number] The patient?s history of present illness, physical findings and plan of care have been reviewed. There are no changes. [Electronically Signed on: 02/01/2025 09:57 EDT] CECE GUTIERREZ MD [Electronically Signed on: 02/01/2025 09:23 EDT] Liseth Mora RN [Verified on: 02/01/2025 09:57 EDT] CECE GUTIERREZ MD [Transcribed on: 01/31/2025 10:19 EDT] [facility]06-09-2025 [facility]iology [facility] [place] [address] [place] [address] CT Scan Report Signed Patient: Jazzmine Wang MR#: [id number] : 1945 Acct:[id number] Age/Sex: 79 / F ADM Date: 5 Loc: ER Room: Type: PRE ER Attending Dr: Copies to: МАРИНА GERARDO~ Ordering Provider: МАРИНА GERARDO Date of Service: 11/05/24 CT/CT head/brain wo con: fall Unenhanced head CT TECHNIQUE: Contiguous axial imaging of the head. The CT exam was performed usingone or more the following dose reduction techniques: Automated exposure control,adjustment of the MA and/or Kv according to patient size, or use of the iterative reconstruction technique. COMPARISON: None HISTORY: Head injury one week ago. Continued altered mental status. VENTRICLES: Within normal limits ATROPHY: None BRAIN PARENCHYMA: Adequate henning-white matter differentiation identified. HEMORRHAGE: None HERNIATION: No mass effect or herniation INFARCTION: No recent vascular distribution infarction is seen. EXTRA-AXIAL FLUID COLLECTIONS None MIDBRAIN: Unremarkable ROLO: Unremarkable MEDULLA: Unremarkable SINUSES: Unremarkable ORBITS: Grossly unremarkable MASTOIDS: Unremarkable BONY STRUCTURES Intact ADDITIONAL FINDINGS: CT/CT head/brain wo con IMPRESSION: No acute findings. Impression dictated by: Abundio Long M.D. 11/05/2024 2:14 PM Dictation Location: [place] [address] Transcribed By: [facility] 11/05/24 1414 Dictated By: Abundio oLng DO 11/05/24 1413 Signed By: 11/05/24 1414 [facility]06-09-2025 Evaluation note* Diagnosis Onset Date Resolution Status Admit Date Chronic pain acuteJune 2024 11:02amOsteoarthritis of spine with radiculopathy, lumbar regionacuteJune 2024 11:02amSacroiliitis, not elsewhere classifiedacuteJune 2024 11:02amArthritis of lumbosacral spineacuteJune 2024 10:16am Chronic painacuteJune 2024 10:16amOsteoarthritis of spine with radiculopathy, lumbar regionacuteJune 2024 10:16am [facility] Work Phone: [phone] Note From: Brenda Mobley MA ([facility] ([facility])) To: Prema Clement CNP; Sent: 10/29/2024 08:30:13 EDT Subject: FW: Medication Management Due Date/Time: 10/29/2024 22:24:00 EDT Caller Name: JAZZMINE WANG; Caller Number: Myla , Chirag OARRS 10-29-24 last filled: 07-17-24 disp:90 last appointment: 09-24-24 upcoming appointment: 12-26-24 CSA: 08-16-23 From: [facility] [id number] To: Prema Clement CNP Sent: October 26, 2024 9:24:08 PM CDT Subject: Medication Management Due: October 27, 2024 12:11:18 AM CDT On Hold Pending Signature Drug: clonazePAM (clonazePAM 0.5 mg oral tablet), TAKE 1 TABLET BY MOUTH 3 TIMES A DAY Quantity: 90 tab(s) Days Supply: 0 Refills: 0 Substitutions Allowed Notes from Pharmacy: Dispensed Drug: clonazePAM (clonazePAM 0.5 mg oral tablet), TAKE 1 TABLET BY MOUTH 3 TIMES A DAY Quantity: 90 tab(s) Days Supply: 30 Refills: 0 Substitutions Allowed Notes from Pharmacy: From: Prema Clement APRN, CNP To: [facility] [id number] Sent: 10/29/2024 11:24:09 EDT Subject: FW: Medication Management Submitted: Order:clonazePAM (clonazePAM 0.5 mg oral tablet) 1 tab(s) Oral TID Qty: 90 tab(s) Duration: 30 day(s) Refills: 0 Substitutions Allowed Route To Pharmacy - [facility] [id number] Signed by Prema Clement APRN, CNP 10/29/2024 11:23:00 EDT Submitted: Complete:clonazePAM (clonazePAM 0.5 mg oral tablet) Signed by Prema Clement APRN, CNP 10/29/2024 11:24:00 EDT Not Approved: New Rx to follow clonazePAM (clonazePAM 0.5 MG TABLET) TAKE 1 TABLET BY MOUTH 3 TIMES A DAY Qty: 90 tab(s) Days Supply: 30 Refills: 0 Substitutions Allowed Route To Pharmacy [facility] [id number] State Harding [id number] NotePatient Education Obstetrics and Gynecology Overactive Bladder, Adult Overactive bladder is a condition in which a person has a sudden and frequent need to urinate. A person might also leak urine if he or she cannot get to the bathroom fast enough (urinary incontinence). Sometimes, symptoms can interfere with work or social activities. What are the causes? Overactive bladder is associated with poor nerve signals between your bladder and your brain. Your bladder may get the signal to empty before it is full. You may also have very sensitive muscles thatmake your bladder squeeze too soon. This condition may also be caused by other factors, such as: ??? Medical conditions: ? Urinary tract infection. ? Infection of nearby tissues. ? Prostate enlargement. ? Bladder stones, inflammation, or tumors. ? Diabetes. ? Muscle or nerve weakness, especially from these conditions: ? A spinal cord injury. ? Stroke. ? Multiple sclerosis. ? Parkinson's disease. ??? Other causes: ? Surgery on the uterus or urethra. ? Drinking too much caffeine or alcohol. ? Certain medicines, especially those that eliminate extra fluid in the body (diuretics). ? Constipation. What increases the risk? You may be at greater risk for overactive bladder if you: ??? Are an older adult. ??? Smoke. ??? Are going through menopause. ??? Have prostate problems. ??? Have a neurological disease, such as stroke, dementia, Parkinson's disease, or multiple sclerosis (MS). ??? Eat or drink alcohol, spicy food, caffeine, and other things that irritate the bladder. ??? Are overweight or obese. What are the signs or symptoms? Symptoms of this condition include a sudden, strong urge to urinate. Other symptoms include: ??? Leaking urine. ??? Urinating 8 or more times a day. ??? Waking up to urinate 2 or more times overnight. How is this diagnosed? This condition may be diagnosed based on: ??? Your symptoms and medical history. ??? A physical exam. ??? Blood or urine tests to check for possible causes, such as infection. You may also need to see a health care provider who specializes in urinary tract problems. This is called a urologist. How is this treated? Treatment for overactive bladder depends on the cause of your condition and whether it is mild or severe. Treatment may include: ??? Bladder training, such as: ? Learning to control the urge to urinate by following a schedule to urinate at regular intervals. ? Doing Kegel exercises to strengthen the pelvic floor muscles that support your bladder. ??? Special devices, such as: ? Biofeedback. This uses sensors to help you become aware of your body's signals. ? Electrical stimulation. This uses electrodes placed inside the body (implanted) or outside the body. These electrodes send gentle pulses of electricity to strengthen the nerves or muscles that control the bladder. ? Women may use a plastic device, called a pessary, that fits into the vagina and supports the bladder. ??? Medicines, such as: ? Antibiotics to treat bladder infection. ? Antispasmodics to stop the bladder from releasing urine at the wrong time. ? Tricyclic antidepressants to relax bladder muscles. ? Injections of botulinum toxin type A directly into the bladder tissue to relax bladder muscles. ??? Surgery, such as: ? A device may be implanted to help manage the nerve signals that control urination. ? An electrode may be implanted to stimulate electrical signals in the bladder. ? A procedure may be done to change the shape of the bladder. This is done only in very severe cases. Follow these instructions at home: Eating and drinking ??? Make diet or lifestyle changes recommended by your health care provider. These may include: ? Drinking fluids throughout the day and not only with meals. ? Cutting down on caffeine or alcohol. ? Eating a healthy and balanced diet to prevent constipation. This may include: ? Choosing foods that are high in fiber, such as beans, whole grains, and fresh fruits and vegetables. ? Limiting foods that are high in fat and processed sugars, such as fried and sweet foods. Lifestyle ??? Lose weight if needed. ??? Do not use any products that contain nicotine or tobacco. These include cigarettes, chewing tobacco, and vaping devices, such as e-cigarettes. If you need help quitting, ask your health care provider. General instructions ??? Take houq-jrl-mcugvza and prescription medicines only as told by your health care provider. ??? If you were prescribed an antibiotic medicine, take it as told by your health care provider. Donot stop taking the antibiotic even if you start to feel better. ??? Use any implants or pessary as told by your health care provider. ??? If needed, wear pads to absorb urine leakage. ??? Keep a log to track how much and when you drink, and whe (more content not included)...[facility]05-15-2025 History of Present illness Narrative* ELEAZAR Hudson - 10/11/2024 9:20 AM EDT Images from the original note were not included. Subjective Jazzmine Wang is a 79 y.o. year old female No chief complaint on file. Past Medical History: Diagnosis Date Actinic keratosis Anxiety Arthritis Bunion Bursitis of shoulder Cervical disc disorder Depression (CMS/HCC) GERD (gastroesophageal reflux disease) Hyperlipemia (CMS/HCC) No past surgical history on file. Family History Problem Relation Name Age of Onset Stroke Mother Cancer Father Christian Wang Heart disease Father Christian Wang Alcohol abuse Father Christian Wang Alzheimer's disease Brother Melanoma Neg Hx Social History Tobacco Use Smoking status: Never Smokeless tobacco: Never Substance Use Topics Alcohol use: Yes Comment: Very occasionally ie holidays Medication Documentation Review Audit Reviewed by Bentley Salas MA (Arboriculturist) on 10/11/24 at 0927 Medication Order Taking? Sig Documenting Provider Last Dose Status Acetaminophen (TYLENOL PO) [id number] Yes Historical Provider, Active acyclovir (Zovirax) 200 MG capsule [id number] Yes Historical Provider, Active Calcium Carbonate-Vit D-Min (CALTRATE PLUS PO) [id number] Yes Take by mouth ELEAZAR Olsen Active Cannabinoids (medical cannabis) [id number] Yes Historical Provider, Active Effexor XR 75 MG 24 hr capsule [id number] Yes 75 mg ELEAZAR Olsen Active Estrace 0.1 MG/GM vaginal cream [id number] Yes ELEAZAR Olsen Active fexofenadine (Melanie Allergy) 180 MG tablet [id number] Yes ELEAZAR Olsen Active KlonoPIN 0.5 MG tablet [id number] Yes 0.5 mg Historical Provider, Active Magnesium 125 MG capsule [id number] Patient not taking: Reported on 10/11/2024 ELEAZAR Olsen Active Omeprazole 20 MG Tablet Delayed Release Dispersible [id number] Patient not taking: Reported on 10/11/2024 ELEAZAR Olsen Active pregabalin (Lyrica) 50 MG capsule [id number] Yes Take 50 mg by mouth in the morning and 50 mg before bedtime. Historical Provider, Active Protonix 40 MG EC tablet [id number] Yes 40 mg Chintan ELEAZAR Calderon Active simvastatin (Zocor) 10 MG tablet [id number] Yes 10 mg ELEAZAR Swain Active sucralfate (Carafate) 1 g tablet [id number] 1 g Patient not taking: Reported on 10/11/2024 Historical ProviderMD Active Zinc Sulfate (ZINC 15 PO) [id number] Patient not taking: Reported on 10/11/2024 ELEAZAR Olsen Active HPI TREMOR -symptoms are intermittent -located in hands -symptoms are bilaterally equal -notices at rest and with action PARESTHESIA -here to review MRI -N/T located in JAVON toes -states this is about the same -denies any radiating -occasional sharp pains in the toes -denies any back pain -left hip pain -on lyrica and this helps -balance not good -denies any recent falls -sees pain management -she continues with hyperreflexia on exam HYPERSOMNIA/Memory -using CPAP machine -tolerating the mask better -she is getting 8-10 hours -she is still fatigued -started on Strattera for focus but she stopped this due to SE -feels like memory is worse -misplacing things -trouble with names and recent conversations -She admits family hx of Alzheimer's Acute Neurological Problem This is a chronic problem. The current episode started more than 1 year ago. The problem has been unchanged. Associated symptoms include neck pain, numbness and weakness. Pertinent negatives include no abdominal pain, chest pain, diaphoresis, fatigue, fever, headaches, nausea, rash, vertigo, visualchange or vomiting. She has tried medication, neck support, position change, sleep and walking for the symptoms. The treatment provided mild relief. ROS Review of Systems Constitutional: Negative for activity change, diaphoresis, fatigue and fever. HENT: Negative for trouble swallowing and voice change. Eyes: Negative for photophobia and visual disturbance. Respiratory: Negative for shortness of breath. Cardiovascular: Negative for chest pain, palpitations and leg swelling. Gastrointestinal: Negative for abdominal pain, nausea and vomiting. Musculoskeletal: Positive for back pain and neck pain. Skin: Negative for color change and rash. Neurological: Positive for tremors, weakness, light-headedness and numbness. Negative for dizziness, vertigo, syncope and headaches. Psychiatric/Behavioral: Negative for agitation and confusion. Endocrine: Negative for cold intolerance and heat intolerance. Objective Visit Vitals BP 116/72 Ht 5' 3 Wt 155 lb BMI 27.46 kg/m Smoking Status Never BSA 1.77 m Neurological Exam Mental Status Awake, alert and oriented to person, place and time. Speech is normal. Language is fluent with no aphasia. Cranial Nerves CN II: Visual acuity is normal. Visual galicia full to confrontation. CN III, IV, : Extraocular movements intact bilaterally. Normal lids and orbits bilaterally. Pupils equal round and reactive to light bilaterally. CN V: Facial sensation is normal. CN VII: Full and symmetric facial movement. CN VIII: Hearing is normal. CN XI: Shoulder shrug strength is normal. Coordination Sjnkrs-up-qnmh, rapid alternating movements and kvla-vm-ucnf normal bilaterally without dysmetria. Intention tremor No cogwheel rigidity on exam. Gait Normal casual, toe, heel and tandem gait. 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 RLE Strength illopsoas, quadriceps, tibialis anterior, and gastrocnemius strength 5/5. LLE Strength illopsoas, quadriceps, tibialis anterior, and gastrocnemius strength 5/5. Tone Normal tone x4 extremities. Reflexes: RUE biceps reflex 3 LUE biceps reflex 3, RLE knee reflex 3 LLE knee reflex 3, Assessment and Plan Tremor Jerking movements of extremities Patient followed for action tremor in the hands with intermittent extremity jerking that have been occurring for the past 2-3 years. Possible etiologies include benign essential tremor, extraprymidalsymptoms secondary to medications, or a neurodegenerative process such as Parkinson's disease. An additional consideration would be tremor secondary to a metabolic process or a psychogenic tremor from stress. Tremors have improved and are intermittent. Routine EEG 04/30/24 was normal and patient notes that she had symptoms during her study. She continues with jerking and is hyperreflexic on exam today. MRI of the cervical spine 09/25/24 noted multiple level moderate to severe disc space narrowingwith flattening of the ventral cord at C5-6 and narrowing to 8mm. She notes her balance disturbancepersists and she remains hyperreflexic. She is open to neurosurgical opinion. Memory loss/AYDEE She does have signs and symptoms of a sleep disorder and was diagnosed with AYDEE in the past but could not tolerate mask. She complains of cognitive changes but has been going through a stressful time, along with untreated AYDEE that is likely contributing. HST preliminary report revealed AHI 19 and findings suggestive of moderate sleep disordered breathing with consideration for CPAP/AutoPAP. She is attempting to use her CPAP but her cognitive symptoms persist. She would also like to consider Inspire device. Neuropsychological testing 06/28/24 demonstrated struggles with attention and concentration as variable memory performance. 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 MCI is a consideration but it was recommended to target the aforementioned factors are primary treatment focus. She notes her memory issues persist. She did not tolerate Strattera and stopped taking. There were also some central apneas noted on download and AutoPAP order has recently been sent to DME. She has not yet heard from DME about new machine but is tolerating her CPAP mask better but her events are still high per her estella readings. Paresthesia of both feet She has EMG of the BLE in the past that was normal. PLAN MRI C spine reviewed with the patient. She would like neurosurgical opinion. Continue use of CPAP until she receives AutoPAP. This order was faxed 09/12 and 10/09. I counseled the patient on fall precautions. I discussed the high risk of trauma and debility associated with falls. Patient verbalized understanding. Follow up after neurosurgical opinion documented in this encounterAudrain Medical [id number] History of Present illness Narrative* ELEAZAR Swain - 09/27/2024 1:50 PM EDT Skin Check Location: Patient requests a full body skin examination Dermatologic history: history of Actinic Keratosis Last visit: 09/2022 Established patient of YURI Hickey Lesions: Location: face, left lower leg, back Duration: years Quality: itchy Associated symptoms: rough, scaly Treatments: none Other Problem: itching Location: scalp Duration: months Current treatment: none All pertinent medical history, medications, and allergies were reviewed. General Exam: alert, oriented to person, place, and time, normal affect, well appearing Unaccompanied Scalp, Examined Right leg Examined Head, Face Examined Left leg Examined Neck Examined Right foot Examined Chest Examined Left foot Examined Back Examined Buttocks Examined Abdomen Examined Digits,nails: Examined Right arm Examined Left arm Examined Lymphatics: Not examined Hands Examined Skin Exam 1. SEBORRHEIC KERATOSIS Generalized Stuck on verrucous, variably pigmented papules and plaques. Patient was counseled regarding these benign growths. Removal is normally not necessary, but they may be removed if they are symptomatic or for cosmetic reasons. 2. INFLAMED SEBORRHEIC KERATOSIS (2) Left Lower Leg - Anterior, Left Upper Back Inflamed seborrheic keratoses: pink and brown stuck on verrucous scaly papule with surrounding erythema and bloody crust. The patient was informed that symptomatic seborrheic keratoses are benign growths that become inflamed, itchy, tender, traumatized, caught on clothing, or bleed. Symptomatic lesions can be treated with cryotherapy or curretage. Thicker lesions treated with cryotherapy may require more than one treatment. The patient was instructed to notify the office if abnormal redness or tenderness develops atthe treatment site. Cryotherapy today, see procedure note. Diagnosis: Inflamed seborrheic keratosis Indication: Inflamed Consent: Verbal consent was obtained and risks were discussed, including, but not limited to risks of scarring, darker or planning division superintendent pigmentary changes, recurrence, incomplete removal and infection. Method: Liquid nitrogen was used to treat the lesion(s) with two 5-10 second freeze-thaw cycles Number of lesions treated: 2 Post-procedure instructions: Instructions were given orally and in writing. The office will be contacted if the lesion fails to resolve despite treatment, or if a side effect develops such as abnormal crusting, scabbing, redness or tenderness Cryotherapy, skin lesion - Left Lower Leg - Anterior, Left Upper Back 3. MELANOCYTIC NEVUS OF TRUNK Generalized Scattered benign appearing, regular brown to light brown melanocytic papules and macules with similar morphology Counseled regarding these benign growths. Rarely, a nevus can develop into malignant melanoma, so any changing nevi should be promptly re-evaluated. 4. ACTINIC KERATOSIS (2) Left Nasal Sidewall, Left Upper Back Erythematous scaly papules Patient was counseled regarding these sun-induced growths that can develop into squamous cell carcinoma if left untreated. Discussed treatment with cryotherapy. It was emphasized that any treated lesions that fail to resolve should be re- evaluated. Cryotherapy performed today; see procedure note Diagnosis: Actinic keratosis Indication: Precancerous Location: see skin exam Consent: Verbal consent was obtained and risks were discussed, including, but not limited to risks of scarring, darker or planning division superintendent pigmentary changes, recurrence, incomplete removal and infection. Method: Liquid nitrogen was used to treat the lesion(s) with two 5-10 second freeze-thaw cycles. Eyes were shielded using cotton pad during procedure Number of lesions treated: 2 Post-procedure instructions: Instructions were given orally and in writing. The office will be contacted if the lesion fails to resolve despite treatment, or if a side effect develops such as abnormal crusting, scabbing, redness or tenderness Cryotherapy, skin lesion - Left Nasal Sidewall, Left Upper Back 5. LENTIGINES (8) Chest (Upper Torso, Anterior), Generalized, Head, Left Arm, Left Leg, Right Arm, Right Leg, Torso -Posterior (Back) Scattered mcpherson macules in sun-exposed areas. The patient was informed that lentigines are benign pigmented lesions that occur on sun-exposed andsun-damaged skin. No treatment is necessary. Recommended regular use of broad spectrum sunscreen SPF 30 or higher. Recommended self monthly exams and A, B, C, D, E s melanoma handout provided to patient. Next Visit: 1 year documented in this encounterAudrain Medical [id number] Evaluation note* Diagnosis Onset Date Resolution Status Admit Date Chronic pain acuteApril 2024 2:43pmOsteoarthritis of spine with radiculopathy, lumbar regionacuteApril 2024 2:43pmSpinal stenosisacuteApril 2024 2:43pm Chronic painacuteJune 2024 11:02amOsteoarthritis of spine with radiculopathy, lumbar regionacuteJune 2024 11:02amSacroiliitis, not elsewhere classifiedacuteJune 2024 11:02amArthritis of lumbosacral spine acuteJune 2024 10:16amChronic painacuteJune 2024 10:16am Osteoarthritis of spine with radiculopathy, lumbar regionacuteJune 2024 10:16am [facility] Work Phone: [phone]) 733-231304-21-2025 History of Present illness Narrative* ELEAZAR Hudson - 09/17/2024 3:00 PM EDT Images from the original note were not included. Subjective Jazzmine Wang is a 79 y.o. year old female Chief Complaint Patient presents with Memory Loss Past Medical History: Diagnosis Date Actinic keratosis Anxiety Arthritis Bunion Bursitis of shoulder Cervical disc disorder Depression (CMS/HCC) GERD (gastroesophageal reflux disease) Hyperlipemia (CMS/HCC) No past surgical history on file. Family History Problem Relation Name Age of Onset Stroke Mother Cancer Father Christian Wang Heart disease Father Christian Wang Alcohol abuse Father Christian Wang Alzheimer's disease Brother Melanoma Neg Hx Social History Tobacco Use Smoking status: Never Smokeless tobacco: Never Substance Use Topics Alcohol use: Yes Comment: Very occasionally ie holidays Medication Documentation Review Audit Reviewed by Neelima Blair MA (Arboriculturist) on 09/17/24 at 1505 Medication Order Taking? Sig Documenting Provider Last Dose Status Acetaminophen (TYLENOL PO) 08320448 Tylenol Historical Provider, Active acyclovir (Zovirax) 200 MG capsule [id number] 1 cap(s), PO, BID, # 180 cap(s), 3 Refill(s), Pharmacy:[facility] [id number], 1 cap(s) PO BID Historical Provider, Active atomoxetine (Strattera) 25 MG capsule [id number] Take 1 capsule (25 mg) by mouth Daily Swallow capsule whole; do not open. If opened accidentally, do not touch eyes; wash hands immediately (product is an eye irritant). ELEAZAR Hudson Active Calcium Carbonate-Vit D-Min (CALTRATE PLUS PO) [id number] Take by mouth ELEAZAR Olsen Active Cannabinoids (medical cannabis) 74299254 Medical Marijuana Historical Provider, Active Effexor XR 75 MG 24 hr capsule [id number] 75 mg ELEAZAR Olsen Active Estrace 0.1 MG/GM vaginal cream [id number] See Instructions, 42.5 gm, Refill(s) 2, Apply pea sized amount to external urethra/vaginal area 3x a week for 1 month, then 2x a week afterwards, [facility] [id number], 165, cm, 09/01/23 10:37:00 EDT, Height/Length Dosing, 70.5, kg, 09/01/23 10:37:00 EDT,Weight Dosing [place] Active fexofenadine (Melanie Allergy) 180 MG tablet [id number] [place] Active KlonoPIN 0.5 MG tablet [id number] 0.5 mg Historical Provider, Active Magnesium 125 MG capsule [id number] [place] Active Omeprazole 20 MG Tablet Delayed Release Dispersible [id number] [place] Active pregabalin (Lyrica) 50 MG capsule [id number] Take 50 mg by mouth in the morning and 50 mg before bedtime. Historical Provider, Active sucralfate (Carafate) 1 g tablet [id number] 1 g. Historical Provider, Active Zinc Sulfate (ZINC 15 PO) [id number] [place] Active HPI TREMOR -symptoms are intermittent -located in hands -symptoms are bilaterally equal -notices at rest and with action PARESTHESIA -N/T located in JAVON toes -states this is about the same -denies any radiating -occasional sharp pains in the toes -denies any back pain -left hip pain -on lyrica and this helps -balance not good -denies any recent falls -sees pain management HYPERSOMNIA/Memory -using CPAP machine -tolerating the mask better -she is getting 8-10 hours -she is still fatigued -started on Strattera for focus but she stopped this due to SE -feels like memory is worse -misplacing things -trouble with names and recent conversations -She admits family hx of Alzheimer's Acute Neurological Problem This is a chronic problem. The current episode started more than 1 year ago. The problem has been unchanged. Associated symptoms include neck pain, numbness and weakness. Pertinent negatives include no abdominal pain, chest pain, diaphoresis, fatigue, fever, headaches, nausea, rash, vertigo, visualchange or vomiting. She has tried medication, neck support, position change, sleep and walking for the symptoms. The treatment provided mild relief. ROS Review of Systems Constitutional: Negative for activity change, diaphoresis, fatigue and fever. HENT: Negative for trouble swallowing and voice change. Eyes: Negative for photophobia and visual disturbance. Respiratory: Negative for shortness of breath. Cardiovascular: Negative for chest pain, palpitations and leg swelling. Gastrointestinal: Negative for abdominal pain, nausea and vomiting. Musculoskeletal: Positive for back pain and neck pain. Skin: Negative for color change and rash. Neurological: Positive for tremors, weakness, light-headedness and numbness. Negative for dizziness, vertigo, syncope and headaches. Psychiatric/Behavioral: Negative for agitation and confusion. Endocrine: Negative for cold intolerance and heat intolerance. Objective Visit Vitals BP 124/64 Ht 5' 3 Wt 156 lb BMI 27.63 kg/m Smoking Status Never BSA 1.77 m Neurological Exam Mental Status Awake, alert and oriented to person, place and time. Speech is normal. Language is fluent with no aphasia. Cranial Nerves CN II: Visual acuity is normal. Visual galicia full to confrontation. CN III, IV, : Extraocular movements intact bilaterally. Normal lids and orbits bilaterally. Pupils equal round and reactive to light bilaterally. CN V: Facial sensation is normal. CN VII: Full and symmetric facial movement. CN VIII: Hearing is normal. CN XI: Shoulder shrug strength is normal. Coordination [id number]-ge-pjgv, rapid alternating movements and imwf-mc-atgv normal bilaterally without dysmetria. Intention tremor No cogwheel rigidity on exam. Gait Normal casual, toe, heel and tandem gait. 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 RLE Strength illopsoas, quadriceps, tibialis anterior, and gastrocnemius strength 5/5. LLE Strength illopsoas, quadriceps, tibialis anterior, and gastrocnemius strength 5/5. Tone Normal tone x4 extremities. Reflexes: RUE biceps reflex 3 LUE biceps reflex 3, RLE knee reflex 3 LLE knee reflex 3, Assessment and Plan Tremor Jerking movements of extremities Patient followed for action tremor in the hands with intermittent extremity jerking that have been occurring for the past 2-3 years. Possible etiologies include benign essential tremor, extraprymidalsymptoms secondary to medications, or a neurodegenerative process such as Parkinson's disease. An additional consideration would be tremor secondary to a metabolic process or a psychogenic tremor from stress. Tremors have improved and are intermittent. Routine EEG 04/30/24 was normal and patient notes that she had symptoms during her study. She continues with jerking and is hyperreflexic on exam today. Memory loss/AYDEE She does have signs and symptoms of a sleep disorder and was diagnosed with AYDEE in the past but could not tolerate mask. She complains of cognitive changes but has been going through a stressful time, along with untreated AYDEE that is likely contributing. HST preliminary report revealed AHI 19 and findings suggestive of moderate sleep disordered breathing with consideration for CPAP/AutoPAP. She is attempting to use her CPAP but her cognitive symptoms persist. She would also like to consider Inspire device. Neuropsychological testing 06/28/24 demonstrated struggles with attention and concentration as variable memory performance. 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 MCI is a consideration but it was recommended to target the aforementioned factors are primary treatment focus. She notes her memory issues persist. She did not tolerate Strattera and stopped taking. There were also some central apneas noted on download and AutoPAP order has recently been sent to [facility]. Paresthesia of both feet She has EMG of the BLE in the past that was normal. PLAN She is off of Strattera due to side effects. Obtain AutoPAP as ordered at [facility]. She could then consider getting a new, better fitting mask as well. She continues to see a counselor. Due to hyperreflexia, I will obtain an MRI of the cervical spine to assess for a structural lesion including degenerative cervical spine disease which may be contributing to the patient's symptoms. 5. She was advised to call the office for any new or worsening symptoms. Follow up 3-4 weeks to review MRI brain documented in this encounterAudrain Medical [id number] Note [id number]24 [facility] SURGERY Clinical Discharge Summary PERSON INFORMATION Name JZAZMINE WANG Age 79 Years 1945 Sex FEMALE Language [place] PCP Prema Clement APRN, JACKIE Marital Status Med Service Ambulatory Surgery Acct# Arrival 09/11/2024 06:59:24 Visit Reason SURGERY - EGD AND COLONOSCOPY - GERD AND SCREENING Acuity LOS 017 22:50 Address: [address] [place] [address] Comment: PROVIDER INFORMATION VITALS INFORMATION Vital Sign Triage Latest Temp Oral Temp Temporal Temp Intravascular Temp Axillary Temp Rectal 02 Sat 98 % 97 % Respiratory Rate Peripheral Pulse Rate Apical Heart Rate Blood Pressure / 65 mmHg / 77 mmHg Comment: MEDICAL INFORMATION Allergy Info: Cipro Prescriptions Given: acyclovir (acyclovir 200 mg oral capsule) 1 cap(s) Oral (given by mouth) 2 times per day. Refills: 3. calcium carbonate (calcium (as carbonate) 600 mg oral tablet) 1 tab(s) Oral (given by mouth) 2 times per day. clonazePAM (clonazePAM 0.5 mg oral tablet) 1 tab(s) Oral (given by mouth) 3 times per day. Refills:0. fexofenadine (Melanie 24 Hour Allergy oral tablet) 1 tab(s) Oral (given by mouth) every day. Refills: 3. Misc Prescription (medical marijuana card) multivitamin (Multiple Vitamins oral tablet) 1 tab(s) Oral (given by mouth) every day. omeprazole (omeprazole 40 mg oral delayed release capsule) 1 cap(s) Oral (given by mouth) every day. Refills: 3. pregabalin (pregabalin 50 mg oral capsule) 1 cap(s) Oral (given by mouth) 2 times per day. simvastatin (simvastatin 10 mg oral tablet) 1 tab(s) Oral (given by mouth) once a day (at bedtime).Refills: 0. venlafaxine (venlafaxine 150 mg oral capsule, extended release) 1 cap(s) Oral (given by mouth) every day. Refills: 0. Medication List: Medications to Continue That Have Not Changed Other Medications acyclovir (acyclovir 200 mg oral capsule) 1 cap(s) Oral (given by mouth) 2 times per day. Refills: 3. calcium carbonate (calcium (as carbonate) 600 mg oral tablet) 1 tab(s) Oral (given by mouth) 2 times per day. clonazePAM (clonazePAM 0.5 mg oral tablet) 1 tab(s) Oral (given by mouth) 3 times per day. Refills:0. fexofenadine (Melanie 24 Hour Allergy oral tablet) 1 tab(s) Oral (given by mouth) every day. Refills: 3. Misc Prescription (medical marijuana card) multivitamin (Multiple Vitamins oral tablet) 1 tab(s) Oral (given by mouth) every day. omeprazole (omeprazole 40 mg oral delayed release capsule) 1 cap(s) Oral (given by mouth) every day. Refills: 3. pregabalin (pregabalin 50 mg oral capsule) 1 cap(s) Oral (given by mouth) 2 times per day. simvastatin (simvastatin 10 mg oral tablet) 1 tab(s) Oral (given by mouth) once a day (at bedtime).Refills: 0. venlafaxine (venlafaxine 150 mg oral capsule, extended release) 1 cap(s) Oral (given by mouth) every day. Refills: 0. Medications to Continue That Have Not Changed Other Medications acyclovir (acyclovir 200 mg oral capsule) 1 cap(s) Oral (given by mouth) 2 times per day. Refills: 3. calcium carbonate (calcium (as carbonate) 600 mg oral tablet) 1 tab(s) Oral (given by mouth) 2 times per day. clonazePAM (clonazePAM 0.5 mg oral tablet) 1 tab(s) Oral (given by mouth) 3 times per day. Refills:0. fexofenadine (Melanie 24 Hour Allergy oral tablet) 1 tab(s) Oral (given by mouth) every day. Refills: 3. Misc Prescription (medical [employer] card) multivitamin (Multiple Vitamins oral tablet) 1 tab(s) Oral (given by mouth) every day. omeprazole (omeprazole 40 mg oral delayed release capsule) 1 cap(s) Oral (given by mouth) every day. Refills: 3. pregabalin (pregabalin 50 mg oral capsule) 1 cap(s) Oral (given by mouth) 2 times per day. simvastatin (simvastatin 10 mg oral tablet) 1 tab(s) Oral (given by mouth) once a day (at bedtime).Refills: 0. venlafaxine (venlafaxine 150 mg oral capsule, extended release) 1 cap(s) Oral (given by mouth) every day. Refills: 0. Medications to Continue That Have Not Changed Other Medications acyclovir (acyclovir 200 mg oral capsule) 1 cap(s) Oral (given by mouth) 2 times per day. Refills: 3. calcium carbonate (calcium (as carbonate) 600 mg oral tablet) 1 tab(s) Oral (given by mouth) 2 times per day. clonazePAM (clonazePAM 0.5 mg oral tablet) 1 tab(s) Oral (given by mouth) 3 times per day. Refills:0. fexofenadine (Melanie 24 Hour Allergy oral tablet) 1 tab(s) Oral (given by mouth) every day. Refills: 3. Misc Prescription (medical marijuana card) multivitamin (Multiple Vitamins oral tablet) 1 tab(s) Oral (given by mouth) every day. omeprazole (omeprazole 40 mg oral delayed release capsule) 1 cap(s) Oral (given by mouth) every day. Refills: 3. pregabalin (pregabalin 50 mg oral capsule) 1 cap(s) Oral (given by mouth) 2 times per day. simvastatin (simvastatin 10 mg oral tablet) 1 tab(s) Oral (given by mouth) once a day (at bedtime).Refills: 0. venlafaxine (venlafaxine 150 mg oral capsule, exten (more content not included)...[id number] Evaluation note* Diagnosis Onset Date Resolution Status Admit Date GERD (gastroesophageal reflux disease) acuteMar2024 3:21pmHyperlipidemiaacuteMarch 2024 3:21pmOveractive bladderacuteMarch 2024 3:21pmRenal cysts, acquired, bilateralacuteMar2024 3:21pmSpinal stenosisacuteMarch 2024 3:21pmChronic painacute Zoie 2024 2:43pmOsteoarthritis of spine with radiculopathy, lumbar region acuteApril 2024 2:43pmSpinal stenosisacuteApril 2024 2:43pmChronic painacuteJune 2024 11:02amOsteoarthritis of spine with radiculopathy, lumbar regionacuteJune 2024 11:02amSacroiliitis, not elsewhere classified acuteJune 2024 11:02am [facility] Work Phone: 1(674) 410-335303-20-2025 Telephone encounter Note* Telephone Encounter - ELEAZAR Hudson - 08/16/2024 12:48 PM EDT She still has a high AHI (respiratory events). It has not showed that a pressure of 10 is not controlling his symptoms. [facility] Work Phone: 1(567) 682-493403-20-2025 Telephone encounter Note* Telephone Encounter - ELEAZAR Hudson - 08/16/2024 12:48 PM EDT ----- Message from Marie sent at 08/15/2024 9:17 AM EDT ----- Compliance download is in the patient's chart for review ----- Message ----- From: Marie Morris MA Sent: 08/14/2024 9:38 AM EDT To: Marie Morris MA [facility] is sending download, waiting results ----- Message ----- From: ELEAZAR Hudson Sent: 08/12/2024 6:33 PM EDT To: Marie Morris MA Could you please request her data download from [facility]? She would like to consider inspire device. Thanks! [place] [id number] Miscellaneous Notes* Telephone Encounter - ELEAZAR Hudson - 08/16/2024 12:48 PM EDT She still has a high AHI (respiratory events). It has not showed that a pressure of 10 is not controlling his symptoms. * Telephone Encounter - ELEAZAR Hudson - 08/16/2024 12:48 PM EDT ----- Message from Marie sent at 08/15/2024 9:17 AM EDT ----- Compliance download is in the patient's chart for review ----- Message ----- From: Marie Morris MA Sent: 08/14/2024 9:38 AM EDT To: Marie Morris MA [facility] is sending download, waiting results ----- Message ----- From: ELEAZAR Hudson Sent: 08/12/2024 6:33 PM EDT To: Marie Morris MA Could you please request her data download from [facility]? She would like to consider Vineloop device. Thanks! documented in this encounterAudrain Medical [id number] Note From: Brenda Mobley MA ([facility] ([facility])) To: Prema Clement CNP; Sent: 07/17/2024 12:51:58 EST Subject: FW: Medication Management Due Date/Time: 07/18/2024 11:12:00 EST Caller Name: JAZZMINE WANG; Caller Number: Myla , OARRS 07-17-24 last filled: 05-10-24 disp: 90 last appointment: 06-19-24 upcoming appointment: 08-22-24 [facility] 08-16-23 From: [facility] [id number] To: Prema Clement CNP Sent: July 17, 2024 10:12:38 AM METEOROLOGIST IN CHARGE Subject: Medication Management Due: July 18, 2024 9:11:05 AM METEOROLOGIST IN CHARGE On Hold Pending Signature Drug: clonazePAM (KlonoPIN 0.5 mg oral tablet), TAKE 1 TABLET BY MOUTH 3 TIMES A DAY Quantity: 90 tab(s) Days Supply: 0 Refills: 0 Substitutions Allowed Notes from Pharmacy: Dispensed Drug: clonazePAM (clonazePAM 0.5 mg oral tablet), TAKE 1 TABLET BY MOUTH 3 TIMES A DAY Quantity: 90 tab(s) Days Supply: 30 Refills: 0 Substitutions Allowed Notes from Pharmacy: From: Prema Clement APRN, CNP To: [facility] [id number] Sent: 07/17/2024 14:31:00 EST Subject: FW: Medication Management Submitted: Order:clonazePAM (clonazePAM 0.5 mg oral tablet) 1 tab(s) Oral TID Qty: 90 tab(s) Days Supply: 30 Refills: 0 Substitutions Allowed Route To Pharmacy [facility] [id number] Signed by Prema Clement APRN, CNP 07/17/2024 14:30:00 EST Submitted: Complete:clonazePAM (KlonoPIN 0.5 mg oral tablet) Signed by Prema Clement APRN, CNP 07/17/2024 14:30:00 EST Not Approved: New Rx to follow clonazePAM (clonazePAM 0.5 MG TABLET) TAKE 1 TABLET BY MOUTH 3 TIMES A DAY Qty: 90 tab(s) Days Supply: 30 Refills: 0 Substitutions Allowed Route To Pharmacy [facility] [id number] State Harding [id number] Note From: Brenda Mobley MA ([facility] ([facility])) To: Prema Clement CNP; Sent: 07/12/2024 11:56:21 EST Subject: FW: Medication Management Due Date/Time: 07/13/2024 11:31:00 EST Caller Name: JAZZMINE WANG; Caller Number: , Chirag last visit: 06-19-24 next visit: 08-22-24 From: [facility] [id number] To: Prema Clement CNP Sent: July 12, 2024 10:31:06 AM METEOROLOGIST IN CHARGE Subject: Medication Management Due: July 13, 2024 12:01:42 AM METEOROLOGIST IN CHARGE On Hold Pending Signature Drug: venlafaxine (Effexor XR 75 mg oral capsule, extended release), TAKE 1 CAPSULE BY MOUTH DAILY Quantity: 30 cap(s) Days Supply: 0 Refills: 0 Substitutions Allowed Notes from Pharmacy: Dispensed Drug: venlafaxine (venlafaxine 75 mg oral capsule, extended release), TAKE 1 CAPSULE BY MOUTH DAILY Quantity: 30 cap(s) Days Supply: 30 Refills: 0 Substitutions Allowed Notes from Pharmacy: From: Prema Clement APRN, CNP To: [facility] [id number] Sent: 07/12/2024 12:43:07 EST Subject: FW: Medication Management Submitted: Complete:venlafaxine (Effexor XR 75 mg oral capsule, extended release) Signed by Prema Clement APRN, CNP 07/12/2024 12:43:00 EST Approved with modifications: venlafaxine (VENLAFAXINE HCL ER 75 MG CAP) TAKE 1 CAPSULE BY MOUTH DAILY Qty: 30 cap(s) Days Supply: 30 Refills: 4 Substitutions Allowed Route To Pharmacy - [facility] [id number] State Harding [id number] History of Present illness Narrative* Bentley Carmona, PhD - 07/09/2024 11:00 AM EST Images from the original note were not included. Neuropsychology Bentley Carmona, PhD NEUROPSYCHOLOGICAL EVALUATION FEEDBACK Results and recommendations discussed. Questions addressed. Thank you for allowing me to participate in the care of this individual. Please contact me with anyquestions at [phone]. documented in this encounterAudrain Medical [id number] History of Present illness Narrative* Bentley Carmona, PhD - 06/28/2024 11:30 AM EST Images from the original note were not included. Neuropsychology Bentley Carmona, PhD NEUROPSYCHOLOGICAL EVALUATION Jazzmine Wang is a 79 y.o. female referred for neuropsychological evaluation to assist with facilitating and informing medical differential diagnosis and clinical decision-making. The following information was obtained during an interview with the patient, as well as review of available records. PRESENTING PROBLEM: Poor baseline memory that she has struggled with for several years. Reported that her daughter from a rare neurological disorder in November 2019 which has been contributing to her struggles.Described memory concerns as general mild daily episodes of forgetfulness such as forgetting to bring her phone to work and forgetting why she has entered a room. This information typically comes to her with cues or reminders. Also reported feeling like she has always struggled with ADHD due to poor attention/concentration, difficulty completing things, jumping between tasks, distractibility, losing track of thought, as well as poor planning, organization, and time management. Physically, experiencing bilateral hand tremor (left greater than right) as well as high startle response. Additionally reported experiencing a great deal of stress. Otherwise, remains independent in ADLs, household responsibilities, finances, medication, and driving. Physically active during the warmer months although minimally active during the winter. Remains social and occasionally attends mosque. Diagnosed with moderate AYDEE but unable to tolerate CPAP. Pain complaints include fibromyalgia and associated brain fog, as well as hip and lower back pain. Denied any prior neurological history. Family neurological history includes dementia (maternal grandmother and brother). Psychiatric history includes depression, anxiety, several life stressors, as well as persisting grief associated with the passing of her child. Denied any history of alcohol/substance abuse or smoking. Has her medical cannabis card for anxiety and fibromyalgia. Typically vapes or occasionally uses an editable in the [employer] ngs to control symptoms. [place]. Completed a bachelor's degree. 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 [employer]. Lives alone. Has 3 children, unfortunately one of whom has . This child had previously been residing with patient and in the home which was very difficult for patient. MEDICAL HISTORY/MEDICATION: MEDICATIONS: Current Outpatient Medications Medication Instructions Acetaminophen (TYLENOL PO) Tylenol acyclovir (Zovirax) 200 MG capsule 1 cap(s), PO, BID, # 180 cap(s), 3 Refill(s), Pharmacy: [facility] [id number], 1 cap(s) PO BID Calcium Carbonate-Vit D-Min (CALTRATE PLUS PO) Take by mouth Cannabinoids (medical cannabis) Medical Marijuana Effexor XR 75 mg Estrace 0.1 MG/GM vaginal cream See Instructions, 42.5 gm, Refill(s) 2, Apply pea sized amount to external urethra/vaginal area 3x a week for 1 month, then 2x a week afterwards, [facility] [id number], 165, cm, 09/01/23 10:37:00 EDT, Height/Length Dosing, 70.5, kg, 09/01/23 10:37:00 EDT, Weight Dosing fexofenadine (Melanie Allergy) 180 MG tablet KlonoPIN 0.5 mg Magnesium 125 MG capsule Omeprazole 20 MG Tablet Delayed Release Dispersible sucralfate (CARAFATE) 1 g Zinc Sulfate (ZINC 15 PO) ASSESSMENT: Presented to appointment on time, alert, and Ox3. Rapport easily established. Good eye contact. Socially appropriate during conversation and testing. Hearing adequate for current purposes. Ambulated independently. Purpose for current evaluation explained and patient agreed to participate. Overall appeared to put forth good effort. Vision/Visuoconstruction: Binocular near-point visual acuity 20/20. Visual galicia full to confrontation. Visuoconstruction 24th %ile. Nonverbal abstract reasoning 54th %ile. Copy of a complex geometric design >16th %ile. Motor/Speed of Processing: Right-handed. Make Up Girl strength 21st %ile with right- hand, 27th %ile with left. Speeded graphomotor transcoding 62nd %ile. Attention/Working Memory: Auditory attention/working memory 5th %ile (5 digits forward, 3 digits backward, 4 digits during sequencing). Speeded visual scanning/attention 31st %ile. Speeded visual divided attention 14th %ile. Speech/Language: Expressive speech fluent and absent of paraphasic errors. Comprehension adequate for current purposes. Single-word reading 63rd %ile. Generative naming to phonemic and semantic cues 54th %ile. Confrontation naming 31st %ile. Verbal abstract reasoning 58th %ile. Learning and Memory: Learning of a word list 8th %ile (5-5-6-6-7), delayed recall 2nd %ile. Recognition discriminability 16th %ile. Forced-choice 16/16. Immediate recall for prose passages 12th %ile,delayed 14th %ile. Recognition 26- 50th %ile. Immediate recall for a variety of geometric figures 24th %ile, delayed 1st %ile. Recognition 26-50th %ile. Executive Functioning: Novel problem-solving and cognitive flexibility 11-16th %ile, 1/6 categoriescompleted in 64 sorts. Responding absent of significant perseveration. Mild difficulty with task conceptualization. Emotional Functioning: Moderate depression and anxiety. Reported occasional thoughts of self-harm she would not act on. Verbally contracted for safety. Endorsed elevated ADHD symptom report. FINDINGS AND RECOMMENDATIONS: CONCLUSIONS: 1. Estimated average pre-morbid intellectual functioning. 2. Preserved visual acuity without signs of visual field cut or neglect. 3. Preserved bilateral gross motor function. 4. Moderate depression and anxiety. 5. Elevated ADHD symptom report. OPINION: Current neuropsychological evaluation demonstrates struggles with attention/concentration as well as variable memory performance. Overall, I am not convinced of a neurodegenerative conditionor other organic etiology. Findings and history are most consistent with ADHD, inattentive type, exa cerbated by moderate depression and anxiety, stress, chronic pain, and untreated AYDEE. Although, MCIis a diagnostic consideration, recommend targeting the above factors as primary treatment focus. RECOMMENDATIONS: Results and recommendations forwarded to treating physician for review during their upcoming appointment. Patient encouraged to contact this office with any additional questions. No activity restriction from a cognitive standpoint. More aggressive management of the depression and anxiety. Recommend combination of psychopharmacologic and psychotherapeutic intervention for optimal prognosis. Treating physician may wish to initiate psychostimulant vs. nonpsychostimulant trial for improved attention/concentration and cognitive efficiency. Nonmedication routes of treatment may include functional nutrition management through [facility] or individual psychotherapy to develop behavioral strategies. Improved sleep quality. Recommend consulting with sleep physician to discuss alternative AYDEE treatment options. Behavioral strategies for improved attention and memory: Regularly and frequently review information that must be remembered. Link new information in as many ways as possible to already known information. This strategy creates several avenues for remembering the information later. Utilize external memory sources such as lists, date books, calendars, and pocket-size recorders forinformation that must be remembered. A cellphone is a useful tool in consolidating all this information into one source. Active listening, such as repeating and summarizing information back to presenter when learning important information for future recall may be beneficial as opposed to simply passive listening. Establish a consistent structured routine. Regular physical activity for stress relief, improved cognitive efficiency, and better sleep. Consider neuropsychological re-evaluation if the above memory concerns persist with with improved management of the mentioned factors in order to formally rule out MCI. Thank you for allowing me to participate in the care of this individual. Please contact me with anyBypass Mobileions at [phone]. documented in this [facility]01-29-2025 Evaluation note* Diagnosis Onset Date Resolution Status Admit Date Chronic pain acuteJanuary 2024 10:53amOsteoarthritis of spine with radiculopathy, lumbar regionacuteJanuary 2024 10:53amSpinal stenosisacuteJanuary 2024 10:53amGERD (gastroesophageal reflux disease)acuteFebruary 2024 2:35pm HyperlipidemiaacuteFebruary 2024 2:35pmOveractive bladderacuteFebruary 2024 2:35pmRenal cysts, acquired, bilateralacuteFebruary 2024 2:35pmSpinal stenosisacuteFebruary 2024 2:35pmGERD (gastroesophageal reflux disease) acuteMarch 2024 3:21pmHyperlipidemiaacuteMarch 2024 3:21pmOveractive bladderacuteMarch 2024 3:21pmRenal cysts, acquired, bilateralacuteMarch 2024 3:21pmSpinal stenosisacuteMarch 2024 3:21pm [facility] Work Phone: 1(346) 772-801901-29-2025 Evaluation note* Diagnosis Onset Date Resolution Status Admit Date Chronic pain acuteJanuary 2024 10:53amOsteoarthritis of spine with radiculopathy, lumbar regionacuteJanuary 2024 10:53amSpinal stenosisacuteJanuary 2024 10:53amGERD (gastroesophageal reflux disease)acuteFebruary 2024 2:35pm HyperlipidemiaacuteFebruary 2024 2:35pmOveractive bladderacuteFebruary 2024 2:35pmRenal cysts, acquired, bilateralacuteFebruary 2024 2:35pmSpinal stenosisacuteFebruary 2024 2:35pmGERD (gastroesophageal reflux disease) acuteMarch 2024 3:21pmHyperlipidemiaacuteMarch 2024 3:21pmOveractive bladderacuteMarch 2024 3:21pmRenal cysts, acquired, bilateralacuteMarch 2024 3:21pmSpinal stenosisacuteMarch 2024 3:21pmChronic painacute Zoie 2024 2:43pmOsteoarthritis of spine with radiculopathy, lumbar region acuteApril 2024 2:43pmSpinal stenosisacuteApril 2024 2:43pm [facility] Work Phone: 1(334) 615-235701-21-2025 Telephone encounter Note* Telephone Encounter - Mary Escobar - 06/19/2024 3:05 PM EST Patient called in to ask if Dr. Carmona tests for ADD in adults. I went back and read the OV notefrom the assessment and was able to get her on the schedule for neuropsych testing. Patient to hermann bit apprehensive to complete the testing and to come back in to the office in general. She statesthat her memory is getting worse and that most providers are blaming it on her grief. I wanted to make you aware of the fact that it is getting worse and that she has canceled her appts several times. [facility] [id number] Miscellaneous Notes* Telephone Encounter - Mary Escobar - 06/19/2024 3:05 PM EST Patient called in to ask if Dr. Carmona tests for ADD in adults. I went back and read the OV notefrom the assessment and was able to get her on the schedule for neuropsych testing. Patient to hermann bit apprehensive to complete the testing and to come back in to the office in general. She statesthat her memory is getting worse and that most providers are blaming it on her grief. I wanted to make you aware of the fact that it is getting worse and that she has canceled her appts several times. documented in this [facility]01-15-2025 Telephone encounter Note* Telephone Encounter - Shirleymargie Owen - 06/13/2024 8:59 AM EST [facility] 06/05/24 lumbar ddd Being referred to pain mgmt Called stating Dr Brown does not take her paramount [employer] medicare adv insurance and needs referral sent elsewhere? [facility] [id number] Miscellaneous Notes* Telephone Encounter - Shirley Owen - 06/13/2024 8:59 AM EST [facility] 06/05/24 lumbar ddd Being referred to pain mgmt Called stating Dr Brown does not take her paramount [employer] medicare adv insurance and needs referral sent elsewhere? documented in this encounterAudrain Medical [id number] History of Present illness Narrative* ELEAZAR Olsen - 06/05/2024 8:45 AM EST Images from the original note were not included. Subjective Patient ID: Jazzmine Wnag is a 79 y.o. female. Chief Complaint: Follow-up of the Lower Back (MRI [facility] 05/07/24) Last Surgery: No surgery found Last Surgery Date: No surgery found HPI She will comes in review MRI she is still having daily troubles with her lower back and lower leg paresthesia and associated symptoms of spinal stenosis. Objective Ortho Exam Patient still has a lot of lower lumbar sacral soreness lower paraspinal spasm. She does have positive straight leg raise on the left greater than right today associated with increased paresthesias to her feet and 1st few toes. She has not have any extension weakness of the great toe of either foot. No evidence of footdrop deep tendon reflexes Achilles and patellar are 2/4 bilateral Image Results: MR lumbar spine wo contrast Narrative: EXAM: MR LUMBAR SPINE WO CONTRAST History: Lumbosacral degenerative disc disease. Low back pain. Technique: Multiplanar multisequence MRI of the lumbar spine was obtained without intravenous contrast. Comparison: Lumbar spine radiographs March 27, 2024 Findings: The conus medullaris ends normally. Minimal S-shaped scoliotic curvature. The vertebral body heights are well maintained. There is no aggressive bone marrow signal abnormality. Disc desiccation and mild intervertebral disc height loss throughout the lumbar spine. Multilevel Schmorl's nodes. Multilevel degenerative endplate spurring. Small disc bulge. No neural foraminal or spinal canal stenosis. L1-L2: Moderate disc bulge. L2-L3: Ligamentum flavum thickening. Mild spinal canal stenosis. No neural foraminal stenosis. L3-L4: Moderate disc bulge. Ligamentum flavum thickening. Mild spinal canal stenosis. Moderate bilateral neural foraminal stenosis. L4-L5: Moderate disc bulge. Ligamentum flavum thickening. Moderate spinal canal stenosis. Moderate bilateral neural foraminal stenosis. L5-S1: Small disc bulge. Mild facet arthropathy. Ligamentum flavum thickening. Moderate to severe bilateral neural foraminal stenosis. Mild spinal canal stenosis. Visualized paravertebral soft tissues appear within normal limits. Round hyperintense T2 structuresof both kidneys measuring up to approximately 8 cm are most likely cysts. Impression: Degenerative changes of the lumbar spine as detailed. ELECTRONICALLY SIGNED BY: Antelmo Christianson DO Assessment/Plan Encounter Diagnoses: Lumbosacral radiculopathy due to degenerative joint disease of spine Spinal stenosis of lumbar region with neurogenic claudication No orders of the defined types were placed in this encounter. Follow up if symptoms worsen or fail to improve. We will refer to Dr. Michel Brown for evaluation and consideration of pain management options. If necessary he will refer to surgical consult in the future. Otherwise would follow up in this office for any other orthopedic concerns other than spine. Continue home exercise flexibility and stretching of low back and hamstring and use of cold pack to help reduce swelling and inflammation of the lowerback and sacrum. Follow-up with either Dr. Ramos urology or primary care regarding findings of renal cysts noted on MRI. Also continue treatment regimen provided by primary care following her bone density testing. Would recommend getting this repeated every 2 years on the same machine for consistent readings. documented in this [facility]01-07-2025 Instructions* Patient Instructions* ELEAZAR Olsen - 06/05/2024 8:45 AM EST We will refer to Dr. Michel Brown for evaluation and consideration of pain management options. If necessary he will refer to surgical consult in the future. Otherwise would follow up in this office for any other orthopedic concerns other than spine. Continue home exercise flexibility and stretching of low back and hamstring and use of cold pack to help reduce swelling and inflammation of the lowerback and sacrum. documented in this [facility]12-12-2024 Telephone encounter Note* Telephone Encounter - Shirley Owen - 05/10/2024 2:24 PM EST LMOVM TO SCHEDULE 05/07/24 MRI & 05/02/24 DEXA FOLLOW UP APPT W/TDH Lumbosacral DDD, Sciatica [facility] [id number] Miscellaneous Notes* Telephone Encounter - Shirley Owen - 05/10/2024 2:24 PM EST LMOVM TO SCHEDULE 05/07/24 MRI & 05/02/24 DEXA FOLLOW UP APPT W/TDH Lumbosacral DDD, Sciatica documented in this [facility]12-09-2024 History of Present illness Narrative* Bentley Carmona, PhD - 05/07/2024 9:30 AM EST Images from the original note were not included. Bentley Carmona, PhD NEUROBEHAVIORAL STATUS EXAMINATION Jazzmine Wang is a 79 y.o. female referred for neuropsychological evaluation to assist with facilitating and informing medical differential diagnosis and clinical decision-making. The following information was obtained during an interview with the patient, as well as review of available records. PRESENTING PROBLEM AND HISTORY Poor baseline memory that she has struggled with for several years. Reported that her daughter from a rear neurological disorder in November 2019 which has been contributing to her struggles.Describe memory concerns as general mild daily episodes of forgetfulness such as forgetting to bring her phone to work and forgetting why she has entered a room. This information typically comes to her with cues or reminders. Also reported feeling like she has always struggled with ADHD due to poorattention/concentration, difficulty completing things, jumping between tasks, distractibility, losing track of thought, as well as poor planning, organization, and time management. Physically, experiencing bilateral hand tremor (left greater than right) as well as high startle response. Additionally reported experiencing a great deal of stress. Otherwise, remains independent in ADLs, household responsibilities, audiences, medication, and driving. Physically active during the warmer months although minimally active during the winter. Remains social and occasionally attends mosque. Diagnosed with moderate AYDEE but unable to tolerate CPAP. Pain complaints include fibromyalgia and associated brain fog, as well as hip and lower back pain. Denied any prior neurological history. Family neurological history includes dementia (maternal grandmother and brother). Psychiatric history includes depression, anxiety, several life stressors, as well as persisting grief associated with the passing of her child. Denied any history of alcohol/substance abuse or smoking. As her medical cannabis card for anxiety and fibromyalgia. Typically vape's or occasionally uses in editable in the evenings to control symptoms. [place]. Completed a bachelor's degree. 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 [employer]. Lives alone. Has 3 children, unfortunately one of whom has . This child had previously been residing with patient and in the home which was very difficult for patient. MEDICAL HISTORY/MEDICATION: Past Medical History: Diagnosis Date Actinic keratosis Anxiety Arthritis Bunion Bursitis of shoulder Cervical disc disorder Depression (CMS/HCC) GERD (gastroesophageal reflux disease) Hyperlipemia (CMS/[facility]) MEDICATIONS: Current Outpatient Medications Medication Instructions Acetaminophen (TYLENOL PO) Tylenol acyclovir (Zovirax) 200 MG capsule 1 cap(s), PO, BID, # 180 cap(s), 3 Refill(s), Pharmacy: [facility] [id number], 1 cap(s) PO BID Cannabinoids (medical cannabis) Medical Marijuana citalopram (CeleXA) 40 MG tablet Every 24 hours Estrace 0.1 MG/GM vaginal cream See Instructions, 42.5 gm, Refill(s) 2, Apply pea sized amount to external urethra/vaginal area 3x a week for 1 month, then 2x a week afterwards, [facility] [id number], 165, cm, 09/01/23 10:37:00 EDT, Height/Length Dosing, 70.5, kg, 09/01/23 10:37:00 EDT, Weight Dosing fexofenadine (Melanie Allergy) 180 MG tablet KlonoPIN 0.5 mg Magnesium 125 MG capsule Omeprazole 20 MG Tablet Delayed Release Dispersible sucralfate (CARAFATE) 1 g Zinc Sulfate (ZINC 15 PO) INITIAL IMPRESSION AND PLAN: Memory loss, concentration deficit, bereavement, depression, anxiety, stress, fibromyalgia, and AYDEE: The patient will be scheduled for neuropsychological assessment, which will include tests for memory, reasoning, language, problem-solving, attention, and mood. Thank you for allowing me to participate in the care of this individual. Please contact me with [employer] at [phone]. documented in this encounterAudrain Medical [id number] History of Present illness Narrative* ELEAZAR Mckeon - 04/23/2024 1:00 PM EST Subjective Jazzmine Wang is a 79 y.o. year old female Chief Complaint Patient presents with Tremors Past Medical History: Diagnosis Date Actinic keratosis Anxiety Arthritis Bunion Bursitis of shoulder Cervical disc disorder Depression (CMS/HCC) GERD (gastroesophageal reflux disease) Hyperlipemia (CMS/HCC) No past surgical history on file. Family History Problem Relation Name Age of Onset Stroke Mother Cancer Father Christian Wang Heart disease Father Christian Lopezbenignodilan Alcohol abuse Father Christian Prajapatidilan Alzheimer's disease Brother Melanoma Neg Hx Social History Tobacco Use Smoking status: Never Smokeless tobacco: Never Substance Use Topics Alcohol use: Yes Comment: Very occasionally ie holidays Medication Documentation Review Audit Reviewed by Brittany Mejia MA (Arboriculturist) on 04/23/24 at 1318 Medication Order Taking? Sig Documenting Provider Last Dose Status Acetaminophen (TYLENOL PO) [id number] Tylenol Historical Provider, Active acyclovir (Zovirax) 200 MG capsule [id number] 1 cap(s), PO, BID, # 180 cap(s), 3 Refill(s), Pharmacy:[facility] [id number], 1 cap(s) PO BID Historical Provider, Active Cannabinoids (medical cannabis) [id number] Medical Marijuana Historical Provider, Active citalopram (CeleXA) 40 MG tablet [id number] 1 (one) time each day at the same time. Historical Provider, Active Estrace 0.1 MG/GM vaginal cream [id number] See Instructions, 42.5 gm, Refill(s) 2, Apply pea sized amount to external urethra/vaginal area 3x a week for 1 month, then 2x a week afterwards, [facility] [id number], 165, cm, 09/01/23 10:37:00 EDT, Height/Length Dosing, 70.5, kg, 09/01/23 10:37:00 EDT,Weight Dosing [place] Active fexofenadine (Melanie Allergy) 180 MG tablet [id number] [place] Active KlonoPIN 0.5 MG tablet [id number] 0.5 mg Historical Provider, Active Magnesium 125 MG capsule [id number] [place] Active Omeprazole 20 MG Tablet Delayed Release Dispersible [id number] [place] Active Discontinued 04/17/24 0811 sucralfate (Carafate) 1 g tablet [id number] 1 g. Historical Provider, Active Zinc Sulfate (ZINC 15 PO) [id number] [place] Active HPI HPI TREMOR -located in hands -left hand worse than right -notices more with action -denies any trouble with eating or drinking -reports writing is a little shaky -denies any hand weakness due to the tremor -admits to dropping things on occasion PARETHESIA -located in JAVON toes -radiates half way up foot -reports low back pain -balance is ok -denies any recent falls -she is following with orthopedic surgery -MRI scheduled 05/07 HYPERSOMNIA -random jerking of whole body that interrupts her sleep -HST to review ROS Review of Systems Constitutional: Negative for activity change and fatigue. HENT: Negative for trouble swallowing and voice change. Eyes: Negative for photophobia and visual disturbance. Cardiovascular: Negative for chest pain, palpitations and leg swelling. Gastrointestinal: Negative for nausea and vomiting. Skin: Negative for color change and rash. Neurological: Positive for tremors and numbness. Negative for dizziness and headaches. Psychiatric/Behavioral: Positive for confusion. Negative for agitation. Endocrine: Negative for cold intolerance and heat intolerance. Objective Visit Vitals BP 102/70 Pulse 63 Resp 16 Ht 5' 4 Wt 149 lb SpO2 92% BMI 25.58 kg/m Smoking Status Never BSA 1.75 m Neurological Exam Mental Status Awake, alert and oriented to person, place and time. Speech is normal. Language is fluent with no aphasia. Cranial Nerves CN II: Visual acuity is normal. Visual galicia full to confrontation. CN III, IV, : Extraocular movements intact bilaterally. Normal lids and orbits bilaterally. Pupils equal round and reactive to light bilaterally. CN V: Facial sensation is normal. CN VII: Full and symmetric facial movement. CN VIII: Hearing is normal. CN XI: Shoulder shrug strength is normal. Coordination Bvmojp-gl-tmac, rapid alternating movements and geoj-lb-dtpl normal bilaterally without dysmetria. Intention tremor No cogwheel rigidity on exam. Gait Normal casual, toe, heel and tandem gait. 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 RLE Strength illopsoas, quadriceps, tibialis anterior, and gastrocnemius strength 5/5. LLE Strength illopsoas, quadriceps, tibialis anterior, and gastrocnemius strength 5/5. Tone Normal tone x4 extremities. Reflexes: RUE biceps reflex 2, brachioradialis reflex 2 LUE biceps reflex 2, brachioradialis reflex 2 RLE knee reflex 2, ankle reflex 2 LLE knee reflex 2, ankle reflex 2 Assessment and Plan Diagnoses and all orders for this visit: Tremor Jerking movements of extremities The patient is a 79 year old female who presented initially with an action tremor in the hands withintermittent extremity jerking that have been occurring for the past 2-3 years. Possible etiologiesinclude benign essential tremor, extraprymidal symptoms secondary to medications, or a neurodegenerative process such as Parkinson's disease. An additional consideration would be tremor secondary to a metabolic process or a psychogenic tremor from stress. She would like to hold off on medication for tremor for now. Memory loss Hypersomnia She does have signs and symptoms of a sleep disorder and was diagnosed with AYDEE in the past but could not tolerate mask. She complains of cognitive changes but has been going through a stressful time, along with untreated AYDEE that is likely contributing. HST preliminary report revealed AHI 19 and findings suggestive of moderate sleep disordered breathing with consideration for CPAP/AutoPAP. Paresthesia of both feet She has EMG of the BLE in the past that was normal. HST 04/10/2024: pending PLAN I reviewed preliminary sleep study report and consider CPAP titration pending review of final sleepstudy result I will obtain an EEG to assess for seizure or epileptiform activity which may explain the patient episodes and symptoms. Neuropsychological testing to further evaluate and help characterize cognitive impairment I will consider a repeat EMG of the BLE We will hold off on medications for tremors at this time I will see the patient back in 2-3 months to review the diagnostic testing and make further recommendations based upon the above results and the patient's response to this therapeutic plan. I will see the patient sooner should he develop new symptoms, worsening symptoms, or side effects from medications. documented in this encounterAudrain Medical [id number] Hospital Discharge instructions Patient Education 04/18/2024 11:54:51 Overactive Bladder, Adult Overactive Bladder, Adult Overactive bladder is a condition in which a person has a sudden and frequent need to urinate. A person might also leak urine if he or she cannot get to the bathroom fast enough (urinary incontinence). Sometimes, symptoms can interfere with work or social activities. What are the causes? Overactive bladder is associated with poor nerve signals between your bladder and your brain. Your bladder may get the signal to empty before it is full. You may also have very sensitive muscles thatmake your bladder squeeze too soon. This condition may also be caused by other factors, such as: Medical conditions: ?Urinary tract infection. ?Infection of nearby tissues. ?Prostate enlargement. ?Bladder stones, inflammation, or tumors. ?Diabetes. ?Muscle or nerve weakness, especially from these conditions: ?A spinal cord injury. ?Stroke. ?Multiple sclerosis. ?Parkinson's disease. Other causes: ?Surgery on the uterus or urethra. ?Drinking too much caffeine or alcohol. ?Certain medicines, especially those that eliminate extra fluid in the body (diuretics). ?Constipation. What increases the risk? You may be at greater risk for overactive bladder if you: Are an older adult. Smoke. Are going through menopause. Have prostate problems. Have a neurological disease, such as stroke, dementia, Parkinson's disease, or multiple sclerosis (MS). Eat or drink alcohol, spicy food, caffeine, and other things that irritate the bladder. Are overweight or obese. What are the signs or symptoms? Symptoms of this condition include a sudden, strong urge to urinate. Other symptoms include: Leaking urine. Urinating 8 or more times a day. Waking up to urinate 2 or more times overnight. How is this diagnosed? This condition may be diagnosed based on: Your symptoms and medical history. A physical exam. Blood or urine tests to check for possible causes, such as infection. You may also need to see a health care provider who specializes in urinary tract problems. This is called a urologist. How is this treated? Treatment for overactive bladder depends on the cause of your condition and whether it is mild or severe. Treatment may include: Bladder training, such as: ?Learning to control the urge to urinate by following a schedule to urinate at regular intervals. ?Doing Kegel exercises to strengthen the pelvic floor muscles that support your bladder. Special devices, such as: ?Biofeedback. This uses sensors to help you become aware of your body's signals. ?Electrical stimulation. This uses electrodes placed inside the body (implanted) or outside the body. These electrodes send gentle pulses of electricity to strengthen the nerves or muscles that control the bladder. ?Women may use a plastic device, called a pessary, that fits into the vagina and supports the bladder. Medicines, such as: ?Antibiotics to treat bladder infection. ?Antispasmodics to stop the bladder from releasing urine at the wrong time. ?Tricyclic antidepressants to relax bladder muscles. ?Injections of botulinum toxin type A directly into the bladder tissue to relax bladder muscles. Surgery, such as: ?A device may be implanted to help manage the nerve signals that control urination. ?An electrode may be implanted to stimulate electrical signals in the bladder. ?A procedure may be done to change the shape of the bladder. This is done only in very severe cases. Follow these instructions at home: Eating and drinking Make diet or lifestyle changes recommended by your health care provider. These may include: ?Drinking fluids throughout the day and not only with meals. ?Cutting down on caffeine or alcohol. ?Eating a healthy and balanced diet to prevent constipation. This may include: ?Choosing foods that are high in fiber, such as beans, whole grains, and fresh fruits and vegetables. ?Limiting foods that are high in fat and processed sugars, such as fried and sweet foods. Lifestyle Lose weight if needed. Do not use any products that contain nicotine or tobacco. These include cigarettes, chewing tobacco, and vaping devices, such as e-cigarettes. If you need help quitting, ask your health care provider. General instructions Take gmfr-kad-dkximjs and prescription medicines only as told by your health care provider. If you were prescribed an antibiotic medicine, take it as told by your health care provider. Do notstop taking the antibiotic even if you start to feel better. Use any implants or pessary as told by your health care provider. If needed, wear pads to absorb urine leakage. Keep a log to track how much and when you drink, and when you need to urinate. This will help your health care provider monitor your condition. Keep all follow-up visits. This is important. Contact a health care provider if: You have a fever or chills. Your symptoms do not get better with treatment. Your pain and discomfort get worse. You have more frequent urges to urinate. Get help right away if: You are not able to control your bladder. Summary Overactive bladder refers to a condition in which a person has a sudden and frequent need to urinate. Several conditions may lead to an overactive bladder. Treatment for overactive bladder depends on the cause and severity of your condition. Making lifestyle changes, doing Kegel exercises, keeping a log, and taking medicines can help with this condition. This information is not intended to replace advice given to you by your health care provider. Make sure you discuss any questions you have with your health care provider. Document Revised: 02/02/2021 Document Reviewed: 02/02/2021 [employer] Patient Education 2023 [employer] Follow Up Care 03/19/2024 10:17:05 With:CHRIS COUGHLIN, ERIKA Trammell, URL Address: [address] [place] [address] Business (1) When:6 months [facility] [place] 11-20-2024 NotePatient Education Obstetrics and Gynecology Overactive Bladder, Adult Overactive bladder is a condition in which a person has a sudden and frequent need to urinate. A person might also leak urine if he or she cannot get to the bathroom fast enough (urinary incontinence). Sometimes, symptoms can interfere with work or social activities. What are the causes? Overactive bladder is associated with poor nerve signals between your bladder and your brain. Your bladder may get the signal to empty before it is full. You may also have very sensitive muscles thatmake your bladder squeeze too soon. This condition may also be caused by other factors, such as: ??? Medical conditions: ? Urinary tract infection. ? Infection of nearby tissues. ? Prostate enlargement. ? Bladder stones, inflammation, or tumors. ? Diabetes. ? Muscle or nerve weakness, especially from these conditions: ? A spinal cord injury. ? Stroke. ? Multiple sclerosis. ? Parkinson's disease. ??? Other causes: ? Surgery on the uterus or urethra. ? Drinking too much caffeine or alcohol. ? Certain medicines, especially those that eliminate extra fluid in the body (diuretics). ? Constipation. What increases the risk? You may be at greater risk for overactive bladder if you: ??? Are an older adult. ??? Smoke. ??? Are going through menopause. ??? Have prostate problems. ??? Have a neurological disease, such as stroke, dementia, Parkinson's disease, or multiple sclerosis (MS). ??? Eat or drink alcohol, spicy food, caffeine, and other things that irritate the bladder. ??? Are overweight or obese. What are the signs or symptoms? Symptoms of this condition include a sudden, strong urge to urinate. Other symptoms include: ??? Leaking urine. ??? Urinating 8 or more times a day. ??? Waking up to urinate 2 or more times overnight. How is this diagnosed? This condition may be diagnosed based on: ??? Your symptoms and medical history. ??? A physical exam. ??? Blood or urine tests to check for possible causes, such as infection. You may also need to see a health care provider who specializes in urinary tract problems. This is called a urologist. How is this treated? Treatment for overactive bladder depends on the cause of your condition and whether it is mild or severe. Treatment may include: ??? Bladder training, such as: ? Learning to control the urge to urinate by following a schedule to urinate at regular intervals. ? Doing Kegel exercises to strengthen the pelvic floor muscles that support your bladder. ??? Special devices, such as: ? Biofeedback. This uses sensors to help you become aware of your body's signals. ? Electrical stimulation. This uses electrodes placed inside the body (implanted) or outside the body. These electrodes send gentle pulses of electricity to strengthen the nerves or muscles that control the bladder. ? Women may use a plastic device, called a pessary, that fits into the vagina and supports the bladder. ??? Medicines, such as: ? Antibiotics to treat bladder infection. ? Antispasmodics to stop the bladder from releasing urine at the wrong time. ? Tricyclic antidepressants to relax bladder muscles. ? Injections of botulinum toxin type A directly into the bladder tissue to relax bladder muscles. ??? Surgery, such as: ? A device may be implanted to help manage the nerve signals that control urination. ? An electrode may be implanted to stimulate electrical signals in the bladder. ? A procedure may be done to change the shape of the bladder. This is done only in very severe cases. Follow these instructions at home: Eating and drinking ??? Make diet or lifestyle changes recommended by your health care provider. These may include: ? Drinking fluids throughout the day and not only with meals. ? Cutting down on caffeine or alcohol. ? Eating a healthy and balanced diet to prevent constipation. This may include: ? Choosing foods that are high in fiber, such as beans, whole grains, and fresh fruits and vegetables. ? Limiting foods that are high in fat and processed sugars, such as fried and sweet foods. Lifestyle ??? Lose weight if needed. ??? Do not use any products that contain nicotine or tobacco. These include cigarettes, chewing tobacco, and vaping devices, such as e-cigarettes. If you need help quitting, ask your health care provider. General instructions ??? Take cbop-ytk-uzejvbs and prescription medicines only as told by your health care provider. ??? If you were prescribed an antibiotic medicine, take it as told by your health care provider. Donot stop taking the antibiotic even if you start to feel better. ??? Use any implants or pessary as told by your health care provider. ??? If needed, wear pads to absorb urine leakage. ??? Keep a log to track how much and when you drink, and whe (more content not included)...[facility]11-19-2024 History of Present illness Narrative* ELEAZAR Olsen - 04/17/2024 8:00 AM EST Images from the original note were not included. Subjective Patient ID: Jazzmine Wang is a 79 y.o. female. Chief Complaint: Pain of the Lower Back Last Surgery: No surgery found Last Surgery Date: No surgery found HPI She will comes in today she is doing quite a bit better due to her decreased activity level and resting. She is still having a lot of symptoms worse at nighttime with sharp shooting pains seems sporadic which stem from the lower back. She has paresthesias to both feet and is describing some fatiguewith ambulating which can be a result of spinal stenosis. Objective Ortho Exam Patient still has a lot of lower lumbar sacral soreness lower paraspinal spasm. She does have positive straight leg raise on the left greater than right today associated with increased paresthesias to her feet and 1st few toes. She has not have any extension weakness of the great toe of either foot. No evidence of footdrop deep tendon reflexes Achilles and patellar are 2/4 bilateral Image Results: XR hips bilateral 2 views Imaging Result: AP pelvis and bilateral frog views of the hips taken in the office today demonstrate no significant osteoarthritis of the femoral head and acetabulum. No evidence of bony tumor acute fracture seen. XR lumbar spine 2 or 3 views Imaging Result: AP and lateral of the lumbar spine taken in the office today demonstrating significant degenerative disc disease multiple levels including facet hypertrophy in the lower lumbosacral region. May be evident for neural foraminal stenosis. No evidence of bony tumor acute fracture seen. No spondylolisthesis, she does have some sclerotic changes of her aorta with no evidence of enlargement. Assessment/Plan Encounter Diagnoses: Lumbosacral radiculopathy due to degenerative joint disease of spine Numbness and tingling of both feet No orders of the defined types were placed in this encounter. Follow up in about 3 weeks (around 05/08/2024) for MRI results, symptom check. Continue light flexibility and stretching and use of cold pack to her lower back and gluteal region. 20 minutes several times a day continue Tylenol for discomfort may consider glucosamine chondroitin with turmeric as this is a safe her option than use of flmv-srl-bsmoafu anti-inflammatory medication such as ibuprofen. We will pursue MRI of the lumbar spine assessing for lumbar stenosis and nerveroot impingement of the lower lumbar sacral region. We will follow up with the results and determine treatment options possible referral to pain management we will also order bone density to be done through [facility] for comparison of previous studies and follow up with her primary care for evaluatio n and treatment of any osteoporosis or osteopenia. Would suggest taking efrr-bwv-qqlebzc recommended dosing of calcium and vitamin-D which would be recommended by pharmacist, particularly since she were lactose intolerant. documented in this encounterAudrain Medical [id number] Instructions* Patient Instructions* ELEAZAR Olsen - 04/17/2024 8:00 AM EST Continue light flexibility and stretching and use of cold pack to her lower back and gluteal region. 20 minutes several times a day continue Tylenol for discomfort may consider glucosamine chondroitin with turmeric as this is a safe her option than use of sukh-win-dyscczq anti-inflammatory medication such as ibuprofen. We will pursue MRI of the lumbar spine assessing for lumbar stenosis and nerveroot impingement of the lower lumbar sacral region. We will follow up with the results and determine treatment options possible referral to pain management we will also order bone density to be done through [facility] for comparison of previous studies and follow up with her primary care for evaluatio n and treatment of any osteoporosis or osteopenia. Would suggest taking gthd-rvv-mkyjzte recommended dosing of calcium and vitamin-D which would be recommended by pharmacist, particularly since she were lactose intolerant. documented in this encounterAudrain Medical [id number] History of Present illness Narrative* Marti Munguia - 04/10/2024 3:45 PM EST Reason for Appointment: HST Patient: Jazzmine Wang : 1945 Reason for Home Sleep Study: Sleep disturbances Ordering Physician: Erica Jama PA-C [facility] Letter Carrier: Marti Munguia Pick-up Comments: Procedure was explained to the patient who expressed understanding. Patient was instructed how to use device and informed to return completed questionnaire with device tomorrow morning...... 04/10/24 [facility] Letter Carrier: Marti Munguia Drop-Off Comments: Patient returned HST device. Study data was successfully uploaded and completed questionnaire was imported to patient's chart....... 04/11/2024 Resulting Physician: BRIANNE March DO Impression: Sleep apnea with an AHI of 18 May benefit from CPAP titration versus auto PAP treatmentat 5-15 cm of water documented in this [facility]10-29-2024 History of Present illness Narrative* ELEAZAR Olsen - 03/27/2024 10:15 AM EDT GENERAL HISTORY AND PHYSICAL: NAME: Jazzmine Wang : 1945 HISTORY OF PRESENT ILLNESS: Jazzmine Wang is an 79 y.o. female is here for orthopedic evaluation increased lower back and left greater than right gluteal pain which she associates is her hip. She is here for x-ray of both lower spine and bilateral hips. She has difficulty with standing line and in seated position. PAST MEDICAL HISTORY: Past Medical History: Diagnosis Date Actinic keratosis Anxiety Arthritis Bunion Bursitis of shoulder Cervical disc disorder Depression ([facility]/HCC) GERD (gastroesophageal reflux disease) Hyperlipemia (CMS/HCC) PAST SURGICAL HISTORY: History reviewed. No pertinent surgical history. SOCIAL HISTORY: Social History Occupational History Not on file Tobacco Use Smoking status: Never Smokeless tobacco: Never Substance and Sexual Activity Alcohol use: Yes Comment: Very occasionally ie holidays Drug use: Not Currently Frequency: 7.0 times per week Types: Marijuana Sexual activity: Not Currently Partners: Male control/protection: Post-menopausal ALLERGIES: Allergies Allergen Reactions Ciprofloxacin Unknown and Hives MEDICATIONS: Current Outpatient Medications Medication Instructions Acetaminophen (TYLENOL PO) Tylenol acyclovir (Zovirax) 200 MG capsule 1 cap(s), PO, BID, # 180 cap(s), 3 Refill(s), Pharmacy: [facility] [id number], 1 cap(s) PO BID Cannabinoids (medical cannabis) Medical Marijuana citalopram (CeleXA) 40 MG tablet Every 24 hours Estrace 0.1 MG/GM vaginal cream See Instructions, 42.5 gm, Refill(s) 2, Apply pea sized amount to external urethra/vaginal area 3x a week for 1 month, then 2x a week afterwards, [facility] [id number], 165, cm, 09/01/23 10:37:00 EDT, Height/Length Dosing, 70.5, kg, 09/01/23 10:37:00 EDT, Weight Dosing fexofenadine (Melanie Allergy) 180 MG tablet KlonoPIN 0.5 mg Magnesium 125 MG capsule Omeprazole 20 MG Tablet Delayed Release Dispersible predniSONE (Deltasone) 10 MG tablet Take 5 tabs p.o. daily x3 days Take 4 tabs p.o. daily x3 days Take 3 tabs p.o. daily x3 days Take 2 tabs p.o. daily x3 days Take 1 tab p.o. daily x3 days sucralfate (CARAFATE) 1 g Zinc Sulfate (ZINC 15 PO) REVIEW OF SYSTEMS: Review of Systems General: Denies appetite or significant weight change. Denies fever, chills or night sweats. Denies lightheadedness. ENT: Denies dry mouth, sore throat or swollen glands. Denies difficulty swallowing. Denies ear pain. Respiratory: Denies chest pain, SOB, cough or wheezing. Denies asthma or pneumonia symptoms. Cardiovascular: Denies CP or palpitations. No syncope or dyspnea on exertion. Gastrointestinal: Denies nausea or vomiting. Denies heartburn or abdominal pain. Denies diarrhea. Genitourinary: Denies frequent or painful urination. Musculoskeletal: See HPI for comments. Integumentary: Denies rash, lesion or skin infection. Neurologic: Denies dizziness, headache or seizure history. Vitals: Body mass index is 26.57 kg/m . PHYSICAL EXAM: Physical Exam She demonstrates good internal external rotation of both hips she does have pain with straight leg raise on the left greater than right stemming from the lower lumbar sacrum through the gluteal region into the posterior thigh. No evidence deep tendon reflex deficit or evidence of footdrop. XR lumbar spine 2 or 3 views Imaging Result: AP and lateral of the lumbar spine taken in the office today demonstrating significant degenerativedisc disease multiple levels including facet hypertrophy in the lower lumbosacral region. May be evident for neural foraminal stenosis. No evidence of bony tumor acute fracture seen. No spondylolisthesis, she does have some sclerotic changes of her aorta with no evidence of enlargement. XR hips bilateral 2 views Imaging Result: AP pelvis and bilateral frog views of the hips taken in the office today demonstrate no significantosteoarthritis of the femoral head and acetabulum. No evidence of bony tumor acute fracture seen. Orders Placed This Encounter Procedures XR lumbar spine 2 or 3 views Order Specific Question: Reason for exam: Answer: pain XR hips bilateral 2 views Order Specific Question: Reason for exam: Answer: pain XR hips bilateral 2 views Imaging Result: AP pelvis and bilateral frog views of the hips taken in the office today demonstrate no significant osteoarthritis of the femoral head and acetabulum. No evidence of bony tumor acute fracture seen. XR lumbar spine 2 or 3 views Imaging Result: AP and lateral of the lumbar spine taken in the office today demonstrating significant degenerative disc disease multiple levels including facet hypertrophy in the lower lumbosacral region. May be evident for neural foraminal stenosis. No evidence of bony tumor acute fracture seen. No spondylolisthesis, she does have some sclerotic changes of her aorta with no evidence of enlargement. ASSESSMENT: Right hip pain Chronic bilateral low back pain with left-sided sciatica PLAN: Take prednisone and keep record on how your symptoms are affected with the dosing of the medicine. We will be 15 days' worth of medication and is a taper down you may know return of her symptoms. We will follow up in 3 weeks and no your progress. If still having significant lower back and leg pain we will pursue MRI testing. Use cold pack to the lower back and gluteal region 20 minutes several times a day and before bedtime. Tylenol for breakthrough discomfort. Light lower back and hamstring flexibility stretching exercises we will be beneficial two to 3 times a day as well. ELEAZAR Olsen documented in this [facility]10-29-2024 Instructions* Patient Instructions* ELEAZAR Olsen - 03/27/2024 10:15 AM EDT Take prednisone and keep record on how your symptoms are affected with the dosing of the medicine. We will be 15 days' worth of medication and is a taper down you may know return of her symptoms. We will follow up in 3 weeks and no your progress. If still having significant lower back and leg pain we will pursue MRI testing. Use cold pack to the lower back and gluteal region 20 minutes several times a day and before bedtime. Tylenol for breakthrough discomfort. Light lower back and hamstring flexibility stretching exercises we will be beneficial two to 3 times a day as well. documented in this [facility]10-21-2024 Hospital Discharge instructions Patient Education 03/19/2024 10:08:59 EU - Cystoscopy with Botox Injection Discharge Instructions (CUSTOM) Cystoscopy with Botox injection Voiding after the procedure: there may be some pain, burning, urgency, frequency and blood tinged urine following the procedure. These symptoms usually resolve within 2-5 days. Drink the amount of fluid it takes to keep the urine pink to yellow or clear in color. Drinking enough water and fluids will help to ease any discomfort after your procedure. It may take a few days to a week to notice a gradual improvement in the overactive bladder symptoms. If you are having problems that seem out of the ordinary, please call. If unable to contact your physician and you feel it is an emergency, go to the nearest emergency room or call 911 Do not lift more than fifteen pounds for 1-2 days. If you see a lot of blood, you probably did too much. Diet you may resume your normal diet. Pain control You may take extra strength Tylenol or Motrin for discomfort. Call if you have a fever over 100 degrees. Follow Up Care 02/07/2024 14:38:04 With:ERIKA SIM Address: [address] [place] [address] Business (1) When: Unknown Comments:Office to schedule follow up in 1 month with [facility] 10-21-2024 NotePatient Education Cystoscopy with Botox injection ? Voiding after the procedure: there may be some pain, burning, urgency, frequency and blood tingedurine following the procedure. These symptoms usually resolve within 2-5 days. Drink the amount of fluid it takes to keep the urine pink to yellow or clear in color. Drinking enough water and fluids will help to ease any discomfort after your procedure. ? It may take a few days to a week to notice a gradual improvement in the overactive bladder symptoms. ? If you are having problems that seem out of the ordinary, please call. ? If unable to contact your physician and you feel it is an emergency, go to the nearest emergency room or call 911 ? Do not lift more than fifteen pounds for 1-2 days. If you see a lot of blood, you probably did too much. ? Diet ? you may resume your normal diet. ? Pain control ? You may take extra strength Tylenol or Motrin for discomfort. ? Call if you have a fever over 100 degrees.[facility] 02-21-2024 History of Present illness Narrative* Michelle Leiva MD - 02/21/2024 10:30 AM EDT Images from the original note were not included. Subjective Jazzmine Wang is a 78 y.o. year old female Chief Complaint Patient presents with Tremors Past Medical History: Diagnosis Date Actinic keratosis Anxiety Depression (CMS/HCC) GERD (gastroesophageal reflux disease) Hyperlipemia (CMS/HCC) History reviewed. No pertinent surgical history. Family History Problem Relation Name Age of Onset Stroke Mother Cancer Father Heart disease Father Alcohol abuse Father Alzheimer's disease Brother Melanoma Neg Hx Social History Tobacco Use Smoking status: Never Smokeless tobacco: Never Substance Use Topics Alcohol use: Not on file Medication Documentation Review Audit Reviewed by Marie Morris MA (Arboriculturist) on 02/21/24 at 1112 Medication Order Taking? Sig Documenting Provider Last Dose Status Acetaminophen (TYLENOL PO) 99079937 Tylenol Historical ProviderMD Active acyclovir (Zovirax) 200 MG capsule [id number] 1 cap(s), PO, BID, # 180 cap(s), 3 Refill(s), Pharmacy:[facility] [id number], 1 cap(s) PO BID Historical ProviderMD Active Discontinued 02/21/242 Discontinued 02/21/241111 Cannabinoids (medical cannabis) [id number] Medical Marijuana Historical ProviderMD Active citalopram (CeleXA) 40 MG tablet [id number] 1 (one) time each day at the same time. Historical ProviderMD Active KlonoPIN 0.5 MG tablet [id number] Yes 0.5 mg Historical ProviderMD Active Discontinued 02/21/24 111 sucralfate (Carafate) 1 g tablet [id number] 1 g. Historical ProviderMD Active Discontinued 02/21/242 Discontinued 02/21/241111 HPI HPI Kathleen Sousa is a 78 year old female who I was asked to see in neurological consultation at the request of Prema Clement CNP for tremors. She states that she has tremors in her hands that have been occurring for the past 2-3 years. She states that she has tremors with action. She states that she has noticed worsening in her hand writing. She reports extremity jerking at times when she is relaxed. She states that these symptoms started a little over a year ago. She states that she has memory difficulty that has been occurring several years with slow worsening. She states that her brother has dementia. She reports balance difficulty. She states that she has paresthesia in the toes that feelslike there is sand between them. She reports a previous EMG of the BLE. ROS Review of Systems Constitutional: Negative for activity change and fatigue. HENT: Negative for trouble swallowing and voice change. Eyes: Negative for photophobia and visual disturbance. Cardiovascular: Negative for chest pain, palpitations and leg swelling. Gastrointestinal: Negative for nausea and vomiting. Skin: Negative for color change and rash. Neurological: Positive for tremors and numbness. Negative for dizziness and headaches. Psychiatric/Behavioral: Positive for confusion. Negative for agitation. Endocrine: Negative for cold intolerance and heat intolerance. Objective Visit Vitals BP 116/68 (BP Location: Left arm, Patient Position: Sitting) Ht 5' 3 Wt 150 lb BMI 26.57 kg/m Smoking Status Never BSA 1.74 m Neurological Exam Mental Status Awake, alert and oriented to person, place and time. Speech is normal. Language is fluent with no aphasia. Cranial Nerves CN II: Visual acuity is normal. Visual galicia full to confrontation. CN III, IV, : Extraocular movements intact bilaterally. Normal lids and orbits bilaterally. Pupils equal round and reactive to light bilaterally. CN V: Facial sensation is normal. CN VII: Full and symmetric facial movement. CN VIII: Hearing is normal. CN IX, X: Palate elevates symmetrically. Normal gag reflex. CN XI: Shoulder shrug strength is normal. CN XII: Tongue midline without atrophy or fasciculations. Coordination Rppkll-lo-pmvf, rapid alternating movements and kakz-se-vffi normal bilaterally without dysmetria. Intention tremor No cogwheel rigidity on exam. Gait Normal casual, toe, heel and tandem gait. 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 RLE Strength illopsoas, quadriceps, tibialis anterior, and gastrocnemius strength 5/5. LLE Strength illopsoas, quadriceps, tibialis anterior, and gastrocnemius strength 5/5. Tone Normal tone x4 extremities. Reflexes: RUE biceps reflex 2, brachioradialis reflex 2 LUE biceps reflex 2, brachioradialis reflex 2 RLE knee reflex 2, ankle reflex 2 LLE knee reflex 2, ankle reflex 2 Assessment and Plan Diagnoses and all orders for this visit: Tremor Jerking movements of extremities Paresthesia of both feet Memory loss Hypersomnia The patient is a 78 year old female who presents with and action tremor in the hands with intermittent extremity jerking that have been occurring for the past 2-3 years. Possible etiologies include benign essential tremor, extraprymidal symptoms secondary to medications, or a neurodegenerative process such as Parkinson's disease. An additional consideration would be tremor secondary to a metabolic process or a psychogenic tremor from stress. She does have signs and symptoms of a sleep disorder and was diagnosed with AYDEE in the past but could not tolerate mask. She complains of cognitive changes but has been going through a stressful time, along with untreated AYDEE that is likely contributing. She has EMG of the BLE in the past that was normal. PLAN: I counseled the patient on the possible diagnosis, prognosis, and possible treatment options. I will obtain a polysomnogram to assess for a sleep disorder including obstructive sleep apnea. I will consider a EEG I will consider a repeat EMG of the BLE I will consider neuropsych testing for patient's memory. We will hold off on medications for tremors at this time I will see the patient back in 4-6 weeks to review the diagnostic testing and make further recommendations based upon the above results and the patient's response to this therapeutic plan. I will seethe patient sooner should he develop new symptoms, worsening symptoms, or side effects from medications. documented in this encounterAudrain Medical [id number] Telephone encounter Note* Telephone Encounter - Eben Reeder MD - 09/19/2023 11:57 PM EDT Patient needs to get a repeat BMP for elevated Cr, reduced GFR and will also get additional US of the kidney and bladder. Eben Reeder MD [facility] September 19, 2023 11:58 PM ' [facility]04-22-2024 Miscellaneous Notes* Telephone Encounter - Eben Reeder MD - 09/19/2023 11:57 PM EDT Patient needs to get a repeat BMP for elevated Cr, reduced GFR and will also get additional US of the kidney and bladder. Eben Reeder MD [facility] September 19, 2023 11:58 PM ' documented in this encounterFirelands [facility] Center[facility] Hospital Discharge instructions Patient Education 09/01/2023 11:33:05 Urinary Incontinence Urinary Incontinence Urinary incontinence refers to a condition in which a person is unable to control where and when topass urine. A person with this condition will urinate involuntarily. This means that the person urinates when he or she does not mean to. What are the causes? This condition may be caused by: Medicines. Infections. Constipation. Overactive bladder muscles. Weak bladder muscles. Weak pelvic floor muscles. These muscles provide support for the bladder, intestine, and, in women,the uterus. Enlarged prostate in men. The prostate is a gland near the bladder. When it gets too big, it can pinch the urethra. With the urethra blocked, the bladder can weaken and lose the ability to empty properly. Surgery. Emotional factors, such as anxiety, stress, or post-traumatic stress disorder (PTSD). Spinal cord injury, nerve injury, or other neurological conditions. Pelvic organ prolapse. This happens in women when organs move out of place and into the vagina. This movement can prevent the bladder and urethra from working properly. What increases the risk? The following factors may make you more likely to develop this condition: Age. The older you are, the higher the risk. Obesity. Being physically inactive. and childbirth. Menopause. Diseases that affect the nerves or spinal cord. Long-term, or chronic, coughing. This can increase pressure on the bladder and pelvic floor muscles. What are the signs or symptoms? Symptoms may vary depending on the type of urinary incontinence you have. They include: A sudden urge to urinate, and passing urine involuntarily before you can get to a bathroom (urge incontinence). Suddenly passing urine when doing activities that force urine to pass, such as coughing, laughing, exercising, or sneezing (stress incontinence). Needing to urinate often but urinating only a small amount, or constantly dribbling urine (overflowincontinence). Urinating because you cannot get to the bathroom in time due to a physical disability, such as arthritis or injury, or due to a communication or thinking problem, such as Alzheimer's disease (functional incontinence). How is this diagnosed? This condition may be diagnosed based on: Your medical history. A physical exam. Tests, such as: ?Urine tests. ?X-rays of your kidney and bladder. ?Ultrasound. ?CT scan. ?Cystoscopy. In this procedure, a health care provider inserts a tube with a light and camera (cystoscope) through the urethra and into the bladder to check for problems. ?Urodynamic testing. These tests assess how well the bladder, urethra, and sphincter can store and release urine. There are different types of urodynamic tests, and they vary depending on what the test is measuring. To help diagnose your condition, your health care provider may recommend that you keep a log of when you urinate and how much you urinate. How is this treated? Treatment for this condition depends on the type of incontinence that you have and its cause. Treatment may include: Lifestyle changes, such as: ?Quitting smoking. ?Maintaining a healthy weight. ?Staying active. Try to get 150 minutes of moderate-intensity exercise every week. Ask your health care provider which activities are safe for you. ?Eating a healthy diet. ?Avoid high-fat foods, like fried foods. ?Avoid refined carbohydrates like white bread and white rice. ?Limit how much alcohol and caffeine you drink. ?Increase your fiber intake. Healthy sources of fiber include beans, whole grains, and fresh fruitsand vegetables. Behavioral changes, such as: ?Pelvic floor muscle exercises. ?Bladder training, such as lengthening the amount of time between bathroom breaks, or using the bathroom at regular intervals. ?Using techniques to suppress bladder urges. This can include distraction techniques or controlled breathing exercises. Medicines, such as: ?Medicines to relax the bladder muscles and prevent bladder spasms. ?Medicines to help slow or prevent the growth of a man's prostate. ?Botox injections. These can help relax the bladder muscles. Treatments, such as: ?Using pulses of electricity to help change bladder reflexes (electrical nerve stimulation). ?For women, using a medical accountant to prevent urine leaks. This is a small, tampon-like, disposabledevice that is inserted into the urethra. ?Injecting collagen or carbon beads (bulking agents) into the urinary sphincter. These can help thicken tissue and close the bladder opening. ?Surgery. Follow these instructions at home: Lifestyle Limit alcohol and caffeine. These can fill your bladder quickly and irritate it. Keep yourself clean to help prevent odors and skin damage. Ask your health care provider about special skin creams and cleansers that can protect the skin from urine. Consider wearing pads or adult diapers. Make sure to change them regularly, and always change them right after experiencing incontinence. General instructions Take saqg-xab-kgmqxvf and prescription medicines only as told by your health care provider. Use the bathroom about every 3 4 hours, even if you do not feel the need to urinate. Try to empty your bladder completely every time. After urinating, wait a minute. Then try to urinate again. Make sure you are in a relaxed position while urinating. If your incontinence is caused by nerve problems, keep a log of the medicines you take and the times you go to the bathroom. Keep all follow-up visits. This is important. Where to find more information [employer] [place] [employer] and [employer]estive [employer] Kidney Diseases: www.niddk.nih.gov [employer]: www.urologyhealth.org Contact a health care provider if: You have pain that gets worse. Your incontinence gets worse. Get help right away if: You have a fever or chills. You are unable to urinate. You have redness in your groin area or down your legs. Summary Urinary incontinence refers to a condition in which a person is unable to control where and when topass urine. This condition may be caused by medicines, infection, weak bladder muscles, weak pelvic floor muscles, enlargement of the prostate (in men), or surgery. Factors such as older age, obesity, and childbirth, menopause, neurological diseases, andchronic coughing may increase your risk for developing this condition. Types of urinary incontinence include urge incontinence, stress incontinence, overflow incontinence, and functional incontinence. This condition is usually treated first with lifestyle and behavioral changes, such as quitting smoking, eating a healthier diet, and doing regular pelvic floor exercises. Other treatment options include medicines, bulking agents, medical devices, electrical nerve stimulation, or surgery. This information is not intended to replace advice given to you by your health care provider. Make sure you discuss any questions you have with your health care provider. Document Revised: 12/19/2020 Document Reviewed: 12/19/2020 [employer] Patient Education 2022 [employer] Follow Up Care 02/08/2023 14:47:17 With:ERIKA SIM PA-C, URL Address: [address] [place] [address] [phone] When: Unknown Comments:3 mos (new med) [facility] Shania 03-26-2024 NoteHNO ID: [id number] Author: EBEN REEDER MD Service: ? Author Type: Physician Type: Progress Notes Filed: 08/23/2023 16:47 Note Text: VIRTUAL VISIT PROGRESS NOTE This is a virtual visit using [employer] Video Visit. It required patient-provider interaction for the medical decision making as documented below. I have communicated my name and active licensure. The patient's identity and physical location were verified at the time of this visit. Either the patient or their legal sales service representative has been informed of the risks and benefits of -- and alternatives to -- treatment through a remote evaluation and consents to proceed with the evaluation remotely. Jazzmine Wang is a 78 year old female seen for CC of depression and forgetfulness. Patient is currently on celexa with persistence of depressive symptoms. 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 Denies thoughts of self harm. Patient also reports she has been feeling increasingly forgetful lately. HISTORY REVIEWED (electronic chart updated): PAST MEDICAL HISTORY Diagnosis Date Anemia Anxiety Bradycardia Depression GERD (gastroesophageal reflux disease) HLD (hyperlipidemia) AYDEE (obstructive sleep apnea) doesn't tolerate CPAP Raynaud disease PAST SURGICAL HISTORY Procedure Laterality Date LAPAROSCOPIC CHOLECYSTECTOMY TUBAL LIGATION HX FAMILY HISTORY Problem Relation Age of Onset Aneurysm Mother 34 cerebral Cancer Father lung Social History Tobacco Use Smoking status: Never Smokeless tobacco: Never Substance Use Topics Alcohol use: Yes Comment: 1 glass per month Drug use: Never Current Outpatient Medications Medication Sig omeprazole (PRILOSEC) 20 mg capsule Take 1 capsule by mouth daily at bedtime. simvastatin (ZOCOR) 10 mg tablet Take 10 mg by mouth daily at bedtime. zolpidem (AMBIEN) 10 mg tab Take 10 mg by mouth daily at bedtime. ALPRAZolam (XANAX) 0.5 mg tablet Take 0.5 mg by mouth at bedtime as needed. acyclovir (ZOVIRAX) 200 mg capsule Take 200 mg by mouth twice daily. citalopram (CELEXA) 40 mg tablet Take 40 mg by mouth once daily. No current facility-administered medications for this visit. ALLERGIES Allergen Reactions Ciprofloxacin Hives REVIEW OF SYSTEMS: As noted in HPI PHYSICAL EXAMINATION: VIDEO EXAM: (if completed, performed via video enabled technology) No exam performed ASSESSMENT: (F32.A) Depression, unspecified depression type (primary encounter diagnosis) (R68.89) Forgetfulness PLAN: - Behavioral health consult - Patient will benefit from CBT and support groups - CMP, TSH,syphilis, Vit D and Vit B12 ordered. Geriatrics consult placed. There are no Patient Instructions on file for this visit. I spent a total of 20 minutes on the date of the service which included preparing to see the patient, [id number] patient care, and completing clinical documentation Eben Reeder MD Medical Decision Making: Problems: Low: 2+ self-limited or minor problems Data: Unique test(s) ordered: 3+ Risk: Moderate: Moderate risk from testing/treatment Medical Decision Making Level: 4 [facility] of Present illness Narrative* Eben Reeder MD - 08/23/2023 4:42 PM EDT VIRTUAL VISIT PROGRESS NOTE This is a virtual visit using [employer] Video Visit. It required patient- provider interaction for the medical decision making as documented below. I have communicated my name and active licensure. The patient's identity and physical location wereverified at the time of this visit. Either the patient or their legal sales service representative has been informed of the risks and benefits of -- and alternatives to -- treatment through a remote evaluation andconsents to proceed with the evaluation remotely. Jazzmine Wang is a 78 year old female seen for CC of depression and forgetfulness. Patient is currently on celexa with persistence of depressive symptoms. 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 Denies thoughts of self harm. Patient also reports she has been feeling increasingly forgetful lately. HISTORY REVIEWED (electronic chart updated): PAST MEDICAL HISTORY Diagnosis Date Anemia Anxiety Bradycardia Depression GERD (gastroesophageal reflux disease) HLD (hyperlipidemia) AYDEE (obstructive sleep apnea) doesn't tolerate CPAP Raynaud disease PAST SURGICAL HISTORY Procedure Laterality Date LAPAROSCOPIC CHOLECYSTECTOMY TUBAL LIGATION HX FAMILY HISTORY Problem Relation Age of Onset Aneurysm Mother 34 cerebral Cancer Father lung Social History Tobacco Use Smoking status: Never Smokeless tobacco: Never Substance Use Topics Alcohol use: Yes Comment: 1 glass per month Drug use: Never Current Outpatient Medications Medication Sig omeprazole (PRILOSEC) 20 mg capsule Take 1 capsule by mouth daily at bedtime. simvastatin (ZOCOR) 10 mg tablet Take 10 mg by mouth daily at bedtime. zolpidem (AMBIEN) 10 mg tab Take 10 mg by mouth daily at bedtime. ALPRAZolam (XANAX) 0.5 mg tablet Take 0.5 mg by mouth at bedtime as needed. acyclovir (ZOVIRAX) 200 mg capsule Take 200 mg by mouth twice daily. citalopram (CELEXA) 40 mg tablet Take 40 mg by mouth once daily. No current facility-administered medications for this visit. ALLERGIES Allergen Reactions Ciprofloxacin Hives REVIEW OF SYSTEMS: As noted in HPI PHYSICAL EXAMINATION: VIDEO EXAM: (if completed, performed via video enabled technology) No exam performed ASSESSMENT: (F32.A) Depression, unspecified depression type (primary encounter diagnosis) (R68.89) Forgetfulness PLAN: - Behavioral health consult - Patient will benefit from CBT and support groups - CMP, TSH,syphilis, Vit D and Vit B12 ordered. Geriatrics consult placed. There are no Patient Instructions on file for this visit. I spent a total of 20 minutes on the date of the service which included preparing to see the patient, [id number] patient care, and completing clinical documentation Eben Reeder MD Medical Decision Making: Problems: Low: 2+ self-limited or minor problems Data: Unique test(s) ordered: 3+ Risk: Moderate: Moderate risk from testing/treatment Medical Decision Making Level: 4 - Moderate [facility] Miscellaneous Notes* Telephone Encounter - Erika Kim - 03/19/2021 9:32 AM EDT Uploaded Xray report for patient into [employer]. Please allow time for processing. documented in this encounterCroydon ClinicEvaluation + Plan note Future Appointments Appointment Date:12/29/2023 11:00:00 AM Scheduled Provider:ERIKA SIM PA-C Location:[facility] Appointment Type:URO Office Visit [facility] Evaluation + Plan note Future Appointments Appointment Date:03/16/2024 10:30:00 AM Scheduled Provider: Location:[facility] Appointment Type:Urology CALL PAT FT Appointment Date:03/19/2024 09:30:00 AM Scheduled Provider: Location:[facility] Appointment Type:Urology FT [facility] Evaluation + Plan note Future Appointments Appointment Date:04/18/2024 10:00:00 AM Scheduled Provider:ERIKA SIM PA-C Location:[facility] Appointment Type:URO Office Visit [facility] evaluation + Plan note Future Appointments Appointment Date:10/17/2024 10:40:00 AM Scheduled Provider:ERIKA SIM PA-C Location:[facility] Appointment Type:URO Office Visit [facility] Evaluation + Plan note Future Appointments Appointment Date:10/17/2024 10:40:00 AM Scheduled Provider:ERIKA SIM PA-C Location:[facility] Appointment Type:URO Office Visit Diagnostic Tests Pending * Urine Culture 05/02/24 [facility] evaluation note* Diagnosis Depression, unspecified depression type- Primary Forgetfulness Other general symptoms documented in this [facility]* Diagnosis Stage 3a chronic kidney disease (HCC)- Primary documented in this [facility]* Diagnosis Right hip pain- Primary Pain in joint, pelvic region and thigh Chronic bilateral low back pain with left-sided sciatica [facility] Diagnosis Lumbosacral radiculopathy due to degenerative joint disease of spine- Primary Numbness and tingling of both feet [facility]* Diagnosis Tremor- Primary Abnormal involuntary movements Jerking movements of extremities Memory loss Paresthesia of both feet Hypersomnia Hypersomnia, unspecified [facility]* Diagnosis Hypersomnia Hypersomnia, unspecified Memory loss [facility]* Diagnosis Lumbosacral radiculopathy due to degenerative joint disease of spine Chronic bilateral low back pain with left-sided sciatica Memory loss- Primary Other chronic pain AYDEE (obstructive sleep apnea) Obstructive sleep apnea (adult) (pediatric) Concentration deficit Depression with anxiety Dysthymic disorder Bereavement Bereavement, uncomplicated [facility]* Diagnosis Tremor Abnormal involuntary movements Jerking movements of extremities Paresthesia of both feet Memory loss Hypersomnia Hypersomnia, unspecified [facility]* Diagnosis Lumbosacral radiculopathy due to degenerative joint disease of spine- Primary Spinal stenosis of lumbar region with neurogenic claudication [facility]* Diagnosis Bereavement- Primary Bereavement, uncomplicated Concentration deficit Jerking movements of extremities Memory loss Paresthesia of both feet [facility]* Diagnosis Memory loss- Primary Bereavement Bereavement, uncomplicated Other chronic pain AYDEE (obstructive sleep apnea) Obstructive sleep apnea (adult) (pediatric) ADHD (attention deficit hyperactivity disorder), 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) Major depressive disorder, recurrent episode, moderate Moderate anxiety [facility]* Diagnosis Memory loss- Primary AYDEE (obstructive sleep apnea) Obstructive sleep apnea (adult) (pediatric) Other chronic pain Bereavement Bereavement, uncomplicated ADHD (attention deficit hyperactivity disorder), 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) Major depressive disorder, recurrent episode, moderate Moderate anxiety [facility]* Diagnosis Hyperreflexia- Primary Abnormal reflex Memory loss ADHD (attention deficit hyperactivity disorder), inattentive type (CMS/HCC) Jerking movements of extremities AYDEE (obstructive sleep apnea) Obstructive sleep apnea (adult) (pediatric) documented [facility]* Diagnosis Melanocytic nevus of trunk- Primary Benign neoplasm of skin of trunk, except scrotum Inflamed seborrheic keratosis Seborrheic keratosis Actinic keratosis Lentigines documented in this encounter [facility]* Diagnosis Hyperreflexia- Primary Abnormal reflex Degenerative disc disease, cervical AYDEE (obstructive sleep apnea) Obstructive sleep apnea (adult) (pediatric) Tremor Abnormal involuntary movements Jerking movements of extremities documented in this encounter [facility] HealthcareHospital course Narrative No data available for this section [facility] Hospital Discharge instructions No data available for this section [facility] Hospital Discharge instructions Additional Instructions Push fluids Rest Ice to affected area Tylenol or Motrin if needed for pain Avoid electronics Follow with your doctor Return here if any problems persist [facility]Do[facility] Work Phone: Hospital Discharge instructionsAmbulatory Orders* Referral to Pain Management Location: None [facility] Work Phone: Progress note No data available for this section [facility] Renfem for referral (narrative)* Diagnostic Procedure Only (Routine) - Pending ReviewSpecialtyDiagnoses / ProceduresReferred By ContactReferred To ContactUS IMAGING Diagnoses Stage 3a chronic kidney disease (HCC) Procedures US KIDNEY/BLADDER US RETROPERITONEAL REAL TIME W/[place] [address] [place] [address] [facility] [place] [address] Referral IDStatusReasonStart DateExpiration DateVisits RequestedVisits [id number] Review Auto-Generated Referral / [facility] for referral (narrative)No reason for referral information availableC[facility] Work Phone: Reason for visit Narrative* Other Medical (Routine) - ClosedSpecialtyDiagnoses / ProceduresReferred By ContactReferred To Contact Neurology Diagnoses Hypersomnia Memory loss Procedures Home sleep test Erica Jama PA [address] [place] [address] Phone: tel: fax: [facility] [address] [place] [address] Phone: tel: fax: Referral IDStatusReasonStart DateExpiration DateVisits RequestedVisits [id number]/10/20244/ [facility] HealthcareReason for visit Narrative* Consultation (Routine) - Closed SpecialtyDiagnoses / ProceduresReferred By ContactReferred To Contact Neuropsychology Diagnoses Memory loss Procedures [place] [facility] [address] [place] [address] Phone: tel: fax: Bentley Carmona, PhD [address] [address] Phone: tel: fax: Referral IDStatusReasonStart DateExpiration DateVisits RequestedVisits [id number] Specialty Services Required [facility] Healthcare Summary Purpose Family History No Family History Records FoundNo Family History Records Found No data available for this section No Family History Records Found No data available for this section No data available for this section No data available for this section No data available for this section No data available for this section No data available for this section No data available for this section No Family History Records Found No data available for this section No Family History Records FoundNo Family History Records Found No data available for this section No Family History Records FoundNo Family History Records FoundNo Family History Records FoundNo Family History Records FoundNo Family History Records Found Advance Directives No Advanced Directives Records Found Advance Directive Response Recorded Date/ Time Advance Directives No August 31 9:11am Advance Directive Response Recorded Date/ Time Advance Directives No November 01 12:52pm Procedure Findings Note HNO ID: [id number] Author: Priyank Ponce Service: Hand Surgery Author Type: Physician Type: Operative Report Filed: 11/06/2018 12:58 PM Note Text: OPERATIVE NOTE: November 06, 2018 Janusz Ponce MD, PhD, [facility] Shoulder, Elbow, Wrist AND Hand Surgery Orthopaedic AND Rheumatologic [place] [address] [place] [address] , Patient: Ms. Jazzmine Wang 1945, 73 year old, female Procedure(s): LEFT thumb - de Quervain's release. - trapeziectomy. - tendon transfer, flexor carpi radialis (FCR) to to abductor pollicis longus (APL). - interposition arthroplasty. - metacarpal phalangeal joint ARTHRODESIS Pre-op Diagnosis: LEFT thumb carpometacarpal joint primary osteoarthritis Post- op Diagnosis: Same Surgeon(s) and Role: * Janusz Ponce - Primary * Sal Rosas (Fel) - Fellow No Additional Staff Anesthesia: Monitored Anesthesia Care Tourniquet: See anaesthesia note Specimens: NoneEBL: 0 ml Implanted tissues or devices: NoneFindings: Pleas (more content not included)... Note HNO ID: [id number] Author: Sreedhar Rosas (Fel) Service: Orthopaedic Surgery Author Type: Fellow Type: Brief Op Note Filed: 11/06/2018 12:40 PM Note Text: BRIEF OPERATIVE / PROCEDURE NOTE LOG ID: [id number] SURGERY/PROCEDURE DATE: 11/06/2018 INCISION/PROCEDURE START TIME: 10:50 AM INCISION CLOSE/PROCEDURE END TIME: 12:21 PM SURGEON(S)/PROCEDURALIST(S) AND HEALTHCARE BUSINESS ANALYST(S): Surgeon(s) and Role: * Janusz Ponce - Primary * Sal Rosas (Fel) - Fellow No Additional Staff SURGERY/PROCEDURE(S): left thumb trapeziectomy, tendon interposition arthroplasty, FCR to APL tendon transfer, thumb MCP arthrodesis ANESTHESIA: Monitored Anesthesia Care FINDINGS: severe CMC joint arthritis ESTIMATED BLOOD LOSS: 5 mls SPECIMENS: None COMPLICATIONS: None PRE-OP/PRE-PROCEDURE DIAGNOSIS: first cmc joint osteoarthritis, left, left MCP joint hyperextension instability. POST-OP/POST-PROCEDURE DIAGNOSIS: Primary osteoarthritis of first carpometacarpal joint of left hand [M18.12] SIGNATURE: Sal Rosas MD PATIENT NAME: Nancy (more content not included)... Reason for Referral SpecialtyDiagnoses / ProceduresReferred By ContactReferred To ContactGerontology Diagnoses Forgetfulness Procedures CONSULT TO GERIATRICS OFFICE/OUTPATIENT [facility] 60 [place] [address] [facility] [address] [place] [phone] Referral IDStatusReasonStauburndale DateExpiration DateVisits RequestedVisits [id number] PCP Requested Referral /[id number] / ProceduresReferred By ContactReferred To Contact Diagnoses Depression, unspecified depression type Procedures CONSULT TO PRIMARY [facility] ADULT OFFICE/OUTPATIENT [facility] 60 [place] [address] [place] [phone] Referral IDStatusReMonroe County Hospital DateExpiration DateVisits RequestedVisits [id number] Review PCP Requested Referral /[id number] / ProceduresReferred By ContactReferred To Contact Diagnoses Jerking movements of extremities Memory loss Hypersomnia Procedures Polysomnography Michelle Leiva MD [address] [place] [address] Referral IDStatusReasonStauburndale DateExpiration DateVisits RequestedVisits [id number] Review/ Chief Complaint and Reason for Visit Chief Complaint Admit Date REFF BY DR JYOTI URIBE June 27, 2024 10:53am RENAL CYST OF KIDNEY July 02, 2024 2:35pm RENAL 6 WEEKS F/U August 22, 2024 3:2 1pm Reason for Visit Admit Date Chronic pain June 27, 2024 1 0:53am Osteoarthritis of spine with radiculopat hy, lumbar region June 27, 2024 10:53am Spinal stenosis June 27, 2024 1 0:53am GERD (gastroesophageal reflux disease) F [id number] 2:35pm Hyperlipidemia July 02, 2024 2 :35pm Overactive bladder July 02, 2024 2 :35pm Renal cysts, acquired, bilateral Februar y 2024 2:35pm Spinal stenosis July 02, 2024 2 :35pm GERD (gastroesophageal reflux disease) M arch 2024 3:21pm Hyperlipidemia August 22, 2024 3:2 1pm Overactive bladder August 22, 2024 3:2 1pm Renal cysts, acquired, bilateral July 292024 3:21pm Spinal stenosis August 22, 2024 3:2 1pm Chief Complaint Admit Date REFF BY DR JYOTI URIBE June 27, 2024 10:53am RENAL CYST OF KIDNEY July 02, 2024 2:35pm RENAL 6 WEEKS F/U August 22, 2024 3:2 1pm Unknown September 11, 2024 9:4 5am Chief Complaint Admit Date REFF BY DR JYOTI URIBE June 27, 2024 10:53am RENAL CYST OF KIDNEY July 02, 2024 2:35pm RENAL 6 WEEKS F/U August 22, 2024 3:2 1pm Unknown September 11, 2024 9:4 5am RECHECK BACK PAIN September 20, 2024 2:4 3pm Reason for Visit Admit Date Chronic pain June 27, 2024 1 0:53am Osteoarthritis of spine with radiculopat hy, lumbar region June 27, 2024 10:53am Spinal stenosis June 27, 2024 1 0:53am GERD (gastroesophageal reflux disease) F [id number] 2:35pm Hyperlipidemia July 02, 2024 2 :35pm Overactive bladder July 02, 2024 2 :35pm Renal cysts, acquired, bilateral Februar y 2024 2:35pm Spinal stenosis July 02, 2024 2 :35pm GERD (gastroesophageal reflux disease) M arch 2024 3:21pm Hyperlipidemia August 22, 2024 3:2 1pm Overactive bladder August 22, 2024 3:2 1pm Renal cysts, acquired, bilateral July 292024 3:21pm Spinal stenosis August 22, 2024 3:2 1pm Chronic pain September 20, 2024 2:4 3pm Osteoarthritis of spine with radiculopat hy, lumbar region September 20, 2024 2:43pm Spinal stenosis September 20, 2024 2:4 3pm Chief Complaint Admit Date RENAL 6 WEEKS F/U August 22, 2024 3:2 1pm Unknown September 11, 2024 9:4 5am RECHECK BACK PAIN September 20, 2024 2:4 3pm *LUMBAR EPIDURAL INJ L4 L5/CJ October 15, 2024 1:13pm October 29, 2024 3:53p m F/U LUMB EPI November 05, 2024 11:02 am Reason for Visit Admit Date GERD (gastroesophageal reflux disease) M arch 2024 3:21pm Hyperlipidemia August 22, 2024 3:2 1pm Overactive bladder August 22, 2024 3:2 1pm Renal cysts, acquired, bilateral July 292024 3:21pm Spinal stenosis August 22, 2024 3:2 1pm Chronic pain September 20, 2024 2:4 3pm Osteoarthritis of spine with radiculopat hy, lumbar region September 20, 2024 2:43pm Spinal stenosis September 20, 2024 2:4 3pm Chronic pain November 05, 2024 11:02 am Osteoarthritis of spine with radiculopat hy, lumbar region November 05, 2024 11:02am Sacroiliitis, not elsewhere classified J [facility] 2024 11:02am Chief Complaint Admit Date RENAL 6 WEEKS F/U August 22, 2024 3:2 1pm Unknown September 11, 2024 9:4 5am RECHECK BACK PAIN September 20, 2024 2:4 3pm *LUMBAR EPIDURAL INJ L4 L5/CJ October 15, 2024 1:13pm October 29, 2024 3:53p m F/U LUMB EPI November 05, 2024 11:02 am shaking, fogging feeling, fell tues November 05, 2024 1:10pm Chief Complaint Admit Date Unknown September 11, 2024 9:4 5am RECHECK BACK PAIN September 20, 2024 2:4 3pm *LUMBAR EPIDURAL INJ L4 L5/CJ October 15, 2024 1:13pm October 29, 2024 3:53p m F/U LUMB EPI November 05, 2024 11:02 am shaking, fogging feeling, fell tues November 05, 2024 1:10pm RECHECK November 26, 2024 10:1 6am Reason for Visit Admit Date Chronic pain September 20, 2024 2:4 3pm Osteoarthritis of spine with radiculopat hy, lumbar region September 20, 2024 2:43pm Spinal stenosis September 20, 2024 2:4 3pm Chronic pain November 05, 2024 11:02 am Osteoarthritis of spine with radiculopat hy, lumbar region November 05, 2024 11:02am Sacroiliitis, not elsewhere classified J une 2024 11:02am Arthritis of lumbosacral spine October 10:16am Chronic pain November 26, 2024 10:1 6am Osteoarthritis of spine with radiculopat hy, lumbar region November 26, 2024 10:16am Chief Complaint Admit Date RECHECK BACK PAIN September 20, 2024 2:4 3pm *LUMBAR EPIDURAL INJ L4 L5/CJ October 15, 2024 1:13pm October 29, 2024 3:53p m F/U LUMB EPI November 05, 2024 11:02 am shaking, fogging feeling, fell tues November 05, 2024 1:10pm RECHECK November 26, 2024 10:1 6am JAVON LUMBAR FACET MBB L4 L5 /VW December 102024 3:47pm Chief Complaint Admit Date *LUMBAR EPIDURAL INJ L4 L5/CJ October 15, 2024 1:13pm October 29, 2024 3:53p m F/U LUMB EPI November 05, 2024 11:02 am shaking, fogging feeling, fell tues November 05, 2024 1:10pm RECHECK November 26, 2024 10:1 6am cervical pain December 27, 2024 10:5 0am Reason for Visit Admit Date Chronic pain November 05, 2024 11:02 am Osteoarthritis of spine with radiculopat hy, lumbar region November 05, 2024 11:02am Sacroiliitis, not elsewhere classified J une 2024 11:02am Arthritis of lumbosacral spine October 10:16am Chronic pain November 26, 2024 10:1 6am Osteoarthritis of spine with radiculopat hy, lumbar region November 26, 2024 10:16am Additional Source Comments INFORMATION SOURCE (unrecogn ized section and content) DATE CREATED AUTHOR 11/02/2018 [facility] DATE CREATED AUTHOR AUTHOR'S ORGANIZ ATION 11/08/2018 [facility] DATE CREATED AUTHOR AUTHOR'S ORGANIZ ATION 09/20/2023 [facility] DATE CREATED AUTHOR AUTHOR'S ORGANIZ ATION 10/12/2024 [facility] DATE CREATED AUTHOR AUTHOR'S ORGANIZ ATION 10/24/2024 [facility] DATE CREATED AUTHOR AUTHOR'S ORGANIZ ATION 12/15/2024 [facility] DATE CREATED AUTHOR AUTHOR'S ORGANIZ ATION 03/30/2025 [facility] DATE CREATED AUTHOR AUTHOR'S ORGANIZ ATION 03/31/2025 [facility] DATE CREATED AUTHOR AUTHOR'S ORGANIZ ATION 03/31/2025 [facility] DATE CREATED AUTHOR AUTHOR'S ORGANIZ ATION 04/02/2025 [facility] DATE CREATED AUTHOR AUTHOR'S ORGANIZ ATION 04/04/2025 [facility] Source Comments (unrecognize d section and content) In the event this informatio n is protected by the Federal Confidentiality of Alcohol and Drug Abuse Patient Records regulations: The Federal rules restrict any use of the information to criminally investigate or prosecute any alcohol or drug abuse patient.[facility] the event this information is protected by the Federal Confidentiality of Alcohol and Drug Abuse Patient Records regulations: The Federal rules restrict any use of the information to criminally investigate or prosecute any alcohol or drug abuse patient.[facility] Center[facility] the event this information is protected by the Federal Confidentiality of Alcohol and Drug Abuse Patient Records regulations: The Federal rules restrict any use of the information to criminally investigate or prosecute any alcohol or drug abuse patient.[facility] Reason for Visit (unrecogniz ed section and content) ReasonCommentsReceived Outside Medical RecordsReasonCommentsDepressionReason CommentsResultsReasonCommentsPainReasonCommentsTremorsReasonCommentsTremors ReasonCommentsFollow-upMRI NOMS 05/07/24ReasonCommentsMemory LossReasonComments Memory LossReasonCommentsSkin Check Care Teams (unrecognized sec tion and content) Team Status: Active Member Role Status Dates Prema Clement PLANE TENDER-C Primary Care Provider Active Team Status: Active Member Role Status Dates Prema Clement PLANE TENDER-C Primary Care Provider Active Start: October 15, 2024 Olimpia Patel ProviderActiveStart: October 15, 2024 Team Status: Inactive Member Role Status Dates Prema Clement PLANE TENDER-C Primary Care Provider Active Start: October 15, 2024 End: October 15, 2024ThOlimpia Carrasquillo ProviderActiveStart: October 15, 2024 End: October 15, 2024 Team Status: Active Member Role Status Dates Prema Clement PLANE TENDER-C Primary Care Provider Active Start: October 29, 2024 Olimpia Pichardo ProviderActiveStart: October 29, 2024 Team Status: Inactive Member Role Status Dates Prema Clement PLANE TENDER-C Primary Care Provider Active Start: November 05, 2024 End: November 05Olimpia Carrasquillo ProviderActiveStart: November 05, 2024 End: November 05, 2024 Team Status: Inactive Member Role Status Dates Prema Clement , PLANE TENDER-C Primary Care Provider Active Start: November 05, 2024 End: November 05Bibiana Castillo ProviderActiveStart: November 05, 2024 End: November 05, 2024 Team Status: Inactive Member Role Status Dates Prema Clement , PLANE TENDER-C Primary Care Provider Active Start: November 26, 2024 End: November 26omas LAWRENCE Peñattending ProviderActiveStart: November 26, 2024 End: November 26, 2024 Team Status: Inactive Member Role Status Dates Prema Clement PLANE TENDER-C Primary Care Provider Active Start: December 27, 2024 End: December 27, 2024Reginald Armstrong MDAttending ProviderActiveStart: December 27, 2024 End: December 27, 2024 Team Status: Inactive Member Role Status Dates Perma Clement PLANE TENDER-C Primary Care Provider Active Start: September 11, 2024 End: September 11, 2024Rayamileth Connors MDAttending ProviderActiveStart: September 11, 2024 End: September 11, 2024 Team Status: Inactive Member Role Status Dates Prema Clement PLANE TENDER-C Primary Care Provider Active Start: September 20, 2024 End: September 20mell Peña MDAttending ProviderActiveStart: September 20, 2024 End: September 20, 2024 Team Status: Active Member Role Status Dates Prema Clement PLANE TENDER-C Primary Care Provider Active Start: August 13, 2024 Autumn Ware MDAttending ProviderActiveStart: August 13, 2024 Team Status: Inactive Member Role Status Dates Prema Clement , PLANE TENDER-C Primary Care Provider Active Start: August 22, 2024 End: August 22della Ware MDAttending ProviderActiveStart: August 22, 2024 End: August 22, 2024Team MemberRelationshipSpecialtyStart DateEnd Date Michelle Cotto [address] [place] [address] PCP - GeneralFamily Practice10/25/18 Prema Clement, FORDER OPERATOR [address] [place] [address] ReferringFamily Practice06/23/21Team MemberRelationshipSpecialtyStart DateEnd Date Michelle Cotto [address] [place] [phone] PCP - GeneralFamily Medicine10/25/18 Prema Clement, FORDER OPERATOR [address] [place] [address] ReferringFamily Medicine06/23/21Team MemberRelationshipSpecialtyStart DateEnd Date Michelle Cotto [address] [place] [phone] PCP - GeneralFamily Medicine10/25/18 Prema Clement, FORDER OPERATOR [address] [place] [phone] ReferringFamily Medicine06/23/21Team MemberRelationshipSpecialtyStart DateEnd Date Prema Clement MD [address] [place] [address] PCP - General10/19/22Team MemberRelationshipSpecialtyStart DateEnd Date Prema Clement MD [address] [place] [address] PCP - General10/19/22Team MemberRelationshipSpecialtyStart DateEnd Date Prema Clement MD [address] [facility] [place] [address] PCP - General5/23/23Team MemberRelationshipSpecialtyStart DateEnd Date Prema Clement MD [address] [facility] [place] [address] PCP - General5/23/23Team MemberRelationshipSpecialtyStart DateEnd Date Prema Clement MD [address] [facility] [place] [address] PCP - General5/23/23Team MemberRelationshipSpecialtyStart DateEnd Date Prema Clement MD [address] [facility] [place] [address] PCP - General5/23/23Team MemberRelationshipSpecialtyStart DateEnd Date Prema Clement MD [address] [facility] [place] [address] PCP - General5/23/23Team MemberRelationshipSpecialtyStart DateEnd Date Prema Clement MD [address] [facility] [place] [address] PCP - General5/23/23Team MemberRelationshipSpecialtyStart DateEnd Date Prema Clement MD [address] [facility] [place] [address] PCP - General5/23/23Team MemberRelationshipSpecialtyStart DateEnd Date Prema Clement MD [address] [facility] [place] [address] PCP - General10/19/22Team MemberRelationshipSpecialtyStart DateEnd Date Prema Clement MD [address] [facility] [place] [address] PCP - General10/19/22Team MemberRelationshipSpecialtyStart DateEnd Date Prema Clement MD [address] [facility] [place] [address] PCP - General10/19/22 Michelle Leiva MD [address] [place] [address] Referring PhysicianNeurology2Team MemberRelationshipSpecialtyStart DateEnd Date Prema Clement MD [address] [facility] [place] [address] PCP - General10/19/22 Michelle Leiva MD [address] [place] [address] Referring PhysicianNeurology2Team MemberRelationshipSpecialtyStart DateEnd Date Prema Clement MD [address] [facility] [place] [address] PCP - General10/19/22 Michelle Leiva MD [address] [place] [address] Referring PhysicianNeurology2 Team Status: Inactive Member Role Status Dates YURI Meredith Primary Care Provider Active Start: June 27, 2024 End: June 27, 2024ThOlimpia Carrasquillo ProviderActiveStart: June 27, 2024 End: June 27, 2024ToELEAZAR King-CReferring ProviderActiveStart: June 27, 2024 End: June 27, 2024 Team Status: Inactive Member Role Status Dates Prema Clement PLANE TENDER-C Primary Care Prov ider, Referring Provider Active Start: July 02, 2024 End: July 02bdOlimpia Jaramillo ProviderActiveStart: July 02, 2024 End: July 02, 2024Team MemberRelationshipSpecialtyStart DateEnd Date Prema Clement MD [address] [place] [address] PCP - General10/19/22 Michelle Leiva MD [address] [place] [address] Referring PhysicianNeurolog07/09/24Team MemberRelationshipSpecialtyStart DateEnd Date Prema Clement MD [address] [place] [address] PCP - General10/19/22 Michelle Leiva MD [address] [place] [address] Referring PhysicianNeurology2Team MemberRelationshipSpecialtyStart DateEnd Date Prema Clement MD [address] [place] [address] PCP - General10/19/22 Michelle Leiva MD [address] [place] [address] Referring PhysicianNeurology2Team MemberRelationshipSpecialtyStart DateEnd Date Prema Clement MD [address] [facility] [place] [address] PCP - General10/19/22 Michelle Leiva MD [address] [place] [address] Referring PhysicianNeurology2Team MemberRelationshipSpecialtyStart DateEnd Date Prema Clement MD [address] [place] [address] PCP - General10/19/22 Michelle Leiva MD [address] [place] [address] Referring PhysicianNeurology2Team MemberRelationshipSpecialtyStart DateEnd Date Prema Clement MD [address] [facility] [place] [address] PCP - General10/19/22 Michelle Leiva MD [address] [facility] [place] [address] Referring PhysicianNeurology2Team MemberRelationshipSpecialtyStart DateEnd Date Prema Clement MD [address] [facility] [place] [address] PCP - General10/19/22 Michelle Leiva MD [address] [place] [address] Referring PhysicianNeurolog07/09/24 Team Status: Inactive Member Role Status Dates YURI Meredith Primary Care Provider Active Start: December 10, 2024 End: December 10, 2024ThOlimpia Carrasquillo ProviderActiveStart: December 10, 2024 End: December 10, 2024 Goals (unrecognized section and content) Goals may be documented in a n alternate section FOR RECORDS PERTAINING TO PATIENTS WHO ARE OR HAVE BEEN ENROLLED IN A CHEMICAL DEPENDENCY/SUBSTANCEABUSE PROGRAM, SOME INFORMATION MAY BE OMITTED. This clinical summary was aggregated from multiple sources. Caution should be exercised in using it in the provision of clinical care. This summary normalizes information from multiple sources, and as a consequence, information in this document may materially change the coding, format and clinical context of patient data. In addition, data may be omitted in some cases. CLINICAL DECISIONS SHOULD BE BASED ON THE PRIMARY CLINICAL RECORDS. [employer] provides no warranty or guarantee of the accuracy or completeness of information in this document.
--- NOTE | 2025-04-04 09:01 | ECG_ITS ---
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
--- NOTE | 2025-04-04 09:29 | XR_ITS ---
The [address] [address] Patient Name: ANAI WANG MRN: [id number] date: 1945 Sex: F Assigned Patient Location: SURGOUT Current Patient Location: [facility] Accession/Order Number: [id number] Exam Date: 04/04/2025 10:00 Report Date: 04/04/2025 11:39 At the request of: SUZANNE ADAIR MD Procedure: XR chest 2V PA AND LATERAL CHEST: CLINICAL HISTORY: Preoperative clearance. COMPARISON: None Calcified granulomas are visualized on the right. There is no focal parenchymal consolidation, effusion or pneumothorax. The cardiac, hilar and mediastinal silhouettes are within normal limits. There is no vascular congestion. The visualized bony thorax is intact. There is thoracolumbar dextroscoliotic curvature and minor endplate spurring. XR/XR chest 2V IMPRESSION: NO ACUTE CARDIOPULMONARY ABNORMALITY. Impression dictated by: Alyssa Pablo M.D. 04/04/2025 11:39 AM Dictation Location: [place] [address] Electronically authenticated by: [id number] Y Date: 04/04/2025 11:39
--- NOTE | 2025-04-04 10:02 | PM.PRESUREVA ---
History of Present Illness History of Present Illness Chief complaint: mixed incontinence Narrative: Patient presents for presurgical testing. Please see HPI from Dr. Hatfield dated March 28, 2025. Review of Systems ROS Narrative Please see ROS from Dr. Hatfield dated March 28, 2025. [facility] Medical History (Updated 04/04/25 @ 10:05 by Erica Moulton NP) UTI (urinary tract infection) ?N39.0 - Urinary tract infection, site not specified (ICD-10) Genital herpes ?A60.00 - Herpesviral infection of urogenital system, unspecified (ICD-10) Cognitive decline ?R41.89 - Other symptoms and signs involving cognitive functions and awareness (ICD-10) Chronic constipation ?K59.09 - Other constipation (ICD-10) Renal cyst ?N28.1 - Cyst of kidney, acquired (ICD-10) Essential tremor ?G25.0 - Essential tremor (ICD-10) Raynaud disease ?I73.00 - Raynaud's syndrome without gangrene (ICD-10) Back pain ?M54.9 - Dorsalgia, unspecified (ICD-10) Arthritis ?M19.90 - Unspecified osteoarthritis, unspecified site (ICD-10) Depression ?F32.A - Depression, unspecified (ICD-10) AYDEE on CPAP ?G47.33 - Obstructive sleep apnea (adult) (pediatric) (ICD-10) Sleep apnea ?G47.30 - Sleep apnea, unspecified (ICD-10) Memory change ?R41.3 - Other amnesia (ICD-10) Seasonal allergies ?J30.2 - Other seasonal allergic rhinitis (ICD-10) GERD (gastroesophageal reflux disease) ?K21.9 - Gastro-esophageal reflux disease without esophagitis (ICD-10) Nerve pain ?M79.2 - Neuralgia and neuritis, unspecified (ICD-10) Fibromyalgia ?M79.7 - Fibromyalgia (ICD-10) Hypercholesteremia ?E78.00 - Pure hypercholesterolemia, unspecified (ICD-10) Anxiety ?F41.9 - Anxiety disorder, unspecified (ICD-10) Mixed incontinence ?N39.46 - Mixed incontinence (ICD-10) Surgical History (Updated 04/04/25 @ 09:27 by Erica Moulton NP) S/P epidural steroid injection ?Z92.241 - Personal history of systemic steroid therapy (ICD-10) S/P cystoscopy ?Z98.890 - Other specified postprocedural states (ICD-10) H/O hand surgery ?Z98.890 - Other specified postprocedural states (ICD-10) History of tubal ligation ?Z98.51 - Tubal ligation status (ICD-10) History of dilation and curettage ?Z98.890 - Other specified postprocedural states (ICD-10) History of colonoscopy ?Z98.890 - Other specified postprocedural states (ICD-10) History of esophagogastroduodenoscopy (EGD) ?Z98.890 - Other specified postprocedural states (ICD-10) History of cataract extraction ?Z98.49 - Cataract extraction status, unspecified eye (ICD-10) History of cholecystectomy ?Z90.49 - Acquired absence of other specified parts of digestive tract (ICD-10) Family History (Updated 04/04/25 @ 09:27 by Erica Moulton NP) Other Family history of aneurysm Family history of cancer Social History (Updated 04/04/25 @ 09:20 by Erica Moulton NP) Within the past year, how often did you have a drink containing alcohol: monthly or less Smoking status: Never smoker Do you use any of these nicotine containing products: vaping products Non-prescribed substance use: cannabis (any form) Highest level of school completed/degree received: Bachelor's degree Meds Home Medications and Allergies Home Medications ?Medication ?Instructions ?Recorded ?Confirmed ?Type acyclovir 200 mg capsule 200 mg PO Q12H 04/04/25 04/04/25 History clonazepam 0.5 mg tablet 0.5 mg PO Q12H PRN anxiety 04/04/25 04/04/25 History donepezil 5 mg tablet 5 mg PO QPM 04/04/25 04/04/25 History fexofenadine 180 mg tablet 180 mg PO DAILY 04/04/25 04/04/25 History (Melanie Allergy) pantoprazole 40 mg tablet,delayed 40 mg PO DAILY 04/04/25 04/04/25 History release pregabalin 50 mg capsule 50 mg PO Q12H 04/04/25 04/04/25 History simvastatin 10 mg tablet 10 mg PO DAILY 04/04/25 04/04/25 History venlafaxine 150 mg 150 mg PO DAILY 04/04/25 04/04/25 History capsule,extended release 24 hr Allergies Allergy/AdvReac Type Severity Reaction Status Date / Time ciprofloxacin (From Cipro) Allergy Hives Verified 04/04/25 09:17 Exam Narrative Exam Narrative: Constitutional: Awake, alert, comfortable, well-appearing, appears younger than stated age, nontoxic, interactive, vital signs as charted Head: Normocephalic, atraumatic Neck: Supple, normal appearance, normal range of motion, no meningeal signs, no lymphadenopathy Respiratory: No respiratory distress, breath sounds clear Cardiovascular: Regular rate and rhythm, strong and regular heart tones Abdomen: Nontender, normal bowel sounds, soft, no CVA tenderness Musculoskeletal: Normal gait, no swelling or edema Skin: No rashes or induration, no lesions, only visible skin inspected Neuro: No neurological deficits, normal sensation Psychiatric: Oriented ?3, normal affect Assessment and Plan Assessment and Plan (1) Mixed incontinence: (2) UTI (urinary tract infection): (3) Renal cyst: Plan Cystoscopy with Botox installations scheduled with Dr. Hatfield April 10, 2025.
[2025-04-04 10:07] LABS: Glucose Urine UA NEGATIVE (NEGATIVE)
[2025-04-04 10:34] LABS: Hematocrit 39.4 % (36.0-48.0); Hemoglobin 13.0 g/dL (12.0-16.0); Immature Granulocytes Abs Auto 0.02 10^3/uL (0.00-0.03); Immature Granulocytes Pct Auto 0.2 % (0.0-0.5); Lymphocytes Absolute Auto 1.9 10^3/uL (1.2-3.8); Mean Corpuscular HGB Conc 33.0 g/dL (29.9-35.2); Mean Corpuscular Hemoglobin 34.2 pg (26.7-34.0); Mean Corpuscular Volume 103.7 fL (81.0-99.0); Platelet Count 248 10^3/uL (150-450); Red Blood Count 3.80 10^6/uL (4.20-5.40); White Blood Count 8.3 10^3/uL (4.0-11.0)
[2025-04-04 10:44] LABS: Anion Gap 11.7; Blood Urea Nitrogen 30.0 mg/dL (7.0-18.0); Calcium 9.2 mg/dL (8.5-10.1); Carbon Dioxide 27.8 mmol/L (21.0-32.0); Chloride 105 mmol/L (98-107); Estimated GFR (African America >60 (>=60 mL/min/1.73m^2); Estimated GFR (Non-African Ame 55 (>=60 mL/min/1.73m^2); Glucose 90 mg/dL (74-106); INR 0.97; Partial Thromboplastin Time 28.3 sec (22.3-36.2); Potassium 4.5 mmol/L (3.5-5.1); Prothrombin Time 10.3 sec (9.0-11.6); Sodium 140 mmol/L (136-145)
== END 2025-04-04 08:46 | disposition home or self-care (01) ==
PROVIDERS: Visit Provider Urology
DX: Z01.810 Encounter for preprocedural cardiovascular examination (principal); Z01.812 Encounter for preprocedural laboratory examination; Z01.818 Encounter for other preprocedural examination; R32 Unspecified urinary incontinence; E78.5 Hyperlipidemia, unspecified
CPT/HCPCS: 36415; 71046; 80048; 81003; 85025; 85610; 85730; 93005; G0463

== ENCOUNTER 2025-04-10 11:42 | Day surgery (SDC) | payer MEDICARE, SELFPAY ==
[2025-04-04 09:47] VITALS: BP 145/83; PULSE 59; TEMP 36.3; O2SAT 98; BMI 26.9
--- OUTSIDE RECORDS SUMMARY | 2025-04-10 11:46 | XMS_ITS | Clinical Summary ---
Author Organization [facility] Address [address] [place] [id number] Care Team Providers Care Grain Farmer Name Role Phone Yadiel Dick Janusz Primary Care Provider [phone] Prema Dudley ADVERTISING COORDINATOR Unavailable [phone] Allergies Active AllergyReactionsCriticalityNoted RtydNbcnjhosHdqtbkbuwbovkLdqul27/23/2019 Medications MedicationSigDispense QuantityRefillsLast FilledStart DateEnd DateStatus simvastatin [...] DateDiagnosed DatePrimary osteoarthritis of both first carpometacarpal migjqi5712/26/2018Osteoarthritis of carpometacarpal joint of left thumb11/14/2018Thumb pain, left11/14/2018Thumb joint sukgxplqx31/18/2019HLD (hyperlipidemia)10/25/2018 Assessment & Plan (10/25/2018 9:17 AM EDT): Assessment: on Zocor Hjdfqvl1910/25/2018 Assessment & Plan (10/25/2018 9:17 AM EDT): Assessment: and depression. On Celexa. Takes Xanax prn for anxiety. Denies SI/HI AYDEE (obstructive sleep apnea)10/25/2018 Overview (10/25/2018): doesn't tolerate CPAP Assessment & Plan (10/25/2018 9:17 AM EDT): Assessment: does not use CPAP Webtqw3910/25/2018 Assessment & Plan (10/25/2018 9:18 AM EDT): Assessment: mild Qsxsrahnabg28/29/2019 Assessment & Plan (10/25/2018 9:18 AM EDT): Assessment: chronic, asymptomatic GERD (gastroesophageal reflux disease)10/25/2018 Assessment & Plan (10/25/2018 9:18 AM EDT): Assessment: takes Omeprazole at hs Encounters DateTypeDepartmentCare CtmvEmkvrcxgflr71/13/2025 Patient [facility] -[address] [place] [address] Isabel Sanderson RPh At [facility] next [facility] Family History Medical HistoryRelationCommentsCancerFatherlungAneurysmMothercerebralRelation StatusCommentsFatherMotherDeceased Social History Tobacco UseTypesPacks/DayYears UsedDateSmoking Tobacco: NeverSmokeless Tobacco: NeverAlcohol UseStandard Drinks/WeekCommentsYes0 (1 standard drink = 0.6 oz pure alcohol)1 glass per monthFULTON COUNTY [facility] UtilitiesAnswerDate RecordedIn the past 12 months has the [employer]osure, gas, oil, or water [employer] threatened to shut off services in your home?No08/23/2023Social Connection and Isolation PanelAnswerDate RecordedIn a typical week, how many times do you talk on the phone with family, friends, or neighbors?More than three times a week08/23/2023How often do you get together with friends or relatives?Three times a week08/23/2023How often do you attend oriental orthodox or yazidism services?Never08/23/2023o you belong to any clubs or organizations such as oriental orthodox groups, unions, fraternal or athletic groups, or school groups?No08/23/2023How often do you attend meetings of the clubs or organizations you belong to?Never08/23/2023re you , , , , never , or living with a partner?Dbhsftzy45/26/2024UDIT-C AnswerDate RecordedQ1: How often do you have [...] care, and heating?Not very hard08/23/2023 PHQ-2AnswerDate RecordedPHQ-2 nudwi33208/23/2023Finmountain [facility] medical center [place] of Occupational Health - Occupational Stress QuestionnaireAnswerDate RecordedDo you feel stress - tense, restless, nervous, or anxious, or unable to sleep at night because your mind is troubled all the time - these days?Only a ihilny3508/23/2023Exercise Vital SignAnswerDate RecordedOn average, how many days [...] RecordedNational Score (1-100), lower number is lower aizy012608/23/2023State Score (1-10), lower number is lower risk7 08/23/2023ata from: https://www.neighborhoodatlas.medicine.[facility].edu/. Last address used for [address] [facility]08/23/2023CommentsNoSex and Gender InformationValueDate RecordedSex Assigned at HxgenHujnnq26/15/2024 8:02 AM EDTLegal HhtVlzuaq73/28/2019 4:49 PM EDTGender AvhhbapnHulers40/15/2024 8:02 AM EDTSexual IfjqxkgahbzSxlttwap64/15/2024 8:02 AM EDT Last Filed Vital Signs Vital SignReadingTime TakenCommentsBlood Jekzgupz172/6906 1:15 PM EDT Dgtif8874 1:15 PM KOZGlgfrxvlkqm11.7 ??C (98 ??F)11/06/2018 12:25 PM EDT Respiratory Lvoq3645 1:15 PM EDTOxygen Ygmggetvli71%11/06/2018 1:[address] Ramirez here to see pt, ok for dcInhaled Oxygen Concentration--Jiueph79.2 kg (148 lb 2 oz)11/06/2018 7:47 AM XDGGwueyg297.1 cm (5' 5 )10/25/2018 8:28 AM EDTBody Mass Index24.65010/25/2018 8:28 AM EDT Plan of Treatment DateTypeDepartmentCare Team (Latest Contact Info)Mnaqolxylcs79/24/2025 10:00 AM ESTOffice Visit Neurological Mandaen [address] [place] [address] Sathish Mosley MD [address] [place], [place] [id number] essential tremor, mild jerkingHealth MaintenanceDue DateLast DoneComments Depression Utqdxblka51/11/1964Bone Density Jfwaqizmb61/11/2011DTaP,Tdap,Td Vaccine (2 - Td or Tdap)dvance Directive Discussion 05/30/2024Medicare Advantage Annual Wellness Visit05/30/2024ovid-19 Vaccine ( season), 03/01/2022, 10/14/2021, Additional history existsInfluenza Vaccine (#1), 02/24/2022, 03/31/2021, Additional history existsDiabetes Icwtzxqar98/03/2024, 10/25/2018Shingrix GeoptobYzfajoaem29/11/2019, 07/28/2018Pneumococcal Vaccine: 50+Qvblqlapg56/16/2020, 07/28/2018RSV LokwaaiQmosaadqt45/16/2023 Medical Devices ImplantedTypeAreaManufacturerDevice IdentifierShelf Expiration DateModel / Serial / LotPlate Round Titanium Bone Fusion Nonsterile First Metacarpophalangeal Left - [id number] Implanted:Qty: 1 [facility]06/[facility] Bone - Thumb ACCUMEDPL-MCPL / / Description:MCP FUSION PLATEScrew 2.7mm Titanium 14mm Bone Cruciform Modular Hand System Nonsterile - [id number] Implanted:Qty: 1 [facility]06[facility]: Bone - Thumb ACCUMEDCO-F2714 / / Description:CRUCIFORM SCREWScrew 2.7mm Titanium 12mm Bone Cruciform Modular Hand System Nonsterile - [id number] Implanted:Qty: 1 on 11/06/2018 [facility]wLeft: Bone - Thumb ACCUMEDCO-F2712 / / Description:CRUCIFORM SCREWScrew 2.7mm Titanium 12mm Bone Cruciform Modular Hand System Nonsterile - [id number] Implanted:Qty: 1 on 11/06/2018 [facility]wLeft: Bone - Thumb ACCUMEDCO-F2712 / / Description:CRUCIFORM SCREWScrew 2.7mm Titanium 8mm Bone Cruciform Modular Hand System Nonsterile - [id number] [facility] Th[facility] ACCUMEDCO-F2708 / / Description:CRUCIFORM SCREWScrew 2.7mm Titanium 10mm Bone Cruciform Modular Hand System Nonsterile - [id number] Implanted:Qty: 1 [facility] - Thumb ACCUMEDCO-F2710 / / Description:CRUCIFORM SCREW Procedures Procedure NamePriorityDate/TimeAssociated DiagnosisCommentsCOMPREHENSIVE METABOLIC KTACUIefbtzw53/11/2024 1:26 PM EDT Forgetfulness from Last 3 Months or Most Recently Relevant to Health Maintenance Results * (ABNORMAL) COMP METABOLIC PANEL (09/08/2023 1:26 PM EDT)ComponentValueRef RangeTest MethodAnalysis TimePerformed AtPathologist SignatureProtein, Total 7.06.3 - 8.0 g/dL09/08/2023 2:14 PM EDTNORTHCO[facility] Albumin4.23.9 - 4.9 g/dL09/08/2023 2:14 PM EDTNORTHCOAST [facility] LABCalcium, Total10.18.5 - 10.2 mg/dL09/08/2023 2:14 PM EDTNORTHCOAST [facility] LABBilirubin, Total0.50.2 - 1.3 mg/dL09/08/2023 2:14 PM EDTNORTSELECT [facility] LABAlkaline Eunebzxnnxd1990 - 123 U/L 09/08/2023 2:14 PM EDTNORTHCS[facility] IVMUNF3216 - 35 U/L 09/08/2023 2:14 PM [facility] LJBZIL713 - 38 U/L 09/08/2023 2:14 PM [facility] LGJCjqknqx8257 - 99 mg/dL09/08/2023 2:14 PM [facility] LABComment: The [place] Diabetes Association (ADA) provides guidance for cutoff [...] Standards of Medical Care in Diabetes 2016, [place] Diabetes Association. Diabetes Care. 2016.39(Suppl 1). XUY371 - 21 mg/dL09/08/2023 2:14 PM [facility] Creatinine1.13(H)0.58 - 0.96 mg/dL09/08/2023 2:14 PM [facility] CHPWaxkdc613912 - 144 mmol/L09/08/2023 2:14 PM [facility] LABPotassium4.63.7 - 5.1 mmol/L09/08/2023 2:14 PM EDT [facility] ASPXrxaixkd98928 - 105 mmol/L09/08/2023 2:14 PM [facility] XNGXD03994 - 30 mmol/L09/08/2023 2:14 PM [facility] LABAnion Kch654 - 18 mmol/L09/08/2023 2:14 PM [facility] LABEstimated Glomerular Filtration Rate 50(L)>=60 mL/min/1.73m 09/08/2023 2:14 PM EDTNORTHCOAST [facility] LABComment:Estimated Glomerular Filtration Rate (eGFR) is calculated [...] VolumeCollection TimeReceived TimeBloodBLOOD SPECIMEN / UnknownVenipuncture / Fxgudli3909/08/2023 1:26 PM EDT09/08/2023 1:26 PM EDT Narrative Authorizing ProviderResult TypeResult StatusGauranmarisol Horne MDLABORATORYFinal ResultPerforming OrganizationAddressCity/State/ZIP CodePhone Number [facility] [address] [place] [phone] from Last 3 Months or Most Recently Relevant to Health Maintenance Insurance * Guarantor: Jazzmine WatsonAccoshefali TypeRelation to PatientDate of BirthPhone Billing AddressPersonal/RruiivNxjx1945 [address] [place] [address] Care Teams Team MemberRelationshipSpecialtyStart DateEnd Dick Cotto [address] [place] [phone] PCP - GeneralFamily Medicine10/25/18 Prema Dudley ADVERTISING COORDINATOR [address] [place] [id number] ReferringFamily Medicine06/23/21
--- OUTSIDE RECORDS SUMMARY | 2025-04-10 11:46 | XMS_ITS | Clinical Summary ---
Author Organization [facility] Address [address] [facility] [place] [address] Care Team Providers Care Paper Finisher Name Role Phone Prema Dudley MD Primary Care Provider [phone] Dick Leiva MD Unavailable [phone] Allergies Active AllergyReactionsCriticalityNoted DateCommentsCiprofloxacinUnknown,Hives 10/19/2018 Medications [...] Problems ProblemNoted DateDiagnosed DateParesthesia of both feet02/10/2024olyneuropathy, japdbdbcebn93/13/2024 Family History Medical HistoryRelationNameCommentsAlzheimer's diseaseBrotherAlcohol abuseFather Christian LaubnerCancerFatherCurtis LaubnerHeart diseaseFatherCurtis LaubnerStroke MotherMelanomaNeg HxRelationNameStatusCommentsBrotherFatherCurtis LaubnerMother Social History Tobacco UseTypesPacks/DayYears UsedDateSmoking Tobacco: NeverSmokeless Tobacco: Never Tobacco Cessation:Counseling Given: Not Answered Alcohol UseStandard Drinks/WeekCommentsYes0 (1 standard drink = 0.6 oz pure alcohol)Very occasionally ie holidaysCommentsUnknownSex and Gender InformationValueDate RecordedSex Assigned at FiykyLuzsfh73/23/2023 7:27 AM EDT Legal GkgQkgfca02/15/2023 7:25 PM EDTGender OqghbumyDmzlde64/23/2023 7:27 AM EDT Sexual UrnbvpvwurqLurymlbk71/23/2023 7:27 AM EDT Last Filed Vital Signs Vital SignReadingTime TakenCommentsBlood Tbnephpa853/72010/11/2024 9:22 AM EDT Pgyjk484404/23/2024 1:02 PM ESTTemperature--Respiratory Edsd312406/14/2024 2:09 PM ESTOxygen Aohqnokjuh70%04/23/2024 1:02 PM ESTInhaled Oxygen Concentration-- Qnybor22.3 kg (155 lb)10/11/2024 9:22 AM RFSWbtlgg446 cm (5' 3 )10/11/2024 9:22 AM EDTBody Mass Index27.46010/11/2024 9:22 AM EDT Plan of Treatment DateTypeDepartmentCare Team (Latest Contact Info)Qbmktiteyju05/04/2026 1:00 PM EDTOffice Visit [facility] [address] [place] [address] Jennifer Calderon PA [address] [place] [address] Health MaintenanceDue DateLast DoneCommentsCOVID-19 Vaccine ( season) 505/, 03/17/2021, 08/16/2020, Additional history existsInfluenza Vaccine (#1)511/, 03/14/2023, 02/24/2022, Additional history existsPneumococcal Vaccine: 65+ BicswGjhxpudcz62/12/2024, 08/13/2019, 07/28/2018 Insurance * Guarantor: Jazzmine Watson TypeRelation to PatientDate of BirthPhone Billing AddressPersonal/ImuexqSmhw1945 [address] [place] [address] Care Teams Team MemberRelationshipSpecialtyStart DateEnd Date Prema Dudley MD [address] [place] [address] PCP - General10/19/22 Dick Leiva MD [address] [place] [address] Referring PhysicianNeurology2
[2025-04-10 11:48] VITALS: BP 153/83; PULSE 62; TEMP 36.1; O2SAT 95; BMI 26.8
--- OUTSIDE RECORDS SUMMARY | 2025-04-10 11:48 | XMS_ITS | CCD ---
Author Organization [facility] Care Team Providers Care Pre Certification Specialist Name Role Phone Michelle Cotto Primary Care Provider Prema Clement CNP Unavailable [phone] Olga Milton Primary Care Physician Michelle Cotto Primary Care Provider Prema Clement CNP Unavailable EBEN REEDER Referring Unavailable MICHELLE COTTO Primary Care Unavailhelio e EBEN REEDER Attending Unavailable MICHELLE COTTO Primary Care Unavailhelio e PREMA MUNOZ Primary Care Physician [phone] Prema Clement MD Primary Care Provider Michelle Leiva MD Unavailable Octavia CARLOS-Prema Serna Primary Care Provider [phone] Guillermo Connors MD Attending Provider Michelle Leiva [...] Unavailable Salazar Beckford MD Attending Provider [phone] Vania Burton APRN Emergency Provider [phone] Cece Peña MD Attending Provider Rickieya SOLUTIONS DELIVERY CONSULTANT-C, Prema Primary Care Provider Vania Burton Attending Unavailable Gonya, Rpema Primary Care Unavailable Vania Burton Admitting Unavailable Gonya, Prema Primary Care Unavailable Guillermo Connors Admitting Unavailable Guillermo Connors Attending Unavailable Gonya, Prema Primary Care Unavailable Salazar Beckford Admitting Unavailab le Salazar Beckford Attending Unavailab le Gonya SOLUTIONS DELIVERY CONSULTANT-C, Prema Primary Care Provider Cece Peña MD Attending Provider [phone] Reginald Armstrong MD Attending Provider [phone] Flor Iraheta Attending Unavailable GONIA, PREMA Primary Care Unavailable Flor Iraheta Admitting Unavailable Flor Iraheta Attending Unavailable GONIA, PREMA Primary Care Unavailable Lowell BEEF LUGGER-CEMENT FINISHER, Shruthi Garcia Attending Cece Olivo MD Attending Marie jacobs Lowell BEEF LUGGER-CEMENT FINISHER, Shruthi Garcia Attending Callie taveras Lowell BEEF LUGGER-Shruthi MEJIA Attending Callie Gutierrez MD, Cece Gonzalez Attending Thelma Toscano Attending Unavailable GONIA, PREMA Primary Care Unavailable Gonya, Prema Primary Care Unavailable Lowell, Shruthi M Attending Unavailable Lowell, Shruthi M Admitting Unavailable Jeanie, Autumn Attending Unavailable Jeanie, Autumn Admitting Unavailable Gonya, Prema Primary Care Unavailable Lowell, Shruthi M Admitting Unavailable Lowell, Shruthi M Attending Unavailable Gonya, Prema Primary Care Unavailable Gonya, Prema Primary Care Unavailable Gonya, Prema Admitting Unavailable Gonya, Prema Attending Unavailable Thelma Hatfield MD Admitting Unavailable Gonya, Prema Primary Care Unavailable Thelma Hatfield MD Attending Unavailable Gonya, Prema Primary Care Unavailable CECE GUTIERREZ Attending Unavailable CECE GUTIERREZ Admitting Unavailable Gonya, Prema Primary Care Unavailable Gonya, Prema Admitting Unavailable Gonya, Prema Attending Unavailable Gonya, Prema Admitting Unavailable Gonya, Prema Attending Unavailable Gonya, Prema Primary Care Unavailable Gonya, Prema Primary Care Unavailable Gonya, Prema Admitting Unavailable Gonya, Prema Attending Unavailable Gonya, Prema Primary Care Unavailable Lowell, Shruthi M Attending Unavailable Lowell, Shruthi M Admitting Unavailable Gonya, Prema Primary Care Unavailable Lowell, Shruthi M Attending Unavailable Lowell, Shruthi M Admitting Unavailable Lowell, Shruthi M Attending Unavailable Gonya, Prema Primary Care Unavailable Lowell, Shruthi M Admitting Unavailable Gonya, Prema Primary Care Unavailable KINDCECE Godwin F Attending Unavailable CECE GUTIERREZ Admitting Unavailable Gonya, Prema Primary Care Unavailable Guillermo Connors Attending Unavailable Ramo Levine Unavailable Guillermo Connors Admitting Unavailable Gonya, Prema Primary Care Unavailable Erica Jama Attending Unavailable Erica Jama Admitting Unavailable Gonya, Prema Primary Care Unavailable Lowell, Shruthi M Attending Unavailable Lowell, Shruthi M Admitting Unavailable Gonya, Prema Primary Care Unavailable Gonya, Prema Attending Unavailable Gonya, Prema Primary Care Unavailable Gonya, Prema Attending Unavailable Gonya, Prema Primary Care Unavailable Gonya, Prema Attending Unavailable Gonya, Prema Attending Unavailable Gonya, Prema Primary Care Unavailable Gonya, Prema Primary Care Unavailable Guillermo [...] Primary Care Unavailable Gonya, Prema Attending Unavailable Jyoti Uribe Attending Unavailable Gonya, Prema Consulting Unavailable Jyoti Uribe Admitting Unavailable Gonya, Prema Primary Care Unavailable Allergies Allergy ClassificationReported Allergen(s)Allergy TypeDate of OnsetReaction(s) Facility (20 sources)Ciprofloxacin; Translations: [ciprofloxacin]Drug Jfofode07-40-4823 Hives, Weal (disorder), [facility] ([facility])Ciprofloxacin; Translations: [Cipro][facility] ([facility] source)CiprofloxacinDrug Jnlgraq14-90-7732PwlkwdcccBar[facility]ton [facility] Medications Current Medications MedicationDrug Class(es)DatesSig (Normalized)Sig (Original)Acetaminophen (20 sources)Acetaminophen (TYLENOL PO) ActiveAcetaminophen (TYLENOL PO) Tylenol Activeacyclovir 200 mg oral capsule (20 sources)Herpesvirus Nucleoside Analog DNA Polymerase Inhibitor, Herpes Simplex Virus Nucleoside Analog DNA Polymerase Inhibitor, Herpes Zoster Virus Nucleoside Analog DNA Polymerase InhibitorStart: 33-05-6405mmpl 1 capsule by mouth twice dailyacyclovir 200 mg Cap 200 mg = 1 cap(s), Oral, BID, Refills(s) 0 Start Date: 09/01/23 Status: Ordered Medication Dispense Status: Completed Total Allowed Fills: 1 Fills Dispensed: 0Comment on above:Take 200 mg by mouth twice daily. Melanie 24 Hour Allergy (10 sources)Start: 32-26-4690Zotvvye 24 Hour Allergy Refills(s) 0 Start Date: 09/01/23 Status: Ordered Medication Dispense Status:Completed Total Allowed Fills: 1 Fills Dispensed: 0Start: 65-05-6993Zwafpqz 24 Hour Allergy Refills(s) 0 Start Date: 09/01/23 Status: Ordered Repeat number: 1Start: 25-76-0924Glkitvi 24 Hour Allergy Refills(s) 0 Start Date: 09/01/23 Status: Orderedcalcium carbonate 1500 mg oral tablet (10 sources)Start: 54-41-6811hodm 1 tablet by mouth once dailycalcium (as carbonate) 600 mg oral tablet 600 mg = 1 tab(s), Oral, Daily Start Date: 10/17/24 Status: Ordered Medication Dispense Status: Completed Total Allowed Fills: 1 Fills Dispensed: 0Start: 65-68-6148hthf 1 tablet by mouth twice dailyCalcium Carbonate [...] 0.025 mg oral capsule (8 sources)Vitamin DStart: 20-07-0156jptk 1 capsule by mouth once daily Cholecalciferol (Vitamin D3) 25 mcg (1,000 unit) capsule Active 25 MCG PO Daily July 02, 2024 1:00am Complies with drug therapyclonazePAM 0.5 mg oral tablet (20 sources)BenzodiazepineStart: 15-95-4284JsayxzdTEZ 0.5 mg Tab Refills(s) 0 Start Date: 09/01/23 Status: Ordered Medication Dispense Status: Completed Total Allowed Fills: 1 Fills Dispensed: 0donepezil hydrochloride 5 mg oral tablet (1 source)Start: 06-82-2271vloz 1 mg by mouth once dailyDonepezil 5 mg tablet Active MG PO Daily December 27, 2024 12:00am Complies with drug therapyestradiol 0.1 mg/ml vaginal cream (20 sources)EstrogenStart: 89-17-7568Jfppvnr 0.1 MG/GM vaginal cream 03/19/2024 ActiveStart: 11-73-4674Myrjkcx 0.1 MG/GM vaginal cream See Instructions, 42.5 gm, Refill(s) 2, Apply pea sized amount to external urethra/vaginal area 3x a week for 1 month, then 2x a week afterwards, [facility] [id number], 165, cm, 09/01/23 10:37:00 EDT, Height/Length Dosing, 70.5, kg, 09/01/23 10:37:00 EDT, Weight Dosing 03/19/2024 ActiveStart: 58-19-5313Tphxjpw 0.1 mg/g Cream See Instructions, 42.5 gm, Refill(s) 2, Apply pea sized amount to external ur ethra/vaginal area 3x a week for 1 month, then 2x a week afterwards, [facility] [id number], 165,cm, 09/01/23 10:37:00 EDT, Height/Length Dosing, 70.5, kg, 09/01/23 10:37:00 EDT, Weight Dosing Start Date: 03/19/24 Status: Ordered Medication Dispense Status: Completed Quantity: 42.5 Unit: g TotalAllowed Fills: 3 Fills Dispensed: 0fexofenadine hydrochloride 180 mg oral tablet (20 sources)Histamine-1 Receptor AntagonistStart: 43-76-5031plbqkhddbrib (Melanie Allergy) 180 MG tablet 05/11/2023 ActiveMagnesium (20 sources)Start: 45-58-1697Yzftiusmy 125 MG capsule 02/20/2024 Pqzima09 hr mirabegron 50 mg extended release oral tablet (3 sources)beta3-Adrenergic AgonistStart: 10-01-2023 End: 86-88-6187Ofqjwjnkx 50 mg oral tablet, extended release 50 mg = 1 tab(s), Oral, Daily, do not fill until September 2023, X 30 day(s), # 30 tab(s), Refills(s) 2, Pharmacy: [facility] [id number], 165, cm, 09/01/23 10:37:00 EDT, Height/Length Dosing, 70.5, kg, 09/01/23 10:37:00 EDT, Weight Dosing Start Date: 10/01/23 Stop Date: 12/30/23 Status: OrderedStart: 09-01-2023 End: 93-50-5577gkfp 1 tablet by mouth once dailyMyrbetriq 25 mg oral tablet, extended release 25 mg = 1 tab(s), Oral, Daily, ., X 30 day(s), # 30 tab(s), Refills(s) 0, Pharmacy: [facility] [id number], 165, cm, 09/01/23 10:37:00 EDT, Height/Length Dosing, 70.5, kg, 09/01/23 10:37:00 EDT, Weight Dosing Start Date: 09/01/23 Stop Date: 10/01/23 Status: OrderedMultivitamin (Daily Multi-Vitamin) tablet (8 sources)Start: 89-92-7063xbvb 1 tablet by mouth once dailyStart: 08-22-2024 take 1 tablet by mouth once dailyMultivitamin (Daily Multi-Vitamin) tablet Active 1 TAB PO Daily August 22, 2024 12:00am Complies with drug therapyStart: 32-18-7659jlvu 1 tablet by mouth once dailyMultivitamin (Daily Multi-Vitamin) tablet Active 1 TAB PO Daily August 22, 2024 12:00amnitrofurantoin, macrocrystals 25 mg / nitrofurantoin, monohydrate 75 mg oral capsule (1 source)Nitrofuran AntibacterialStart: 03-28-2025 End: 09-25-3122tmkv 1 capsule by mouth twice dailyMacrobid 100 mg Cap 100 mg = 1 cap(s), Oral, BID, Start medication the day prior to the procedure.,X 3 day(s), # 6 cap(s), Refills(s) 0, Pharmacy: [facility] [id number], 165, cm, 03/28/25 14:27:00 EDT, Height/Length Dosing, 69.9, kg, 03/28/25 14:27:00 EDT, Weight Dosing Start Date: 03/28/25 Stop Date: 03/31/25 Status: Ordered Medication Dispense Status: Completed Quantity: 6.0 Unit: cap(s) Total Allowed Fills: 1 Fills Dispensed: 0 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; pantoprazole 40 mg delayed release oral tablet (11 sources)Proton Pump InhibitorStart: 46-91-7158dbyl 1 tablet by mouth once dailyPantoprazole 40 mg tablet,delayed release (DR/EC) Active 40 MG PO Daily November 05, 2024 12:00am Complies with drug therapyStart: 74-80-3936Bdvkrquk 40 MG EC tablet 40 mg 09/19/2024 ActivepredniSONE 10 mg oral tablet (4 sources)Start: 03-27-2024 End: 57-91-2880xpzs 5 tablets by mouth once daily, then [...] completed)pregabalin 50 mg oral capsule (20 sources)Start: 98-36-4440kfwa 1 capsule by mouth once dailyLyrica 50 mg Cap 50 mg = 1 cap(s), Oral, Daily Start Date: 10/17/24 Status: Ordered Medication Dispense Status: Completed Total Allowed Fills: 1 Fills Dispensed: 0Start: 06-27-2024 End: 78-22-0413zqhx 1 capsule by mouth twice dailyPregabalin (Lyrica) 50 mg capsule Discontinued 50 MG PO Twice daily 60 30 August 09, 2024 8:20am September 20, 2024 3:12pmpsyllium 3400 mg powder for oral suspension (8 sources)Start: 23-11-3439Tfwvhwrz Husk (Metamucil) 3.4 gram/5.4 gram powder Active 1 TBSP PO Daily as needed for constipation July 02, 2024 1:00am mix into at least 8 oz of water or juice before administering Complies with drug therapysimvastatin 10 mg oral tablet (20 sources)HMG-CoA Reductase InhibitorStart: 60-27-7163upkb 1 tablet by mouth once daily in the eveningsimvastatin 10 mg Tab 10 mg = 1 tab(s), Oral, qPM Start Date: 10/17/24 Status: Ordered Medication Dispense Status: Completed Total Allowed Fills: 1 Fills Dispensed: 0Start: 06-19-2024 End: 46-49-9407Ssrwuqnvwrh 10 mg tablet Discontinued MG PO June 27, 2024 1:00am July 02, 2024 3:49pmStart: 26-34-6950xvhe 1 tablet by mouth once daily at bedtimesimvastatin (ZOCOR) 10 mg tablet Take 10 mg by mouth daily at bedtime. 0 08/31/2018 ActiveComment on above:Take 10 mg by mouth daily at bedtime. 24 hr venlafaxine 75 mg extended release oral capsule (20 sources)Serotonin and Norepinephrine Reuptake InhibitorStart: 27-78-4634hjgg 1 capsule by mouth once dailyEffexor XR 75 mg Cap-ER 75 mg = 1 cap(s), Oral, Daily Start Date: 10/17/24 Status: Ordered Medication Dispense Status: Completed Total Allowed Fills: 1 Fills Dispensed: 0Start: 05-10-2024 End: 48-14-4202ophm 1 capsule by mouth every twenty-four hoursVenlafaxine 75 mg capsule,extended release 24hr Discontinued MG PO June 27, 2024 1:00am July 02, 2024 3:49pmvibegron 75 MG Oral Tablet (4 sources)Start: 09-23-2023 End: 06-78-2223xepb 1 tablet by mouth once dailyvibegron 75 mg oral tablet 75 mg = 1 tab(s), Oral, Daily, X 30 day(s), # 30 tab(s), Refills(s) 11, Pharmacy: [facility] [id number], 165, cm, 09/01/23 10:37:00 EDT, Height/Length Dosing, 70.5, kg, 09/01/23 10:37:00 EDT, Weight Dosing Start Date: 09/23/23 Stop Date: 09/17/24 Status: OrderedZinc Sulfate (20 sources)Start: 96-47-4711Qdii Sulfate (ZINC 15 PO) 02/20/2024 Activezolpidem tartrate 10 mg oral tablet (11 sources)gamma-Aminobutyric Acid-ergic AgonistStart: 51-50-7529owev 1 tablet by mouth once daily at bedtimezolpidem (AMBIEN) 10 mg tab Take 10 mg by mouth daily at bedtime. 0 10/10/2018 ActiveStart: 09-02-2017 End: 33-38-7881ktnd 1 tablet by mouth once dailyZolpidem 5 mg Tablet Discontinued 5 MG PO Daily September 02, 2017 12:00am August 22, 2024 4:05pm Comment on above:Take 10 mg by mouth daily at bedtime. Completed/Discontinued Medications MedicationDrug Class(es)DatesSig (Normalized)Sig (Original)ALPRAZolam 0.5 mg oral tablet (13 sources)BenzodiazepineStart: 09-02-2017 End: 52-04-9761Dxltzggsyy 0.5 mg tablet Discontinued 0.5 MG PO As Directed September 02, 2017 12:00am July 02, 2024 3:48pmComment on above:Take 0.5 mg by mouth at bedtime as needed. Alum & Mag Hydroxide-Simeth (MYLANTA PO) (2 sources) End: 08-88-8432Rzca & Mag Hydroxide-Simeth (MYLANTA PO) Mylanta 02/21/2024 Discontinued (Therapy completed)atomoxetine 25 mg oral capsule (11 sources)Norepinephrine Reuptake InhibitorStart: 08-08-2024 End: 83-85-0436yiqa 1 capsule by mouth once dailyAtomoxetine 25 mg capsule Discontinued 25 MG PO Daily August 22, 2024 12:00am November 05, 2024 1:35pm citalopram 40 mg oral tablet (20 sources)Serotonin Reuptake InhibitorStart: 09-02-2017 End: 05-21-6095liri 1 tablet by mouth once dailyCitalopram 40 mg Tablet Discontinued 40 MG PO Daily September 02, 2017 12:00am July 02, 2024 3:48pm Comment on above:Take 40 mg by mouth once daily.desonide 0.0005 mg/mg topical ointment (8 sources)CorticosteroidStart: 09-02-2017 End: 00-79-6592Ykwltbpg 0.05 % ointment Discontinued 1 DOSE TOPICAL As Directed September 02, 2017 12:00am July 02, 2024 3:48pmMultivitamin (Multiple Vitamins) tablet (8 sources)Start: 07-02-2024 End: 90-88-1733dwfo 1 tablet by mouth once dailyMultivitamin (Multiple Vitamins) tablet Discontinued 1 TAB PO Daily July 02, 2024 1:00am November 05, 2024 1:37pmStart: 98-41-3324tmhz 1 tablet by mouth once dailyMultivitamin (Multiple Vitamins) tablet Active 1 TAB PO Daily July 02, 2024 1:00amOmega-3 Fatty Acids (FISH OIL PO) (2 sources) End: 01-40-5991Ijztc-3 Fatty Acids (FISH OIL PO) Fish Oil 02/21/2024 Discontinued (Therapy completed)omeprazole 40 mg delayed release oral capsule (20 sources)Proton Pump InhibitorStart: 06-27-2024 End: 85-99-6213abcr 1 capsule by mouth once dailyOmeprazole 40 mg capsule,delayed release(DR/EC) Discontinued 40 MG PO Daily July 02, 2024 3:43pm November 05, 2024 1:36pmStart: 19-09-3639Phyepbtkfh 20 MG Tablet Delayed Release Dispersible 02/20/2024 ActiveStart: 33-48-6334mzqymysenf 40 mg Cap-DR Refills(s) 0 Start Date: 09/01/23 Status: OrderedStart: 97-93-9975zxww 1 capsule by mouth once daily at bedtimeomeprazole (PRILOSEC) 20 mg capsule Take 1 capsule by mouth daily at bedtime. 0 10/25/2018 ActiveComment on above:Take 1 capsule by mouth daily at bedtime.sucralfate 1000 mg oral tablet (20 sources)Aluminum ComplexStart: 06-27-2024 End: 14-85-0091Ajsnhsvvnd 1 gram tablet Discontinued PO June 27, 2024 1:00am July 02, 2024 3:49pmStart: 06-27-2024 End: 32-40-7494Eyntulfypr 1 gram tablet Discontinued PO June 27, 2024 1:00am July 02, 2024 3:49pmStart: 08-19-2021 End: 42-21-0764nxpu 1 tablet by mouth twice daily as neededSucralfate (Carafate) 1 gram tablet Discontinued 1 GM PO Twice daily as needed July 02, 2024 1: 00am August 22, 2024 4:05pmsulfamethoxazole 800 mg / trimethoprim 160 mg oral tablet (2 sources)Dihydrofolate Reductase Inhibitor Antibacterial, Sulfonamide AntimicrobialStart: 01-13-2022 End: 14-49-5026blxf 1 tablet by mouth once daily as neededsulfamethoxazole- trimethoprim (Bactrim DS) 800-160 MG per tablet See Instructions, Instructions: 1 tab(s) PO qd prn after sexual activity, # 30 tab(s), 1 Refill(s), Pharmacy: [facility] [id number], 1 tab(s) PO qd prn after sexual activity 01/13/2022 02/21/2024 Discontinued (Therapy completed)Vitamin D-Vitamin K (DOSOQUIN PO) (2 sources) End: 16-70-1533Ilsdksg D-Vitamin K (DOSOQUIN PO) Dosoquin 02/21/2024 Discontinued (Therapy completed) Problems Active Problems Problem ClassificationProblemDateDocumented DateEpisodic/Chronic Administrative/social admission (8 sources)Bereavement; Translations: [Disappearance and of family member] 66-83-9515WybfnohmAonbpzd disorders (20 sources)Anxiety; Translations: [Anxiety disorder, unspecified]Onset: 829639-13-6792KynbirkJglgzaamx-fwelcak, conduct, and disruptive behavior disorders (6 sources)Attention deficit hyperactivity disorder, predominantly inattentive type; Translations: [Attention-deficit hyperactivity disorder, predominantly inattentive type]38-14-0161MgvqbiuThdhuzm kidney disease (1 source)Chronic kidney disease stage 3A ; Translations: [Stage 3a chronic kidney disease (HCC)]44-78-3562RvgftufCkvbnfqwu of lipid metabolism (20 sources)Hyperlipidemia; Translations: [Hyperlipidemia, unspecified]Onset: 446826-74-3822VlwehztMkhlhofbne disorders (20 sources)Gastroesophageal reflux disease; Translations: [Gastro-esophageal reflux disease without esophagitis]Onset: 831617-52-5496Dlnfnzf Genitourinary symptoms and ill-defined conditions (16 sources)Mixed incontinence; Translations: [Incontinence]Onset: 09-01-2023 ChronicGenitourinary symptoms and ill-defined conditions (20 sources)History of urinary tract infection; Translations: [Personal history of urinary (tract) infections]Onset: 87-76-8519OftthiewPprcmdyfau disorders (14 sources)Atrophic vaginitis; Translations: [Postmenopausal atrophic vaginitis]Onset: 12-01-9838ZxslfceBjmc disorders (15 sources)Depressive disorder; Translations: [Depression, unspecified depression type]16-91-9232NfsblbsRhuk disorders (1 source)Mood disorders; Translations: [Depression, unspecified depression type]Onset: 88-42-3226Xaiqqtbiesviqz (16 sources)Osteoarthritis of first carpometacarpal joint of left hand; Translations: [Unilateral primary osteoarthritis of first carpometacarpal joint, left hand]Onset: 456752-94-2184NhhvrhiVnrsj and unspecified benign neoplasm (2 sources)Melanocytic nevus of trunk; Translations: [Melanocytic nevi of trunk] 61-02-4628WbyosnwmBfpqm connective tissue disease (10 sources)Jybvsfwirxyb67-93-9342JlgqekszMwywa connective tissue disease (12 sources)Spasmodic movement; Translations: [Cramp and spasm]04-24-2024 EpisodicOther connective tissue disease (1 source)Trochanteric bursitisEpisodicOther diseases of bladder and urethra (8 sources)Overactive bladder; Translations: [Overactive bladder]07-03-2024 ChronicOther diseases of bladder and urethra (8 sources)Overactive bladder; Translations: [Hypertonicity of bladder] 43-71-3360HrhzlthTrkrw diseases of kidney and ureters (8 sources)Acquired renal cystic disease; Translations: [Cyst of kidney, acquired]23-63-1930FcibvwaqVzxev diseases of kidney and ureters (9 sources)Cyst of kidney, acquired; Translations: [Cyst of kidney, acquired] Onset: 317828-74-0655BwuyosikOqhre diseases of kidney and ureters (1 source)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 EHR CmteOther hereditary and degenerative nervous system conditions (1 source)Essential tremor; Translations: [Essential tremor]Onset: 04-03-2025 ChronicOther injuries and conditions due to external causes (4 sources)Injury of head; Translations: [Unspecified injury of head, initial encounter]09-33-3192WuupuctoLqfiz injuries and conditions due to external causes (1 source)Other specified injuries of head, initial encounter; Translations: [Other specified injuries of head, initial encounter]Onset: 49-54-5738Gofypbrr Other nervous system disorders (20 sources)Polyneuropathy; Translations: [Polyneuropathy, unspecified]Onset: 456860-67-0972MvxujrcPuoss nervous system disorders (20 sources)Chronic pain; Translations: [Other chronic pain]53-68-4071Igfyagp Other nervous system disorders (4 sources)Disturbance of attention; Translations: [Attention and concentration deficit]93-18-0318OfrawcgSuuqx nervous system disorders (8 sources)Other chronic pain; Translations: [Other chronic pain]06-27-2024 ChronicOther nervous system disorders (11 sources)Impaired cognition; Translations: [Other symptoms and signs involving cognitive functions and awareness]Onset: 54-08-7240JplscsdnPllzk nervous system disorders (8 sources)Tremor; Translations: [Tremor, unspecified]31-24-3858ObhxswivImetx nervous system disorders (6 sources)Hyperreflexia; Translations: [Abnormal reflex]80-81-7428PcyhnmwaAmguf non-traumatic joint disorders (1 source)Other specific joint derangements of unspecified joint, not elsewhere classified; Translations: [Other specific joint derangements of unspecified joint, not elsewhere classified]Onset: 02-94-6668PpsnurbDkspa non-traumatic joint disorders (12 sources)Hip pain; Translations: [Pain in right hip]37-60-4028RbywhbppTaxac screening for suspected conditions (not mental disorders or infectious disease) (1 source)Encounter for screening for osteoporosis; Translations: [Encounter for screening for osteoporosis]Onset: 59-19-3810XaudfzwxSkjnf skin disorders (2 sources)Inflamed seborrheic keratosis; Translations: [Inflamed seborrheic keratosis]60-64-9367FxukyjwaQmzgk skin disorders (2 sources)Seborrheic keratosis; Translations: [Other seborrheic keratosis] 95-34-4678CkadhknbWmxqv skin disorders (2 sources)Actinic keratosis; Translations: [Actinic keratosis]09-27-2024 EpisodicOther skin disorders (2 sources)Lentiginosis; Translations: [Other melanin hyperpigmentation] 07-38-9137OfwlxakdCmlut upper respiratory disease (10 sources)Allergic ohegdpnv74-50-1535JqgifyvVawprlzr codes; unclassified (13 sources)Obstructive sleep apnea syndrome; Translations: [Obstructive sleep apnea (adult) (pediatric)]Onset: 274769-45-7796KibyjeaJvbjhyim codes; unclassified (5 sources)Hypersomnia; Translations: [Hypersomnia, unspecified]04-29-2024 ChronicResidual codes; unclassified (2 sources)Sleep vfdhy21-67-2248VnyazxhDdbyyhok codes; unclassified (1 source)Forgetful; Translations: [Other general symptoms and signs]08-23-2023 EpisodicResidual codes; unclassified (18 sources)Insomnia; Translations: [Insomnia, unspecified]81-61-0801Jcziwper Residual codes; unclassified (1 source)Other general symptoms and signs; Translations: [Forgetfulness]Onset: 10-72-6446XcmrhmpcQgvuaout codes; unclassified (19 sources)Amnesia; Translations: [Other amnesia]64-89-4913RbjirjybZtlncwxp codes; unclassified (1 source)Immunization not carried out for other reason; Translations: [Immunization not carried out for other reason]Onset: 75-19-3718PbbhqohzKgzxugph codes; unclassified (1 source)Asymptomatic menopausal state; Translations: [Asymptomatic menopausal state]Onset: 20-24-6049IvahhyfgJhguwmcdkkp; intervertebral disc disorders; other back problems (20 sources)Cervical spondylosis; Translations: [Lumbosacral spondylosis with radiculopathy]Onset: 714708-47-0811PuyunyoTumvbhohenv; intervertebral disc disorders; other back problems (20 sources)Neck pain; Translations: [Chronic low back pain]Onset: 03-21-2025 29-35-7249OmakrpmiWrwbwufqyvz injury; contusion (4 sources)Abrasion of face; Translations: [Abrasion of other part of head, initial encounter]61-09-7767PrpfsihaPnrwzkezxbhn (1 source)M70.62 - Trochanteric bursitis, left hipViral infection (10 sources)Genital herpes yraadmy96-26-2569Uwltibr Past or Other Problems Problem ClassificationProblemDateDocumented DateEpisodic/ChronicCardiac dysrhythmias (3 sources)Bradycardia; Translations: [Bradycardia, unspecified]Onset: 875637-33-7885WfpowxrqOhiyzyupuh and other anemia (3 sources)Anemia; Translations: [Anemia, unspecified]Onset: 10-25-2018 76-57-0554VkvklerlZvckz connective tissue disease (3 sources)Pain in left thumb; Translations: [Pain in left finger(s)]Onset: 319789-37-8004ZjavcljhHmxcl nervous system disorders (20 sources)Paresthesia of foot ; Translations: [Paresthesia of skin]Onset: 549543-61-9740ZewhcaxvSmmyt non-traumatic joint disorders (3 sources)Thumb joint stiff; Translations: [Stiffness of unspecified hand, not elsewhere classified]Onset: 142005-76-5640Lbxshcak Results Test NameValueInterpretationReference RangeFacilityReminder Messageson 81-48-3507Zqvwtqkd Messages From: Prema Clement APRN, CNP To: [facility] [place] ([facility]); Sent: 04/09/2025 16:22:31 EST ! Show up: 04/09/2025 16:22:31 EST Subject: Results Follow Up Actions: Call the patient with result(s) Due Date/Time: 04/10/2025 16:22:00 EST Reminder Comments: ok repeat 1 year Results: Date Result Type Result Name 04/09/2025 16:21 Radiology MA Mammo Screening 3D Bilateral. patient notified, voiced understanding, reminder [facility] Coding Summaryon 63-35-8916Extadd SummaryPRIMARY CHILDREN'S HOSPITALBase 64 JhmzontqSGq7oXc+PGhlYWQ+VO1IRYJoQ47orJTrvL2nW4VHVQwCAlxhBNOPZYgBVjKwrqQsSJ5qfXWi ZXJu [file] ZTo (more content not included)...[facility] HospitalPhysical Therapy Noteon 90-75-0776Xmolwmcf Therapy Note [id number]#1.00OTGTL[facility] Calciumon 05-18-7117Eftuyru [Mass/Vol]9.1 mg/dLMadison8.9-10.[address] [place] [address] Comment on above:Performed By: #### [id number], [id number], [id number], [id number] #### [facility] (DEFAULT) [address] [place] [address] 64807Ereqla Summaryon 30-56-1718Priphg SummaryHTMLBase 64 JdiksoaeYSc5jHc+PGhlYWQ+KB6XYRWsA32jcYWadT5wN7EQJTsDYfzyZDYAFJkXRuTaulLaDT8gvJKw ZXJu [file] ci1 (more content not included)...[facility] Formson 92-22-8774Bjwhtma [id number]#1.00OTGTLouis [facility] Mammo Screening 3D Bilateral.on 65-40-1790SW Mammo Screening 3D Bilateral.EXAM: [place] MAMMO SCREENING 3D BILATERAL. HISTORY: SCREENING MAMMOGRAM COMPARISON: Screening mammogram study dated 03/23/2024. TECHNIQUE: Screening digital mammogram study of both breasts was performed with 2-D and 3-D tomosynthesis imaging. FINDINGS: There are scattered areas of fibroglandular density. There is no evidence of interval dominant spiculated mass, grouped microcalcifications, or skin thickening which would be suggestive of malignancy. Mild scattered benign-appearing calcifications including vascular calcifications are noted bilaterally. Previously noted small benign-appearing rim calcified oil cyst superiorly on the left is again identified and similar to the prior study. R2 ImageMynewMDcker was utilized for this study. IMPRESSION: No specific evidence of malignancy seen in either breast. BIRADS: 2 - Benign, no evidence of malignancy. Normal interval followup is recommended in 12 months. OVERALL ASSESSMENT- BENIGN A letter of notification will be sent to the patient regarding the results. BIRADS 2: Benign Assessment / Recommendation: 2-1 Normal interval follow-up Breast density: Scattered Fibroglandular Density Recall interval: 012 months .[place] [id number] Final Dictated by: Larry Cunha MD Dictated DT/TM: 04/09/25 9:01 Signed (Electronic Signature): Larry Cunha MD 04/09/25 4:19 pm Technologist: LAMAR Assessment: 2-Benign finding Recommendation: Normal interval follow-upNoProtestant Deaconess HospitalMagnesiumon 40-41-5328Crltlllav [Mass/Vol]2.20 mg/dLNormal1.80-2.50[facility] HospitalComment on above:Performed By: #### [id number], [id number], [id number], [id number] ####[facility] (DEFAULT)[address] [place] [address] 18350Ooptcsb Handouton 34-35-0719Jsjfuep HandoutOrthopedics Preventing Osteoporosis, Adult Osteoporosis is a condition that causes the bones to lose density. This means that the bones becomethinner, and the normal spaces in bone tissue become larger. Low bone density can make the bones weak and cause them to break more easily. Osteoporosis cannot always be prevented, but you can take steps to lower your risk of developing this condition. How can this condition affect me? If you develop osteoporosis, you will be more likely to break bones in your wrist, spine, or hip. Even a minor accident or injury can be enough to break weak bones. The bones will also be slower to heal. Osteoporosis can cause other problems as well, such as a stooped posture or trouble with movement. Osteoporosis can occur with aging. As you get older, you may lose bone tissue more quickly, or it may be replaced more slowly. Osteoporosis is more likely to develop if you have poor nutrition or do not get enough calcium or vitamin D. Other lifestyle factors can also play a role. By eating a well-balanced diet and making lifestyle changes, you can help keep your bones strong and healthy, lowering your chances of developing osteoporosis. What can increase my risk? The following factors may make you more likely to develop osteoporosis: ? Having a family history of the condition. ? Having poor nutrition or not getting enough calcium or vitamin D. ? Using certain medicines, such as steroid medicines or anti-seizure medicines. ? Being any of the following: ? 50 years of age or older. ? Female. ? A woman who has gone through menopause (is postmenopausal). ? A person who is of or descent. ? Using products that contain nicotine or tobacco, such as cigarettes, e- cigarettes, and chewing tobacco. ? Not being physically active (being sedentary). ? Having a small body frame. What actions can I take to prevent this? Get enough calcium ? Make sure you get enough calcium every day. Calcium is the most important mineral for bone health. Most people can get enough calcium from their diet, but supplements may be recommended for people who are at risk for osteoporosis. Follow these guidelines: ? If you are age 50 or younger, aim to get 1,000 milligrams (mg) of calcium every day. ? If you are older than age 50, aim to get 1,200 mg of calcium every day. ? Good sources of calcium include: ? Dairy products, such as low-fat or nonfat milk, cheese, and yogurt. ? Dark green leafy vegetables, such as bok harjeet and broccoli. ? Foods that have had calcium added to them (calcium-fortified foods), such as orange juice, cereal, bread, soy beverages, and tofu products. ? Nuts, such as almonds. ? Check nutrition labels to see how much calcium is in a food or drink. Get enough vitamin D ? Try to get enough vitamin D every day. Vitamin D is the most essential vitamin for bone health. It helps the body absorb calcium. Follow these guidelines for how much vitamin D to get from food: ? If you are age 70 or younger, aim to get at least 600 international units (IU) every day. Your health care provider may suggest more. ? If you are older than age 70, aim to get at least 800 international units every day. Your health care provider may suggest more. ? Good sources of vitamin D in your diet include: ? Egg yolks. ? Oily fish, such as salmon, sardines, and tuna. ? Milk and cereal fortified with vitamin D. ? Your body also makes vitamin D when you are out in the sun. Exposing the bare skin on your face, arms, legs, or back to the sun for no more than 30 minutes a day, 2 times a week is more than enough. Beyond that, make sure you use sunblock to protect your skin from sunburn, which increases your risk for skin cancer. Exercise ? Stay active and get exercise every day. ? Ask your health care provider what types of exercise are best for you. Weight- bearing and strength-building activities are important for building and maintaining healthy bones. Some examples of these types of activities include: ? Walking and hiking. ? Jogging and running. ? Dancing. ? Gym exercises and lifting weights. ? Tennis and racquetball. ? Climbing stairs. ? Raul chi. Make other lifestyle changes ? Do not use any products that contain nicotine or tobacco, such as cigarettes, e-cigarettes, and chewing tobacco. If you need help quitting, ask your health care provider. ? Lose weight if you are overweight. ? If you drink alcohol: ? Limit how much you use to: ? 0?1 drink a day for women who are not . ? 0?2 drinks a day for men. ? Be aware of how much alcohol is in your drink. In the [place] one drink equals one 12 oz bottle of beer (355 mL), one 5 oz glass of wine (148 mL), or one 1? oz glass of hard liquor (44 mL). Where to find support If you need help making changes to prevent osteoporosis, talk with your health care provider. You can ask for a referral (more content not included)...Normal [facility] Luther[facility] HospitalPhoson 49-14-4010Esmrtefso [Mass/Vol]3.4 mg/dLNormal2.5-4.6 [facility] HospitalComment on above:Performed By: #### [id number], [id number], [id number], [id number] ####[facility] (DEFAULT)[address] [place] [address] 97265 Potassium Lvlon 78-35-7411Hvhfubkix [Moles/Vol]3.7 mmol/LNormal3.6-5.1MJ.W. Ruby Memorial HospitalComment on above:Performed By: #### [id number], [id number], [id number], [id number] #### [facility] (DEFAULT) [address] [place] [address] 95024Gdgbiymu Messageson 76-98-7428Czynpaxf Messages From: Prema Clement APRN, CNP To: [facility] [place] ([facility]); Sent: 04/03/2025 13:49:30 EST ! Show up: 04/03/2025 13:49:30 EST Subject: Results Follow Up Actions: Call the patient with result(s) Due Date/Time: 04/04/2025 13:49:00 EST Reminder Comments: all normal Results: Date Result Name Value Ref Range 04/03/2025 12:35 Potassium Level 3.7 mmol/L (3.6 - 5.1) 04/03/2025 12:35 Calcium Level 9.1 mg/dL (8.9 - 10.3) 04/03/2025 12:35 Phos 3.4 mg/dL (2.5 - 4.6) 04/03/2025 12:35 Magnesium 2.20 mg/dL (1.80 - 2.50) patient notified, voiced understanding.[facility] Urineon 14-67-6320Psrkpvdb identified Cx Nom (U)Microbiology PROCEDURE: Urine Culture [R1] SOURCE: U CleanCatch BODY SITE: COLLECTED DATE/TIME: 03/28/2025 15:19 EDT RECEIVED DATE/TIME: 03/29/2025 17:33 EDT START DATE/TIME: 03/29/2025 17:33 EDT FREE TEXT SOURCE: Flor Iraheta PA-C, PA-C, Flor FINAL REPORTS Final Report [] Verified Date/Time: 03/31/2025 07:14 EST 300 cfu/ml Mixed skin contaminants Performing Locations R1: This test was performed at: [facility], [address] [place] [address], [address]- , , DfefunHrzixqUniversity Hospitals Cleveland Medical CenterComment on above:Performed By: #### [id number] #### [facility] [address] [place] [address] [id number] Patient Summaryon 02-70-6253Vtpvped[place] [address] Patient Discharge Instructions Name: JAZZMINE WANG : 1945 Patient Address: [address] [place] [address] Primary Care Provider: Name: Prema Clement APRN, CNP After you are discharged if you find you have any questions, please, call [phone] ext [phone] to speak to a nurse. Discharge Diagnosis: Prescription Information: If you have been given a prescription for narcotics, seek immediate medical attention if you have any difficulty breathing or any sudden status changes such as confusion andsleepiness. If you or anyone you know is experiencing suicidal thoughts, mental health, alcohol and/or drug addiction problems; contact the [facility] 20/12 Crisis Hotline -Text 4HKQH bs 342853. If you received any narcotics, sedation, or [...] business decisions or sign any legal documents [facility] would like to thank you for [...] education materials, if any, will display below [facility] [address] [place] [address] Pain Procedure Home Care Instructions For the next 24 hours do not do any of the following activities: - Drive a car or operate heavy machinery - Drink alcoholic beverages - Make legal decisions or sign any contracts Please call the office at [phone] if you have any qu (more content not included)...[facility] Intraoperative Recordon 62-04-7321DIZY Intraoperative RecordMAGR Intra-Op Record Summary Primary Physician: CECE GUTIERREZ MD Finalized Date/Time: 03/29/25 10:10:33 Pt. Name: JAZZMINE WANG/Sex: 1945 FEMALE Med Rec #: [id number] Physician: CECE GUTIERREZ MD Financial #: [id number] Pt. Type: D Room/Bed: / Admit/Disch: 03/29/25 [...] Entry 3 Case Attendee Kathy Dobson RN, Liseth Rocha RN RN Role Performed Planning Aide Planning Aide Other Authorized Personnel Time In 03/29/25 10:03:00 03/29/25 10:03:00 03/29/25 10:03:00 Time Out 03/29/25 10:10:00 03/29/25 10:10:00 03/29/25 10:10:00 Procedure EPIDURAL STEROID INJ EPIDURAL STEROID INJ EPIDURAL STEROID INJ TRANSFORAMINAL TRANSFORAMINAL TRANSFORAMINAL LUMB(Bilateral) LUMB(Bilateral) LUMB(Bilateral) Last Modified By: Janki Howard RN, Erica RN Baumer, Erica RN 03/29/25 10:09:50 03/29/25 10:09:50 03/29/25 10:09:50 Entry 4 Entry 5 Entry 6 Case Attendee Igor lOvera RT (R) Sri Bailon RT (R) Johnnie Ching CT Role Performed Antenna Engineer Antenna Engineer Scrub Personnel Time In 03/29/25 10:03:00 03/29/25 [...] Ching, CECE GUTIERREZ MD, Janki Howard RN, Geor (more content not included)...[facility] Preoperative Recordon 42-65-0767WDNZ Preoperative RecordMA Pre-Op Record Summary Primary Physician: CECE GUTIERREZ MD Finalized Date/Time: 03/29/25 10:11:52 Pt. Name: JAZZMINE WANG /Sex: 1945 FEMALE Med Rec #: [id number] Physician: CECE GUTIERREZ MD Financial #: [id number] Pt. Type: D Room/Bed: / Admit/Disch: 03/29/25 [...] Signatures Signed By: Maty Lewis RN 03/29/25 10:11[facility] HospitalPatient Handouton 83-04-7125Oltthbf [facility] [address], [place] [address] Pain Procedure Home Care Instructions For the next 24 hours do not do any of the following activities: - Drive a car or operate heavy machinery - Drink alcoholic beverages - Make legal decisions or sign any contracts Please call the office at [phone] if you have any questions or develop [...] 1 hour: 2 hours: 4 hours: Normal [facility] HospitalReminder Messageson 57-21-3705Wfwxinqq MessagesEntered by Brenda Mobley MA on March 28, 2025 13:10:54 EDT patient notified, order placed for [facility]. From: Brenda Mobley MA ([facility] ([facility] To: [facility] ([place]); Sent: 03/28/2024 12:04:56 EDT Show up: 03/28/2025 12:04:00 EDT Subject: General Reminder Reminder: DEV Mammo Screening 3D Bilateral Please call patient to: Please schedule patient for: DEV Mammo Screening 3D Bilateral Dx: Z12.31 Please ask patient to: Results Follow up Required for:[facility] HospitalUrology Office/Clinic Note on 43-43-8982Yknnuap Office/Clinic NoteUrology Office/Clinic Note Chief Complaint Follow [...] started either of them. S/p cysto w KML 01/19/24. S/p Botox 100u w KML 03/19/24. Reported that Botox was incredibly painful [...] of kidney, acquired) [place] [facility] [place]. AYAN 07/16/24 - no [...] With When Contact Information Liu UNGER, Thelma Dent, URL, URO [address], [address] [address]- Additional Instructions: Pending Botox Patient Education Botulinum Toxin Bladder Injection I, Sandy Staley, personally scribed for Flor (more content not included)... [facility] CenterComment on above:Result Comment: Electronically Signed By: Myrtle COUGHLIN, Flor\.br\Date and Time Signed: 03/28/25 15:57 EDT Coding Summaryon 77-07-2083Kmtttx SummaryHTMLBase 64 JcqbjbdhADp4uZv+PGhlYWQ+AW1ZKABpS83omMZpxK3uI6JVUSeFCqieLGQFWLuTTsYdgrFsUY1vnEOf ZXJu [file] ZTo (more content not included)...NormalNvgrkettering health main campus HospitalProgress Note - Provideron 01-94-4059Hpjycnzd Note - Provider [id number]#1.00OTGTIFFWilson Memorial Hospital Coding Summaryon 42-78-0783Ntvqxp SummaryHTMLBase 64 OuyvyshrEWi5dNw+PGhlYWQ+TO9EZJGfX08zpVWevC8hM7GOJJwFWjtrFCYZOTmBVeWbvdHoQW9veDYn ZXJu [file] ZTo (more content not included)...[facility] Memorial HospitalUS Kidney/Bladder Completeon 65-26-2720AN Kidney/Bladder CompleteEXAM: US Kidney/Bladder Complete HISTORY: Cyst [...] Ramo Mcgovern MD 03/14/25 1:00 pm Technologist: [facility] CenterPatient Handouton 32-15-2065Vdsywhp HandoutMental and Behavioral Health Managing Anxiety, Adult [...] These products include cigarett (more content not included)...[facility] HospitalProvider Orderson 66-91-0516Nhzljsor Orders [id number]#1.00OTGTIFFWilson Memorial HospitalCoding Summaryon 80-20-2117Nosqnp SummaryHTMLBase 64 GwgzohyhOSe2jOf+PGhlYWQ+RT6RXDByR20ekTJakE6fV1SFEUgUWkxdQFJPOIlODtQoyuKhWB2oaDBp ZXJu [file] ZTo (more content not included)...[facility] HospitalProgress Note - Provideron 24-54-1619Bqlwsvqv Note - Provider [id number]#1.00OTGTIFFWilson Memorial Hospital Coding Summaryon 72-15-4554Wbjsjz SummaryHTMLBase 64 XlcytxhzWIv4qDi+PGhlYWQ+VP0XNFIkT57koRFwgI3xX4ETSJsYKgioFJYWNDsHQyLxgkMsFF7nkCZd ZXJu [file] bGU (more content not included)...[facility] HospitalCoding SummaryHTMLBase 64 YeireazlFCe1gUe+PGhlYWQ+KT4TPLLgL76rbJBmjR3hJ9NPWNhLRptsGVVWCXrKYxGgemPzAS8izZUk ZXJu [file] ci1 (more content not included)...[facility] Memorial HospitalConsent Formson 49-08-1285Bgzmacb [id number]#1.00OTGTIFF Wilson Memorial HospitalInpatient Patient Summaryon 61-60-9796Sovjsyyvi Patient SummaryCharles [place] [id number] Patient Discharge Instructions Name: JAZZMINE WANG : 1945 Patient Address: [address] [place] [address] Primary Care Provider: Name: Prema Clement APRN, CNP After you are discharged if you find you have any questions, please, call [phone] ext [phone] to speak to a nurse. Discharge Diagnosis: Prescription Information: If you have been given a prescription for narcotics, seek immediate medical attention if you have any difficulty breathing or any sudden status changes such as confusion andsleepiness. If you or anyone you know is experiencing suicidal thoughts, mental health, alcohol and/or drug addiction problems; contact the [facility] 20/12 Crisis Hotline -Text 4HOPE to 538144. If you received any narcotics, sedation, or [...] business decisions or sign any legal documents [facility] would like to thank you for [...] Comment: Patient education m (more content not included)...[facility] Intraoperative Recordon 39-81-9393CEJJ Intraoperative RecordMAGR Intra-Op Record Summary Primary Physician: CECE GUTIERREZ MD Finalized Date/Time: 02/01/25 10:21:34 Pt. Name: JAZZMINE WANG /Sex: 1945 FEMALE Med Rec #: [id number] Physician: CECE GUTIERREZ MD Financial #: [id number] Pt. Type: D Room/Bed: / Admit/Disch: 02/01/25 [...] Feliciano RN, Beth A RN Role Performed Planning Aide Planning Aide Other Authorized Personnel Time In 02/01/25 10:16:00 02/01/25 10:16:00 02/01/25 10:16:00 Time Out 02/01/25 10:21:00 02/01/25 10:21:00 02/01/25 10:21:00 Procedure SI Joint Injection(Left) SI Joint Injection(Left) SI Joint Injection(Left) Last Modified By: Amy Harris RN, Debra RN Myers, Debra RN 02/01/25 10:20:51 02/01/25 10:20:51 02/01/25 10:20:51 Entry 4 Entry 5 Entry 6 Case Attendee Shameka Clement RT (R) Eielen Quijano RT (R) Jolanta Be CRM ADMINISTRATOR Role Performed Antenna Engineer Antenna Engineer Scrub Personnel Time In 02/01/25 10:16:00 02/01/25 [...] Labeled Other Concerns n/a Addressed Time Out Shameka Clement N RT (R), Time Out Time 02/01/25 10:18:00 Participants Tommie RN, Tommie Alvarez RN, Haile Alvarez Regina CSFA CRM ADMINISTRATOR, CECE GUTIERREZ MD, Eileen Quijano N RT (R), Amy Harris RN Last Modified By: Amy Harris RN 02/01/25 10:19:19 Patient Positioning MAGR Pre-Care Text: A.280 Identifies baseline musculoskeletal status Im.40 Positions the patient Im.80 Applies safety devices Entry 1 Procedure SI Joint Injection(Left) Body Position Prone Left Ar (more content not included)...[facility] Preoperative Recordon 31-72-4133TNHN Preoperative RecordMA Pre-Op Record Summary Primary Physician: CECE GUTIERREZ MD Finalized Date/Time: 02/01/25 10:30:30 Pt. Name: JAZZMINE WANG /Sex: 1945 FEMALE Med Rec #: [id number] Physician: CECE GUTIERREZ MD Financial #: [id number] Pt. Type: D Room/Bed: / Admit/Disch: 02/01/25 [...] Signatures Signed By: Migdalia Rushing RN 02/01/25 10:30[facility] HospitalPatient Handouton 30-97-1202AlhhpioSt. Elizabeth Hospital [facility] [address] [place] [address], [place] [address] Pain Procedure Home Care Instructions For the next 24 hours do not do any of the following activities: - Drive a car or operate heavy machinery - Drink alcoholic beverages - Make legal decisions or sign any contracts Please call the office at [phone] if you have any questions or develop [...] 1 hour: 2 hours: 4 hours: Normal [facility] Summaryon 71-26-1927Ixhlgu SummaryMLBase 64 DuweeyupUSs2iSw+PGhlYWQ+FR3MQZMoZ06hdTHskM2rB2UXJIiKKagxVYLMJTgEEvHmpoYmOU9xoHCe ZXJu [file] ZTo (more content not included)...[facility] Memorial HospitalConsent Formson 23-94-4747Rmrogxf [id number]#1.00OTGTCleveland Clinic Lutheran HospitalControlled Substances Agreementson 27-15-8113Wekkkzinus Substances S[id number]#1.00OTAccess Hospital DaytonProgress Note - Provideron 85-27-2729Isrublpl Note - Provider [id number]#1.00OTKind[facility] Patient Handouton 68-53-4831Aujarbx HandoutENT Earwax Buildup, Adult Your ears make [...] includes cotton swabs. General instructions ? Take ovxw-dmt-xseloch and prescription medicines only as told by [...] provider. Document Revised: 07/28/2023 Document Reviewed: 07/28/2023 [employer] Patient Education ? 2024 Livevol.[facility] Memorial HospitalOutside Recordson 94-80-8087Onxcwdx Records [id number]#1.00[facility] Outside Recordson 54-40-6910Utpefdo Records [id number]#1.00[facility] Patient Handouton 82-65-5433Ggbxkzw HandoutObstetrics and Gynecology Urinary Tract Infection, Female [...] provider. Document Revised: 12/22/2023 Document Reviewed: 08/19/2023 [employer] Patient Education ? 2023 Livevol.[facility] Memorial HospitalOutside Recordson 93-13-1770Dwoqyqh Records [id number]#1.00[facility] HospitalED Note - Physicianon 49-05-6636OJ Note - Physician [id number]#1.00[facility] Alanine aminotransferase [Enzymatic activity/volume] in Serum or PlasmaOrdered By: Vania Burton on 45-30-9624IGP [Catalytic activity/Vol]Alanine aminotransferase [Enzymatic activity/volume] in Serum or Plasma[address] [place], [place] [address]ALT [Catalytic activity/Vol]15 U/L[address] [place], [place] [address]Comment on above:Performed By: #### CBC, CMP #### [place] [address] USAAlbumin [Mass/volume] in Serum or Plasma by Bromocresol green (BCG) dye binding methoOrdered By: Vania Burton on 52-69-3904Vsjegri BCG dye [Mass/Vol]Albumin [Mass/volume] in Serum or Plasma by Bromocresol green (BCG) dye binding metho3.5-5.7FProMedica Fostoria Community HospitalAlbumin BCG dye [Mass/Vol]3.9 g/dL3.5-5.7FProMedica Fostoria Community HospitalAlkaline phosphatase [Enzymatic activity/volume] in Serum or PlasmaOrdered By: Vania Burton on 32-40-3856JYD [Catalytic activity/Vol]Alkaline phosphatase [Enzymatic activity/volume] in Serum or Aogrex59-613XkcwjcyivBarberton Citizens HospitalALP [Catalytic activity/Vol]56 U/Y35-098Uyrw[address] [place], [place] [address]Comment on above:Performed By: #### CBC, CMP #### [facility] [address] [place] [address] USAAppearance of UrineOrdered By: Vania Burton on 05-64-6333Tkiuilwwjd (U)Urine appearanceCleDiley Ridge Medical Center Appearance (U)ClearCleDiley Ridge Medical CenterComment on above:Order Comment: Name Collection Type:: Clean-Voided MidstreamPerformed By: #### UA #### [place] [address] USAAspartate aminotransferase [Enzymatic activity/volume] in Serum or PlasmaOrdered By: Vania Burton on 30-21-3359FXI [Catalytic activity/Vol]Aspartate aminotransferase [Enzymatic activity/volume] in Serum or Nhslyy64-25UxalurhwkBarberton Citizens HospitalAST [Catalytic activity/Vol]27 U/L [address]Comment on above:Performed By: #### CBC, CMP #### [place] [address] USABasophils Auto (Bld) [#/Vol]Ordered By: Vania Burton on 34-87-5861Jjydxgook (Bld) [#/Vol]Automated basophil count0.0-0.2FProMedica Fostoria Community HospitalBasophils [#/volume] in Blood by Automated countOrdered By: Vania Burton on 92-39-8250Ctaaonffq (Bld) [#/Vol]0.1 10*3/uL0.0-0.2 [facility] Citizens HospitalComment on above:Result Comment: PERFORMED BY: [place] [address] PATHOLOGIST BANK NOTE DESIGNER ANTHONY PERRY M.D.Performed By: #### CBC, CMP #### [place] [address] USABasophils/100 WBC Auto (Bld)Ordered By: Vania Burton on 65-06-4910Abclnrdlk/100 WBC (Bld)Automated basophil %.Bar[facility] Citizens HospitalBasophils/100 leukocytes in Blood by Automated countOrdered By: Vania Burton on 09-33-0155Ahyemefws/100 WBC (Bld)1.2 %.[facility] Citizens HospitalComment on above:Performed By: #### CBC, CMP #### [place] [address] USABilirubin Test strip Ql (U)Ordered By: Vania Burton on 81-38-1844Ytlcfdtqx Ql (U)Bilirubin.total [Presence] in Urine by Test strip NegativeBarberton Citizens HospitalBilirubin Ql (U)NegativeNegative [facility] Citizens HospitalBilirubin.total [Mass/volume] in Serum or PlasmaOrdered By: Vania Burton on 68-26-9466Uhhylwjuj [Mass/Vol] Bilirubin.total [Mass/volume] in Serum or Plasma0.3-1.0Bar[facility] Citizens HospitalBilirubin [Mass/Vol]0.3 mg/dL0.3-1.0Bar[facility] Citizens HospitalComment on above:Performed By: #### CBC, CMP #### [place] [id number] USACT head/brain wo conon 65-21-4772ZL head/brain wo con [facility] [place] [address] CT Scan Report Signed Patient: Jazzmine Wang MR#: [id number] 1307 : 1945 Acct:[id number] Age/Sex: 79 / F ADM Date: 11/05/24 Loc: ER Room: Type: [facility] ER Attending Dr: Copies to: [...] Long M.D. 11/05/2024 2:14 PM Dictation Location: [place] [address] Transcribed By: [facility] 11/05/24 1414 Dictated By: Abundio Long DO 11/05/24 1413 Signed By: 11/05/24 1414[facility] Physician GroupCalcium [Mass/volume] in Serum or PlasmaOrdered By: Vania Burton on 49-84-6003Yckflmg [Mass/Vol]Calcium [Mass/volume] in Serum or Plasma8.6-10.3FProMedica Fostoria Community HospitalCalcium [Mass/Vol]9.1 mg/dL8.6-10.3FProMedica Fostoria Community HospitalComment on above: Performed By: #### CBC, CMP #### [facility] [address] [place] [address] USACarbon dioxide, total [Moles/volume] in Serum or Plasma Ordered By: Vania Burton on 77-82-2782KD5 [Moles/Vol]Carbon dioxide, total [Moles/volume] in Serum or Odsqhq80.0-31.0Bar[facility]ton Citizens HospitalCO2 [Moles/Vol]24.1 mmol/L21.0-31.0Bar[facility] Citizens HospitalComment on above:Performed By: #### CBC, CMP #### [facility] [address] [place] [address] USAChloride [Moles/volume] in Serum or PlasmaOrdered By: Vania Burton on 50-06-4977Cxdprkzk [Moles/Vol]Chloride [Moles/volume] in Serum or XdocyoFtmd61-705IcxozswqkBarberton Citizens HospitalChloride [Moles/Vol] 109 mmol/XRcya65-937WkvnaxyqwBarberton Citizens HospitalComment on above:Performed By: #### CBC, CMP #### [place] [address] USAColor Auto (U)Ordered By: Vania Burton on 11-05-2024 Color (U)Color of Urine by AutoYellowBarberton Citizens HospitalColor of Urine by AutoOrdered By: Vania Burton on 50-67-7349Xnxhz (U)YellowYelMarietta Osteopathic ClinicComment on above:Order Comment: Name Collection Type:: Clean-Voided MidstreamPerformed By: #### UA #### [place] [address] USAComplete Blood Count Auto Diffon 47-53-0576Ptfy Corpuscular HGB Conc34.0 g/jFSdbqun40.0-35.0The [facility] Physician GroupComment on above:Performed By: #### CBC, CMP #### [place] [address] USAMonocytes/100 WBC (Bld)17.13 %Normal0.00-20.00The [facility] Physician [facility] Medical CenterComment on above:Performed By: #### CBC, CMP #### [place] [address] USANRBC%0.0 /100{WBC}Normal0-0.5[facility] Comment on above:Performed By: #### CBC, CMP #### [place] [address] USAComprehensive Metabolic Panelon 27-46-9273Vgjezme [Mass/Vol]3.9 g/dLNormal3.5-5.7The [facility] Physician GroupComment on above: Performed By: #### CBC, CMP #### [place] [address] USACreatinine Clr Calc Ltkagsfw26.66NormalThe Atrium Health Mountain Island Physician GroupComment on above:Result Comment: PERFORMED BY: [place] [address] PATHOLOGIST BANK NOTE DESIGNER ANTHONY PERRY M.D.Performed By: #### CBC, CMP #### [facility] [address] [place] [address] USAEstimated GFR55.013 mL/MinNormHCA Florida Mercy Hospital Physician GroupComment on above:Performed By: #### CBC, CMP #### [facility] [address] [place] [address] USACreatinine [Mass/volume] in Serum or PlasmaOrdered By: Vania Burton on 56-99-4555Ruaxhwygnn [Mass/Vol]Creatinine [Mass/volume] in Serum or Plasma0.60-1.20Bar[facility] Citizens HospitalCreatinine [Mass/Vol] 1.04 mg/dL0.60-1.20Bar[facility] Citizens HospitalComment on above:Performed By: #### CBC, CMP #### [facility] [address] [place] [id number] USAECG 12 lead ECGon 85-28-8268JRA 12 lead ECGCOMMUNITY REGIONAL [facility] [address] [place] [address] [place] [address] Electrocardiograph Report Signed Patient: Jazzmine Wang MR#: [id number] 1307 : 1945 Acct:[id number] Age/Sex: 79 / F ADM Date: 11/05/24 Loc: ER Room: Type: [facility] Attending Dr: Ordering Provider: Vania Burton APRN [...] MUS Signed By Bailey Mooney MD 10/[address] [place] [address] Physician GroupEosinophils Auto (Bld) [#/Vol] Ordered By: Vania Burton on 66-74-2631Rjvnvijnuka (Bld) [#/Vol]Automated eosinophil count0.0-0.45Bar[facility]ton Citizens HospitalEosinophils [#/volume] in Blood by Automated countOrdered By: Vania Burton on 02-45-6866Ijmzrcfkeku (Bld) [#/Vol]0.4 10*3/uL0.0-0.45Bar[facility] Citizens HospitalComment on above:Performed By: #### CBC, CMP #### [facility] [address] [place] [address] USAEosinophils/100 WBC Auto (Bld)Ordered By: Vania Burton on 00-86-8268Psqcjyneaiu/100 WBC (Bld)Automated eosinophil %.Bar[facility] Citizens HospitalEosinophils/100 leukocytes in Blood by Automated countOrdered By: Vania Burton on 98-82-0915Zzwkhqxjyyt/100 WBC (Bld)7.9 %.[facility] Citizens HospitalComment on above:Performed By: #### CBC, CMP #### [facility] [address] [place] [id number] USAErythrocyte distribution width Auto (RBC) [Ratio]Ordered By: Vania Burton on 60-87-2187Dwdnbevkpkg distribution width (RBC) [Ratio] Erythrocyte distribution width [Ratio] by Automated count11.9-15.3FProMedica Fostoria Community HospitalErythrocyte distribution width [Ratio] by Automated count Ordered By: Vania Burton on 17-32-8193Yzzppflsbbn distribution width (RBC) [Ratio]13.4 %11.9-15.3FProMedica Fostoria Community HospitalComment on above: Performed By: #### CBC, CMP #### [facility] [address] [place] [id number] USAErythrocytes [#/volume] in Blood by Automated countOrdered By: Vania Burton on 19-27-1858HXH (Bld) [#/Vol]3.53 10*6/uLLow3.60-5.00 [facility] HospitalComment on above:Performed By: #### CBC, CMP #### [facility] [address] [place] [address] USAGlobulin Calc (S) [Mass/Vol]Ordered By: Vania Burton on 02-79-1666Hubqgqgc (S) [Mass/Vol]Serum globulin measurement by calculation (mass/volume)Bar[facility] HospitalGlucose [Mass/volume] in Serum or PlasmaOrdered By: Vania Burton on 02-59-0395Wciexkl [Mass/Vol]Glucose [Mass/volume] in Serum or Sjtrxm21-624Ojevyjrqy[address] [place], [place] [address]Comment on above:ADA recommended reference rangeRandom Glucose Reference Range is dependent on time and content of last meal. Glucose of more than 200 mg/dL in a nonstressed, ambulatory subject supports the diagnosisof Diabetes Mellitus. Glucose [Mass/Vol]81 mg/eZ09-013Tuqilkn[address] [place], [place] [address]Comment on above:ADA recommended reference rangeRandom Glucose Reference [...] reference rangePerformed By: #### CBC, CMP #### [facility] [address] [place] [address] USAGlucose [Mass/volume] in Urine by Test stripOrdered By: Vania Burton on 70-13-4275Romutqf Test strip (U) [Mass/Vol]Glucose [Mass/volume] in Urine by Test stripNoBrown Memorial Hospital Glucose Test strip (U) [Mass/Vol]Normal mg/dLNoBrown Memorial HospitalHematocrit Auto (Bld) [Volume fraction]Ordered By: Vania Burton on 98-79-2493Oetqltekus (Bld) [Volume fraction]Hematocrit [Volume Fraction] of Blood by Automated count34.0-46.4FProMedica Fostoria Community HospitalHematocrit [Volume Fraction] of Blood by Automated countOrdered By: Vania Burton on 46-90-3978Mkevcwktrf (Bld) [Volume fraction]35.4 %34.0-46.4FProMedica Fostoria Community HospitalComment on above:Performed By: #### CBC, CMP #### [facility] [address] [place] [address] USAHemoglobin Test strip Ql (U)Ordered By: Vania Burton on 25-10-5615Dsljlotpiz Ql (U)Hemoglobin [Presence] in Urine by Test stripNegative [facility] Citizens HospitalHemoglobin Ql (U)NegativeNegFulton County Health CenterHemoglobin [Mass/volume] in BloodOrdered By: Vania Burton on 87-63-5680Kmtcfjwfsf (Bld) [Mass/Vol]Hemoglobin [Mass/volume] in Blood 11.8-15.4FProMedica Fostoria Community HospitalHemoglobin (Bld) [Mass/Vol]12.0 g/dL 11.8-15.4FProMedica Fostoria Community HospitalComment on above:Performed By: #### CBC, CMP #### [facility] [address] [place] [address] USAKetones Test strip Ql (U)Ordered By: Vania Atulrosalinda on 74-26-4826Wxsagvn Ql (U)Ketones [Presence] in Urine by Test stripNegative [facility] HospitalKetones [Presence] in Urine by Test strip Ordered By: Vania Burton on 50-37-8347Bchbqdf Ql (U)NegativeNegFulton County Health CenterComment on above:Order Comment: Name Collection Type:: Clean-Voided MidstreamPerformed By: #### UA #### [address] [address] USALeukocyte esterase [Presence] in Urine by Test strip Ordered By: Vania Burton on 58-14-8003Xuwuqdnvs esterase Test strip Ql (U) Leukocyte esterase [Presence] in Urine by Test stripNegFulton County Health CenterLeukocyte esterase Test strip Ql (U)NegativeNegFulton County Health CenterComment on above:Order Comment: Name Collection Type:: Clean-Voided MidstreamPerformed By: #### UA #### [address] [place] [address] USALeukocytes [#/volume] corrected for nucleated erythrocytes in Blood by Automated counOrdered By: Vania Burton on 44-23-3147WZB corrected for nucl RBC Auto (Bld) [#/Vol]Leukocytes [#/volume] corrected for nucleated erythrocytes in Blood by Automated coun3.8-11.6FProMedica Fostoria Community HospitalWBC corrected for nucl RBC Auto (Bld) [#/Vol]5.6 10*3/uL3.8-11.6 [facility] HospitalLeukocytes [#/volume] in Blood by Automated countOrdered By: Vania Burton on 70-50-6722ABH (Bld) [#/Vol]5.6 10*3/uL 3.8-11.6FProMedica Fostoria Community HospitalComment on above:Performed By: #### CBC, CMP #### [place] [id number] USALymphocytes Auto (Bld) [#/Vol]Ordered By: Vania Burton on 72-59-8888Avoyxdrsllv (Bld) [#/Vol]Lymphocytes [#/volume] in Blood by Automated count1.00-4.8Bar[facility] Citizens HospitalLymphocytes [#/volume] in Blood by Automated countOrdered By: Vania Burton on 64-02-6366Xjzasrszcqm (Bld) [#/Vol]2.0 10*3/uL1.00-4.8Bar[facility] HospitalComment on above:Performed By: #### CBC, CMP #### [place] [id number] USALymphocytes/100 WBC Auto (Bld)Ordered By: Vania Burton on 76-50-8293Bhgedizfkgk/100 WBC (Bld)Lymphocytes/100 leukocytes in Blood by Automated count.[facility] HospitalLymphocytes/100 leukocytes in Blood by Automated countOrdered By: Vania Burton on 76-49-0818Ajyfzlubpts/100 WBC (Bld)35.8 %.Bar[facility] Citizens HospitalComment on above:Performed By: #### CBC, CMP #### [facility] [address] [place] [address] [facility] Auto (RBC) [Entitic mass]Ordered By: Vania Burton on 61-58-9975PDY (RBC) [Entitic mass]MCH [Entitic mass] by Automated count 24.7-34.3FKindred Hospital Lima [Entitic mass] by Automated count Ordered By: Vania Burton on 72-99-6688CVF (RBC) [Entitic mass]34.1 pg 24.7-34.3FProMedica Fostoria Community HospitalComment on above:Performed By: #### CBC, CMP #### [facility] [address] [place] [id number] [facility] Auto (RBC) [Mass/Vol]Ordered By: Vania Burton on 56-26-3471JNSE (RBC) [Mass/Vol]MCHC [Mass/volume] by Automated count32.0-35.0 [facility] CenterHC (RBC) [Mass/Vol]34.0 g/dL32.0-35.0 [facility] Health CenterV Auto (RBC) [Entitic vol]Ordered By: Vania Burton on 97-80-3297SNO (RBC) [Entitic vol]MCV [Entitic volume] by Automated uipxyNkxl55-092KfekgqynlFulton County Health CenterV [Entitic volume] by Automated countOrdered By: Vania Burton on 45-00-1104SWR (RBC) [Entitic vol]100.4 yIXfcz45-681IkriwyzrlBarberton Citizens HospitalComment on above: Performed By: #### CBC, CMP #### [facility] [address] [place] [id number] USAMonocyte distribution width [Entitic volume] in Blood by AutomatedOrdered By: Vania Burton on 20-15-4606Txoebkyc distribution width Auto (Bld) [Entitic vol]Monocyte distribution width [Entitic volume] in Blood by Automated0.00-20.00[facility] HospitalMonocyte distribution width Auto (Bld) [Entitic vol]17.13 %0.00-20.00[facility] Monocytes Auto (Bld) [#/Vol]Ordered By: Vania Burton on 33-30-5526Kqsbsmepx (Bld) [#/Vol]Automated blood monocyte count0.0-0.8Bar[facility] HospitalMonocytes [#/volume] in Blood by Automated countOrdered By: Vania Burton on 46-59-5701Uwgpktzbp (Bld) [#/Vol]0.5 10*3/uL0.0-0.8Bar[facility] HospitalComment on above:Performed By: #### CBC, CMP #### [facility] [address] [place] [id number] USAMonocytes/100 WBC Auto (Bld)Ordered By: Vania Burton on 30-59-7058Uyzmpbgki/100 WBC (Bld)Automated monocyte %.[facility] HospitalMonocytes/100 leukocytes in Blood by Automated countOrdered By: Vania Burton on 88-04-1357Jgqntzhqi/100 WBC (Bld)9.6 %.[facility] HospitalComment on above:Performed By: #### CBC, CMP #### [facility] [address] [place] [id number] USANeutrophils Auto (Bld) [#/Vol]Ordered By: Vania Burton on 31-03-3933Lrenjmtdxwo (Bld) [#/Vol]Neutrophils [#/volume] in Blood by Automated count1.8-7.7FProMedica Fostoria Community HospitalNeutrophils [#/volume] in Blood by Automated countOrdered By: Vania Burton on 34-62-1174Qdldviaptfo (Bld) [#/Vol]2.5 10*3/uL1.8-7.7FProMedica Fostoria Community HospitalComment on above:Performed By: #### CBC, CMP #### [facility] [address] [place] [id number] USANeutrophils/100 WBC Auto (Bld)Ordered By: Vania Burton on 45-92-8477Qkwxmtpayfz/100 WBC (Bld)Automated neutrophil %.[facility] HospitalNeutrophils/100 leukocytes in Blood by Automated countOrdered By: Vania Burton on 92-95-8443Iljtaedmgbt/100 WBC (Bld)45.5 %.[facility] HospitalComment on above:Performed By: #### CBC, CMP #### [facility] [address] [place] [address] USANitrite Test strip Ql (U)Ordered By: Vania Burton on 04-95-0147Vjofiqa Ql (U)Nitrite [Presence] in Urine by Test stripNegative [facility] HospitalNitrite Ql (U)NegativeNegativeBarberton Citizens HospitalNo Panel InformationOrdered By: Vania Burton on 62-41-1714Npbkxzssm GFR (CKD-EPI)55.013 mL/MinBarberton Citizens Hospital Pharmacy Creatinine Clearance (Chem41.66[facility] Nucleated erythrocytes [Presence] in Blood by Automated countOrdered By: Vania Burton on 04-71-6989Glugjwwry RBC Auto Ql (Bld)Nucleated erythrocytes [Presence] in Blood by Automated count0-0.5FProMedica Fostoria Community Hospital Nucleated RBC Auto Ql (Bld)0.0 /100{WBC}0-0.5FProMedica Fostoria Community Hospital Outside Recordson 46-04-0228Wvbnlli Records [id number]#1.00[facility] Platelet mean volume Auto (Bld) [Entitic vol]Ordered By: Vania Burton on 84-86-9917Cqglkqav mean volume (Bld) [Entitic vol]Platelet mean volume [Entitic volume] in Blood by Automated count6.3-10.7FProMedica Fostoria Community Hospital Platelet mean volume [Entitic volume] in Blood by Automated countOrdered By: Vania Burton on 13-13-5419Phlvwnlj mean volume (Bld) [Entitic vol]7.0 fL 6.3-10.7FProMedica Fostoria Community HospitalComment on above:Performed By: #### CBC, CMP #### [facility] [address] [place] [address] USAPlatelets Auto (Bld) [#/Vol]Ordered By: Vania Burton on 30-06-1936Maxmjsanh (Bld) [#/Vol]Platelets [#/volume] in Blood by Automated vqlpo236-975WhmmsendlBarberton Citizens HospitalPlatelets [#/volume] in Blood by Automated countOrdered By: Vania Burton on 60-88-2514Rjusgjbnz (Bld) [#/Vol] 229 10*3/rY729-563RpeqdxxeeBarberton Citizens HospitalComment on above:Performed By: #### CBC, CMP #### [place] [address] USAPotassium [Moles/volume] in Serum or PlasmaOrdered By: Vania Burton on 15-95-1643Hclvxpnoy [Moles/Vol]Potassium [Moles/volume] in Serum or Plasma3.5-5.1FProMedica Fostoria Community HospitalPotassium [Moles/Vol]4.0 mmol/L3.5-5.1FProMedica Fostoria Community HospitalComment on above:Performed By: #### CBC, CMP #### [place] [id number] USAProtein Test strip (U) [Mass/Vol]Ordered By: Vania Burton on 69-11-7999Yaqjiax (U) [Mass/Vol]Protein [Mass/volume] in Urine by Test stripNegativeBarberton Citizens HospitalProtein (U) [Mass/Vol]Negative NegativeBarberton Citizens HospitalProtein [Mass/volume] in Serum or PlasmaOrdered By: Vania Burton on 48-17-9152Rshnoyo [Mass/Vol]Protein [Mass/volume] in Serum or Plasma6.4-8.9[facility] HospitalProtein [Mass/Vol]6.7 g/dL6.4-8.9Bar[facility] HospitalComment on above: Performed By: #### CBC, CMP #### [facility] [address] [place] [id number] USARBC Auto (Bld) [#/Vol]Ordered By: Vania Burton on 54-46-9992KAQ (Bld) [#/Vol]Erythrocytes [#/volume] in Blood by Automated count Low3.60-5.00[facility] Beachwood Medical Centererum globulin measurement by calculation (mass/volume)Ordered By: Vania Burton on 09-52-2062Wzbvwmon (S) [Mass/Vol]2.8 g/dLBarberton Citizens HospitalComment on above:Performed By: #### CBC, CMP #### [facility] [address] [place] [id number] USASerum or plasma albumin/globulin mass ratioOrdered By: Vania Burton on 11-05-7045Ernuuoe/Globulin [Mass ratio]Serum or plasma albumin/globulin mass ratioBarberton Citizens HospitalAlbumin/Globulin [Mass ratio]1.4 {ratio}[facility] HospitalComment on above: Performed By: #### CBC, CMP #### [facility] [address] [place] [address] USASerum or plasma anion gap determinationOrdered By: Vania Burton on 27-07-7282Qzbdo gap [Moles/Vol]Serum or plasma anion gap determination6.0-15.0Bar[facility] Citizens HospitalAnion gap [Moles/Vol]11.9 mmol/L6.0-15.0Bar[facility] HospitalComment on above:Performed By: #### CBC, CMP #### [place] [address] USASodium [Moles/volume] in Serum or PlasmaOrdered By: Vania Burton on 38-12-2716Fmfodj [Moles/Vol]Sodium [Moles/volume] in Serum or Mojzrp005-964TjgjwgjkvUniversity Hospitals Beachwood Medical Centerodium [Moles/Vol]141 mmol/L 136-145Bar[facility] Citizens HospitalComment on above:Performed By: #### CBC, CMP #### [facility] [address] [place] [id number] USASpecific gravity Test strip (U) [Rel density]Ordered By: Vania Burton on 18-19-5664Juytnpul gravity (U) [Rel density]Specific gravity of Urine by Test strip1.001-1.030[facility] Beachwood Medical Centerpecific gravity (U) [Rel density]1.0221.001-1.030[facility] Troponin I High Sensitivityon 32-84-2536Nvtizkob I High Tngvvaoclhw4Vybieq7-17 [facility] Physician GroupComment on above:Result Comment: The Troponin units of report have been changed to meet the Chest Pain Accreditation requirement, element EC5.M1l2. Troponin units are changed from pg/ml to ng/L. Also, the decimal is removed and results are in whole numbers. PERFORMED BY: [place] [address] PATHOLOGIST BANK NOTE DESIGNER ANTHONY PERRY M.D.Performed By: #### HS TROP #### [facility] [address] [place] [address] USATroponin I.cardiac [Mass/volume] in Serum or Plasma by Detection limit <= 0.01 ng/Ordered By: Vania Burton on 74-89-0682Rftlghkg I.cardiac DL <= 0.01 ng/mL [Mass/Vol]Troponin I.cardiac [Mass/volume] in Serum or Plasma by Detection limit <= 0.01 ng/0-[facility] Comment on above:The Troponin units of report have been changed to meet the Chest Pain Accreditation requirement, element EC5.M1l2. Troponin units are changed from pg/ml to ng/L. Also, the decimal is removed and results are in whole numbers.Troponin I.cardiac [Mass/volume] in Serum or Plasma by Detection limit <= 0.01 ng/mLOrdered By: Vania Burton on 84-60-3802Tsfbmlbf I.cardiac DL <= 0.01 ng/mL [Mass/Vol]3 ng/LBarberton Citizens HospitalComment on above:The Troponin units of report have been changed to meet the Chest Pain Accreditation requirement, element EC5.M1l2. Troponin units are changed from pg/ml to ng/L. Also, the decimal is removed and results are in whole numbers. Urea nitrogen [Mass/volume] in Serum or PlasmaOrdered By: Vania Burton on 43-84-3277Nsst nitrogen [Mass/Vol]Urea nitrogen [Mass/volume] in Serum or Plasma 12-21Bar[facility]ton Citizens HospitalUrea nitrogen [Mass/Vol]21 mg/dL12-21 [facility] HospitalComment on above:Performed By: #### CBC, CMP #### [place] [address] USAUrinalysison 34-34-3174Vsrqhtkau,UrineNegativeNormal NegativePalm Beach Gardens Medical Center Physician GroupComment on above:Order Comment: Name Collection Type:: Clean-Voided MidstreamPerformed By: #### UA #### [place] [address] USAGlucose Ql (U)NormalNormalNormHCA Florida Mercy Hospital Physician GroupComment on above:Order Comment: Name Collection Type:: Clean-Voided MidstreamPerformed By: #### UA #### [place] [address] USANitrite,UrineNegativeNormalNegativePalm Beach Gardens Medical Center Physician GroupComment on above:Order Comment: Name Collection Type:: Clean-Voided MidstreamPerformed By: #### UA #### [place] [address] USAOccult Blood,UrineNegativeNormalNegativePalm Beach Gardens Medical Center Physician GroupComment on above:Order Comment: Name Collection Type:: Clean- Voided MidstreamResult Comment: PERFORMED BY: [place] [address] PATHOLOGIST BANK NOTE DESIGNER ANTHONY PERRY M.D.Performed By: #### UA #### [place] [address] USAProtein,UrineNegativeNormalNegativePalm Beach Gardens Medical Center Physician GroupComment on above:Order Comment: Name Collection Type:: Clean-Voided MidstreamPerformed By: #### UA #### [place] [address] USASpecificy [place],Urine1.813Dbdcdz8.001-1.030[facility] Physician GroupComment on above:Order Comment: Name Collection Type:: Clean- Voided MidstreamPerformed By: #### UA #### [place] [address] USAUrobilinogen,UrineNormalNormalNormHCA Florida Mercy Hospital Physician GroupComment on above:Order Comment: Name Collection Type:: Clean- Voided MidstreamPerformed By: #### UA #### [address] [address] USAUrobilinogen Test strip (U) [Mass/Vol]Ordered By: Vania Burton on 46-58-9088Knsctjorhleh (U) [Mass/Vol]Urobilinogen [Mass/volume] in Urine by Test stripNoBrown Memorial HospitalUrobilinogen (U) [Mass/Vol]Normal mg/dLNoBrown Memorial HospitalWBC Auto (Bld) [#/Vol]Ordered By: Vania Burton on 45-54-8786YRA (Bld) [#/Vol]Leukocytes [#/volume] in Blood by Automated count3.8-11.6FProMedica Fostoria Community Hospital X-ray reportOrdered By: Avelino Johnson on 22-16-7607Bfdlp [facility] Main [place] [address] [place], [place] [address] XRay Report Signed Patient: Jazzmine Wang MR#: [id number] : 1945 Acct:[id number] Age/Sex: 79 / F ADM Date: 5 Loc: ER Room: Type: [facility] ER Attending Dr: Copies to: Vania Burton [...] Johnson M.D. 11/05/2024 5:46 PM Dictation Location: [place] [address] Transcribed By: [facility] 11/05/241745 Dictated By: Avelino Johnson MD 11/05/241745 Signed By: 11/05/241745 [facility] Work Phone: xr chest 2V*on 28-02-7381CI chest 2V*[facility] Main [place] [address] [place] [address] XRay Report Signed Patient: Jazzmine Wang MR#: [id number] : 1945 Acct:[id number] Age/Sex: 79 / F ADM Date: 11/05/24 Loc: ER Room: Type: [facility] ER Attending Dr: Copies to: [...] Johnson M.D. 11/05/2024 5:46 PM Dictation Location: [place] [address] Transcribed By: [facility] 11/05/241745 Dictated By: Avelino Johnson MD 11/05/241745 Signed By: 11/05/[address] [place] [address] Physician GrouppH Test strip (U)Ordered By: Vania Burton on 59-37-9377sR (U)pH of Urine by Test strip5.0-9.0[facility] HospitalpH of Urine by Test stripOrdered By: Vania Burton on 89-79-8667gF (U)5.5 [pH]5.0-9.0[facility] HospitalComment on above:Order Comment: Name Collection Type:: Clean-Voided MidstreamPerformed By: #### UA #### [place] [id number] USAUrology Office/Clinic Noteon 31-16-4416Jmpjxhv Office/Clinic NoteUrology Office/Clinic Note Chief Complaint 6 [...] of kidney, acquired) [place] [facility] [place] them (no abdominal imaging). Incidental finding. [...] Urnls Dip Stick Auto w/o Microscopy POC 32023 3. 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 Rarely sexually active now. Used estrogen cream in the past, no sx improvement. Also tried prophy abx. TODAY: No recent UTIs. UA completed in office today shows no microhematuria or signs of infection. Ordered: Urnls Dip Stick Auto w/o Microscopy POC 19111 4. 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 KML restarted estrogen cream. TODAY: Pt has been using as instructed. No new complaints. Ordered: Urnls Dip Stick Auto w/o Microscopy POC 82381 F/u 1 yr w AYAN prior, sooner if Botox starts to wear off - appt should be w KML, not ESTELLA. Follow-up With When Contact Information CHRIS COUGHLIN, ERIKA Trammell, URL In 1 year [address] [place] [address] Additional Instructions: AYAN prior [...] virus vaccine, inactivated 03/14/2023 Recorded SARS-CoV-2 (COVID-19) mRNAMUL.ORD![id number] 03/01/2022 Recorded influenza virus vaccine, inactivated (more content not included)...[facility] CenterComment on above:Result Comment: Electronically Signed By: ERIKA SIM PA-C\.br\Date and Time Signed: 10/19/2512:41 EDTAmbulatory Visit Summaryon 24-88-5059Odvkrqjedz Visit SummaryAmbulatory Visit Summary JAZZMINE WANG :1945 [...] choosing us for your care. [facility] CenterCoding Summaryon 10-09-2024 Coding SummaryHTMLBase 64 EsojydetMLn4qSi+PGhlYWQ+IF8IADUyB29ziPAvmX5cR5FVPUxPWazhWCLPCSsEHdLvvvDcKS7pmQGg ZXJu [file] ZTo (more content not included)...NormalMiddletown Hospital HospitalCoding Summaryon 47-08-1562Adcsvu SummaryMLBase 64 IresgvcdBCn4fXn+PGhlYWQ+GU2SDSOkF54qyULogB4tV2LLDQeJXfukDBTIEWdUJyXebuBdOU0jyEGx ZXJu [file] ZTo (more content not included)...[facility] Memorial HospitalNo Panel Informationon 35-86-2810CKHGLake Regional Health System Panel InformationOrdered By: Alisha Wilkes on 23-94-0571HXDSWestern Missouri Mental Health CenterRad - MRI Reporton 29-23-3293Zww - MRI Report [id number]#1.00OTGTIFFWilson Memorial HospitalMRI Spine Cervical w/o Contraston 96-61-8224NCM Spine Cervical w/o Contrast EXAMINATION: MRI Spine [...] Ramo Mcgovern MD 09/25/24 2:11 pm Technologist: [facility] CenterCoding Summaryon 12-14-3465Yqfyjz Summary HTMLBase 64 EqgrfjzzNZy7iEw+PGhlYWQ+HM5NXLSaK64dgACiiF6oS3RRUGnZVixoEBGFWZtZKeDqbzYaNW2ltHQk ZXJu [file] ci1 (more content not included)...[facility] Memorial HospitalOutside Recordson 86-46-0713Illxrok [id number]#1.00OTGTIFF Wilson Memorial HospitalPatient Handouton 05-35-5037Zthrxji HandoutMental and Behavioral Health Managing Anxiety, Adult [...] These products include cigarett (more content not included)...[facility] Memorial HospitalProvider Orderson 06-66-8598Zdafegbe Orders [id number]#1.00OTGTLima City HospitalLab - AP Resultson 21-47-6720Pes - AP Results [id number]#1.00OTKindred Healthcare Pathology Sendout Teston 33-06-3496Ywrxcdjiz Send Out.See ReportWilson Memorial HospitalComment on above:Order Comment: GASTRIC ANTRUM BIOPSYPerformed By: #### [id number] ####[facility] (DEFAULT)[address] [place] [address]Jbyyqr Summaryon 76-73-0200Zufwth SummaryHTMLBase 64 VsvnkoxnNIy0bGi+PGhlYWQ+LB1XANTdP51zrKJwzC8dA4PVHOnEIwasNVZATBnSYuViaqJgQE4yoXNu ZXJu [file] ZTo (more content not included)...[facility] Memorial HospitalProvider Orderson 93-34-4302Aqjauroc [id number]#1.00OTGTCleveland Clinic Lutheran HospitalConsent Formson 53-53-4059Ruvupco Forms [id number]#1.00OTKindred Healthcare Anesthesia Noteon 32-04-5498Yikgebwzop NotePatient: JAZZMINE WANG Age: 79 years Sex: [...] [Verified on: 09/11/2024 10:13 EDT] Ramo Levine [facility] HospitalAnesthesia NotePatient: JAZZMINE WANG Age: 79 years Sex: [...] All Problems Cervical spondylosis / SNOMED CT 0436937726 / Confirmed Bilateral renal cysts / SNOMED CT 6661824039 / Confirmed Generalized osteoarthritis / SNOMED CT 470409851 / Confirmed Fibromyalgia / SNOMED CT 782620462 / Confirmed GERD (gastroesophageal reflux disease) / SNOMED CT 649982333 / Confirmed Genital herpes / SNOMED CT 64220824 / Confirmed Hip pain, bilateral / SNOMED CT 02506106 / Confirmed Hyperlipidemia / SNOMED CT 68364976 / Confirmed Insomnia / SNOMED CT 270178688 / Confirmed Depression with anxiety / SNOMED CT 635397452 / Confirmed Cervicalgia / SNOMED CT 435844197 / Confirmed Screening mammogram, encounter for / SNOMED CT 807670004 / Confirmed Allergic rhinitis, seasonal / SNOMED CT 693598674 / Confirmed Sensorineural hearing loss of both ears / SNOMED CT 700730808 / Confirmed Resolved: Dizziness / SNOMED CT 8123236468 Canceled: Anxiety / SNOMED CT 36834155 Canceled: Chest pain / SNOMED CT 53227374 Canceled: Poison ruben / SNOMED CT 7323355911 Canceled: Depression / SNOMED CT 14961739 Canceled: Disease caused by 2019 novel coronavirus / SNOMED CT 1550459341 Canceled: Shortness of breath / SNOMED CT 088889935 Canceled: Pedal edema / SNOMED CT 992338028 Canceled: Fatigue / SNOMED CT 546816214 Canceled: Plantar fasciitis / SNOMED CT 908444161 Canceled: Shoulder pain / SNOMED CT 19262317 Canceled: Tremor / SNOMED CT 72085387 Canceled: UTI (urinary tract infection) / SNOMED CT 335209387 Histories Family History: Dementia Brother Aneurysm Mother CA - Lung cancer Father Stroke Mother Heart attack Brother Procedure history: Cataract surgery of right eye (9109522674) on 10/21/2020 at 75 Years. Cataract surgery of left eye (0943879995) in the month of 01/2020 at 74 Years. Screening mammogram of bilateral breasts (9425651098) on 02/07/2020 at 74 Years. Ultrasound (149794446) on 05/25/2019 at 74 Years. Comments: 06/20/2019 14:18 EST - May Marie CAMPOS normal DEXA - dual energy X-ray absorptiometry (6279544636) on 05/25/2019 at 74 Years. Comments: 06/20/2019 14:18 EST - May Marie CAMPOS very mild osteopenia Cervical Bilateral medial branch block C3,4,5,6 with 100 TC on 04/25/2019 at 74 Years. #1 bialteral C3,4,5,6 MBB on 03/14/2019 at 74 Years. Arthroplasty of carpometacarpal joint (035987279) on 11/06/2018 at 73 Years. Joint fusion (891706292) on 11/06/2018 at 73 Years. Mammogram (976622605) on 11/14/2017 at 72 Years. Mammogram (312744215) on 08/24/2016 at 71 Years. Colonoscopy (005790759) in 2013 at 69 Years. PAP test date (2655488779). Dilation and curettage (03974443). Cholecystectomy (22567525). Bilateral tubal ligation (368180258). Pap smear and HPV cotesting (904917371478972). Comments: 06/20/2019 14:17 - September Marie CAMPOS normal Social History [...] Comment: ENT-Dr. Cao; Gastro : Dr. Mota Negotiator Sales : Dr. Carrasco . Social & (more content not included)...Wilson Memorial HospitalInpatient Patient Summaryon 68-94-6516Qlebfhwxd [place] [address] Patient Discharge Instructions Name: JAZZMINE WANG : 1945 Patient Address: [address] [place] [address] Primary Care Provider: Name: Prema Clement APRN, CNP After you are discharged if you find you have any questions, please, call [phone] ext [phone] to speak to a nurse. Discharge Diagnosis: [...] problems; contact the [facility] [place] 20/12 Crisis Hotline -Text 4HNQV fg 671310. If you received any narcotics, sedation, or [...] business decisions or sign any legal documents [facility] would like to thank you for allowing us to assist you with your healthcare needs.The following includes patient education materials and information regarding your injury/illness. JAZZMINE WANG has been given the following list of follow-up instructions, prescriptions, andpatient education materials: Follow-up Instructions With: Address: When: Guillermo Connors [address] [place], [place] [address] Business (1) , only if needed With: [...] may also give y (more content not included)...[facility] Intraoperative Recordon 56-16-9819GUWJ Intraoperative RecordMAGR Intra-Op Record Summary Primary Physician: Guillermo Connors MD Finalized Date/Time: 09/11/24 10:10:01 Pt. Name: JAZZMINE WANG /Sex: 1945 FEMALE Med Rec #: [id number] Physician: Guillermo Connors MD Financial #: [id number] Pt. Type: D Room/Bed: / Admit/Disch: 09/11/24 06:59:24 - Institution: Case Times MAGR Entry 1 Patient In Room Time 09/11/24 09:29:00 Out Room Time 09/11/24 10:04:00 Anesthesia Start Time 09/11/24 09:29:00 Stop Time 09/11/24 10:02:00 Surgery Start Time 09/11/24 09:42:00 Stop Time 09/11/24 10:01:00 Last Modified By: Tommie RN, Kim 09/11/24 10:09:21 General Comments: [id number] Case Attendance MAGR Entry 1 Entry 2 Entry 3 Case Attendee Guillermo Connors MD, David DO Gump RN, Kim Role Performed Surgeon - Primary Anesthesiologist of Planning Aide Record Time In 09/11/24 09:40:00 09/11/24 09:29:00 09/11/24 09:29:00 Time Out 09/11/24 10:02:00 09/11/24 10:05:00 09/11/24 10:05:00 Procedure Esophagogastroduodenosco Esophagogastroduodenosco Esophagogastroduodenosco py and Colonosco py and Colonosco py and Colonosco Last Modified By: Tommie RN, Kim Reilly RN, Kim Reilly RN, Kim 09/11/24 10:09:56 09/11/24 10:09:05 09/11/24 10:09:05 Entry 4 Entry 5 Case Attendee Efraín Bravo Hunter ST CST Role Performed Embedded Case Manager Scrub Personnel Time In 09/11/24 09:29:00 09/11/24 09:29:00 Time Out 09/11/24 10:05:00 09/11/24 10:05:00 Procedure Esophagogastroduodenosco Esophagogastroduodenosco py and Colonosco py and Colonosco Last Modified By: Kim Reilly RN, RN, Leandra 09/11/24 10:09:05 09/11/24 10:09:05 Surgical Procedures MAGR [...] Time 09/11/24 09:41:00 Participants Ramo Levine DO, Gump RN, Lawrence Alvarez Leigh-Ann CSFA CRM ADMINISTRATOR, Johnnie Ching ST Last Modified By: Kim [...] of injury related to (more content not included)...[facility] Postoperative Recordon 35-64-8694WUMA Postoperative RecordMA Phase II Record Summary Primary Physician: Guillermo Connors MD Finalized Date/Time: 09/11/24 11:12:43 Pt. Name: JAZZMINE WANG /Sex: 1945 FEMALE Med Rec #: [id number] Physician: Guillermo Connors MD Financial #: [id number] Pt. Type: D Room/Bed: / Admit/Disch: 09/11/24 [...] Signatures Signed By: Stephanie Ott RN 09/11/24 11:12[facility] Preoperative Recordon 77-72-5241DJRP Preoperative RecordMAGR Pre-Op Record Summary Primary Physician: Guillermo Connors MD Finalized Date/Time: 09/11/24 10:29:47 Pt. Name: JAZZMINE WANG /Sex: 1945 FEMALE Med Rec #: [id number] Physician: Guillermo Connors MD Financial #: [id number] Pt. Type: D Room/Bed: / Admit/Disch: 09/11/24 [...] Signatures Signed By: Stephanie Ott RN 09/11/24 10:29[facility] Panel Information Ordered By: Guillermo Connors on 47-91-0542Irihpxrfdpmir Pathology TestSee comment [facility] HospitalComment on above:See report. Scanned copy available in EMR.Pathology Request for Lab Corpon 67-13-4106Tbirdiyrq Request for Lab CorpNoDorothea Dix Hospital Physician GroupComment on above:Order Comment: GI SPECIMENResult Comment: See report. Scanned copy available in EMR. PERFORMED BY: [place] [address] PATHOLOGIST BANK NOTE DESIGNER SHU NICOLE M.D.Performed By: #### PATH TO [facility] #### [place] [address] USAPatient Handouton 00-84-0338Mxktbay HandoutRadiology Upper and lower endoscopy, Care After [...] that are easy to digest. ? Take irjo-pfg-kbfiams and prescription medicines only as told by [...] provider. Document Revised: 06/28/2023 Document Reviewed: 01/06/2022 [employer] Patient Education ? 2023 Livevol.Wilson Memorial HospitalHepatic Function Panel Standardon 66-55-3993Fxzcohe/Globulin [Mass ratio]1.2 {ratio}Low 1.4-2.6M[facility] HospitalComment on above:Performed By: #### [id number], [id number], [id number] ####[facility] (DEFAULT)[address] [place] [address] 41522Yget IndirectUnable to CalculateInvalid Interpretation Code 0.2-0.8[facility] HospitalComment on above:Performed By: #### [id number], [id number], [id number] ####[facility] (DEFAULT)[address] [place] [address] 725[address]Phrlorgj (S) [Mass/Vol]2.9 g/dLNormal1.5-4.3M[facility] Hospital Comment on above:Performed By: #### [id number], [id number], [id number] ####[facility] (DEFAULT)[address] [place] [address] 00755Eekduib [Mass/Vol]3.5 g/dLNormal3.5-5.0[facility] HospitalComment on above:Performed By: #### [id number], [id number], [id number] ####[facility] (DEFAULT)[address] [place] [address] 52774Ora Phos52 IU/OAxukab04-63Mqdeegne HospitalComment on above:Performed By: #### [id number], [id number], [id number] ####[facility] (DEFAULT)[address] [place] [address] 82233ALO [Catalytic activity/Vol]19.0 U/CTnhwcl40.0-54.0[facility] HospitalComment on above:Performed By: #### [id number], [id number], [id number] ####[facility] (DEFAULT)[address] [place] [address] 19225UQF [Catalytic activity/Vol]27 U/HWplyry49-69 [facility] HospitalComment on above:Performed By: #### [id number], [id number], [id number] ####[facility] (DEFAULT)[address] [place] [address] 25429 Bili Direct<0.24Bsozqg7.10-0.50[facility] HospitalComment on above:Performed By: #### [id number], [id number], [id number] ####[facility] (DEFAULT)[address] [place] [address] 75610Ohep Total0.5 mg/dLNormal0.3-1.2M[facility] Hospital Comment on above:Performed By: #### [id number], [id number], [id number] ####[facility] (DEFAULT)[address] [place] [address] 71691Hkpqsma [Mass/Vol]6.4 g/dLLow6.5-8.1M[facility] HospitalComment on above:Performed By: #### [id number], [id number], [id number] ####[facility] (DEFAULT)[address] [place] [address] 54605Ikbtn Panel Standardon 14-59-6598Qpefbicpic ChemNormal [facility] HospitalComment on above:Performed By: #### [id number], [id number], [id number] ####[facility] (DEFAULT)[address] [place] [address] 30962 Cholesterol [Mass/Vol]198.0 mg/cQXjdvoz80.0-200.0[facility] HospitalComment on above:Performed By: #### [id number], [id number], [id number] ####[facility] (DEFAULT)[address] [place] [address] 05839Ydqjasrnjhd in HDL [Mass/Vol]54 mg/bRGtcmpk20-35Otftsrzu HospitalComment on above:Performed By: #### [id number], [id number], [id number] ####[facility] (DEFAULT)[address] [place] [address] 91384Fgaempdupqa in LDL [Mass/Vol]116 mg/dLHigh1-100[facility] HospitalComment on above:Performed By: #### [id number], [id number], 0734782 ####[facility] (DEFAULT)[address] [place] [address] 12574 Cholesterol.total/Cholesterol in HDL [Mass ratio]3.6 {ratio}Normal0.0-4.5 [facility] HospitalComment on above:Performed By: #### [id number], [id number], [id number] ####[facility] (DEFAULT)[address] [place] [address] 28173 Triglyceride [Mass/Vol]137.0 mg/dLNormal0.0-150.0[facility] HospitalComment on above:Performed By: #### [id number], [id number], 6771810 ####[facility] (DEFAULT)[address] [place] [address] 59574YJDU.27 mg/dLNormal5-40[facility] HospitalComment on above:Performed By: #### [id number], [id number], [id number] ####[facility] (DEFAULT)[address] [place] [address] 56161Bbdaqjfs Messageson 76-05-7411Kyxqpvfm Messages From: Prema Clement APRN, CNP To: [facility] ([facility] Sent: 09/10/2024 11:48:58 EDT ! Show up: [...] (5 - 40) From: Brenda Mobley MA ([employer] Clinical [employer] ([place])) To: Prema Clement CNP; Sent: 09/10/2024 13:29:56 EDT Show up: 09/10/2024 13:29:00 EDT Subject: RE: Results Follow Up Called Lab to see why Vitamin D was not drawn, and Lab stated it is due to the patient declining tohave it drawn. From: Prema Clement APRN, CNP To: [employer] ([facility]_[place]); Sent: 09/10/2024 13:59:54 EDT Show up: 09/10/2024 13:59:00 EDT Subject: RE: Results Follow Up ok then, I would just notify the patient patient notified, voiced understanding.Wilson Memorial HospitalVit B12 Lvlon 13-56-4510Tvq J36849Tuijmi312-978Frqjsdjo HospitalComment on above:Performed By: #### [id number], [id number], [id number] ####[facility] (DEFAULT)[address] [place], [place] [address]Pcgwwzv Recordson 21-14-4471Sihkojr Records [id number]#1.00[facility] Coding Summaryon 26-91-7591Ciamng SummaryHTMLBase 64 RefjupebUTp0wJf+PGhlYWQ+EY2JLNKtR95zgLQqoP6yK8VGLTpONaqkVVLJPAbHYnTcilUeUW9tdBPl ZXJu [file] ZTo (more content not included)...[facility] Memorial HospitalErythrocyte distribution width Auto (RBC) [Ratio]on 62-91-1531Ysfcwnolobf distribution width (RBC) [Ratio]Erythrocyte distribution width [Ratio] by Automated count11.5-15.0 [facility] HospitalEstimated glomerular filtration rate (GFR) non- Americanon 33-75-7671OFG/1.73 sq M.predicted among non-blacks MDRD (S/P/Bld) [Vol rate/Area]Estimated glomerular filtration rate (GFR) non- [facility] HospitalHematocrit Auto (Bld) [Volume fraction] on 33-90-8775Krnzrmlcxl (Bld) [Volume fraction]Hematocrit [Volume Fraction] of Blood by Automated count33.7-40.4FProMedica Fostoria Community HospitalHemoglobin [Mass/volume] in Bloodon 82-00-2906Wkjizksgmg (Bld) [Mass/Vol]Hemoglobin [Mass/volume] in Blood11.3-15.9[facility] HospitalHemogram Standardon 65-72-0403Nbgczxihfcn distribution width (RBC) [Ratio]13.0 %Normal 11.5-15.0[facility] HospitalComment on above:Performed By: #### [id number], [id number], [id number] ####[facility] (DEFAULT)[address] [place] [address] 38010Stqiqjtbex (Bld) [Volume fraction]37.7 %Bqofla52.7-40.4[facility] HospitalComment on above:Performed By: #### [id number], 6040085, [id number] ####[facility] (DEFAULT)[address] [place] [address] 75484Lytcymkvzf (Bld) [Mass/Vol]12.9 g/dGMblkca50.3-15.9[facility] HospitalComment on above: Performed By: #### [id number], 4679356, [id number] ####[facility] (DEFAULT)[address] [place] [address] 54573NJJ (RBC) [Entitic mass]34 pg Kynnva61-00Qmiljizc HospitalComment on above:Performed By: #### [id number], [id number], [id number] ####[facility] (DEFAULT)[address] [place] [address] 36747MUKC (RBC) [Mass/Vol]34 g/sHZuffwy41-81Cstuthci HospitalComment on above:Performed By: #### [id number], 8886837, [id number] ####[facility] (DEFAULT)[address] [place] [address] 28560QIA (RBC) [Entitic vol] 101 fHSlyv95-578Vfxopjic HospitalComment on above:Performed By: #### [id number], [id number], [id number] ####[facility] (DEFAULT)[address] [place] [address] 07105Ollemmmg935 v64Dlpskj218-097Nitxzozz HospitalComment on above: Performed By: #### [id number], 8891440, [id number] ####[facility] (DEFAULT)[address] [place], [place] [address]Bfhvyvhq mean volume (Bld) [Entitic vol]7.2 fLNormal6.3-10.2M[facility] HospitalComment on above:Performed By: #### [id number], 9779119, [id number] ####[facility] (DEFAULT)[address] [place] [address] 67765UJL6.75 z80Rrsbxq1.70-5.30[facility] HospitalComment on above:Performed By: #### [id number], 1250965, 1245776989 ####[facility] (DEFAULT)[address] [place] [address] 19572NEM4.1 v92Hdklca 3.5-10.5[facility] HospitalComment on above:Performed By: #### [id number], 8851915, [id number] ####[facility] (DEFAULT)[address] [place] [address] 00173Wzlimrlrol - Chemistry and Chemistry - challengeon 08-13-2024 Albumin [Mass/Vol]3.8 g/dL3.5-5.0[facility] HospitalCalcium [Mass/Vol]9.1 mg/dL8.9-10.3FProMedica Fostoria Community HospitalChloride [Moles/Vol] 102 mmol/P861-925OqwutwhusBarberton Citizens HospitalCO2 [Moles/Vol]28 mmol/L21-32 [facility] HospitalCreatinine [Mass/Vol]0.95 mg/dL0.60-1.30 [facility] HospitalGFR/1.73 sq M.predicted MDRD (S/P/Bld) [Vol rate/Area]mL/min/{1.73_m2}[facility] HospitalGlucose [Mass/Vol] 82.0 mg/dL74.0-118.0[facility] HospitalMagnesium [Mass/Vol]2.20 mg/dL1.80-2.50[facility] HospitalPotassium [Moles/Vol]3.8 mmol/L 3.6-5.1[facility] Medical CenterSodium [Moles/Vol]136.0 mmol/L 136.0-144.0[facility] HospitalUrea nitrogen [Mass/Vol]23 mg/dL8- [facility] HospitalUrea nitrogen/Creatinine [Mass ratio]24.2 mg/mg High4.6-16.2FProMedica Fostoria Community HospitalLaboratory - Urinalysison 22-98-1805Qocpaop (U) [Mass/Vol]12.50 mg/dLHigh<=9.90[facility] HospitalLeukocytes [#/volume] corrected for nucleated erythrocytes in Blood by Automated counon 25-02-7858NLI corrected for nucl RBC Auto (Bld) [#/Vol] Leukocytes [#/volume] corrected for nucleated erythrocytes in Blood by Automated coun3.5-10.5FProMedica Fostoria Community HospitalMCH Auto (RBC) [Entitic mass]on 34-35-1508LWL (RBC) [Entitic mass]MCH [Entitic mass] by Automated -81 [facility] HospitalMCHC Auto (RBC) [Mass/Vol]on 21-22-9071MWIY (RBC) [Mass/Vol]MCHC [Mass/volume] by Automated -09ZjibaejgeBarberton Citizens HospitalMCV Auto (RBC) [Entitic vol]on 15-82-9793WOO (RBC) [Entitic vol] MCV [Entitic volume] by Automated yahooRgkk39-288CnxweyglnBarberton Citizens HospitalMagnesiumon 77-11-1973Aknvqgbkl [Mass/Vol]2.20 mg/dLNormal1.80-2.50 [facility] Lutheran HospitalComment on above:Performed By: #### [id number], [id number], [id number] ####[facility] (DEFAULT)[address], [place] [address]Yw Panel Informationon 21-65-9511Mfhjr Random Eftegwfqjl07.66 mg/dL [facility] HospitalOsmolality275 mOsm/LFProMedica Fostoria Community HospitalPhosphorus Level4.2 mg/dL2.5-4.6FProMedica Fostoria Community HospitalPlatelet mean volume Auto (Bld) [Entitic vol]on 98-30-4458Vyqadmns mean volume (Bld) [Entitic vol]Platelet mean volume [Entitic volume] in Blood by Automated count 6.3-10.2FProMedica Fostoria Community HospitalPlatelets Auto (Bld) [#/Vol]on 80-25-8191Etkwvrzoa (Bld) [#/Vol]Platelets [#/volume] in Blood by Automated eftkj885-722XsdnujtsqBarberton Citizens HospitalProvider Orderson 08-13-2024 Provider [id number]#1.00OTGTIFFNormalCleveland Clinic Lutheran HospitalRBC Auto (Bld) [#/Vol]on 50-51-1725CAP (Bld) [#/Vol]Erythrocytes [#/volume] in Blood by Automated count3.70-5.30[facility] Renal Function Panel Standardon 31-45-6887gPVU Non AA57 mL/min/1.34o8Pdgmbvy Interpretation CodeMiddletown Hospital HospitalComment on above:Performed By: #### [id number], [id number], [id number] ####[facility] (DEFAULT)[address] [place] [address] 21536jJVR AA>60Invalid Interpretation [facility] CenterComment on above:Performed By: #### [id number], [id number], [id number] ####[facility] (DEFAULT)[address] [place] [address] 81371Hovprmx [Mass/Vol]3.8 g/dLNormal3.5-5.0[facility] HospitalComment on above:Performed By: #### [id number], [id number], [id number] ####[facility] (DEFAULT)[address] [place] [address] 47806Scrsv gap [Moles/Vol]9.8 mmol/LNormal5.0-19.0 [facility] HospitalComment on above:Performed By: #### [id number], [id number], [id number] ####[facility] (DEFAULT)[address] [place] [address] 26371Faiiwjd [Mass/Vol]9.1 mg/dLNormal8.9-10.3M[facility] HospitalComment on above: Performed By: #### [id number], [id number], [id number] ####[facility] (DEFAULT)[address] [place] [address] 86431Cuzigqlx [Moles/Vol]102 mmol/L Lxilxc727-318Slgwrdrw HospitalComment on above:Performed By: #### [id number], [id number], [id number] ####[facility] (DEFAULT)[address] [place] [address] 18517MJ8 [Moles/Vol]28 mmol/GNnlxmq71-00Riwipifq HospitalComment on above:Performed By: #### [id number], [id number], [id number] ####[facility] (DEFAULT)[address] [place] [address] 42648Vyyhvjarwo [Mass/Vol]0.95 mg/dL Normal0.60-1.30[facility] HospitalComment on above:Performed By: #### [id number], [id number], [id number] ####[facility] (DEFAULT)[address] [place] [address] 62266Hmfoqzn [Mass/Vol]82.0 mg/wDPcgzyv81.0-118.0[facility] Hospital Comment on above:Performed By: #### [id number], [id number], [id number] ####[facility] (DEFAULT)[address] [place] [address] 95143Ahpeufnlzp696 mOsm/L Invalid Interpretation CodeMiddletown Hospital HospitalComment on above:Performed By: #### [id number], [id number], [id number] ####[facility] (DEFAULT)[address] [place] [address] 13937Sgllyynsy [Mass/Vol]4.2 mg/dLNormal2.5-4.6M[facility] HospitalComment on above:Performed By: #### [id number], [id number], [id number] ####[facility] (DEFAULT)[address] [place] [address] 95104Kmmgopvnm [Moles/Vol]3.8 mmol/LNormal3.6-5.1M[facility] HospitalComment on above:Performed By: #### [id number], [id number], [id number] ####[facility] (DEFAULT)[address] [place] [address] 95749Myocvs [Moles/Vol]136.0 mmol/LNormal 136.0-144.0[facility] HospitalComment on above:Performed By: #### [id number], [id number], [id number] ####[facility] (DEFAULT)[address] [place] [address] 93950Prqx nitrogen [Mass/Vol]23 mg/dLNormal8-26[facility] Comment on above:Performed By: #### [id number], [id number], [id number] ####[facility] (DEFAULT)[address] [place] [address] 97048Gdkn nitrogen/Creatinine [Mass ratio]24.2 mg/mgHigh4.6-16.2MJ.W. Ruby Memorial HospitalComment on above:Performed By: #### [id number], [id number], [id number] ####[facility] (DEFAULT)[address] [place] [address] 62776Ykffn or plasma anion gap determinationon 50-16-0751Bqgmh gap [Moles/Vol]Serum or plasma anion gap determination5.0-19.0[facility] HospitalU Protein/Creatinineon 08-13-2024U Faixoovrff07.66 mg/dLInvalid Interpretation [facility] Comment on above:Performed By: #### [id number] ####[facility] (DEFAULT)[address] [place] [address] 20340P Prot/Gpkih791 mg/gmNormal0-200[facility] HospitalComment on above:Performed By: #### [id number] ####[facility] (DEFAULT)[address] [place] [address] 25332Z Xfpecam13.50 mg/dLHigh<=9.90 [facility] HospitalComment on above:Performed By: #### [id number] ####[facility] (DEFAULT)[address] [place] [address] 24630Dszlv protein/creatinine ratioon 17-32-4786Myuyjqb/Creatinine (U) [Ratio]Urine protein/creatinine ratio0-200[facility] HospitalCoding Summaryon 92-87-6092Esujhf SummaryHTMLBase 64 WdbohsjeMRa4bXp+PGhlYWQ+YR5UOHPaO15ejOCsjQ8qW4CXLRkKTqufCCTRWSbJHmOozvGsIR0zhFCx ZXJu [file] ZTo (more content not included)...[facility] Kidney/Bladder Completeon 90-47-9565XP Kidney/Bladder CompleteEXAMINATION: US Kidney/Bladder Complete TECHNIQUE: Ultrasound [...] Pelon Ortiz MD 07/16/24 3:11 pm Technologist: [facility] CenterProvider Orderson 73-69-1202Zinrzexu [id number]#1.00[facility] HospitalOutside Recordson 67-72-9269Ehbncwr Records [id number]#1.00[facility] Outside [id number]#1.00[facility] HospitalOutside Recordson 20-16-3511Cqxqsnm Records [id number]#1.00[facility] HospitalRad - MRI Reporton 39-58-8026Usc - MRI Report [id number]#1.00[facility] Coding Summaryon 91-58-9674Fwqvea SummaryHTMLBase 64 NtavnhqgPGv1eGy+PGhlYWQ+UU4TGLEjY57laETouJ7lX1QHTSgKPrydIZPVRMbFWsPhnfDqBA4ioLOu ZXJu [file] ZTo (more content not included)...[facility] Standardon 23-10-9365zSVW Non AA50 mL/min/1.65p2Rmicczb Interpretation [facility] CenterComment on above:Performed By: #### [id number], [id number] #### [facility] (DEFAULT) [address] [place] [address] 21304gQQK AA60 mL/min/1.78l4Wgpugun Interpretation [facility] CenterComment on above:Performed By: #### [id number], [id number] #### [facility] (DEFAULT) [address] [place] [address] 53651Jfgkerk [Mass/Vol]3.7 g/dLNormal3.5-5.0[facility] Hospital Comment on above:Performed By: #### [id number], [id number] #### [facility] (DEFAULT) [address] [place] [address] 80294Rdkdfhm/Globulin [Mass ratio]1.3 {ratio}Low1.4-2.6M[facility] HospitalComment on above:Performed By: #### [id number], [id number] #### [facility] (DEFAULT) [address] [place] [address] 34281Ova Phos53 IU/EHxxswf44-68Jajfbslt HospitalComment on above:Performed By: #### [id number], [id number] #### [facility] (DEFAULT) [address] [place] [address] 30010WTW [Catalytic activity/Vol]17.0 U/CIudmbo07.0-54.0 [facility] HospitalComment on above:Performed By: #### [id number], [id number] #### [facility] (DEFAULT) [address] [place] [address] 06808Jksvm gap [Moles/Vol]11.1 mmol/LNormal5.0-19.0[facility] HospitalComment on above:Performed By: #### [id number], [id number] #### [facility] (DEFAULT) [address] [place] [address] 15377KRA [Catalytic activity/Vol]25 U/WPhvutl78-93Oyifejai HospitalComment on above:Performed By: #### [id number], [id number] #### [facility] (DEFAULT) [address] [place] [address] 60542Vaes Total0.8 mg/dLNormal0.3-1.2Magrkettering health main campus HospitalComment on above:Performed By: #### [id number], [id number] #### [facility] (DEFAULT) [address] [place] [address] 43039Jczibgg [Mass/Vol]9.1 mg/dLNormal8.9-10.3M[facility] Hospital Comment on above:Performed By: #### [id number], [id number] #### [facility] (DEFAULT) [address] [place] [address] 02967Rardcmzb [Moles/Vol]104 mmol/QAqgpmt314-497Cgnkwryd HospitalComment on above:Performed By: #### [id number], [id number] #### [facility] (DEFAULT) [address] [place] [address] 38518OL4 [Moles/Vol]27 mmol/ZUitcbx12-83Kabdbzdf Hospital Comment on above:Performed By: #### [id number], [id number] #### [facility] (DEFAULT) [address] [place] [address] 52916Eebxytpbax [Mass/Vol]1.07 mg/dLNormal0.60-1.30[facility] HospitalComment on above:Performed By: #### [id number], [id number] #### [facility] (DEFAULT) [address] [place] [address] 13158Qlckexzr (S) [Mass/Vol]2.8 g/dLNormal1.5-4.3M[facility] HospitalComment on above:Performed By: #### [id number], [id number] #### [facility] (DEFAULT) [address] [place] [address] 44510Tkdqurp [Mass/Vol]92.0 mg/yFXlffla69.0-118.0[facility] HospitalComment on above:Performed By: #### [id number], [id number] #### [facility] (DEFAULT) [address] [place] [address] 86619Wjzamnauxg598 mOsm/LInvalid Interpretation CodeMiddletown Hospital HospitalComment on above:Performed By: #### [id number], [id number] #### [facility] (DEFAULT) [address] [place] [address] 95839Ettajqaqu [Moles/Vol]4.1 mmol/LNormal3.6-5.1Magrkettering health main campus HospitalComment on above:Performed By: #### [id number], [id number] #### [facility] (DEFAULT) [address] [place] [address] 26203Kfcbaxv [Mass/Vol]6.5 g/dLNormal6.5-8.1M[facility] Hospital Comment on above:Performed By: #### [id number], [id number] #### [facility] (DEFAULT) [address] [place] [address] 72112Ytdokw [Moles/Vol]138.0 mmol/YMejvxz251.0-144.0[facility] HospitalComment on above:Performed By: #### [id number], [id number] #### [facility] (DEFAULT) [address] [place] [address] 46664Xkej nitrogen [Mass/Vol]17 mg/dLNormal8-26[facility] HospitalComment on above:Performed By: #### [id number], [id number] #### [facility] (DEFAULT) [address] [place] [address] 97657Igtm nitrogen/Creatinine [Mass ratio]15.8 mg/mgNormal 4.6-16.2M[facility] HospitalComment on above:Performed By: #### [id number], [id number] #### [facility] (DEFAULT) [address] [place] [address] 84878Wwffj Panel Standardon 25-52-3958Nceaaqslese [Mass/Vol] 264.0 mg/rIZhhd28.0-200.0[facility] HospitalComment on above:Performed By: #### [id number], [id number] #### [facility] (DEFAULT) [address] [place] [address] 27222Rqfjwykwpkl in HDL [Mass/Vol]54 mg/rJQfbtsj98-42Rgdetqwx HospitalComment on above:Performed By: #### [id number], [id number] #### [facility] (DEFAULT) [address] [place] [address] 40107Svydplojsio in LDL [Mass/Vol]186 mg/dLHigh1-100[facility] HospitalComment on above:Performed By: #### [id number], [id number] #### [facility] (DEFAULT) [address] [place] [address] 92856Kpxuzaabwbi.total/Cholesterol in HDL [Mass ratio]4.9 {ratio}High0.0-4.5[facility] HospitalComment on above:Performed By: #### [id number], [id number] #### [facility] (DEFAULT) [address] [place] [address] 98660Wifebfpnscrs [Mass/Vol]121.0 mg/dLNormal0.0-150.0[facility] HospitalComment on above:Performed By: #### [id number], [id number] #### [facility] (DEFAULT) [address] [place] [address] 07360VJFA.24 mg/dLNormal5-40[facility] HospitalComment on above: Performed By: #### [id number], [id number] #### [facility] (DEFAULT) [address] [place] [address] 73868Tvgqgmm Recordson 42-85-3675Nhqthvh Records [id number]#1.00OTGTIFFWilson Memorial Hospital Patient Handouton 97-28-9290Awgqptb HandoutMental and Behavioral Health Managing Anxiety, Adult [...] These products include cigarett (more content not included)...[facility] HospitalCoding Summaryon 19-30-5325Ljwqzo SummaryMLBase 64 ZcrxtdaaMDk1gEe+PGhlYWQ+JM3AUWZbK73vzYDmbU0bX1OVAHrFLmlfUTAMHLpRKtVdjuOcGE5fmBHb ZXJu [file] ZTo (more content not included)...[facility] LUMBAR SPINE WO CONTRASTon 58-37-7543PX LUMBAR SPINE WO CONTRASTEXAM: MR LUMBAR SPINE [...] Comment: No to all MRI questions.C Urineon 82-94-7858Sklwoirc identified Cx Nom (U)Microbiology PROCEDURE: Urine Culture [R1] SOURCE: U CleanCatch BODY SITE: COLLECTED DATE/TIME: 05/02/2024 11:27 EST RECEIVED DATE/TIME: 05/02/2024 19:09 EST START DATE/TIME: 05/02/2024 19:09 EST FREE TEXT SOURCE: ERIKA SIM PA-C, PA-C, ERIKA Trammell FINAL REPORTS Final Report [...] Locations R1: This test was performed at: [facility], [address] [place] [address], [address]- , , FdsyngGyhdxkUniversity Hospitals Cleveland Medical CenterComment on above:Performed By: #### [id number] #### [facility] [address] [place] [address] 99812FD Bone Density DEXA Studyon 25-35-2520GG Bone Density DEXA StudyEXAM: BD Bone Density [...] Ramo Mcgovern MD 05/02/24 12:57 p Technologist: [facility] CenterProvider Orderson 06-18-7815Oygjhfep [id number]#1.00OTGTIFFWilson Memorial HospitalAmbulatory Visit Summaryon 63-22-1060Gtlxbatqrt Visit SummaryAmbulatory Visit Summary JAZZMINE WNAG :1945 Visit Date:04/18/2024 Ambulatory Visit Instructions Your [...] ERIKA SIM PA-C Where: [facility] [address] [place] [address]- Medications What How Much When Instructions Unchanged [...] choosing us for your care. [facility] CenterUrology Office/Clinic Noteon 88-21-8725Ibmrcdj Office/Clinic NoteUrology Office/Clinic Note Chief Complaint 3 [...] Progressive supranuclear palsy. 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 Pt prefers a female provider. 1. Mixed [...] mos, call to be seen sooner. Ordered: 99502 Measure Post Void residual urine and/or bladder [...] Pt has been using as instructed. Ordered: 97946 Measure Post Void residual urine and/or bladder [...] EHR 1160F (more content not included)...[facility] CenterComment on above: Result Comment: Electronically Signed By: CHRIS COUGHLIN, ERIKA Trammell\.flaco\Date and Time Signed: 04/18/2411:56 ESTOutside Recordson 87-25-9008Ztojvqy Records [id number]#1.00OTGTIFFMemorial Health System sleep teston 57-70-1131Aujxx apnea with an AHI of 18 May benefit from CPAP titration versus auto PAP treatment at 5-15 cm of water [facility] sleep testOrdered By: Katherine Arceo on 90-49-4608ZGTRWestern Missouri Mental Health Center Work Phone: no Panel Informationon 63-03-4290Znngerhwz Study observation (narrative)[facility] Lumbar spine 2 or 3 Viewson 03-27-2024 Imaging Result: AP and lateral of the lumbar spine taken in the office today demonstrating significant degenerative disc disease multiple levels including facet hypertrophy in the lower lumbosacral region. May be evident for neural foraminal stenosis. No evidence of bony tumor acute fracture seen. No spondylolisthesis, she does have some sclerotic changes of her aorta with no evidence of enlargement.[facility] Pelvis AP and Hip - bilateral GE 2 Viewson 92-82-4054Cuptpwj Result: AP pelvis and bilateral frog views of the hips taken in the office today demonstrate no significant osteoarthritis of the femoral head and acetabulum. No evidence of bony tumor acute fracture seen.[facility] SystemsInpatient Patient Summaryon 40-69-7567Gaxgnxnct Patient Summary Inpatient Patient Summary [address] [address] Clinical Summary Person Information Name: JAZZMINE WANG Age: 79 Years : 1945 Sex: Female PCP: PREMA MUNOZ Marital Status: Phone: [phone] Race: White Ethnicity: Non- or Language: Lebanese Visit Id: Visit Reason: MIXED INCONTINENCE Speciality: Acuity: Enc Type: Outpatient Med Service: Surgery Arrival: 03/19/2024 08:25:54 Discharge: Dispo Type: Address: [address] [place] [phone] Provider Notes: Diagnosis: Mixed incontinence Problems Active [...] Follow up: With: Address: When: ERIKA SIM [address] [place] [address] [phone] Business (1) Comments: Office to schedule follow up in 1 month with PVR Patient Education Information: EU - Cystoscopy with Botox Injection Discharge Instructions (CUSTOM)[facility] CenterMain OR Intraoperative Recordon 30-44-4874Bpog OR Intraoperative RecordMain OR Intraoperative Record IntraOp Document Type FTURO Summary Primary Physician: Thelma Hatfield MD Finalized Date/Time: 03/19/24 10:17:30 Pt. Name: JAZZMINE WANG/Sex: 1945 Female Med Rec #: [id number] Physician: Thelma Hatfield MD Financial #: [id number] Pt. Type: O Room/Bed: / Admit/Disch: 03/19/24 08:25:54 - Institution: Case Times FTURO Entry 1 Patient Times In Room 03/19/24 09:51:00 Out Room 03/19/24 10:10:00 Procedure Times Start 03/19/24 10:00:00 Stop 03/19/24 10:04:00 Anesthesia Times Last Modified By: Katie Bucio RN 03/19/24 10:10:25 Case Attendance FTURO Entry 1 Entry 2 Entry 3 Case Attendee Liu UNGER, Thelma Bucio RN, Kristal Lundberg Role Performed Surgeon - Primary Planning Aide - Primary Scrub - Primary Time In 03/19/24 09:51:00 03/19/24 09:51:00 03/19/24 09:51:00 Time Out 03/19/24 10:10:00 03/19/24 10:10:00 03/19/24 10:10:00 Procedure CYSTOSCOPY LOCAL BOTOX CYSTOSCOPY LOCAL BOTOX CYSTOSCOPY LOCAL BOTOX INJECTION(.) INJECTION(.) INJECTION(.) Comments Last Modified By: Katie Bucio RN, RN, Katie Butler RN 03/19/24 10:14:40 03/19/24 10:14:40 03/19/24 10:14:40 Surgical Procedures FTURO Entry 1 Procedure Description Procedure CYSTOSCOPY LOCAL BOTOX Modifiers . INJECTION Surgeon Description CYSTOSCOPY WITH BOTOX 100 UNITS Primary Procedure Yes Primary Surgeon Liu UNGER, Thelma Dent Start 03/19/24 10:00:00 Stop 03/19/24 10:04:00 Anesthesia Type Local Surgical Service Urology Wound Class 2 - Clean-Contaminated Last Modified By: Katie Bucio RN 03/19/24 10:15:33 General Comments: BOTOX 100 UNITS LOT [id number], EXPIRES 02/2026. JONA HALL General Case Data [...] Position Verified Availability Equipment, Medication Time Out Liu UNGER, Thelma Dent, Verified (If Participants Katie Bucio RN, Applicable) Kristal Quijano Time Out Complete 03/19/24 10:00:00 Allergies Reviewed? Yes Allergies Reviewed Self/Patient With Body Position Low Lithotomy Prep Area PERINEUM Prep Agents Betasept, Saline Rinse Skin. Condition Intact, New Site, Warm, & Dry Additional None Specimens Collected [...] RN 03/19/24 10:16 Katie Bucio RN 03/19/24 10:17NoChildren[facility] Hospital for RehabilitationMain OR Preoperative Recordon 66-61-0045Tyha OR Preoperative RecordMain OR Preoperative Record Holding Area Document Type FTURO Summary Primary Physician: Thelma Hatfield MD Finalized Date/Time: 03/19/24 10:17:02 Pt. Name: JAZZMINE WANGO.B./Sex: 1945 Female Med Rec #: [id number] Physician: Thelma Hatfield MD Financial #: [id number] Pt. Type: O Room/Bed: / Admit/Disch: 03/19/24 08:25:54 - Institution: Case Times Holding FTURO Pre-Care Text: Verifies consent for planned procedure, identifies individual values and wishes concerning care, includes family members in perioperative teaching Secures patient's records' belongings, and valuables, maintains patient's dignity and privacy, and maintains patient confidentiality Entry 1 In Holding 03/19/24 09:31:00 Outcomes Met? Yes Last Modified By: Marie Khanna LPN 03/19/24 09:31:52 Post-Care Text: The patient participates in decisions affecting his or her perioperative plan of care The patient'sright to privacy is maintained Surgery Checklist FTURO Entry 1 Patient Birthday, ID Band Procedure History and Physical, Identification: Check, Patient Verification: Surgical Consent, With Participation Patient NPO after Midnight: n/a Limitations: up ad ivon Complaints of Pain: No Skin Integrity Intact, New Site, Warm, & Dry Vitals - EU Blood Pressure 126/71 Pulse 70 bpm Respirations 18 br/min SPO2 98 % RN Reviewed Yes Last Modified By: Katie Bucio RN 03/19/24 10:17:00 Finalized By: Katie Bucio RN Document Signatures Signed By: Katie Bucio RN 03/19/24 10:17[facility] CenterOperative Report on 24-33-7487Knaefuheh ReportOperative Report Patient: JAZZMINE WANG Age: 79 years Sex: Female : 1945 Associated Diagnoses: None Author: Thelma Hatfield MD Procedure Operative Information Details: Date/ Time: 03/19/2024 10:10:00. Pre-Op Dx: Mixed incontinence (ARO24-QO N39.46, Discharge, Medical). Post-Op Dx: Same. Anesthesia [...] given to her from Palmer bajwa.[facility] CenterComment on above:Result Comment: Electronically Signed By: Thelma Hatfield MD\.br\Date and Time Signed: 03/19/24 10:14EDTOutpatient Surgery Discharge Instructionon 62-74-8694Jzxcgumvui Surgery Discharge InstructionOutpatient Surgery Discharge Instruction [address] [address] Patient Discharge Instructions PERSON INFORMATION [...] Follow up: With: Address: When: ERIKA SIM [address] [place] [id number] [facility] (1) Comments: Office to schedule follow up [...] you have a fever over 100 degrees. KATHLEEN Wilson CHERYL, have received the attached patient education materials/instructions and have verbalized understanding: May we do a follow up call? Yes No I was present when discharge instructions were given Patient Signature Date Clinican/Nurse Signature Date You may receive a survey from Valeri Mendez asking you to rate your care experience. Your feedback is important and will help us understand what we do well and how we can improve the quality of care we provide to you, your loved ones and our community. It?s an honor to serve you. Thank you for choosing [facility] CenterAmbulatory Visit Summaryon 27-97-0719Qnozdzicoa Visit Summary Ambulatory Visit Summary JAZZMINE WANG :1945 Visit Date:03/12/2024 Ambulatory Visit Instructions Your Care Team Attending Physician - Thelma Hatfield MD Primary Care Physician - Olga Milton CNP [...] Follow-Up Appointments Tuesday 10:30 AM EDT Where: [facility] Tuesday 9:30 AM EDT Where: [facility] Medications What How [...] choosing us for your care. [facility] CenterCNPNon 88-65-8782GTZFVcajaextq (INTSTJ) JAZZMINE WANG ([id number]) 1945 F CHT Date Time Provider Department 09/19/23 EBEN REEDER INTSTJ During your visit today, we recorded the following information about you: Eben Reeder MD 09/19/2023 11:59 PM Signed Patient needs to get a repeat BMP for elevated Cr, reduced GFR and will also get additional US of the kidney and bladder. Eben Reeder MD [facility] September 19, 2023 11:58 PM ' Allergies As of Date: 09/19/2023 Noted Allergy Reaction CIPROFLOXACIN 10/19/2018 4 - Hives Date Reviewed: 02/06/2019 Reviewed by: Kris Unger, Janusz PHD - Fully Assessed Reason for Visit: Results [95] Primary Visit Diagnosis:Stage 3a chronic kidney disease (HCC) [N18.31] Order(s):RENAL FUNCTION PANEL [SQRFP] Order #: [id number] FUTURE US KIDNEY/BLADDER [[id number]] Order #: [id number] FUTURE Prescriptions as of 09/19/2023 - omeprazole [...] carpometac*12/26/2018 Encounter Status:Closed by EBEN REEDER on 09/19/23NormalCKettering Health Springfield25([place])D3 [facility] [id number]-lkywqrodqoykig D3 [Mass/Vol]48.4 ng/oGLzoymj22.0-80.0Berger HospitalComment on above:Order Comment: Specimen Type: BLOOD SPECIMEN Ordering Facility: [facility] Address: [address] [place], [place] [address]Result Comment: Classification of 25 [place] Vitamin D status: Deficiency/Insufficiency: < or = 30 ng/ml. Sufficiency/Optimal Levels: 31-80 ng/mL Toxicity: > 100 ng/mL. Test performed by chemiluminescent immunoassay.Performed By: #### 1989-3 #### [facility] CLIA [id number] [address] [place] [address] [address]Comprehensive metabolic 2000 panelon 35-58-1586Lknyerd [Mass/Vol]4.2 g/dLNormal3.9-4.9CBluffton Hospital on above:Order Comment: Specimen Type: BLOOD SPECIMEN Ordering Facility: [facility] Address: [address] [place], [place] [address]Performed By: #### 39513-1 #### [facility] CLIA [id number] [address] [place], [place] [address]DNC [Catalytic activity/Vol]70 U/MWzbzsw77-174FaxbfhzjpShelby Memorial Hospital on above:Order Comment: Specimen Type: BLOOD SPECIMEN Ordering Facility: [facility] Address: [address] [place], [place] [address]Performed By: #### 40526-5 #### [facility] CLIA [id number] [address] [place] [address]SUE [Catalytic activity/Vol]16 U/LNormal7-38[facility] on above:Order Comment: Specimen Type: BLOOD SPECIMEN Ordering Facility: [facility] Address: [address] [place], [place] [address]Performed By: #### 14730-1 #### [facility] CLIA [id number] [address] [place] [address] 30723Zjsjd gap [Moles/Vol]10 mmol/LNormal9-18[facility] on above:Order Comment: Specimen Type: BLOOD SPECIMEN [facility]ing Facility: [facility] Address: [address] [place], [place] [address]Performed By: #### 24785-2 #### [facility] CLIA [id number] [address] [place], [place] [address]VZV [Catalytic activity/Vol]28 U/HXdtwis35-69JmhrpvdccShelby Memorial Hospital on above:Order Comment: Specimen Type: BLOOD SPECIMEN Ordering Facility: [facility] Address: [address] [place], [place] [address]Performed By: #### 60048-7 #### [facility] CLIA [id number] [address] [place], [place] [address]Gmlghwmpb [Mass/Vol]0.5 mg/dLNormal0.2-1.3CBluffton Hospital on above:Order Comment: Specimen Type: BLOOD SPECIMEN Ordering Facility: [facility] Address: [address] [place], [place] [address]Performed By: #### 69244-6 #### [facility] CLIA [id number] [address] [place], [place] [address]Skvchmh [Mass/Vol]10.1 mg/dLNormal8.5-10.2CBluffton Hospital on above:Order Comment: Specimen Type: BLOOD SPECIMEN Ordering Facility: [facility] Address: [address] [place], [place] [address]Performed By: #### 27809-2 #### [facility] CLIA [id number] [address] [place], [place] [address]Okraoxya [Moles/Vol]105 mmol/FIwmdgv56-478ZhxudmkkiShelby Memorial Hospital on above:Order Comment: Specimen Type: BLOOD SPECIMEN Order[facility] Facility[facility] Address: [address] [place], [place] [address]Performed By: #### 50754-8 #### [facility] CLIA [id number] [address] [place] [address]DI7 [Moles/Vol]26 mmol/VGqhkhd10-43QsfkjdzprBerger Hospital Comment on above:Order Comment: Specimen Type: BLOOD SPECIMEN [facility]: [facility] Address: [address] [place], [place] [address]Performed By: #### 66960-0 #### [facility] CLIA [id number] [address] [place] [address] 46071Trzybvnneg [Mass/Vol]1.13 mg/dLHigh0.58-0.96[facility] on above:Order Comment: Specimen Type: BLOOD SPECIMEN Ordering Facility: [facility] Address: [address] [place], [place] [address]Performed By: #### 40787-9 #### [facility] CLIA [id number] [address] [place] [address]Ixrlhriffj and Glomerular filtration rate.predicted panel (S/P/Bld)50 mL/min/1.73m???Low>=60[facility] on above: Order Comment: Specimen Type: BLOOD SPECIMEN Ordering Facility: [facility] Address: [address] [place], [place] [address]Result Comment: Estimated Glomerular Filtration Rate (eGFR) is [...] not accurately reflect actual GFR.Performed By: #### 27792-1 #### [facility] CLIA [id number] [address] [place] [address] 456[address]Klupnlx [Mass/Vol]91 mg/vKSrmwdx57-81NbxfootoqShelby Memorial Hospital on above:Order Comment: Specimen Type: BLOOD SPECIMEN Ordering Facility: [facility] Address: [address] [place], [place] [address]Result Comment: The [place] Diabetes Association (ADA) provides guidance for cutoff [...] Standards of Medical Care in Diabetes 2016, [place] [employer] Association. Diabetes Care. 2016.39(Suppl 1).Performed By: #### 46782-9 #### [facility] CLIA [id number] [address] [place], [place] [address]Wvczckaui [Moles/Vol]4.6 mmol/LNormal3.7-5.1CBluffton Hospital on above:Order Comment: Specimen Type: BLOOD SPECIMEN Ordering Facility: [facility] Address: [address] [place], [place] [address]Performed By: #### 95928-8 #### [facility] CLIA [id number] [address] [place], [place] [address]Kmxolcq [Mass/Vol]7.0 g/dLNormal6.3-8.0[facility] on above:Order Comment: Specimen Type: BLOOD SPECIMEN Ordering Facility[facility] Address: [address] [place], [place] [address]Performed By: #### 78003-9 #### [facility] CLIA [id number] [address] [place], [place] [address]Vpqssn [Moles/Vol]141 mmol/AXngxid067-871QmyfihgrgShelby Memorial Hospital on above:Order Comment: Specimen Type: BLOOD SPECIMEN Ordering [facility] Address: [address] [place], [place] [address]Performed By: #### 06609-1 #### [facility] CLIA [id number] [address] [place], [place] [address]Vcpj nitrogen [Mass/Vol]18 mg/dLNormal7-21[facility] on above:Order Comment: Specimen Type: BLOOD SPECIMEN Order[facility] Facility[facility] Address: [address] [place], [place] [address]Performed By: #### 43688-4 #### [facility] CLIA [id number] [address] [place], [place] [address]Lxrszj and Treponema pallidum IgG and IgM [Interp]on 09-08-2023T. pallidum IgG+IgM IA Ql (S)Non-ReactiveNormalNonreactiveShelby Memorial Hospital on above:Order Comment: Specimen Type: BLOOD SPECIMEN Order[facility] Address: [address] [place], [place] [address]Performed By: #### 45241-1 #### [facility] CLIA [id number] [address] [place] [address] [place] AMERICAReagin+T pallidum IgG+IgM SerPl-Impon 22-02-7922Sbwpdz and Treponema pallidum IgG and IgM [Interp]Cannot exclude recent Treponemal infection if specimen collected within 7-10 days after appearance of suspect lesions or 2-3 weeks after an exposure. Clinical correlation is required.[facility] on above:Order Comment: Specimen Type: BLOOD SPECIMEN Order[facility] Facility[facility] Address: [address] [place], [place] [address]Performed By: #### 15006-8 #### [facility] CLIA [id number] [address] [place] [address] STATES OF [facility] SerPl-aCncon 09-08-2023 TSH Qn1.790 m[IU]/LNormal0.270-4.200[facility] on above: Order Comment: Specimen Type: BLOOD SPECIMEN [facility] Address: [address] [place], [place] [address]Performed By: #### 2132-9, 3016-3 #### [facility] CLIA [id number] [address] [place] [address] [place] OF AMERICAVit B12 SerPl-mCncon 60-16-2300Oczkkmqin (Vitamin B12) [Mass/Vol]1020 pg/bLSkhsjl081-5145WmsmlyjbpBluffton Hospital on above:Order Comment: Specimen Type: BLOOD SPECIMEN Order[facility] Address: [address] [place], [place] [address]Performed By: #### 2132-9, 3016-3 #### [facility] CLIA [id number] [address] [place] [address] [place] AMERICACNPNon 19-06-6619ASJD Telephone (PSCCBE) JAZZMINE WANG ([id number]) 1945 F T Date Time Provider Department 08/24/23 MICHAEL VU PSCCBE During your visit today, we recorded the following information about you: Michael Vu LISW 08/24/2023 5:05 PM Signed Behavioral Health Social Work Progress Note Patient identified for [facility] from: PCP Reason for referral: Resources Behavioral Health Resources: Psychiatry med management, Psychology - talk therapy [facility] encounter type: Telephone Encounter Attempts to Outreach: [...] via phone. The following resources were given: [facility] [phone] TRENA Selby August 24, 2023 Allergies As [...] carpometac*12/26/2018 Encounter Status:Closed by MICHAEL VU on 08/24/23NoUniversity Hospitals St. John Medical CenterANES Francis 03-89-3576GSEI POSTHNO ID: [id number] Author: Ana Ramirez Service: Anesthesiology Author Type: [...] 06, 2018 TIME: 1:23 PM PAGER/CONTACT #: [phone] HospitalANES PREOPon 02-45-0805XPLS PREOPHNO ID: [id number] Author: Ana Ramirez Service: Anesthesiology Author Type: [...] (XYLOCAINE) 0.1-0.2 mL INTRADERMAL PRN Sal (Fel) Ralph - lactated ringers infusion 5-30 mL/hr INTRAVENOUS [...] November 06, 2018 TIME: 8:39 AM CSN: [id number] HospitalPT EDon 58-87-6059DS EDHNO ID: [id number] Author: Cady WhittingtonRn) JONA Wiggins Service: ? Author Type: Registered [...] Signed By: Cady Wiggins RN In Department: [facility]on 61-46-7126Fqzdavq mass concHNO ID: [id number] Author: Erika WhittingtonRn) JONA Aranda Service: ? Author Type: Registered [...] Michael Cotto per her request. Erika Aranda RNNoTwin City Hospital 28-46-6467Wvojuui mass concHNO ID: [id number] Author: Josey Beard (Pac) ELEAZAR Peralta Service: ? Author Type: Physician Zyglo Inspector Type: Progress Notes Filed: 10/26/2018 9:31 AM [...] in care everywhere (10.8) Hct was 34.4% 08/31/2018[facility] PHYSICALon 15-13-8327BCDMLEP PHYSICALHNO ID: [id number] Author: Josey Beard (Pac) ELEAZAR Peralta Service: ? Author Type: Physician Zyglo Inspector Type: HANDP Filed: 10/25/2018 9:20 AM Note [...] fevers. Neuro: No history of TIA's, stroke, PERL DEVELOPER tumor, impaired sensorium, hemiplegia, paraplegia or quadraplegia. No neurological symptoms or problems. Respiratory: Positive for Current cough white rhinorrhea, scratchy throat, occasional cough (mostly dry, occasional white productive) x 5 days - improving symptoms, URI < 2 weeks, Negative for Asthma, COPD Cardiovascular: Positive for: HLD, bradycardia, Negative for Recent OK, Arrhythmia, CAD, CHF, Valvular Heart Disease, DVT/PE GI: Positive for GERD, Negative for Nausea, Vomiting, Abdominal pain, Hepatitis, Pancreatitis : No history of dysuria, frequency or incontinence,, stones or chronic kidney disease GENERAL TELLER: Negative for abnormal vaginal bleeding, abnormal vaginal [...] today's visit: EKG 10/25/2018 (Pending review from physician/reimbursement spec) Sinus bradycardia, low voltage QRS, non-specific T [...] breath with the above physical activity. 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 decrease but more due to thumb arthritis Prior Therapy: prn chiropractic nsaids- ibuprofen prn for headaches but not with numbness no gait difficulties, 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 Litigation: No [...] Wang DATE: October 31, 2018 TIME: 10:21 [facility] Vital Signs Date TimeVital SignValuePerforming SitywppevGmilchbc53-46-9721 10:51-0400Body cmathu545.02 cmStephanie Gonya SOLUTIONS DELIVERY CONSULTANT-C Work Phone: [phone]07-31-2025 10:51-0400 Body mass index (BMI) [Ratio]27.1 kg/h4Yrzlfklcz Gonya SOLUTIONS DELIVERY CONSULTANT-C Work Phone: [phone]07-31-2025 10:51-0400 Body .5 kgStephanie Gonya SOLUTIONS DELIVERY CONSULTANT-C Work Phone: [phone] [place], [place] 5593206-09-2025 18:26-0400 Diastolic blood yuezhfyt15 mm[Hg]Prema Gonya SOLUTIONS DELIVERY CONSULTANT-C Work Phone: [phone]06-09-2025 18:26-0400 Heart rate60 /minStephanie Gonya SOLUTIONS DELIVERY CONSULTANT-C Work Phone: [phone]06-09-2025 18:26-0400 Respiratory rate18 /minStephanie Gonya SOLUTIONS DELIVERY CONSULTANT-C Work Phone: [phone]06-09-2025 18:26-0400 SaO2% (BldA) [Mass fraction]96 %Prema Gonya SOLUTIONS DELIVERY CONSULTANT-C Work Phone: [phone]06-09-2025 18:26-0400 Systolic blood czppqwqa459 mm[Hg]Prema Gonya SOLUTIONS DELIVERY CONSULTANT-C Work Phone: [phone]06-09-2025 13:44-0400 Body .02 cmStephanie Gonya SOLUTIONS DELIVERY CONSULTANT-C Work Phone: [phone]06-09-2025 13:44-0400 Body pccspcvatqf32.1 [degF]Prema Gonya SOLUTIONS DELIVERY CONSULTANT-C Work Phone: [phone]06-09-2025 13:44-0400 Body eeiyoa72.39 kgStephancarlton Gonya SOLUTIONS DELIVERY CONSULTANT-C Work Phone: [facility]06-09-2025 11:03-0400 Body qthykr288.56 cmStephancarlton Gonya SOLUTIONS DELIVERY CONSULTANT-C Work Phone: [facility]06-09-2025 11:03-0400 Body mass index (BMI) [Ratio]26.1 kg/k1Owxqxzrra Gonya SOLUTIONS DELIVERY CONSULTANT-C Work Phone: [facility]06-09-2025 11:03-0400 Body kgStepjosefina Gonya SOLUTIONS DELIVERY CONSULTANT-C Work Phone: [phone] [place], [place] [address]505-21-2025 11:42-0400 Body hcommzncngc18.52 [degF]ERIKA SIM [facility]05-21-2025 11:42-0400Diastolic blood bnuaphhw51 mm[Hg]ERIKA SIM [facility]05-21-2025 11:42-0400Heart rate64 /minJENNIFER CHRIS [facility]05-21-2025 11:42-0400Respiratory rate16 /minJENNIFER CHRIS [facility]05-21-2025 11:42-0400Systolic blood ivnhevcm259 mm[Hg]ERIKA SIM [facility]05-15-2025 09:22-0400Body ypagag210 cmAngvenkatesh BUSH Work Phone: [facility] CenterLvgcnqhdkd45-91-9642 09:22-0400Body mass index (BMI) [Ratio]27.46 kg/o5QposeeErica Jama PA Work Phone: [facility] CenterMxxfzlkdjm49-74-3450 09:22-0400Body zofcba57.31 kgAngela Lowe PA Work Phone: [facility] CenterPpumyzfjlz66-24-3308 09:22-0400Diastolic blood qmuydbgp15 mm[Hg]Erica Lowe PA Work Phone: [facility] CenterWqtzadwjhu77-39-9953 09:22-0400Systolic blood chnsxbez009 mm[Hg]Eirca Lowe PA Work Phone: [facility] CenterVhtrkvtvck43-90-8087 15:05-0400Body minlob320 cm Erica Lowe PA Work Phone: [facility] CenterCuowzezcla18-78-3064 15:05-0400Body mass index (BMI) [Ratio]27.63 kg/j3Krffqu Lowe PA Work Phone: [phone]-[facility] CenterSkioaugslk42-77-8042 15:05-0400Body rilhow65.76 kgAngela Lowe PA Work Phone: [phone]-[facility] HospitalWestern [facility] CenterVpgsmvzyls81-40-7018 15:05-0400Diastolic blood mm[Hg]Erica Lowe PA Work Phone: [facility] CenterVdqtjpivvf71-14-3472 15:05-0400Systolic blood dtugzwao860 mm[Hg]Erica Lowe PA Work Phone: [phone]-[facility] CenterBgezokqbpw23-38-5529 15:59-0400Body ibdkap800.56 cmBar[facility]ton [facility]03-26-2025 15:59-0400Body mass index (BMI) [Ratio]26.2 kg/h8VviqzlhnxBarberton Citizens Hospital03-26-2025 15:59-0400Body umcqvyiyjnh71.5 [degF][facility]03-26-2025 15:59-0400Body nvnujm68.39 kgBarberton Citizens Hospital03-26-2025 15:59-0400Diastolic blood wybmvhae45 mm[Hg][facility]03-26-2025 15:59-0400 Heart rate76 /minBarberton Citizens Hospital03-26-2025 15:59-0400 Respiratory rate16 /[facility]03-26-2025 15:59-0400 SaO2% (BldA) [Mass fraction]97 %[facility]03-26-2025 15:59-0400Systolic blood pcjtevpf916 mm[Hg][facility] 07-02-2024 14:39-0500Body uetwwn228.56 cmBarberton Citizens Hospital 07-02-2024 14:39-0500Body mass index (BMI) [Ratio]25.7 kg/j7UinqojaynBarberton Citizens Hospital02-03-2025 14:39-0500Body ldrmxlnjyou69.8 [degF][facility]02-03-2025 14:39-0500Body wnluox85.09 kgBarberton Citizens Hospital02-03-2025 14:39-0500Diastolic blood ltquivpy32 mm[Hg][facility]02-03-2025 14:39-0500Heart rate89 /[facility]02-03-2025 14:39-0500Respiratory rate16 /[facility]02-03-2025 14:39-0470MaE1% (BldA) [Mass fraction]99 %[facility]02-03-2025 14:39-0500Systolic blood ezzvllzz122 mm[Hg] [facility]01-16-2025 14:09-0500Body wjqytx695.3 cmAngela Lowe PA Work Phone: [facility] CenterFrjkdqofxe36-70-9962 14:09-0500Body mass index (BMI) [Ratio]26.33 kg/y8Rftszj Lowe PA Work Phone: [facility] CenterYnpqvsyncy84-45-4791 14:09-0500Body cnjssu54.49 kgAngela Lowe PA Work Phone: noColumbia Regional HospitalXfrqnxogcy50-86-8535 14:09-0500Diastolic blood yzxmlaui15 mm[Hg]Erica Lowe PA Work Phone: [facility] CenterNbhqokydoi17-75-5463 14:09-0500Respiratory rate16 /minAngela Lowe PA Work Phone: noColumbia Regional HospitalNpdhufztkb49-46-6617 14:09-0500Systolic blood fgluqzfp147 mm[Hg]Erica Jama PA Work Phone: noColumbia Regional HospitalCloerdvfpg16-90-8523 08:56-0500Body fbqalx379.6 cmTnikhil Uribe PA Work Phone: noColumbia Regional HospitalHpocupzqns67-91-7327 08:56-0500Body mass index (BMI) [Ratio]25.58 kg/m2Tolang Uribe PA Work Phone: [facility] CenterEjbgsclrab53-04-7693 08:56-0500Body zkrewv24.59 kgTolang Uribe PA Work Phone: noColumbia Regional HospitalHxrtvgqoqy04-46-4941 13:02-0500Body yaldbp663.6 Monica Bowman PA Work Phone: [facility] CenterIglkplccnf89-44-8166 13:02-0500Body mass index (BMI) [Ratio]25.58 kg/m2Shannon Bowman PA Work Phone: [facility] CenterDpnkkdxday20-40-0492 13:02-0500Body idnsww03.59 kgShannon Bowman PA Work Phone: noColumbia Regional HospitalGbrzvasbtd01-96-0396 13:02-0500Diastolic blood mm[Hg]Shannon Bowman PA Work Phone: [facility] CenterUavbvhvojs11-18-6240 13:02-0500Heart rate63 /min Shannon Bowman PA Work Phone: [facility] CenterJocmdbhsvz98-18-6684 13:02-0500Respiratory rate16 /minShannon Bowman PA Work Phone: [place] [address]Igbjnlufnu97-69-6074 13:02-8923HrH7% (BldA) [Mass fraction]92 %Shannon Bowman PA Work Phone: noColumbia Regional HospitalZzbexmvhin69-31-3762 13:02-0500Systolic blood drpeoudu478 mm[Hg]Shannon Bowman PA Work Phone: noColumbia Regional HospitalMaqtxbjdzg26-15-9676 10:48-0500Diastolic blood vglyryqb96 mm[Hg]ERIKA SIM [facility] [place] 205001-20-2024 10:48-0500Mean blood mpdgewfo92 mm[Hg]ERIKA CHRIS [facility] [place] 205001-20-2024 10:48-0500Systolic blood pfdihaff99 mm[Hg]ERIKA CHRIS [facility] [place] 205001-20-2024 10:27-0500Blood Pressure LocationJENNIFER CHRIS [facility] [place] 205001-20-2024 10:27-0500Body llpgliddpij87.88 [degF]ERIKA SIM [facility] [place] 205001-20-2024 10:27-0500Diastolic blood tqdosihf78 mm[Hg]ERIKA SIM [facility] [place] 205001-20-2024 10:27-0500Heart rate80 /minJENNIFER CHRIS [facility] [place] 205001-20-2024 10:27-0500Systolic blood ymzeaaer63 mm[Hg]ERIKA SIM [facility] [place] 205001-19-2024 08:03-0500Body [facility] [employer] Work Phone: noColumbia Regional HospitalAgwtrezgck18-74-6273 08:03-0500Body mass index (BMI) [Ratio]26.57 kg/m2[facility] PA Work Phone: noCapptain Bfrxcplmql23-20-8030 08:03-0500Body xpjebi79.04 kgToNorth Shore Health PA Work Phone: noColumbia Regional HospitalXerqwnjxae78-49-7636 10:19-0400Body mrtyzd036 cm [facility] PA Work Phone: NOColumbia Regional HospitalBreswxkdfg26-81-6026 10:19-0400Body mass index (BMI) [Ratio]26.57 kg/m2[facility] PA Work Phone: NOColumbia Regional HospitalGbvoiggrqr83-36-4024 10:19-0400Body zxoaas74.04 kgToNorth Shore Health PA Work Phone: NOColumbia Regional HospitalHauracetau25-59-9703 10:36-0400Body cm Michelle Leiva MD Work Phone: [facility] CenterUcsnzuskfa98-12-3658 10:36-0400Body mass index (BMI) [Ratio]26.57 kg/l0CxkjjuMichelle Leiva MD Work Phone: [facility] CenterQtbhimujyu62-01-9596 10:36-0400Body kypljc25.04 kgMichelle Leiva MD Work Phone: [facility] CenterAqbjdwbnfn67-73-1576 10:36-0400Diastolic blood oihvpyxq84 mm[Hg]Michelle Leiva MD Work Phone: NOColumbia Regional HospitalSkfnjzjbfu12-90-4234 10:36-0400Systolic blood nhculuax926 mm[Hg]Michelle Leiva MD Work Phone: [facility] CenterCftjlvmjfb68-22-2296 10:29-0400Blood Pressure LocationJENNIFER CHRIS [facility]04-04-2024 10:29-0400Body ngpuvmalzjc42.42 [degF]ERIKA SIM [facility] [place] [address]-04-2024 10:29-0400Diastolic blood hsfsgjiy97 mm[Hg]ERIKA SIM [facility] [place] [address]-04-2024 10:29-0400Heart rate56 /minJENNIFER CHRIS [facility]04-04-2024 10:29-0400Respiratory rate16 /minJEANNE-MARIE SIM [facility]04-04-2024 10:29-0400Systolic blood iwwnhbib265 mm[Hg]ERIKA SIM [facility] Encounters Encounter DateEncounter TypeCare ProviderFacilityStart: 93-73-3313rwijkwxylc Thelma Dent LueFacility:CD:[id number]: 04-08-2025 End: 21-26-7773ltmgbyaxuiLjlggpk M AuxierFacility:[facility] HospitalStart: 84-69-0179rzmjhegrruBhhitqgza GonyaFacility:[facility] HospitalStart: 04-03-2025 End: 72-00-1526rllqizumdfIfxplfgsr GonyaFacility:[facility] MED CTRStart: 03-29-2025 End: 95-79-5378kudsalthasAdfwjcuiq GonyaFacility:[facility] HospitalStart: 03-28-2025 End: 71-75-7547feymxdlyqrEykirg TannaFacility:FTMCStart: 03-28-2025 End: 65-87-4355nusfdjrffwWfxxfz TannaFacility:EU SanduskyStart: 03-28-2025 End: 19-72-3333Ftipxdy encounter procedureLaruddy Iraheta [facility] Start: 03-21-2025 End: 83-26-8315lbwmemnzulBaswpnf M AuxierFacility:[facility] HospitalStart: 03-21-2025 End: 72-06-1272iovepyspkfTqrrxgo Marie Auxier BEEF LUGGER-CNPFacility:PM MagruderStart: 03-14-2025 End: 71-89-5551sjthwckenrPoodn M Lue MDFacility:[facility] HospitalStart: 03-13-2025 End: 06-07-1395afppwuzxljOurwfydbe GonyaFacility:[facility] CTRStart: 02-18-2025 End: 28-37-4927xfvzbeqlmaOiiqkvcek GonyaFacility:[facility] HospitalStart: 02-18-2025 End: 04-67-0802ueygwdarlpPrzvyhy Radha Lowell BEEF LUGGER-CNPFacility:PM MagruderStart: 02-05-2025 End: 59-54-3715ghasmzqljpXmyjpxfts GonyaFacility:[facility] HospitalStart: 02-01-2025 End: 46-75-2099fpilglapajLzhqahgmx GonyaFacility:[facility] HospitalStart: 02-01-2025 End: 28-04-5024jsqgfutcymShqvcsGabi Gutierrez MDFacility:[facility] HospitalruderStart: 01-24-2025 End: 08-67-8929eokmvkjmttVixriiqcp GonyaFacility:[facility] HospitalStart: 01-24-2025 End: 55-67-0753wvptghvfcyGwnqlhr Radha Lowell BEEF LUGGER-CNPFacility:PM MagruderStart: 46-46-8220azsziobhsoJzwiivzbe GonyaFacility:[facility] CTRStart: 12-27-2024 End: 25-75-7594qtkbtzvnflRdpdkkjmn Gonya SOLUTIONS DELIVERY CONSULTANT-C Work Phone: [facility] [place] Work Phone: Start: 12-27-2024 End: 26-61-7916Letjdrg encounter procedureReginald Armstrong MD-[facility] Neurosurgery Work Phone: start: 23-03-6498ohdnhrsizoFcteqdoiu GonyaFacility:[facility] CTRStart: 12-10-2024 End: 21-37-0429wsfpliupytPpjomwbsf Gonya SOLUTIONS DELIVERY CONSULTANT-C Work Phone: [facility] [place] Work Phone: Start: 12-10-2024 End: 18-85-4379Jjfraau encounter procedureCece Yost MD-[facility] Work Phone: Start: 36-96-2981uajwbsixwbGabengihq GonyaFacility:[facility] CTRStart: 11-26-2024 End: 27-83-5895sfmnhhghpsZbciagkrh Gonya SOLUTIONS DELIVERY CONSULTANT-C Work Phone: [facility] [place] Work Phone: Start: 11-26-2024 End: 62-07-8839Gggojbt encounter procedureCece Yost MD-[facility] Work Phone: Start: 11-05-2024 End: 94-13-9368Twvuqtprj department patient visitStephanie Gonya SOLUTIONS DELIVERY CONSULTANT-C Work Phone: [facility] Work Phone: Start: 11-05-2024 End: 79-05-3370hclidplsblMvvgcsjjx Gonya SOLUTIONS DELIVERY CONSULTANT-C Work Phone: [facility] [place] Work Phone: Start: 11-05-2024 End: 43-87-6064Buekgyc encounter procedureStephanie Gonya SOLUTIONS DELIVERY CONSULTANT-C Work Phone: [facility] Work Phone: Start: 96-38-4528Iyayzhbkyp RecurringStephanie Gonya SOLUTIONS DELIVERY CONSULTANT-C Work Phone: [facility]- CredibleStart: 95-77-6171qymplaycfeTweawdltm GonyaFacility:[facility] Start: 10-17-2024 End: 89-46-4648zvbmtybtwjGVPRLCHZ E PERRYFacility: [place]kyStart: 10-17-2024 End: 80-67-1225Txjxprq encounter procedureJENNIFER E CHRIS [facility] Start: 10-15-2024 End: 92-28-4362Xerepec encounter procedureSluh Clement SOLUTIONS DELIVERY CONSULTANT-C Work Phone: [facility] Work Phone: Start: 96-32-9662Mrx-patient / Non-visitSluh Clement SOLUTIONS DELIVERY CONSULTANT-C Work Phone: [facility] Work Phone: Start: 10-11-2024 End: 37-51-6180Tnmxch flowsheetAngela Lowe PA Work Phone: aNA BELLEVUEStart: 10-11-2024 End: 17-72-9688Kvgptm flowsheetAngela Lowe PA Work Phone: aNA BELLEVUEStart: 10-11-2024 End: 11-81-4707fzvxfgcpebHYZSML LOWENot AvailableStart: 10-11-2024 End: 55-94-8490Xvatrv outpatient visit 25 minutesAngela Lowe PA Work Phone: aNA BELLEVUEComment on above:Hyperreflexia (Primary Dx); Degenerative disc disease, cervical; AYDEE (obstructive sleep apnea); Tremor; Jerking movements of extremitiesStart: 09-27-2024 End: 66-01-5014Zndrvb flowsheetRylee Northeim PA Work Phone: [facility] SWS DERMStart: 09-27-2024 End: 69-07-9812Lfssjt flowsheetRylee Northei PA Work Phone: [facility] SWS DERMStart: 09-27-2024 End: 75-42-1567Zfvlbh outpatient visit 15 minutesRylee Northeim PA Work Phone: [facility] SWS DERMComment on above:Melanocytic nevus of trunk (Primary Dx); Inflamed seborrheic keratosis; Seborrheic keratosis; Actinic keratosis; LentiginesStart: 09-27-2024 End: 81-00-3664puwwewtvqzEDUFK NORTHEIMNot AvailableStart: 09-25-2024 End: 68-81-4417brenxmrpiqJddxyzvch GonyaFacility:[facility] HospitalStart: 35-77-7850kfdqfmiqakLqfjsxnac GonyaFacility: PEN MED CTRStart: 09-20-2024 End: 22-36-0805kzfhbyrzbzWjazdnilv Gonya SOLUTIONS DELIVERY CONSULTANT-C Work Phone: [facility] [place] Work Phone: Start: 09-20-2024 End: 54-79-6917Vvkbagz encounter procedureStephanie Gonya SOLUTIONS DELIVERY CONSULTANT-C Work Phone: [facility] Work Phone: Start: 68-42-7428tlancsoiaiZjlurexhv GonyaFacility:[facility] MED CTRStart: 09-17-2024 End: 91-34-2084dwbehrrpmcTZUWKQ LOWENot AvailableStart: 09-17-2024 End: 75-96-1606Gkditm outpatient visit 25 minutesAngela Lowe PA Work Phone: aNA BELLEVUEComment on above:Hyperreflexia (Primary Dx); Memory loss; ADHD (attention deficit hyperactivity disorder), inattentive type (CMS/HCC); Jerking movements of extremities; AYDEE (obstructive sleep apnea)Start: 09-17-2024 End: 07-51-3125Twiiay flowsheetAngela Lowe PA Work Phone: ANA BELLEVUEStart: 09-17-2024 End: 69-15-4427Siuhnh flowsheetAngela Lowe PA Work Phone: aNA BELLEVUEStart: 09-11-2024 End: 00-85-1236ntushmzllgLuqrjsiyt Gonya SOLUTIONS DELIVERY CONSULTANT-C Work Phone: [facility] Work Phone: Start: 09-11-2024 End: 32-80-7884Wtpttebw ReferredStephanie Gonya SOLUTIONS DELIVERY CONSULTANT-C Work Phone: [facility]-LAB Path Spec Norma HospStart: 71-67-7889dnzdjdtijuOjegczykb GonyaFacility:[facility] HospitalStart: 09-10-2024 End: 06-44-4563booaqlvcvlVzngvhcwd GonyaFacility: SURG CLINICStart: 08-22-2024 End: 51-89-2218ivnrmhsbizSzmutvgrf [facility] Work Phone: Start: 08-22-2024 End: 14-76-5713Liyogkz encounter procedureAt[facility] [place] Work Phone: Start: 30-89-6999xopmzbvchlSecnunuqc GonyaFacility:[facility] MED CTRStart: 08-16-2024 End: 79-84-6111Yygezznrr encounterAngela Lowe PA Work Phone: ana BELLEVUEStart: 35-77-1915Bvr-patient / Non-visit [facility] GroupWill[facility] Work Phone: Start: 08-13-2024 End: 11-75-9792dplqxlfdxlYyuxx QadirFacility:[facility]a HospitalStart: 08-08-2024 End: 14-99-9077xwhthaeyfdBPLBAL LOWENot AvailableStart: 08-08-2024 End: 95-06-5000Cxfnol flowsheetAngela Lowe PA Work Phone: ana [place]Start: 08-08-2024 End: 73-39-9198Viyway flowsheetAngela Lowe PA Work Phone: ana [facility] CENTERTONStart: 07-13-2024 End: 38-37-6219keoanuafzsKctoi QadirFacility:[facility]a HospitalStart: 07-09-2024 End: 19-82-6610Xbdxly Magy Carmona PhD Work Phone: ana SANDUSKYStart: 07-09-2024 End: 48-51-1840Blhbtc Magy Carmona PhD Work Phone: ana JENNIFFERUSKYStart: 07-09-2024 End: 20-51-2293Nyflslm encounter procedureBentley Carmona PhD Work Phone: ana USAMAYComment on above:Memory loss (Primary Dx); AYDEE (obstructive sleep apnea); Other chronic pain; Bereavement; ADHD (attention deficit hyperactivity disorder), inattentive type (CMS/HCC); Moderate recurrent major depression (CMS/HCC); Moderate anxietyStart: 07-09-2024 End: 29-84-1184agrsssnogyVFHZTBFJ DENBESTENNot AvailableStart: 07-02-2024 End: 21-23-5816Euhpqgy encounter procedureCan[facility] Neph [facility] Work Phone: Start: 06-28-2024 End: 47-45-2630Tqnnzha encounter procedureBentley Carmona PhD Work Phone: ana USAMAYComment on above:Memory loss (Primary Dx); Bereavement; Other chronic pain; AYDEE (obstructive sleep apnea); ADHD (attention deficit hyperactivity disorder), inattentive type (CMS/HCC); Moderate recurrent major depression (CMS/HCC); Moderate anxietyStart: 06-28-2024 End: 78-44-4477jfcmribbvvRZUMVL LOWENot AvailableStart: 06-27-2024 End: 00-75-6162Gnhumsj encounter procedureCancer [facility] Work Phone: Start: 85-44-3954migztwfdqbGvhiquvav GonyaFacility:[facility] MED CTRStart: 06-19-2024 End: 66-83-6421Zgekcxanq encounterAngewes BUSH Work Phone: ana BELLEVUEStart: 06-14-2024 End: 84-81-3263Evqmsi outpatient visit 25 minutesAngela Evita BUSH Work Phone: aNA [place] CLINTONComment on above:Bereavement (Primary Dx); Concentration deficit; Jerking movements of extremities; Memory loss; Paresthesia of both feetStart: 06-14-2024 End: 28-90-2942Azydbb flowsheetAngela Lowe PA Work Phone: ana [place]ONStart: 06-14-2024 End: 99-37-7236Ediqsp flowsheetAngela Lowe PA Work Phone: aNA [place]ONStart: 06-14-2024 End: 95-26-1540czhhhatprsSKASYB LOWENot AvailableStart: 06-13-2024 End: 73-46-3696Dqlmprgkr encounterTodd Kirk Jojo PA Work Phone: [facility] NB ORTHOStart: 50-79-9203qpwbkwcoboLbyfjdbgs GonyaFacility: PEN MED CTRStart: 06-05-2024 End: 04-92-1725Gbjrqo flowsheetTodd Kirk Jojo PA Work Phone: [phone] SWS ORTHOAOStart: 06-05-2024 End: 06-91-5507Bmbfdo flowsheetTodd Kirk Jojo PA Work Phone: [phone] SWS ORTHOAOStart: 06-05-2024 End: 74-56-4383kspgrazjgsSSYP Kirk URIBENot AvailableStart: 06-05-2024 End: 89-27-3006Fknvrvn encounter procedureTodd Kirk Jojo PA Work Phone: [phone] SWS ORTHOAOComment on above:Lumbosacral radiculopathy due to degenerative joint disease of spine (Primary Dx); Spinal stenosis of lumbar region with neurogenic claudicationStart: 05-10-2024 End: 49-15-3646Xjbtceqvn encounterTodd Kirk Jojo PA Work Phone: [phone] NB ORTHOStart: 47-92-6316msfqnjppmtPhnaziwgh GonyaFacility: PEN MED CTRStart: 05-07-2024 End: 20-90-5409Adjjnu Magy Carmona PhD Work Phone: NOMS NEUROLOGYStart: 05-07-2024 End: 76-68-3016Glqzeq Magy Carmona PhD Work Phone: NOMS NEUROLOGYStart: 05-07-2024 End: 69-93-6400lpfvzueyztZCBT D HILLSNot AvailableStart: 05-07-2024 End: 40-99-2582Qmctmfp encounter Jack Carmona PhD Work Phone: noms ST NEUROLOGYComment on above:Memory loss (Primary Dx); Other chronic pain; AYDEE (obstructive sleep apnea); Concentration deficit; Depression with anxiety; BereavementStart: 05-07-2024 End: 31-25-4944jkwgrnolsqQKBQAYYA DENBESTENNot AvailableStart: 05-02-2024 End: 90-39-1004Htt Drop offJENNIFER E CHRIS [facility] Start: 05-02-2024 End: 45-56-7820lpuhdqmblfCQQPYSMV E PERRYFacility:FTMCStart: 05-02-2024 End: 61-28-5507Vaooqzd encounter procedureJENNIFER E CHRIS [facility] [place] Start: 04-30-2024 End: 08-92-0757kpixcxzgcmCTFV HILLNot AvailableStart: 04-23-2024 End: 17-05-2937Idwryf Clinton BUSH Work Phone: noms [place] [address] R[address]TEStart: 04-23-2024 End: 24-49-5133Wfujue Clinton BUSH Work Phone: noms [place] [address] ROUTEStart: 04-23-2024 End: 94-80-8068Hkgcou outpatient visit 25 minutesAnnvaleri BUSH Work Phone: noms [place] [address] R[address]TEComment on above:Tremor (Primary Dx); Jerking movements of extremities; Memory loss; Paresthesia of both feet; HypersomniaStart: 04-23-2024 End: 95-92-7427xgvzbfdlvqZXOA HILLNot AvailableStart: 04-18-2024 End: 29-91-4647zbelrgzuyzMYKJRTEQ E PERRYFacility:EU [place]kyStart: 04-18-2024 End: 23-28-0585Rhgegxk encounter procedureJENNIFER E CHRIS [facility] Start: 04-17-2024 End: 36-82-3868kambnrhsyxVRFV D HILLSNot AvailableStart: 04-17-2024 End: 25-20-9476Wwnmgsv encounter procedureTolang BUSH Work Phone: noMS SWS ORTHOAOComment on above:Lumbosacral radiculopathy due to degenerative joint disease of spine (Primary Dx); Numbness and tingling of both feetStart: 04-11-2024 End: 21-81-9151nkvahwvambLGGEDW LOWENot AvailableStart: 04-10-2024 End: 09-62-7078Ncnhexqr SupportNoms Bsr Neuro TechnicanNOMS [place] [address] Comment on above:Hypersomnia; Memory lossStart: 03-27-2024 End: 99-38-4468Rfbjrny encounter procedureTolang BUSH Work Phone: noMS SWS ORTHOAOComment on above:Right hip pain (Primary Dx); Chronic bilateral low back pain with left-sided sciaticaStart: 03-27-2024 End: 00-52-8890yamzyiikquJYZN D HILLSNot AvailableStart: 03-19-2024 End: 68-67-3408myadjqqaskLaglv M. LueFacility:FTMCStart: 03-19-2024 End: 81-19-3855Dpgioru encounter procedureKathy Chirag. Fransiscae [facility] Start: 03-12-2024 End: 32-43-3556qbcsahsfgbEgxbq M. LueFacility:EU [place]kyStart: 03-12-2024 End: 03-46-1533Pfpqidk encounter procedureKatrosario M. Fransiscae [facility] Start: 02-21-2024 End: 82-73-8056Frkgde outpatient new 60 minutesMichelle Leiva MD Work Phone: noms [facility] NEUROLOGYComment on above:Tremor; Jerking movements of extremities; Paresthesia of both feet; Memory loss; HypersomniaStart: 02-21-2024 End: 27-85-1844dzueaimgbdGEJWBB BENEDICTNot AvailableStart: 01-19-2024 End: 06-41-3331crdjesfebnHyjno M. LueFacility:CD:[id number]: 01-19-2024 End: 63-24-4933Jey-Nuno [place] [facility] Start: 49-42-7021hyswxvcwidIGVFGVAW E PERRYFacility:EU [place]kyStart: 11-10-2023 End: 94-64-1786mmjpsotmyqQedia M. LueFacility:EU [place]kyStart: 11-10-2023 End: 83-50-4810Phvqyfu encounter Ananth [place] [facility] Start: 96-71-8925Bcqtbenta encounterEben Reeder MD Work Phone: Internal MedicineComment on above:ResultsStart: 09-08-2023 End: 26-25-3249niuyszdhtcBZHGJPZS MAHALWARFacility:[facility] Start: 09-01-2023 End: 55-38-7960Zdztbjl encounter procedureJENNIFER Valeri CHRIS [facility] Start: 08-23-2023 End: 45-42-7790pcqoknxtsvOODRRRSL MAHALWARFacility:[facility] Start: 08-23-2023 End: 14-99-7017giwxbzltgiCmovdyvb Mahalwar MD Work Phone: Internal MedicineComment on above:Depression, unspecified depression type (Primary Dx); ForgetfulnessStart: 08-23-2023 End: 58-29-6388Jttzaaixidsj consultation with patientEben Reeder MD Work Phone: cCF [facility] CENTERtart: 07-27-5440Vgrzvlzmm encounterNicolette Theodore MD Work Phone: Pulmonary MedicineComment on above:Received Outside Medical Records Procedures DateProcedureProcedure DetailPerforming ClinicianStart: 11-18-7983Yrjxg chest X-rayStephanie Gonya SOLUTIONS DELIVERY CONSULTANT-C Work Phone: Start: 23-08-7123ZA of head without contrastStephanie Gonya SOLUTIONS DELIVERY CONSULTANT-C Work Phone: Start: 09-27-2024 End: 43-51-3952HKCIQZDDHYV SKIN LESIONRylee Ramanaevergreen medical center PA Work Phone: Start: 32-64-6587MSOQ SLEEP TESTAngela [facility] PA Work Phone: Start: 03-27-2024 End: 29-85-2616Sxess spine lumbosacral 2/3 viewsTodd Kirk Uribe PA Work Phone: Start: 44-24-6508Cbxmzdcll of substance into bladder wallJENNIFER CHRIS Start: 27-97-6758Umilh depression screening assessment Nicolette Theodore MD Work Phone: Start: 22-07-8306IoybjnhjfrlqffawvYebtgzzmochYIPDACJI CHRIS Cataract (disorder)ERIKA CHRIS CholecystectomyJENNIFER CHRIS ColonoscopyJENNIFER CHRIS Dilation and curettageJENNIFER CHRIS Ligation of fallopian tubeJENNIFER CHRIS Ligation of fallopian tubeJENNIFER CHRIS Plan of Treatment DateCare ActivityDetailAuthorStart: 18-21-7847Iydciqsz ScreeningDiabetes ScreeningCurran ClinicStart: 09-30-2025 End: 38-05-9507Rkcucnj encounter jwkyifqoi25/04/2026 1:00 PM EDT Office Visit [facility] [address] [place] [address] Chintan Calderon PA [address] [place] [address] [facility] SWS DERMStart: 55-67-3817Gjsgxcl referral [facility] [place] Work Phone: Start: 11-14-2024 End: 81-18-0809Kbdrysa encounter xkeypcuuz26/18/2025 8:20 AM EDT Office Visit [facility] [place] [address] [place] [phone] Shannon Bowman PA [address] [place] [address] ROSAURA BELLEVUEStart: 09-27-2024 End: 87-94-9523Mlrqnln encounter procedureNOMS SWS DERMComment on above:Arrived Start: 09-17-2024 End: 22-01-3080Lqmyaql encounter kohndaftl81/21/2025 3:00 PM EDT Office Visit [place] [place] [address] [place] [phone] Erica Jama PA [address] [place], [place] [phone] ROSAURA BELLEVUEStart: 09-17-2024 End: 16-06-1146NX Cervical spine WO contrastMR cervical spine wo contrast Imaging Routine Hyperreflexia Expected: 09/17/2024 (Approximate), Expires: 09/17/2025[facility] Work Phone: comment on above:Expected: 09/17/2024 (Approximate), Expires: 09/17/2025Start: 93-55-4695PndkatrteUniversity Hospitals [facility] Medical Centertart: 08-08-2024 End: 27-14-8411Fjcgqqu encounter kvrjlnunt51/12/2025 2:40 PM EDT Office Visit [facility] [place] [address] [facility] [place] [address] Erica Jama PA [address] [place], [place] [phone] ROSAURA FELIX CLINTONStart: 07-11-2024 End: 99-31-7533Zaqdbgi encounter vndnnqnus47/12/2025 2:40 PM EST Office Visit [facility] [address] [facility] [address] [place] [address] Erica Jama PA [address] [place] [address] NOMS F NEUROLOGYStart: 07-09-2024 End: 86-51-8185Dohqzpp encounter procedureANA USAMAYComment on above:Arrived Start: 06-28-2024 End: 31-13-8023Yqqmvhl encounter zdkxuxchy30/30/2025 11:30 AM EST Office Visit [facility]A [place] [address] [phone] aNA SANDUSKYStart: 06-14-2024 End: 66-42-3870Yhtynhi encounter procedureANA ELVIRA CLINTONComment on above: ArrivedStart: 06-04-2024 End: 86-13-3178Ilglmql encounter ylyksoiqy99/06/2025 9:20 AM EST Office Visit [facility] [address] [place] [address] Erica Jama PA [address] [place], [place] [phone] NOMS ST NEUROLOGYStart: 05-31-2024 End: 30-49-6286Nepegot encounter qitoznbxo03/02/2025 11:30 AM EST Office Visit [facility] [address] [facility] [address] [place] [phone] NEUROLOGYStart: 05-07-2024 End: 49-92-0615Alezxwgggzme / ancillary services managementNOMERCY HOSPITAL SOUTH, [facility] MRComment on above:Lumbosacral radiculopathy due to degenerative joint disease of spine; Chronic bilateral low back pain with left-sided sciaticaStart: 05-07-2024 End: 77-05-9550Eqoljlt encounter yaefyzmdf99/09/2024 9:00 AM EST Office Visit [facility] [address] [facility] 353 [place] [address] Bentley Carmona, PhD [address] [place] [address] [facility] NEUROLOGYStart: 04-30-2024 End: 76-35-1502Gkhwupdb Uiklafu1004/30/2024 11:45 AM EST Clinical Support [facility] [address] [place] [phone] [facility] CENTEREVJEFFERSON [facility] ROUTEStart: 04-24-2024 End: 46-73-0690HNL, Including Recording Awake or AsleepEEG, Including Recording Awake or Asleep Neurology Routine Tremor Memory loss Jerking movements of e xtremities Expected: 04/24/2024 (Approximate), Expires: 04/24/2025[facility] Work Phone: comment on above:Expected: 04/24/2024 (Approximate), Expires: 04/24/2025Start: 04-23-2024 End: 80-24-6390Knqibgj encounter procedureNOIN [place] [facility] ROUTEComment on above:ArrivedStart: 04-17-2024 End: 91-30-9919Ttmjpkh encounter fuxfmxjzw43/19/2024 8:00 AM EST Office Visit [facility] ORTHOAO [address] [facility] [address] [place] [address] Jyoti Uribe PA [address] [facility] [place] [address] [facility] HOSPITALCorey [facility] ORTHOAOStart: 04-11-2024 End: 96-51-6726Eikvitfg Sghgtzo0404/11/2024 9:00 AM EST Clinical Support [facility] [address] [phone] [facility] ROUTEStart: 04-10-2024 End: 97-65-8995Gjholabm Rbolkmk5704/10/2024 3:45 PM EST Clinical Support N[facility] [place] [facility] R[address]TE [address] [phone] [facility] ROUTEStart: 03-21-2024 End: 13-84-0149Qqcigja encounter kfdahjkod03/23/2024 12:40 PM EDT Office Visit [facility] [address] [facility] [address] [place] [address] Erica Jama PA [address] [place] [address] [facility] NEUROLOGYStart: 02-21-2024 End: 28-68-9908IphhgkwryppxlwzWrshmfhjiuzntkd Sleep Center Routine Jerking movements of extremities Memory loss Hypersomnia Expected: 02/21/2024 (Approximate), Expires: 02/20/2025[facility] Work Phone: comment on above:Expected: 02/21/2024 (Approximate), Expires: 02/20/2025Start: 81-28-4449Lclqgxmnn vaccinationInfluenza Vaccine (#1) NOM HealthcareStart: 11-24-2023 End: 81-76-9006Lqdcpvd encounter enlhmdkko08/27/2024 1:30 PM EDT Office Visit Geriatrics [address] [place] [address] Hamida Villarreal MD [address] [place] [address] GEMGeriatricsComment on above:GEMStart: 11-17-2023 End: 66-90-1926bbnzivdbyb88/20/2024 9:00 AM EDT Distance [facility] Geriatrics [address] [place] [address] Hamida Villarreal MD [address] [place] [address] Care confrence GeriatricsComment on above:Care confrenceStart: 10-21-2023 End: 93-24-2973jowgzkhhtg07/24/2024 10:00 AM EDT Distance [facility] Neurological [address] [place] [address] HasAllyssa cortes, PSYD [address] [place] [address] caregiver stress; per Dr. Gileseurological RestorationComment on above:caregiver stress; per Dr. Mills Start: 09-19-2023 End: 62-99-4440Zjwhq function 2000 panel - Serum or PlasmaRENAL FUNCTION PANEL Lab Routine Stage 3a chronic kidney disease (HCC) Expected: 09/19/2023, Expires: 12/19/2023[facility] Work Phone: Comment on above:Expected: 09/19/2023, Expires: 12/19/2023Start: 08-23-2023 End: 327001-qafhshvlenhhsj D3 [Mass/volume] in Serum or PlasmaVITAMIN D 25 HYDROXY Lab Routine Forgetfulness Expected: 08/23/2023, Expires: 11/22/2023 [facility] Work Phone: Comment on above:Expected: 08/23/2023, Expires: 11/22/2023Start: 08-23-2023 End: 65-16-2832Tjcmfghnx (Vitamin B12) [Mass/volume] in Serum or PlasmaVITAMIN B12 BLOOD Lab Routine Forgetfulness Expected: 08/23/2023, Expires: 11/22/2023 [facility] Work Phone: comment on above:Expected: 08/23/2023, Expires: 11/22/2023Start: 08-23-2023 End: 26-20-5920Llphyktjsguov metabolic 2000 panel - Serum or PlasmaCOMP METABOLIC PANEL Lab Routine Forgetfulness Expected: 08/23/2023, Expires: 11/22/2023[facility] Work Phone: Comment on above:Expected: 08/23/2023, Expires: 11/22/2023Start: 08-23-2023 End: 19-65-6834RQJJZUXZ TOTAL W/REFLEXSYPHILIS TOTAL W/REFLEX Lab Routine Forgetfulness Expected: 08/23/2023, Expires: 11/22/2023[facility] Work Phone: comment on above:Expected: 08/23/2023, Expires: 11/22/2023Start: 08-23-2023 End: 90-12-8923Cgnpvldwikz [Units/volume] in Serum or PlasmaTSH BLD Lab Routine Forgetfulness Expected: 08/23/2023, Expires: 11/22/2023[facility] Work Phone: comment on above:Expected: 08/23/2023, Expires: 11/22/2023Start: 48-62-3101Hubguqc Directive DiscussionAdvance Directive DiscussionSouthview Medical Centertart: 14-09-7507Deisashonk AssessmentDepression AssessmentSouthview Medical Centertart: 81-08-1989Bdcvgoyad vaccinationINFLUENZA (Season Ended)[facility] Centertart: 33-25-2501RVWAEWPC SCREENDIABETES SCREEN [facility] Centertart: 72-80-9201Ijrkwswq ScreeningDiabetes ScreeningSouthview Medical Centertart: 54-53-0907CYBQNBM DIRECTIVE DISCUSSIONADVANCE DIRECTIVE DISCUSSION [facility]: 86-24-9765Euako depression screening assessmentDEPRESSION SCREENINGSouthview Medical Centertart: 46-18-9508Dtmhc microalbumin profile DTaP,Tdap,Td Vaccine (2 - Td or Tdap)[facility]: 67-70-5714XUDK DENSITYBONE DENSITYSouthview Medical Centertart: 83-22-4692DTYOIUIRK AGE 65 AND OVER WITH 5YR LOOKBACK (#1)PNEUMOVAX AGE 65 AND OVER WITH 5YR LOOKBACK (#1)[facility]: 65-90-7358Hrqrvwyzo for osteoporosisBone Density ScreeningSouthview Medical Centertart: 46-27-3028ANQFDXZG VACCINE (1 of 2)SHINGRIX VACCINE (1 of 2) [facility]: 45-54-7449GQQIZVQPQ (FIT-DNA)COLOGUARD (FIT-DNA)[facility]: 85-93-5253TntfunvpgpgYMIPWCZTTYDZytxptuxq ClinicStart: 1991 COLORECTAL CANCER SCREENINGCOLORECTAL CANCER SCREENINGSouthview Medical Centertart: 72-01-1264MH COLONOGRAPHYCT COLONOGRAPHYSouthview Medical Centertart: 51-07-5436DKEEM OCCULT BLOODFECAL OCCULT BLOODSouthview Medical Centertart: 11-21-5409YCECJ SCREENLIPID SCREENSouthview Medical Centertart: 79-86-3213QDZHYRLGUSXABSLIFBUPDAZXAFTkshzrjui ClinicStart: 91-55-7242Owfyc microalbumin profileDTAP,TDAP,TD (1 - Tdap) [facility]: 07-49-5579CUGXVJBAC C SCREENINGHEPATITIS C SCREENING [facility]: 39-41-9553Slcpenbid C screeningHepatitis C Screening [facility]art: 25-09-2571XMZHK-19 VACCINE (1)COVID-19 VACCINE (1) [facility] HospitalPatient EducationHead injury in adultsSalem Regional Medical Center Work Phone: Patient referralSalem Regional Medical Center Work Phone: [place] [facility] - bilateralBar[facility] End: 79-72-7466DK Kidney - bilateral and Urinary bladderUS KIDNEY/BLADDER Radiology Routine Stage 3a chronic kidney disease (HCC) 1 Occurrences starting 09/19/2023 until 10/18/2024leveland ClinicComment on above:1 Occurrences starting 09/19/2023 until 10/18/2024[facility] Immunizations Immunization DateImmunizationNotesCare ZtknhfwbSwunqnpe05-61-3636cynbidsel virus vaccine, unspecified formulationFlor Iraheta [facility]06-09-2025tetanus toxoid, reduced diphtheria toxoid, and acellular pertussis vaccine, adsorbedStephanie Gonya [employer] Work Phone: [facility]12-12-2024 pneumococcal polysaccharide vaccine, 23 valentJENNIFER CHRIS [facility] [place] 205001-18-2024influenza virus vaccine, unspecified formulationJENNIFER CHRIS [facility] [place] 205000-16-2023influenza virus vaccine, unspecified formulationJENNIFER CHRIS [facility] [place] 205000-16-2023RSV vaccine preF3, recombinantLauren Myrtle [facility] [place] 205000-03-2022SARS-CoV-2 (COVID-19) mRNAMUL.ORD![id number] CHRIS [facility]09-28-2022influenza virus vaccine, unspecified formulationJENNIFER CHRIS [facility]05-18-2022SARS-CoV-2 mRNA (sukabxwtaip-qyev-soviwma) vaccineJENNIFER CHRIS [facility] [place] 205001-02-2021influenza virus vaccine, unspecified formulationJENNIFER CHRIS [facility] [place] 205000-19-2021SARS-CoV-2 (COVID-19) mRNA BNT-162b2 vaxJENNIFER CHRIS [facility]03-20-2021SARS-CoV-2 (COVID-19) mRNA BNT-162b2 vaxJENNIFER CHRIS [facility]02-27-2021SARS-CoV-2 (COVID-19) mRNA BNT-162b2 vaxJENNIFER CHRIS [facility]-06-2020influenza virus vaccine, unspecified formulationJENNIFER CHRIS [facility]03-16-2020pneumococcal polysaccharide vaccine, 23 valentJENNIFER CHRIS [facility]10-06-2019influenza virus vaccine, unspecified formulationJENNIFER CHRIS [facility]10-01-2019influenza virus vaccine, unspecified formulationJENNIFER CHRIS [facility] on above:Result Comment: 2023-05-06: CMPFYT27-85-0121hdiqod vaccine recombinantJENNIFER CHRIS [facility]03-01-2019pneumococcal conjugate vaccine, 13 valentJENNIFER CHRIS [facility]03-01-2019zoster vaccine recombinantJENNIFER CHRIS [facility]10-15-2018influenza virus vaccine, unspecified formulationJENNIFER CHRIS [facility]12-01-2015influenza virus vaccine, unspecified formulationANALIELIOCLARK SIM [facility] Shania Payers DatePayer CategoryPayerPolicy [id number] 2022MedicareDEVOTED MEDICARE DEVOTED HEALTH [place] HMO [id number] 2021-Present [phone] [address] [place], [id number] 2022Medicare (Managed Care) [id number] 1.2.840.844467.1.13.693.2.7.3.702654.09128-03-1883HumpedeIXKY9G72-83-4094Lyqultm ANTHEM BLUE CROSS AND BLUE SHIELD ANTHEM MEDIBLUE O [id number] 2018- 2021 [address] [place] [address] [id number] 1.2.840.281319.1.13.159.2.7.3.031951.51384-89-8288Ykxkuiq5273511 2.16.840.1.608747.3.579.2.136626-95-2435Yymlkzo5836961 2.16.840.1.207296.3.579.2.229416-41-8959Msebpcs8346436 2.16.840.1.188552.3.579.2.912170-53-4745Wpdmuww0595068 2.16.840.1.396450.3.579.2.805774-96-1604Nasuhca0073746 2.16.840.1.828466.3.579.2.827744-88-5329Qogtkvf1744732 2.16.840.1.659462.3.579.2.607722-35-3032Phuclio2766286 2.16.840.1.452829.3.579.2.807643-77-5391Pmykpcg1788356 2.16.840.1.848778.3.579.2.175527-76-9319Cunmtle6421932 2.16.840.1.289976.3.579.2.435188-12-9819Ognyzyb9567869 2.16840.1.009564.3.579.2.651679-87-3211Dnbojdw4603747 2.16840.1.848605.3.579.2.869453-57-2426Dbvbfhs5275492 2.16840.1.639409.3.579.2.905541-89-0403Btxdaqp6266483 2.16840.1.774633.3.579.2.643076-69-4881Epyvzgm2776173 2.16840.1.309739.3.579.2.484301-11-5572Kfpquwl1184607 2.16.840.1.736613.3.579.2.863936-35-1507Rtgzgqw6959658 2.16.840.1.411186.3.579.2.799213-33-6294Affhkkg5409936 2.16.840.1.918543.3.579.2.266954-77-1182Bbyagse2908825 2.16840.1.408900.3.579.2.366538-08-5218Tvebcdj5867215 2.16.840.1.219386.3.579.2.655533-98-9115Sjlxmlz68691225 2.16.840.1.674417.3.579.2.69693-42-9163Hgrnfzp73098733 2.16.840.1.387821.3.579.2.81771-37-3353Ejniywb67533693 2.16.840.1.094242.3.579.2.07569-21-4180Oupamlp97947729 2.16.840.1.047355.3.579.2.61984-00-9041Ygxlctu25545087 2.16.840.1.299686.3.579.2.89691-52-0163Ypllbtx38973589 2.16.840.1.072141.3.579.2.20958-28-8998Kihdgiz20845147 2.16.840.1.320122.3.579.2.44343-43-5824Zknhkyv83257540 2.16.840.1.024445.3.579.2.10233-64-2496Siceuoe77623266 2.16.840.1.147828.3.579.2.43917-38-0435Igdmoxt74318081 2.16.840.1.464448.3.579.2.95149-32-2015Nvotced59424851 2.16.840.1.693786.3.579.2.57985-51-8926Xmscacd68890105 2.16.840.1.686115.3.579.2.73399-39-7584Qehwwsn327518150 2.16.840.1.637191.3.579.2.38450-88-1378Kdcibkz906245151 2.16.840.1.822997.3.579.2.14823-52-0315Qzdtiph814077971 2.16.840.1.742347.3.579.2.70315-81-4007Vnfuzaa931750553 2.16.840.1.054464.3.579.2.20562-13-9933Mxqfnmc063485654 2.16.840.1.607195.3.579.2.53492-11-8149Mopttnj81679438 2.16.840.1.667136.3.579.2.92393-26-6894Pvympmf54038150 2.16.840.1.066442.3.579.2.10039-74-3240Ywiyzmn05490323 2.16.840.1.298629.3.579.2.31350-63-6283Vhhptvg92568341 2.16.840.1.738916.3.579.2.88480-34-7247Xbxoyxp90916694 2.16.840.1.683451.3.579.2.04649-77-9889Roqznbf61501184 2.16.840.1.622636.3.579.2.40926-55-5128Obezfbt87261619 2.16.840.1.832205.3.579.2.55554-09-8174Zxvnksj06495157 2.16.840.1.706107.3.579.2.80528-14-0492Jcdamsz79706683 2.16.840.1.084634.3.579.2.70480-24-3911Yjmzgrt73304266 2.16.840.1.609238.3.579.2.31989-61-2731Lpxugjr26293746 2.16.840.1.343055.3.579.2.88418-07-1733Icmjeey34304986 2.16.840.1.945076.3.579.2.46240-03-3539Xvclvpn53700390 2.16.840.1.608231.3.579.2.54151-18-0900Qzqkcpo43210577 2.16.840.1.243526.3.579.2.93726-35-4330Yjdscej60222625 2.16.840.1.943477.3.579.2.14437-14-2294Thvqowb11394678 2.16.840.1.226794.3.579.2.70771-88-4211Ylqyouf45466677 2.16.840.1.373321.3.579.2.82871-50-5724Zforxlf29195249 2.16.840.1.132181.3.579.2.52058-35-6629Euqetul23187164 2.16.840.1.495137.3.579.2.96823-91-2025Ayluqjd40353445 2.16.840.1.785546.3.579.2.44608-70-1075Dcundkm68259231 2.16.840.1.066379.3.579.2.66186-47-1995Tdtucid00984908 2.16.840.1.603759.3.579.2.65247-51-0940Llhrikj05286167 2.16.840.1.714043.3.579.2.86538-34-1476Htxryjr79734869 2.16.840.1.057664.3.579.2.51836-98-2676Dihbceo12453836 2.16.840.1.246392.3.579.2.81930-04-8433Cytdbxv59485462 2.16.840.1.958270.3.579.2.61054-32-0616Frdtain93761764 2.16.840.1.371677.3.579.2.48394-18-8675Yjtcdif83973807 2.16.840.1.098134.3.579.2.82836-53-0350Cjaazhj12300396 2.16.840.1.102782.3.579.2.11191-49-1584Giephfo55980559 2.16.840.1.946261.3.579.2.60818-99-4085Ibqavmo82809410 2.16.840.1.149782.3.579.2.718UnknownAntheMethodist Rehabilitation Center KNENPYT099N36481 t71j3r26-n6va-2842-p1g4-82778927o781Kmavpjw28267042 2.16.840.1.095320.3.579.2.227Onffbpt53724594 2.16.840.1.953020.3.579.2.531 Bobmyrm17571730 2.0.1.252133.3.579.2.531 Social History DateTypeDetailFacilityStart: 10-19-2018 End: 41-90-7122Abfvtdg smoking status NHISNever smoked tobaccoPromedica Fostoria Community Hospital Start: 10-19-2018 End: 32-24-9394Sgjdrdk use and exposureSmokeless tobacco non-userSouthview Medical Centertart: 10-25-2018 End: 25-04-4870Tdqsbkl intakeCurrent drinker of alcohol (finding)[facility] Centertart: 24-74-2874Vpfuxzg SDOH Alcohol Comment1 glass per monthSouthview Medical Centertart: 01-64-3216Zon Assigned At BirthNot on fileSouthview Medical Centertart: 08-23-2023 End: 40-19-4428Wkjbfbq of Social functionSouthview Medical Centertart: 08-23-2023 End: 75-97-7498AFK UtilitiesPromedica Fostoria Community HospitalHas the Poxel, gas, oil, or water FotoIN [employer] threatened to shut off services in your home in past 12MoNoClWayne HealthCare Main CampusAre you now , , , , never or living with a partner?DivorcedPromedica Fostoria Community HospitalHow often to you have a drink containing alcohol?NeverPromedica Fostoria Community HospitalHow many standard drinks containing alcohol do you have on a typical day?Patient does not drinkPromedica Fostoria Community HospitalHow hard is it for you to pay for the very basics like food, housing, medical care, and heatingNot very hardPromedica Fostoria Community HospitalDo you feel stress - tense, restless, nervous, or anxious, or unable to sleep at night because yourmind is troubled all the time - these days [OSQ]Only a littleCurran Clinic(I/We) worried whether (my/our) food would run out before (I/we) got money to buy more.Never truePromedica Fostoria Community HospitalIn the past 12 months, was there a time when you were not able to pay the mortgage or rent on time?YesSouthview Medical Centertart: 24-05-9483Zxw Assigned At BirthFemalCleveland Clinic Children's Hospital for Rehabilitationtart: 60-83-2061Ucwfmz identityIdentifies as female gender (finding)[facility]art: 61-29-1261Hoctol orientationHeterosexual (finding)[facility] Centertart: 93-84-5213Nypasus CommentVery occasionally ie holidaysASHLEY REGIONAL [facility] HealthcareStart: 08-22-2024 End: 52-77-6121DfaHngvyq (finding)[facility] Medical Centerexual OrientationExec[facility] [place] [facility] Equipment Procedure CodeEquipment CodeEquipment Original TextEquipment IdentifierDates Plate Round Titanium Bone Fusion Nonsterile First Metacarpophalangeal Left - [id number]: 62-02-6828Bvhvfcy on above:Description: MCP FUSION PLATEScrew 2.7mm Titanium 14mm Bone Cruciform Modular Hand System Nonsterile - [id number]: 44-04-5385Vuqosdv on above:Description: CRUCIFORM SCREWScrew 2.7mm Titanium 12mm Bone Cruciform Modular Hand System Nonsterile - [id number]: 17-08-0663Bbekbzr on above:Description: CRUCIFORM SCREWScrew 2.7mm Titanium 12mm Bone Cruciform Modular Hand System Nonsterile - [id number]_tswZvuwh: 47-22-8372Egchcki on above:Description: CRUCIFORM SCREWScrew 2.7mm Titanium 8mm Bone Cruciform Modular Hand System Nonsterile - [id number]_aiiOspqq: 39-45-1376Lnmcwqr on above:Description: CRUCIFORM SCREWScrew 2.7mm Titanium 10mm Bone Cruciform Modular Hand System Nonsterile - [id number]: 18-10-1398Mzxsqvy on above:Description: CRUCIFORM SCREW Functional Status GlxnLcwxdlsvbdYpvvsnBtimebeu05-43-4511Rvlqiahwcc StatusN/AExec[facility] [place] 205001-20-2024Functional StatusN/A[facility] [place] 205000-21-2024Functional StatusN/A [facility]04-04-2024Functional StatusN/A[facility] Clinical Notes 03-19-2021 to 04-03-2025 Note Date & KlmpBovjSuzkcusl08-25-6563 Note [id number]#1.00OTGTOhioHealth Doctors Hospital10-31-2025 [facility] SURGERY Clinical Discharge Summary PERSON INFORMATION Name JAZZMINE WANG Age 80 Years 1945 Sex FEMALE Language Lebanese PCP Prema Clement APRN, CNP Marital Status Med Service Pain Management Surgery Acct# Arrival 03/29/2025 08:30:48 Visit Reason Lumbar Neuritis Acuity LOS 002 21:58 Address: [address] [place] [address] Comment: PROVIDER INFORMATION VITALS INFORMATION Vital Sign [...] (given by mouth) every day. Refills: 3. [employer] Prescription (medical marijuana card) multivitamin (Multiple Vitamins [...] by mouth) 2 ti (more content not included)...[facility] HospitalDkqcvnzs77-40-6101 Hospital Discharge instructions Patient Education 03/28/2025 14:49:21 [...] including vitamins, herbs, eye drops, creams, and iowk-jcp-ntlefhk medicines. Any problems you or family members [...] provider tells you to take them. Taking djmn-xqy-osvcmiq medicines, vitamins, herbs, and supplements. General instructions [...] Follow these instructions at home: Medicines Take czlv-atv-ollvhvo and prescription medicines only as told by [...] provider. Document Revised: 11/20/2021 Document Reviewed: 11/20/2021 Elsevier Patient Education 2023 Livevol. Follow Up Care 03/11/2025 13:53:15 With:Liu UNGER, Thelma Dent URL, URO Address: [facility] [place] [address]- When: Unknown Comments:Pending Botox [facility] 277216-78-0626 Note [id number]#1.00OTGTIFF The patient?s history of present illness, physical findings and plan of care have been reviewed. There are no changes. [Electronically Signed on: 03/29/2025 08:52 EDT] CECE GUTIERREZ MD [Electronically Signed on: 03/29/2025 08:50 EDT] Liseth Mora RN [Verified on: 03/29/2025 08:52 EDT] CECE GUTIERREZ MD [Transcribed on: 03/28/2025 15:23 EDT] [facility]10-30-2025 NotePatient Education Urology Botulinum Toxin [...] including vitamins, herbs, eye drops, creams, and gmod-xam-tsnqvkd medicines. ??? Any problems you or family [...] tells you to take them. ??? Taking iieo-gko-cadcuqv medicines, vitamins, herbs, and supplements. General instructions [...] these instructions at home: Medicines ??? Take xuiy-pkj-cwjoqzo and prescription medicines only as told by your health care provider. ??? If you were prescribed an antibiotic medicine, take it as told by your health care provider. Donot stop using the antibiotic even if you start to feel better. General instructions ??? If you were given a sedative during the procedure, (more content not included)...[facility]09-22-2025 Note From: Brenda Mobley MA ([facility] Clinical Pool ([facility])) To: Prema Clement APRN, CNP; Sent: 02/18/2025 10:30:50 EDT Subject: FW: Medication Management Due Date/Time: 02/19/2025 09:59:00 EDT Caller Name: JAZZMINE WANG; Caller Number: Myla , Chirag OAS 02-18-25 last filled: 01-01-25 disp: 60 last appointment: 01-01-25 upcoming appointment: 04-09-25 CSA: 11-28-24 From: [facility] [id number] To: Prema Clement CNP Sent: February 18, [...] Pharmacy: From: Prema Clement APRN, CNP To: [facility] [id number] Sent: 02/18/2025 10:50:56 EDT Subject: FW: Medication Management Submitted: Order:clonazePAM (clonazePAM 0.5 mg oral tablet) 1 tab(s) Oral BID Qty: 60 tab(s) Duration: 30 day(s) Refills: 0 Substitutions Allowed Route To Pharmacy [facility] [id number] Signed by Prema Clement APRN, CNP 02/18/2025 10:50:00 EDT Submitted: Complete:clonazePAM (clonazePAM 0.5 mg oral tablet) oarrs 01/01/25 Signed by Prema Clement APRN, CNP 02/18/2025 10:50:00 EDT Not Approved: New Rx to follow clonazePAM (CLONAZEPAM 0.5 MG TABLET) TAKE 1 TABLET BY MOUTH 2 TIMES A DAY FOR 30 DAYS Qty: 60 tab(s) Days Supply: 30 Refills: 0 Substitutions Allowed Route To Pharmacy [facility] [id number] Clinic Lutheran HospitalYqicrkix07-14-2639 [id number]#1.00[facility]09-08-2025 Note [id number]#1.00[facility]09-05-2025 [facility] SURGERY Clinical Discharge Summary PERSON INFORMATION Name JAZZMINE WANG Age 79 Years 1945 Sex FEMALE Language Lebanese PCP Prema Clement APRN, CNP Marital Status Med Service Pain Management Surgery Acct# Arrival 02/01/2025 08:44:07 Visit Reason sacroilitis Acuity LOS 002 23:54 Address: [address] [place] [address] Comment: PROVIDER INFORMATION VITALS INFORMATION Vital Sign [...] (given by mouth) every day. Refills: 3. [facility] Prescription (medical marijuana card) multivitamin (Multiple Vitamins [...] (given by mouth) every day. Refills: 3. [employer] Prescription (medical marijuana card) multivitamin (Multiple Vitamins [...] by mouth) 2 times (more content not included)...[facility] 01-31-2025 [id number]#1.00OTGTIFF The patient?s history of present illness, physical findings and plan of care have been reviewed. There are no changes. [Electronically Signed on: 02/01/2025 09:57 EDT] CECE GUTIERREZ MD [Electronically Signed on: 02/01/2025 09:23 EDT] Liseth Mora RN [Verified on: 02/01/2025 09:57 EDT] CECE GUTIERREZ MD [Transcribed on: 01/31/2025 10:19 EDT] [facility]06-09-2025 Radiology Diagnostic study noteCOMMUNITY [facility] [place] [address] CT Scan Report Signed Patient: Jazzmine Wang MR#: [id number] : 1945 Acct:[id number] Age/Sex: 79 / F ADM Date: 5 [...] Long M.D. 11/05/2024 2:14 PM Dictation Location: [place] [address] Transcribed By: [facility] 11/05/24 1414 Dictated By: Abundio Long DO 11/05/24 1413 Signed By: 11/05/24 1414 [facility]06-09-2025 Evaluation note* Diagnosis Onset Date Resolution Status Admit Date Chronic pain acuteJune 2024 11:02amOsteoarthritis of spine with radiculopathy, lumbar regionacuteJune 2024 11:02amSacroiliitis, not elsewhere classifiedacuteJune 2024 11:02amArthritis of lumbosacral spineacuteJune 2024 10:16am Chronic painacuteJune 2024 10:16amOsteoarthritis of spine with radiculopathy, lumbar regionacuteJune 2024 10:16am [facility] Work Phone: 1(115) 995-296106-02-2025 Note From: Brenda Mobley MA ([facility] Clinical Pool ([facility])) To: Prema Clement CNP; Sent: 10/29/2024 08:30:13 EDT Subject: FW: Medication Management Due Date/Time: 10/29/2024 22:24:00 EDT Caller Name: JAZZMINE WANG; Caller Number: Myla , Chirag OARRS 10-29-24 last filled: 07-17-24 disp:90 last appointment: 09-24-24 upcoming appointment: 12-26-24 CSA: 08-16-23 From: [facility] [id number] To: Prema Clement CNP Sent: October 26, [...] Pharmacy: From: Prema Clement APRN, CNP To: [facility] [id number] Sent: 10/29/2024 11:24:09 EDT Subject: FW: Medication Management Submitted: Order:clonazePAM (clonazePAM 0.5 mg oral tablet) 1 tab(s) Oral TID Qty: 90 tab(s) Duration: 30 day(s) Refills: 0 Substitutions Allowed Route To Pharmacy - [facility] [id number] Signed by Prema Clement APRN, CNP 10/29/2024 11:23:00 EDT Submitted: Complete:clonazePAM (clonazePAM 0.5 mg oral tablet) Signed by Prema Clement APRN, CNP 10/29/2024 11:24:00 EDT Not Approved: New Rx to follow clonazePAM (clonazePAM 0.5 MG TABLET) TAKE 1 TABLET BY MOUTH 3 TIMES A DAY Qty: 90 tab(s) Days Supply: 30 Refills: 0 Substitutions Allowed Route To Pharmacy - [facility] [id number] Clinic Lutheran HospitalVcitaqrs37-20-7219 NotePatient Education Obstetrics and Gynecology Overactive Bladder, [...] health care provider. General instructions ??? Take rfja-lls-afaziug and prescription medicines only as told by [...] you drink, and whe (more content not included)...[facility]05-15-2025 History of Present illness Narrative* ELEAZAR [...] Review Audit Reviewed by Bentley Salas MA (Color Television Console Monitor) on 10/11/24 at 0927 Medication Order Taking? Sig Documenting Provider Last Dose Status Acetaminophen (TYLENOL PO) [id number] Yes Historical Provider, Active acyclovir (Zovirax) 200 MG capsule [id number] Yes Historical Provider, Active Calcium Carbonate-Vit D-Min (CALTRATE PLUS PO) [id number] Yes Take by mouth ELEAZAR Olsen Active Cannabinoids (medical cannabis) [id number] Yes Historical Provider, Active Effexor XR 75 MG 24 hr capsule [id number] Yes 75 mg ELEAZAR Olsen Active Estrace 0.1 MG/GM vaginal cream [id number] Yes ELEAZAR Olsen Active fexofenadine (Melanie Allergy) 180 MG tablet [id number] Yes ELEAZAR Olsen Active KlonoPIN 0.5 MG tablet [id number] Yes 0.5 mg Historical Provider, Active Magnesium 125 MG capsule [id number] Patient not taking: Reported on 10/11/2024 ELEAZAR Olsen Active Omeprazole 20 MG Tablet Delayed Release Dispersible [id number] Patient not taking: Reported on 10/11/2024 ELEAZAR Olsen Active pregabalin (Lyrica) 50 MG capsule [id number] Yes Take 50 mg by mouth in the morning and 50 mg before bedtime. Historical Provider, Active Protonix 40 MG EC tablet [id number] Yes 40 mg Chintan ELEAZAR Calderon Active simvastatin (Zocor) 10 MG tablet [id number] Yes 10 mg Chintan ELEAZAR Calderon Active sucralfate (Carafate) 1 g tablet [id number] 1 g Patient not taking: Reported on 10/11/2024 Historical ProviderMD Active Zinc Sulfate (ZINC 15 PO) [id number] Patient not taking: Reported on 10/11/2024 ELEAZAR [...] XI: Shoulder shrug strength is normal. Coordination Nusefk-gw-djae, rapid alternating movements and gxbl-on-lmlf normal bilaterally without dysmetria. Intention tremor No cogwheel rigidity on exam. Gait Normal casual, toe, heel and tandem gait. 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 LUE Strength deltoid, biceps, triceps, wrist extensors, wrist extensors, wrist flexor, malted milk supervisor strength 5/5. RLE Strength illopsoas, quadriceps, tibialis [...] sent to [facility]. She has not yet heard from DME [...] up after neurosurgical opinion documented in this encounterWestern Missouri Mental Health CenterWbowmutvka03-03-3978 History of Present illness Narrative* ELEAZAR Swain [...] limited to risks of scarring, darker or warehouse analyst pigmentary changes, recurrence, incomplete removal and infection. [...] limited to risks of scarring, darker or warehouse analyst pigmentary changes, recurrence, incomplete removal and infection. [...] Next Visit: 1 year documented in this encounterWestern Missouri Mental Health CenterSdwwycwbju78-72-6085 Evaluation note* Diagnosis Onset Date Resolution Status Admit Date Chronic pain acuteApril 2024 2:43pmOsteoarthritis of spine with radiculopathy, lumbar regionacuteApril 2024 2:43pmSpinal stenosisacuteApril 2024 2:43pm Chronic painacuteJune 2024 11:02amOsteoarthritis of spine with radiculopathy, lumbar regionacuteJune 2024 11:02amSacroiliitis, not elsewhere classifiedacuteJune 2024 11:02amArthritis of lumbosacral spine acuteJune 2024 10:16amChronic painacuteJune 2024 10:16am Osteoarthritis of spine with radiculopathy, lumbar regionacuteJune 2024 10:16am [facility] [place] Work Phone: [phone]) 913-232504-21-2025 History of Present illness Narrative* ELEAZAR Hudson [...] Review Audit Reviewed by Neelima Blair MA ([employer] Monitor) on 09/17/24 at 1505 Medication Order Taking? Sig Documenting Provider Last Dose Status Acetaminophen (TYLENOL PO) 80065200 Tylenol Historical Provider, Active acyclovir (Zovirax) 200 MG capsule [id number] 1 cap(s), PO, BID, # 180 cap(s), 3 Refill(s), Pharmacy:[facility] [id number], 1 cap(s) PO BID Historical Provider, Active atomoxetine (Strattera) 25 MG capsule [id number] Take 1 capsule (25 mg) by mouth Daily Swallow capsule whole; do not open. If opened accidentally, do not touch eyes; wash hands immediately (product is an eye irritant). ELEAZAR Hudson Active Calcium Carbonate-Vit D-Min (CALTRATE PLUS PO) [id number] Take by mouth Jyoti Uribe [place] Active Cannabinoids (medical cannabis) [id number] Medical Marijuana Historical Provider, Active Effexor XR 75 MG 24 hr capsule [id number] 75 mg Jyoti Bradley [place] Active Estrace 0.1 MG/GM vaginal cream [id number] See Instructions, 42.5 gm, Refill(s) 2, Apply pea sized amount to external urethra/vaginal area 3x a week for 1 month, then 2x a week afterwards, [facility] [id number], 165, cm, 09/01/23 10:37:00 EDT, Height/Length Dosing, 70.5, kg, 09/01/23 10:37:00 EDT,Weight Dosing Jyoti Kirk [place], [place] Active fexofenadine (Melanie Allergy) 180 MG tablet [id number] Jyoti Kirk [place], [place] Active KlonoPIN 0.5 MG tablet [id number] 0.5 mg Historical Provider, Active Magnesium 125 MG capsule [id number] Jyoti Bradley [place], [place] Active Omeprazole 20 MG Tablet Delayed Release Dispersible [id number] Jyoti Kirk [place] Active pregabalin (Lyrica) 50 MG capsule [id number] Take 50 mg by mouth in the morning and 50 mg before bedtime. Historical Provider, Active sucralfate (Carafate) 1 g tablet [id number] 1 g. Historical Provider, Active Zinc Sulfate (ZINC 15 PO) [id number] Jyoti Bradley [place] Active HPI TREMOR -symptoms are intermittent -located [...] XI: Shoulder shrug strength is normal. Coordination Zcnjuc-np-ykjz, rapid alternating movements and xwsr-hv-fpjj normal bilaterally without dysmetria. Intention tremor No cogwheel rigidity on exam. Gait Normal casual, toe, heel and tandem gait. 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 LUE Strength deltoid, biceps, triceps, wrist extensors, wrist extensors, wrist flexor, malted milk supervisor strength 5/5. RLE Strength illopsoas, quadriceps, tibialis [...] to review MRI brain documented in this encounterWestern Missouri Mental Health CenterPxhbzjurhp13-70-3265 Note [id number] 09-11-2024 [facility] SURGERY Clinical Discharge Summary PERSON INFORMATION Name JAZZMINE WANG Age 79 Years 1945 Sex FEMALE Language Lebanese PCP Prema Clement APRN, CNP Marital Status Med Service Ambulatory Surgery Acct# Arrival 09/11/2024 06:59:24 Visit Reason SURGERY - EGD AND COLONOSCOPY - GERD AND SCREENING Acuity LOS 017 22:50 Address: [address] [place] [address] Comment: PROVIDER INFORMATION VITALS INFORMATION Vital Sign [...] mg oral capsule, exten (more content not included)...[facility] HospitalTmqaqjen29-55-2664 Evaluation note* Diagnosis Onset Date Resolution Status Admit Date GERD (gastroesophageal reflux disease) acuteMarch 2024 3:21pmHyperlipidemiaacuteMarch 2024 3:21pmOveractive bladderacuteMarch 2024 3:21pmRenal cysts, acquired, bilateralacuteMarch 2024 3:21pmSpinal stenosisacuteMarch 2024 3:21pmChronic painacute Zoie 2024 2:43pmOsteoarthritis of spine with radiculopathy, lumbar region acuteApril 2024 2:43pmSpinal stenosisacuteApril 2024 2:43pmChronic painacuteJune 2024 11:02amOsteoarthritis of spine with radiculopathy, lumbar regionacuteJune 2024 11:02amSacroiliitis, not elsewhere classified acuteJune 2024 11:02am [facility] Work Phone: 1(528) 730-769503-20-2025 Telephone encounter Note* Telephone Encounter - ELEAZAR Hudson - 08/16/2024 12:48 PM EDT She still has a high AHI (respiratory events). It has not showed that a pressure of 10 is not controlling his symptoms. [facility] Work Phone: [phone]) 580-490103-20-2025 Telephone encounter Note* Telephone Encounter - ELEAZAR [...] would like to consider inspire device. Thanks! [facility] CenterRkonrjcrgw43-33-5851 Miscellaneous Notes* Telephone Encounter - ELEAZAR Hudson - 08/16/2024 12:48 PM EDT She still has a high AHI (respiratory events). It has not showed that a pressure of 10 is not controlling his symptoms. * Telephone Encounter - ELEAZAR Hudosn - 08/16/2024 12:48 PM EDT ----- Message [...] would like to consider inspire device. Thanks! documented in this encounterWestern Missouri Mental Health CenterHshxupkxpo98-55-7529 Note From: Brenda Mobley MA ([facility] [place] ([facility])) To: Prema Clement CNP; Sent: 07/17/2024 12:51:58 EST Subject: FW: Medication Management Due Date/Time: 07/18/2024 11:12:00 EST Caller Name: JAZZMINE WANG; Caller Number: Myla , Chirag OARRS 07-17-24 last filled: 05-10-24 disp: 90 last appointment: 06-19-24 upcoming appointment: 08-22-24 [facility] 08-16-23 From: [facility] [id number] To: Prema Clement CNP Sent: July 17, 2024 10:12:38 AM CRM ADMINISTRATOR Subject: Medication Management Due: July 18, 2024 9:11:05 AM CRM ADMINISTRATOR On Hold Pending Signature Drug: clonazePAM (KlonoPIN [...] Pharmacy: From: Prema Clement APRN, CNP To: [facility] [id number] Sent: 07/17/2024 14:31:00 EST Subject: FW: Medication Management Submitted: Order:clonazePAM (clonazePAM 0.5 mg oral tablet) 1 tab(s) Oral TID Qty: 90 tab(s) Days Supply: 30 Refills: 0 Substitutions Allowed Route To Pharmacy - [facility] [id number] Signed by Prema Clement APRN, CNP 07/17/2024 14:30:00 EST Submitted: Complete:clonazePAM (KlonoPIN 0.5 mg oral tablet) Signed by Prema Clement APRN, CNP 07/17/2024 14:30:00 EST Not Approved: New Rx to follow clonazePAM (clonazePAM 0.5 MG TABLET) TAKE 1 TABLET BY MOUTH 3 TIMES A DAY Qty: 90 tab(s) Days Supply: 30 Refills: 0 Substitutions Allowed Route To Pharmacy - [facility] [id number] Clinic Lutheran HospitalGnslvsnw06-60-9779 Note From: Brenda Mobley MA ([facility] To: Prema Clement CNP; Sent: 07/12/2024 11:56:21 EST Subject: FW: Medication Management Due Date/Time: 07/13/2024 11:31:00 EST Caller Name: JAZZMINE WANG; Caller Number: Myla , Chirag last visit: 06-19-24 next visit: 08-22-24 From: [facility] [id number] To: Prema Clement CNP Sent: July 12, 2024 10:31:06 AM CRM ADMINISTRATOR Subject: Medication Management Due: July 13, 2024 12:01:42 AM CRM ADMINISTRATOR On Hold Pending Signature Drug: venlafaxine (Effexor [...] Pharmacy: From: Prema Clement APRN, CNP To: [facility] [id number] Sent: 07/12/2024 12:43:07 EST Subject: FW: Medication Management Submitted: Complete:venlafaxine (Effexor XR 75 mg oral capsule, extended release) Signed by Prema Clement APRN, CNP 07/12/2024 12:43:00 EST Approved with modifications: venlafaxine (VENLAFAXINE HCL ER 75 MG CAP) TAKE 1 CAPSULE BY MOUTH DAILY Qty: 30 cap(s) Days Supply: 30 Refills: 4 Substitutions Allowed Route To Pharmacy - [facility] [id number] Clinic Lutheran HospitalQmsrqxig68-89-1049 History of Present illness Narrative* Bentley Carmona PhD - 07/09/2024 11:00 AM EST Images from the original note were not included. Neuropsychology Bentley Carmona, PhD NEUROPSYCHOLOGICAL EVALUATION FEEDBACK Results and recommendations discussed. Questions addressed. Thank you for allowing me to participate in the care of this individual. Please contact me with [employer] at [phone]. documented in this encounterWestern Missouri Mental Health CenterAglqeybibf54-90-3722 History of Present illness Narrative* Bentley aCrmona PhD - 06/28/2024 11:30 AM EST Images [...] the winter. Remains social and occasionally attends holiness. Diagnosed with moderate AYDEE but unable to [...] or occasionally uses an editable in the [employer] to control symptoms. [employer] language Lebanese. Completed a bachelor's degree. 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 [...] BID, # 180 cap(s), 3 Refill(s), Pharmacy: [facility] [id number], 1 cap(s) PO BID Calcium Carbonate-Vit D-Min (CALTRATE PLUS PO) Take by mouth Cannabinoids (medical cannabis) Medical Marijuana Effexor XR 75 mg Estrace 0.1 MG/GM vaginal cream See Instructions, 42.5 gm, Refill(s) 2, Apply pea sized amount to external urethra/vaginal area 3x a week for 1 month, then 2x a week afterwards, [facility] [id number], 165, cm, 09/01/23 10:37:00 EDT, Height/Length Dosing, [...] design >16th %ile. Motor/Speed of Processing: Right-handed. Cafeteria Cook strength 21st %ile with right- hand, 27th [...] individual. Please contact me with anyquestions at [phone]. documented in this [facility]01-29-2025 Evaluation note* Diagnosis Onset Date Resolution Status Admit Date Chronic pain acuteJanuary 2024 10:53amOsteoarthritis of spine with radiculopathy, lumbar regionacuteJanuary 2024 10:53amSpinal stenosisacuteJanuary 2024 10:53amGERD (gastroesophageal reflux disease)acuteFebruary 2024 2:35pm HyperlipidemiaacuteFebruary 2024 2:35pmOveractive bladderacuteFebruary 2024 2:35pmRenal cysts, acquired, bilateralacuteFebruary 2024 2:35pmSpinal stenosisacuteFebruary 2024 2:35pmGERD (gastroesophageal reflux disease) acuteMarch 2024 3:21pmHyperlipidemiaacuteMarch 2024 3:21pmOveractive bladderacuteMarch 2024 3:21pmRenal cysts, acquired, bilateralacuteMarch 2024 3:21pmSpinal stenosisacuteMarch 2024 3:21pm [facility] [place] Work Phone: 1(364) 317-808301-29-2025 Evaluation note* Diagnosis Onset Date Resolution Status [...] bilateralacuteMarch 2024 3:21pmSpinal stenosisacuteMarch 2024 3:21pmChronic painacute September 20, 2024 2:43pmOsteoarthritis of spine with radiculopathy, lumbar region acuteApril 2024 2:43pmSpinal stenosisacuteApril 2024 2:43pm [facility] [place] Work Phone: 1(682) 357-786701-21-2025 Telephone encounter Note* Telephone Encounter - Mary [...] has canceled her appts several times. [facility] [id number] Miscellaneous Notes* Telephone Encounter - Mary Escobar [...] her appts several times. documented in this encounterNOColumbia Regional HospitalUqzsyfijmx92-26-6122 Telephone encounter Note* Telephone Encounter - Shirley Owen - 06/13/2024 8:59 AM EST Brigette 06/05/24 lumbar ddd Being referred to pain mgmt Called stating Dr Brown does not take her paramount elite medicare adv insurance and needs referral sent elsewhere? [facility] [id number] Miscellaneous Notes* Telephone Encounter - Shirley Owen - 06/13/2024 8:59 AM EST Brigette 06/05/24 lumbar ddd Being referred to pain mgmt Called stating Dr Brown does not take her paramount elite medicare adv insurance and needs referral sent elsewhere? documented in this encounterWestern Missouri Mental Health CenterRrcqiapoxh88-79-2461 History of Present illness Narrative* ELEAZAR Olsen [...] machine for consistent readings. documented in this encounterWestern Missouri Mental Health CenterOkbbryumhy32-80-9521 Instructions* Patient Instructions* ELEAZAR Olsen - 06/05/2024 [...] the lowerback and sacrum. documented in this [facility]12-12-2024 Telephone encounter Note* Telephone Encounter - Shirley Owen - 05/10/2024 2:24 PM EST LMOVM TO SCHEDULE 05/07/24 MRI & 05/02/24 DEXA FOLLOW UP APPT W/TDH Lumbosacral DDD, Sciatica [facility] [id number] Miscellaneous Notes* Telephone Encounter - Shirley Owen - 05/10/2024 2:24 PM EST LMOVM TO SCHEDULE 05/07/24 MRI & 05/02/24 DEXA FOLLOW UP APPT W/TDH Lumbosacral DDD, Sciatica documented in this [facility]12-09-2024 History of Present illness Narrative* Bentley Carmona, [...] the winter. Remains social and occasionally attends holiness. Diagnosed with moderate AYDEE but unable to [...] editable in the evenings to control symptoms. [employer] language Lebanese. Completed a bachelor's degree. 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 [...] (CMS/HCC) GERD (gastroesophageal reflux disease) Hyperlipemia (CMS/HCC) MEDICATIONS: Current Outpatient Medications Medication Instructions Acetaminophen (TYLENOL PO) Tylenol acyclovir (Zovirax) 200 MG capsule 1 cap(s), PO, BID, # 180 cap(s), 3 Refill(s), Pharmacy: [facility] [id number], 1 cap(s) PO BID Cannabinoids (medical cannabis) Medical Marijuana citalopram (CeleXA) 40 MG tablet Every 24 hours Estrace 0.1 MG/GM vaginal cream See Instructions, 42.5 gm, Refill(s) 2, Apply pea sized amount to external urethra/vaginal area 3x a week for 1 month, then 2x a week afterwards, [facility] [id number], 165, cm, 09/01/23 10:37:00 EDT, Height/Length Dosing, [...] of this individual. Please contact me with [employer] at [phone]. documented in this encounterWestern Missouri Mental Health CenterXcskzvpbzd58-45-8993 History of Present illness Narrative* ELEAZAR Mckeon [...] Review Audit Reviewed by Brittany Mejia MA ([employer] Monitor) on 04/23/24 at 1318 Medication Order Taking? Sig Documenting Provider Last Dose Status Acetaminophen (TYLENOL PO) [id number] Tylenol Historical Provider, Active acyclovir (Zovirax) 200 MG capsule [id number] 1 cap(s), PO, BID, # 180 cap(s), 3 Refill(s), Pharmacy:[facility] [id number], 1 cap(s) PO BID Historical ProviderMD Active Cannabinoids (medical cannabis) 18574420 Medical Marijuana Historical Provider, Active citalopram (CeleXA) 40 MG tablet [id number] 1 (one) time each day at the same time. Historical Provider, Active Estrace 0.1 MG/GM vaginal cream [id number] See Instructions, 42.5 gm, Refill(s) 2, Apply pea sized amount to external urethra/vaginal area 3x a week for 1 month, then 2x a week afterwards, [facility] [id number], 165, cm, 09/01/23 10:37:00 EDT, Height/Length Dosing, 70.5, kg, 09/01/23 10:37:00 EDT,Weight Dosing [place] Active fexofenadine (Melanie Allergy) 180 MG tablet [id number] [place] Active KlonoPIN 0.5 MG tablet [id number] 0.5 mg Historical Provider, Active Magnesium 125 MG capsule [id number] [place] Active Omeprazole 20 MG Tablet Delayed Release Dispersible [id number] [place] Active Discontinued 04/17/24 0811 sucralfate (Carafate) 1 g tablet [id number] 1 g. Historical Provider, Active Zinc Sulfate (ZINC 15 PO) [id number] [place] Active HPI HPI TREMOR -located in [...] XI: Shoulder shrug strength is normal. Coordination Xifuyc-tk-yick, rapid alternating movements and qsjs-pe-hyns normal bilaterally without dysmetria. Intention tremor No cogwheel rigidity on exam. Gait Normal casual, toe, heel and tandem gait. 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 LUE Strength deltoid, biceps, triceps, wrist extensors, wrist extensors, wrist flexor, malted milk supervisor strength 5/5. RLE Strength illopsoas, quadriceps, tibialis [...] side effects from medications. documented in this encounterWestern Missouri Mental Health CenterLytiikjaoq42-62-5676 Hospital Discharge instructions Patient Education 04/18/2024 11:54:51 [...] your health care provider. General instructions Take fkhu-uzb-ebixsoa and prescription medicines only as told by [...] provider. Document Revised: 02/02/2021 Document Reviewed: 02/02/2021 [employer] Patient Education 2023 Livevol. Follow Up Care 03/19/2024 10:17:05 With:ERIKA SIM PA-C, URL Address: [address] [place] [address] Business (1) When:6 months [facility] 11-20-2024 NotePatient Education Obstetrics [...] health care provider. General instructions ??? Take vaoa-cxv-tznkazi and prescription medicines only as told by [...] you drink, and whe (more content not included)...[facility]11-19-2024 History of Present illness Narrative* ELEAZAR [...] a safe her option than use of spzm-kdc-kckzlid anti-inflammatory medication such as ibuprofen. We will pursue MRI of the lumbar spine assessing for lumbar stenosis and nerveroot impingement of the lower lumbar sacral region. We will follow up with the results and determine treatment options possible referral to pain management we will also order bone density to be done through [facility] for comparison of previous studies and follow up with her primary care for evaluatio n and treatment of any osteoporosis or osteopenia. Would suggest taking slnb-msy-baxosfx recommended dosing of calcium and vitamin-D which would be recommended by pharmacist, particularly since she were lactose intolerant. documented in this [facility]11-19-2024 Instructions* Patient Instructions* ELEAZAR Olsen - 04/17/2024 8:00 AM EST Continue light flexibility and stretching and use of cold pack to her lower back and gluteal region. 20 minutes several times a day continue Tylenol for discomfort may consider glucosamine chondroitin with turmeric as this is a safe her option than use of hjpy-caw-lfawrhb anti-inflammatory medication such as ibuprofen. We will pursue MRI of the lumbar spine assessing for lumbar stenosis and nerveroot impingement of the lower lumbar sacral region. We will follow up with the results and determine treatment options possible referral to pain management we will also order bone density to be done through [facility] for comparison of previous studies and follow up with her primary care for evaluatio n and treatment of any osteoporosis or osteopenia. Would suggest taking mijt-zfk-vvskrso recommended dosing of calcium and vitamin-D which would be recommended by pharmacist, particularly since she were lactose intolerant. documented in this [facility]11-12-2024 History of Present illness Narrative* Marti Munguia - 04/10/2024 3:45 PM EST Reason for Appointment: HST Patient: Jazzmine Wang : 1945 Reason for Home Sleep Study: Sleep disturbances Ordering Physician: Erica Jama PA-C Population Geneticist: Marti Munguia Pick-up Comments: Procedure was explained to the patient who expressed understanding. Patient was instructed how to use device and informed to return completed questionnaire with device tomorrow morning...... 04/10/24 Population Geneticist: Marti Munguia Drop-Off Comments: Patient returned HST device. Study data was successfully uploaded and completed questionnaire was imported to patient's chart....... 04/11/2024 Resulting Physician: BRIANNE March DO Impression: Sleep apnea with an AHI of 18 May benefit from CPAP titration versus auto PAP treatmentat 5-15 cm of water documented in this encounterWestern Missouri Mental Health CenterGdfgwgxqis46-45-7377 History of Present illness Narrative* ELEAZAR Olsen [...] (CMS/HCC) GERD (gastroesophageal reflux disease) Hyperlipemia (CMS/HCC) PAST [...] BID, # 180 cap(s), 3 Refill(s), Pharmacy: [facility] [id number], 1 cap(s) PO BID Cannabinoids (medical cannabis) Medical Marijuana citalopram (CeleXA) 40 MG tablet Every 24 hours Estrace 0.1 MG/GM vaginal cream See Instructions, 42.5 gm, Refill(s) 2, Apply pea sized amount to external urethra/vaginal area 3x a week for 1 month, then 2x a week afterwards, [facility] [id number], 165, cm, 09/01/23 10:37:00 EDT, Height/Length Dosing, [...] as well. ELEAZAR Olsen documented in this encounterWestern Missouri Mental Health CenterOsntkmhciq07-68-3504 Instructions* Patient Instructions* ELEAZAR Olsen - 03/27/2024 [...] a day as well. documented in this encounterWestern Missouri Mental Health CenterOtihxefzbq86-76-4821 Hospital Discharge instructions Patient Education 03/19/2024 10:08:59 [...] Up Care 02/07/2024 14:38:04 With:ERIKA SIM Address: [address] [place] [place] [address] Business (1) When: Unknown Comments:Office to schedule follow up in 1 month with [facility] 10-21-2024 NotePatient Education Cystoscopy with Botox injection [...] if you have a fever over 100 degrees.[facility] 02-21-2024 History of Present illness Narrative* [...] Review Audit Reviewed by Marie Morris MA (Color Television Console Monitor) on 02/21/24 at 1112 Medication Order Taking? Sig Documenting Provider Last Dose Status Acetaminophen (TYLENOL PO) [id number] Tylenol Historical Provider, Active acyclovir (Zovirax) 200 MG capsule [id number] 1 cap(s), PO, BID, # 180 cap(s), 3 Refill(s), Pharmacy:[facility] [id number], 1 cap(s) PO BID Historical ProviderMD Active Discontinued 02/21/24 1112 Discontinued 02/21/24 1112 Cannabinoids (medical cannabis) 27687530 Medical Marijuana Historical ProviderMD Active citalopram (CeleXA) 40 MG tablet [id number] 1 (one) time each day at the same time. Historical Provider, Active KlonoPIN 0.5 MG tablet [id number] Yes 0.5 mg Historical Provider, Active Discontinued 02/21/241111 sucralfate (Carafate) 1 g tablet [id number] 1 g. Historical Provider, Active Discontinued 02/21/241111 Discontinued 02/21/241111 HPI HPI Kathleen Sousa is [...] Tongue midline without atrophy or fasciculations. Coordination Ddwkeb-fg-ijwn, rapid alternating movements and sskt-ry-plse normal bilaterally without dysmetria. Intention tremor No cogwheel rigidity on exam. Gait Normal casual, toe, heel and tandem gait. 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 LUE Strength deltoid, biceps, triceps, wrist extensors, wrist extensors, wrist flexor, malted milk supervisor strength 5/5. RLE Strength illopsoas, quadriceps, tibialis [...] side effects from medications. documented in this encounterWestern Missouri Mental Health CenterLgckqobejy60-10-1128 Telephone encounter Note* Telephone Encounter - Eben Reeder MD - 09/19/2023 11:57 PM EDT Patient needs to get a repeat BMP for elevated Cr, reduced GFR and will also get additional US of the kidney and bladder. Eben Reeder MD [facility] September 19, 2023 11:58 PM ' [facility]04-22-2024 Miscellaneous Notes* Telephone Encounter - Eben Reeder MD - 09/19/2023 11:57 PM EDT Patient needs to get a repeat BMP for elevated Cr, reduced GFR and will also get additional US of the kidney and bladder. Eben Reeder MD [facility] September 19, 2023 11:58 PM ' documented in [facility]Prom[facility] Hospital Discharge instructions Patient Education 09/01/2023 11:33:05 [...] nerve stimulation). ?For women, using a medical records custodian to prevent urine leaks. This is a [...] right after experiencing incontinence. General instructions Take vtth-qpi-jbybjhw and prescription medicines only as told by [...] important. Where to find more information National [place] of Diabetes and Digestive and Kidney Diseases: www.niddk.nih.gov [employer]: www.urologyhealth.org Contact a health care [...] provider. Document Revised: 12/19/2020 Document Reviewed: 12/19/2020 [employer] Patient Education 2022 Livevol. Follow Up Care 02/08/2023 14:47:17 With:ERIKA SIM PA-C, URL Address: [address] [place] [address] [phone] When: Unknown Comments:3 mos (new med) [facility] [place] 03-26-2024 NoteHNO ID: [id number] Author: EBEN REEDER MD Service: ? Author Type: Physician Type: Progress Notes Filed: 08/23/2023 16:47 Note Text: VIRTUAL VISIT PROGRESS NOTE This is a virtual visit using [employer] Video Visit. It required patient-provider interaction for the medical decision making as documented below. I have communicated my name and active licensure. The patient's identity and physical location were verified at the time of this visit. 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 Denies thoughts of self harm. Patient also [...] which included preparing to see the patient, okjw-km-azph patient care, and completing clinical documentation Eben Reeder MD Medical Decision Making: Problems: Low: 2+ self-limited or minor problems Data: Unique test(s) ordered: 3+ Risk: Moderate: Moderate risk from testing/treatment Medical Decision Making [facility]: [facility] History of Present illness Narrative* Eben Reeder MD - 08/23/2023 4:42 PM EDT VIRTUAL VISIT PROGRESS NOTE This is a virtual visit using [employer] Zoom Video Visit. It required patient- provider interaction for the medical decision making as documented below. I have communicated my name and active licensure. The patient's identity and physical location wereverified at the time of this visit. 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 Denies thoughts of self harm. Patient also [...] which included preparing to see the patient, [id number] patient care, and completing clinical documentation Eben Reeder MD Medical Decision Making: Problems: Low: 2+ self-limited or minor problems Data: Unique test(s) ordered: 3+ Risk: Moderate: Moderate risk from testing/treatment Medical Decision Making Level: 4 - Moderate documented in this encounterPromedica Fost[facility]10-21-2021 Miscellaneous Notes* Telephone Encounter - Erika Kim - 03/19/2021 9:32 AM EDT Uploaded Xray report for patient into [employer]. Please allow time for processing. documented in this encounterPromedica Fostoria Community HospitalEvaluation + Plan note Future Appointments Appointment Date:12/29/2023 11:00:00 AM Scheduled Provider:ERIKA SIM PA-C Location:[facility] Appointment Type:URO Office Visit [facility] Evaluation + Plan note Future Appointments Appointment Date:03/16/2024 10:30:00 AM Scheduled Provider: Location:[facility] Appointment Type:Urology CALL PAT FT Appointment Date:03/19/2024 09:30:00 AM Scheduled Provider: Location:[facility] Appointment Type:Urology FT [facility] Evaluation + Plan note Future Appointments Appointment Date:04/18/2024 10:00:00 AM Scheduled Provider:ERIKA SIM PA-C Location:[facility] Appointment Type:URO Office Visit [facility] evaluation + Plan note Future Appointments Appointment Date:10/17/2024 10:40:00 AM Scheduled Provider:ERIKA SIM PA-C Location:[facility] Appointment Type:URO Office Visit [facility] Evaluation + Plan note Future Appointments Appointment Date:10/17/2024 10:40:00 AM Scheduled Provider:ERIKA SIM PA-C Location:[facility] Appointment Type:URO Office Visit Diagnostic Tests Pending * Urine Culture 05/02/24 [facility] evaluation note* Diagnosis Depression, unspecified depression type- Primary Forgetfulness Other general symptoms [facility] Diagnosis Stage 3a chronic kidney disease (HCC)- Primary [facility]* Diagnosis Right hip pain- Primary Pain in joint, pelvic region and thigh Chronic bilateral low back pain with left-sided sciatica [facility] [...] Actinic keratosis Lentigines documented in this [facility]* Diagnosis Hyperreflexia- Primary Abnormal reflex Degenerative disc disease, cervical AYDEE (obstructive sleep apnea) Obstructive sleep apnea (adult) (pediatric) Tremor Abnormal involuntary movements Jerking movements of extremities documented in this encounter [facility] Narrative No data available for this section [facility] Hospital Discharge instructions No data available for this section [facility] Hospital Discharge instructions Additional Instructions Push fluids Rest Ice to affected area Tylenol or Motrin if needed for pain Avoid electronics Follow with your doctor Return here if any problems persist [facility] Work Phone: Hospital Discharge instructionsAmbulatory Orders* Referral to Pain Management Location: None [facility] Work Phone: Progress note No data available for this section [facility] Shania Reason for referral (narrative)* Diagnostic Procedure Only (Routine) - Pending ReviewSpecialtyDiagnoses / ProceduresReferred By ContactReferred To ContactUS IMAGING Diagnoses Stage 3a chronic kidney disease (HCC) Procedures US KIDNEY/BLADDER US RETROPERITONEAL REAL TIME W/[place] [id number] [place] [address] Referral IDStatusReasonStsocial circle DateExpiration DateVisits RequestedVisits [id number] Review Auto-Generated Referral [facility] for referral (narrative)No reason for referral information availableSelect Medical [facility] Work Phone: Reason for visit Narrative* Other Medical (Routine) - ClosedSpecialtyDiagnoses / ProceduresReferred By ContactReferred To Contact Neurology Diagnoses Hypersomnia Memory loss Procedures Home sleep test Erica Jama PA [address] [place] [address] Phone: tel: fax: [facility] [address] [place] [phone] Phone: tel: fax: Referral IDStatusReasonStart DateExpiration DateVisits RequestedVisits [id number]/[id number] [facility] Narrative* Consultation (Routine) - Closed SpecialtyDiagnoses / ProceduresReferred By ContactReferred To Contact Neuropsychology Diagnoses Memory loss Procedures [place] OFFICE/OUTPATIENT NEW HIGH Shannon Mackey PA [address] [facility] [address] [place] [address] Phone: tel: fax: Bentley Carmona, PhD [address] [address] Phone: tel: fax: Referral IDStatusReasonStart DateExpiration DateVisits RequestedVisits [id number] [facility] Services Required / [facility] Healthcare Summary Purpose Family History No Family [...] 01 12:52pm Procedure Findings Note HNO ID: [id number] Author: Priyank Ponce Service: Hand Surgery Author Type: Physician Type: Operative Report Filed: 11/06/2018 12:58 PM Note Text: OPERATIVE NOTE: November 06, 2018 Janusz Ponce MD, PhD, [facility] Shoulder, Elbow, Wrist AND Hand Surgery Orthopaedic AND Rheumatologic [place] [address] [place] [id number] , Patient: Ms. Jazzmine Wang 1945, 73 [...] (more content not included)... Note HNO ID: [id number] Author: Sreedhar Rosas (Fel) Service: Orthopaedic Surgery Author Type: Fellow Type: Brief Op Note Filed: 11/06/2018 12:40 PM Note Text: BRIEF OPERATIVE / PROCEDURE NOTE LOG ID: [id number] SURGERY/PROCEDURE DATE: 11/06/2018 INCISION/PROCEDURE START TIME: 10:50 AM INCISION CLOSE/PROCEDURE END TIME: 12:21 PM SURGEON(S)/PROCEDURALIST(S) AND OBIEE OBIA SOLUTION ARCHITECT(S): Surgeon(s) and Role: * Janusz Ponce - [...] [M18.12] SIGNATURE: Sal Rosas MD PATIENT NAME: [facility] (more content not included)... Reason for Referral SpecialtyDiagnoses / ProceduresReferred By ContactReferred To ContactGerontology Diagnoses Forgetfulness Procedures CONSULT TO GERIATRICS OFFICE/OUTPATIENT [facility] 60 [place] [address] [place] [address] Referral IDStatusReasonStart DateExpiration DateVisits RequestedVisits [id number] PCP Requested Referral /[id number] / ProceduresReferred By ContactReferred To Contact Diagnoses Depression, unspecified depression type Procedures CONSULT TO [facility] ADULT OFFICE/OUTPATIENT [facility] [address] [place] [address] [place] [address] Referral IDStatusReummStflakito DateExpiration DateVisits RequestedVisits [id number] Review PCP Requested Referral /[id number] / ProceduresReferred By ContactReferred To Contact Diagnoses Jerking movements of extremities Memory loss Hypersomnia Procedures Polysomnography Michelle Leiva MD [address] [place] [address] Referral IDStatusFrancieSouth Rockwood DateExpiration DateVisits RequestedVisits [id number] Review/ Chief Complaint and Reason for Visit [...] 1 0:53am GERD (gastroesophageal reflux disease) F ebruary 2024 2:35pm Hyperlipidemia July 02, 2024 2 :35pm Overactive bladder July 02, 2024 2 :35pm Renal cysts, acquired, bilateral Februar 2024 2:35pm Spinal stenosis July 02, 2024 [...] 1 0:53am GERD (gastroesophageal reflux disease) F ebruary 2024 2:35pm Hyperlipidemia July 02, 2024 2 :35pm Overactive bladder July 02, 2024 2 :35pm Renal cysts, acquired, bilateral uar 2024 2:35pm Spinal stenosis July 02, 2024 2 :35pm GERD (gastroesophageal reflux disease) arch 2024 3:21pm Hyperlipidemia August 22, 2024 [...] INJ L4 L5/CJ October 15, 2024 1:13pm BH October 29, 2024 3:53p m F/U LUMB [...] not elsewhere classified J une 2024 11:02am Chief Complaint Admit Date RENAL [...] 2024 11:02am Sacroiliitis, not elsewhere classified J [facility] 2024 11:02am Arthritis of lumbosacral spine October [...] 2024 11:02am Sacroiliitis, not elsewhere classified J [facility] 2024 11:02am Arthritis of lumbosacral spine October 10:16am Chronic pain November 26, 2024 10:1 6am Osteoarthritis of spine with radiculopat hy, lumbar region November 26, 2024 10:16am Additional Source Comments INFORMATION SOURCE (unrecogn ized section and content) DATE CREATED AUTHOR 11/02/2018 [facility] DATE CREATED AUTHOR AUTHOR'S ORGANIZ ATION 11/08/2018 [facility] DATE CREATED AUTHOR AUTHOR'S ORGANIZ ATION 09/20/2023 [facility] DATE CREATED AUTHOR AUTHOR'S ORGANIZ ATION 10/12/2024 [facility] DATE CREATED AUTHOR AUTHOR'S ORGANIZ ATION 10/24/2024 [facility] DATE CREATED AUTHOR AUTHOR'S ORGANIZ ATION 12/15/2024 [facility] DATE CREATED AUTHOR AUTHOR'S ORGANIZ ATION 03/30/2025 [facility] DATE CREATED AUTHOR AUTHOR'S ORGANIZ ATION 03/31/2025 [facility] DATE CREATED AUTHOR AUTHOR'S ORGANIZ ATION 04/04/2025 [facility] DATE CREATED AUTHOR AUTHOR'S ORGANIZ ATION 04/05/2025 [facility] DATE CREATED AUTHOR AUTHOR'S ORGANIZ ATION 04/10/2025 [facility] Source Comments (unrecognize d section and content) In the event this informatio n is protected by the Federal Confidentiality of Alcohol and Drug Abuse Patient Records regulations: The Federal rules restrict any use of the information to criminally investigate or prosecute any alcohol or drug abuse patient.[facility] Community HospitalIn the event this information is protected by the Federal Confidentiality of Alcohol and Drug Abuse Patient Records regulations: The Federal rules restrict any use of the information to criminally investigate or prosecute any alcohol or drug abuse patient.[facility] Community HospitalIn the event this information is protected by the Federal Confidentiality of Alcohol and Drug Abuse Patient Records regulations: The Federal rules restrict any use of the information to criminally investigate or prosecute any alcohol or drug abuse patient.[facility] Reason for Visit (unrecogniz ed section and content) ReasonCommentsReceived Outside Medical RecordsReasonCommentsDepressionReason CommentsResultsReasonCommentsPainReasonCommentsTremorsReasonCommentsTremors ReasonCommentsFollow-upMRI [facility] 05/07/24ReasonCommentsMemory LossReasonComments Memory LossReasonCommentsSkin Check Care Teams (unrecognized sec tion and content) Team Status: Active Member Role Status Dates Prema Clement SOLUTIONS DELIVERY CONSULTANT-C Primary Care Provider Active Team Status: Active Member Role Status Dates Prema Clement SOLUTIONS DELIVERY CONSULTANT-C Primary Care Provider Active Start: October 15, 2024 Olimpia Patel ProviderActiveStart: October 15, 2024 Team Status: Inactive Member Role Status Dates Prema Clement SOLUTIONS DELIVERY CONSULTANT-C Primary Care Provider Active Start: October 15, 2024 End: October 15, 2024ThOlimpia Carrasquillo ProviderActiveStart: October 15, 2024 End: October 15, 2024 Team Status: Active Member Role Status Dates Prema Clement SOLUTIONS DELIVERY CONSULTANT-C Primary Care Provider Active Start: October 29, 2024 Olimpia Pichardo ProviderActiveStart: October 29, 2024 Team Status: Inactive Member Role Status Dates Prema Clement SOLUTIONS DELIVERY CONSULTANT-C Primary Care Provider Active Start: November 05, 2024 End: November 05, 2024ThOlimpia Carrasquillo ProviderActiveStart: November 05, 2024 End: November 05, 2024 Team Status: Inactive Member Role Status Chandrakant Clement SOLUTIONS DELIVERY CONSULTANT-C Primary Care Provider Active Start: November 05, 2024 End: November 05Bibiana Castillo ProviderActiveStart: November 05, 2024 End: November 05, 2024 Team Status: Inactive Member Role Status Dates Prema Clement SOLUTIONS DELIVERY CONSULTANT-C Primary Care Provider Active Start: November 26, 2024 End: November 26, 2024ThOlimpia Carrasquillo ProviderActiveStart: November 26, 2024 End: November 26, 2024 Team Status: Inactive Member Role Status Chandrakant Clement SOLUTIONS DELIVERY CONSULTANT-C Primary Care Provider Active Start: December 27, 2024 End: December 27, 2024Olimpia Araya ProviderActiveStart: December 27, 2024 End: December 27, 2024 Team Status: Inactive Member Role Status Dates Prema Clement SOLUTIONS DELIVERY CONSULTANT-C Primary Care Provider Active Start: September 11, 2024 End: September 11, 2024Renan Corralesending ProviderActiveStart: September 11, 2024 End: September 11, 2024 Team Status: Inactive Member Role Status Dates Prema Clement SOLUTIONS DELIVERY CONSULTANT-C Primary Care Provider Active Start: September 20, 2024 End: September 20, 2024Thmell Peña MDAttending ProviderActiveStart: September 20, 2024 End: September 20, 2024 Team Status: Active Member Role Status Dates Prema Clement SOLUTIONS DELIVERY CONSULTANT-C Primary Care Provider Active Start: August 13, 2024 Autumnzane Ware MDAttending ProviderActiveStart: August 13, 2024 Team Status: Inactive Member Role Status Dates Prema Clement SOLUTIONS DELIVERY CONSULTANT-C Primary Care Provider Active Start: August 22, 2024 End: August 22bdzane Ware , LAWRENCEttending ProviderActiveStart: August 22, 2024 End: August 22, 2024Team MemberRelationshipSpecialtyStart DateEnd Date Michelle Cotto [address] [place] [address] PCP - GeneralFamily Practice10/25/18 Prema Clement CNP [address] [place] [address] ReferringFamily Practice06/23/21Team MemberRelationshipSpecialtyStart DateEnd Date Michelle Cotto [address] [place] [address] PCP - GeneralFamily Medicine10/25/18 Prema Clement CNP [address] [place] [address] ReferringUnitypoint Health-Marshalltownly Medicine06/23/21Team MemberRelationshipSpecialtyStart DateEnd Date Michelle Cotto [address] [facility] [address] PCP - GeneralUnitypoint Health-Marshalltownly Medicine10/25/18 Prema Clement CNP [address] [place] [address] ReferringFamily Medicine06/23/21Team MemberRelationshipSpecialtyStart [place] [address] [place] [address], [place] [address] PCP - General10/19/22Team MemberRelationshipSpecialtyStart [place] [address] [place] [address], [place] [address] PCP - General5Team MemberRelationshipSpecialtyStart DateEnd Date Prema Clement MD [address] [place] [address] PCP - General5Team MemberRelationshipSpecialtyStart [place] [address] [place] [address] PCP - General5Team MemberRelationshipSpecialtyStart DateEnd Date Prema Clement MD [address] [place] [address] PCP - General5/23Team MemberRelationshipSpecialtyStart DateEnd Date Prema Clement MD [address] [facility] [place] [address] PCP - General5/23/23Team MemberRelationshipSpecialtyStart DateEnd Date Prema Clement MD [address] [facility] [place] [address] PCP - General5/23/23Team MemberRelationshipSpecialtyStart DateEnd Date Prema Clement MD [address] [place] [facility] [place] [address] PCP - General5/23/23Team MemberRelationshipSpecialtyStart DateEnd Date Prema Clement MD [address] [place] [facility] [place] [address] PCP - General5/23/23Team MemberRelationshipSpecialtyStart DateEnd Date Prema Clement MD [address] [place] [facility] [place] [address] PCP - General5/23/23Team MemberRelationshipSpecialtyStart DateEnd Date Prema Clement MD [address] [place] [facility] [place] [address] PCP - General5/23/23Team MemberRelationshipSpecialtyStart DateEnd Date Prema Clement MD [address] [facility] [place] [address] PCP - General5/23/23 Michelle Leiva MD [address] [place] [address] Referring PhysicianNeurology2Team MemberRelationshipSpecialtyStart DateEnd Date Prema Clement MD [address] [place] [address] PCP - General10/19/22 Michelle Leiva MD [address] [place] [address] Referring PhysicianNeurology2Team MemberRelationshipSpecialtyStart DateEnd Date Prema Clement MD [address] [place] [address], [place] [address] PCP [facility]10/19/22 Michelle Leiva MD [address] [place] [address] Referring PhysicianNeurology2 Team Status: Inactive Member Role Status Dates YURI Meredith Primary Care Provider Active Start: June 27, 2024 End: June 27, 2024ThOlimpia Carrasquillo ProviderActiveStart: June 27, 2024 End: June 27, 2024ToELEAZAR King-CReferring ProviderActiveStart: June 27, 2024 End: June 27, 2024 Team Status: Inactive Member Role Status Dates YURI Meredith Primary Care Prov ider, Referring Provider Active Start: July 02, 2024 End: July 02bdOlimpia Jaramillo ProviderActiveStart: July 02, 2024 End: July 02, 2024Team MemberRelationshipSpecialtyStart DateEnd Date Prema Clement MD [address] [place] [address] PCP - General10/19/22 Michelle Leiva MD [address] [place] [address] Referring PhysicianNeurology2Team MemberRelationshipSpecialtyStart DateEnd Date Prema Clement MD [address] [place] [address] PCP - General10/19/22 Michelle Leiva MD [address] [place] [address] Referring PhysicianNeurology2Team MemberRelationshipSpecialtyStart DateEnd Date Prema Clement MD [address] [place] [address] PCP - General10/19/22 Michelle Leiva MD [address] [place] [address] Referring PhysicianNeurology2Team MemberRelationshipSpecialtyStart DateEnd Prema Clement MD [address] [place] [address] PCP - General10/19/22 Michelle Leiva MD [address] [place] [address] Referring PhysicianNeurology2Team MemberRelationshipSpecialtyStart DateEnd Date Prema Clement MD [address] [place] [address] PCP - General10/19/22 Michelle Leiva MD [address] [place] [address] Referring PhysicianNeurolog07/09/24Team MemberRelationshipSpecialtyStart DateEnd Date Prema Clement MD [address] [place] [address] PCP - General10/19/22 Michelle Leiva MD [address] [place] [address] Referring PhysicianNeurology2Team MemberRelationshipSpecialtyStart DateEnd Date Prema Clement MD [address] [place] [address] PCP - General10/19/22 Michelle Leiva MD [address] [place] [address] Referring PhysicianValleywise [facility]al [facility]07/09/24 Team Status: Inactive Member Role Status Dates Prema Clement NP-Daphne Primary Care Provider Active Start: December 10, [...] BE BASED ON THE PRIMARY CLINICAL RECORDS. [facility]. provides no warranty or guarantee of the accuracy or completeness of information in this document.
[2025-04-10] MEDS: CEFAZOLIN SODIUM 2 GM/50 ML D5W PREMIX IV (13:49)
[2025-04-10] MEDS: ONABOTULINUMTOXINA 100 UNIT VIAL INJ (14:16)
[2025-04-10] MEDS: 0.9 % SODIUM CHLORIDE 10 ML SYRINGE - SALINE FLUSH 20 ML INJ (14:17)
[2025-04-10 14:23] VITALS: BP 141/76; PULSE 62; O2SAT 100
--- NOTE | 2025-04-10 14:26 | PM.URSON ---
Urology Surgery Operative Note Operative Note Procedure Date: 04/10/25 Time Out Performed: yes Pre-op Diagnosis: Urge predominant mixed incontinence Post-op Diagnosis: same as pre-op Procedures performed: Cystoscopy, intravesical botox injections (100 units) Anesthesia: MAC (Dr. Yu ) Primary Surgeon: Thelma Hatfield Complications: none Estimated blood loss (mL): 0 Findings: 1+ trabeculated bladder. Spastic, smaller capacity. No bladder tumors or lesions Specimens: none Indications for Procedures: 80 year old female with urge predominant mixed incontinence s/p successful intravesical botox 02/2024. PVR post procedure was 0 cc. She had significant discomfort under local and elected to proceed with repeat injection under MAC. Risks were discused including but not limited to bleeding, pain, infection, paralysis, urinary retention and need for additional procedures. Detailed description of Procedure: After informed consent was obtained, the patient was brought to the operating room and transferred onto the operating table in supine position. Sequential compression devices were placed on bilateral lower extremities. The patient received the appropriate dose of preoperative IV antibiotics and MAC anesthesia was induced. They were positioned in modified dorsolithotomy with the appropriate pressure points padded, prepped, and draped in the usual sterile fashion for this procedure. An operative safety timeout was performed confirming the patient's identity, laterality and procedure, and all present agreed to proceed. I began by inserting a 19 Setswana rigid cystoscope with 30 degree lens into the patient's urethra and bladder without difficulty. There were no bladder tumors, lesions, stones or foreign bodies. Bilateral ureteral orifices were orthotopic and patent. 100 units of Botox diluted in 10 cc injectable saline was mixed and injected into the detrusor muscle about 2 mm in depth throughout the bladder, 1 cc at a time. Care was taken to avoid vessels and the ureteral orifices. Hemostasis was excellent at the end of the case. The bladder was drained and cystoscope was removed. The patient tolerated the procedure well without complication. The patient was awakened from anesthesia and sent to the PACU in stable condition. Plan: Discharge home. Post op prophy abx sent to pharmacy on file. Call for repeat botox injections if desired and medication wears off.
[2025-04-10 14:38] VITALS: BP 169/88; PULSE 58; O2SAT 93
[2025-04-10 14:53] VITALS: BP 153/99; PULSE 55; O2SAT 96
[2025-04-10 15:10] VITALS: BP 149/78; PULSE 50; O2SAT 94
== END 2025-04-10 15:10 | disposition home or self-care (01) ==
LOC: SURGOUT 11:43
PROVIDERS: Visit Provider Urology
PROC: (CPT 52287; principal; 2025-04-10 13:00)
DX: N39.46 Mixed incontinence (principal); E78.5 Hyperlipidemia, unspecified; Z87.440 Personal history of urinary (tract) infections; N28.1 Cyst of kidney, acquired; N32.89 Other specified disorders of bladder; Z98.51 Tubal ligation status; Z90.49 Acquired absence of other specified parts of digestive tract; F17.290 Nicotine dependence, other tobacco product, uncomplicated; G47.33 Obstructive sleep apnea (adult) (pediatric); M79.7 Fibromyalgia; K21.9 Gastro-esophageal reflux disease without esophagitis
CPT/HCPCS: 52287; 36415; J0585; J0690; J1100; J2250; J2405; J2704; J3010